=== PATIENT | male | born 1940 | race Caucasian/White ===

== ENCOUNTER 2023-06-05 19:05 | Inpatient (IN) ==
--- NOTE | 2023-06-05 19:13 | Emergency Department Note ---
ED Provider Note History of Present Illness Chief Complaint: Ankle Pain Stated Complaint: L ANKLE FRACTURE Time Seen by Provider: 06/05/23 19:12 This is an 83-year-old gentleman with a history of BPH, back pain, accompanied by his daughter, who was referred to the emergency department by an outside urgent care secondary to a left ankle fracture. Patient states he took a fall 1 to 2 weeks ago while walking on a path and had a little bit of left ankle pain but nothing significant. He also had some back pain for several days after this occurred but this felt similar to prior back pain and his back pain has for the most part improved at this point. 3 days ago he was walking on uneven terrain, stumbled a little bit and caught himself but felt a pop and heard a snap in the left ankle and also rolled his right foot. He had increasing pain in the left ankle and right foot and developed swelling in this area but continued to walk on it. Symptoms persisted so they went to an urgent care today who took x-rays which showed a medial malleolus fracture and a distal fibula fracture. Patient also developed increasing redness around the ankle today. Denies any new numbness or tingling or weakness in his legs or feet. No chest pain or shortness of breath. Does not take blood thinners. Has been on steroids recently for his ongoing back pain and follows with pain management. History of compression fractures at T12, L1, L3, L4 Home Medications Medication Instructions Recorded Confirmed Type tamsulosin 0.4 mg capsule 0.4 mg PO DAILY #30 caps 04/25/23 06/05/23 Rx acetaminophen 650 mg 1,300 mg PO Q12H #120 tabs 05/07/23 06/05/23 Rx tablet,extended release (Tylenol 8 Hour) polyethylene glycol 3350 17 17 g PO BID PRN constipation #238 05/07/23 06/05/23 Rx gram/dose oral powder (Miralax) grams prednisone 20 mg tablet See Rx Instructions .Route 05/25/23 06/05/23 Rx .COMPLEX #20 tabs tramadol 50 mg tablet 100 mg PO Q12H PRN pain #60 tabs 05/25/23 06/05/23 Rx Allergies Allergy/AdvReac Type Severity Reaction Status Date / Time Penicillins Allergy Unknown Verified 05/25/23 15:23 Past Med/Surg History Medical History Compression fracture of lumbar vertebra T12, L1, L3, L4 Lumbar pain Surgical History H/O hernia repair History of appendectomy Total knee replacement status 2004 Family History Father Hypertension Denies family history of Ovarian cancer Prostate cancer Diabetes Myocardial infarction Breast cancer Colorectal cancer Social History Smoking Status: Never smoker Second Hand Exposure: No; Do You Dip or Chew Tobacco: No; Hx Alcohol Use: Yes Alcohol Intake Frequency: Monthly or Less Alcohol Intake Frequency Comment: rarely Hx Substance Use: No Visual Impairment: No Limitations Hearing Ability: Normal File Keeper Required: No Beliefs That Will Affect Care: None marital status: Current Living Situation: Spouse 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 Feels Safe at Home: Yes caffeine: Yes (coffee) Dental Care, Regularly: Yes Physical Activity Frequency: 1-2 Times per Week Physical Activity Frequency Comment: walking helping Seatbelt Use: always Sunscreen Use: Yes Physical Exam Vital Signs Vital Signs - 24 hr 06/05/23 19:07 06/05/23 19:16 06/05/23 22:06 Temperature 96.8 F L Temperature Source Temporal Artery Scan Pulse Rate 66 Pulse Rate [Apical] 70 Pulse Rhythm Regular Pulse Rhythm [Apical] Regular Pulse Strength Normal Respiratory Rate 20 19 19 Respiratory Effort / Characteristics Non-Labored Spontaneous Non-Labored Non-Labored Respiratory Depth Normal Normal Normal Blood Pressure 152/80 H Blood Pressure [Right Arm] 163/78 H Blood Pressure Mean 104 Blood Pressure Mean [Right Arm] 106 Blood Pressure Position Sitting Pulse Oximetry 96 96 97 Oxygen Delivery Method Room Air Room Air Sepsis Recent Fever Within 48 Hours No Sepsis New/Unexplained Change in Mental Status N/A Sepsis Action Taken by Nursing No Action Required CONSTITUTIONAL: Well developed, well nourished, in no acute distress, pleasant. HEAD: Normocephalic, atraumatic. NECK: Full active range of motion. No spinous process tenderness RESPIRATORY: Breathing unlabored and symmetric. Lungs clear to auscultation bilaterally. No wheeze, rales, or rhonchi. CARDIOVASCULAR: Regular rate and rhythm. No murmurs, rubs, or gallops. DP pulses 2+ bilaterally. MUSCULOSKELETAL: Right lower extremity: No edema is noted, no deformities. There is mild tenderness over the lateral malleolus. Tenderness over the fifth metatarsal with associated ecchymosis. Left lower extremity: 3+ pitting edema in lower leg, ankle, foot. No deformities are noted. Skin is erythematous from the mid mae down into the foot. No wounds. Knee full range of motion, no proximal fibular tenderness. Negative squeeze test. There is tenderness in the medial malleolus and distal fibula. Achilles is intact, nontender. Moves all toes. No calf or medial thigh tenderness. Back: No thoracic, lumbar, sacral spinous process tenderness. No step-off deformity. SKIN: [place], warm, dry. NEUROLOGIC: Awake, alert, oriented. Gaze is conjugate. Face symmetric. No sensory deficits in bilateral toes. PSYCHIATRIC: Appropriate. Normal affect. Medical Decision Making Differential Diagnosis Fracture, dislocation, subluxation, contusion, hematoma, sprain, strain, cellulitis, neurovascular injury, DVT, among other pathology Medical Records Attestation: I reviewed the patient's medical records. (Reviewed left ankle x- ray on daughter's cell phone which appears to be a medial malleolus and spiral distal fibula fracture) Laboratory Data 06/05/23 19:41 06/05/23 19:41 Lab Results 06/05/23 06/05/23 Range/Units 19:41 19:41 WBC 7.77 (4.8-10.8) K/ul RBC 5.01 (4.70-6.10) M/uL Hgb 15.9 (14.0-18.0) g/dl Hct 47.8 (42.0-52.0) % MCV 95.4 (80.0-100.0) fL MCH 31.7 (25.0-34.0) pg MCHC 33.3 (32.0-36.0) g/dL RDW Std Deviation 57.6 H (36.4-46.3) fL RDW Coeff of Jose 16.4 H (11.5-14.5) % Plt Count 198 (130-400) K/uL MPV 8.7 L (9.4-12.4) fL Immature Gran % (Auto) 0.4 % Neut % (Auto) 84.1 % Lymph % (Auto) 7.1 % [place] % (Auto) 7.7 % Eos % (Auto) 0.4 % Baso % (Auto) 0.3 % Neut # (Auto) 6.54 H (1.40-6.50) K/uL Lymph # (Auto) 0.55 L (1.2-3.4) K/uL [place] # (Auto) 0.60 H (0.11-0.59) K/uL Eos # (Auto) 0.03 (0-0.50) K/uL Baso # (Auto) 0.02 (0-0.2) K/uL Immature Gran # (Auto) 0.03 (0.01-0.20) K/uL Sodium 139 (136-145) mmol/L Potassium 4.6 (3.5-5.1) mmol/L Chloride 106 (98-107) mmol/L Carbon Dioxide 27 (21-32) mmol/L Anion Gap 6 (3-11) BUN 28 H (6-23) mg/dl Creatinine 0.93 (0.6-1.4) mg/dl Est Cr Clr Drug Dosing 74.4 ml/min Est GFR ( Amer) 87.7 ml/min Est GFR (Non-Af Amer) 75.7 ml/min BUN/Creatinine Ratio 30.1 H (10-20) Glucose 101 H (70-99(Fasting)) mg/dl Calcium 9.5 (8.6-10.3) mg/dl Total Bilirubin 0.9 (0.2-1.0) mg/dl AST 16 (13-39) U/L ALT 13 (7-52) U/L Alkaline Phosphatase 85 (34-104) U/L Total Protein 6.8 (6.0-8.3) gm/dl Albumin 4.1 (3.4-5.0) gm/dl Globulin 2.7 (2.5-4.0) gm/dl Albumin/Globulin Ratio 1.5 (0.9-2) Imaging Data Radiologist's Impression: Venous Doppler Study 06/05/23 19:41 Exam(s): US VENOUS LEFT LOWER EXTREMITY EXAM: US Duplex Left Lower Extremity Veins CLINICAL HISTORY: Reason for exam: ankle injury with leg edema and skin changes. TECHNIQUE: Real-time duplex ultrasound scan of the left lower extremity veins integrating B-mode two-dimensional vascular structure, Doppler spectral analysis, color flow Doppler imaging and compression. COMPARISON: No relevant prior studies available. FINDINGS: Deep veins: Unremarkable. No DVT in the visualized common femoral, femoral, proximal deep femoral or popliteal veins. The veins demonstrate normal color flow, are normally compressible, with normal phasic flow and/or augmentation response. Superficial veins: Unremarkable. No thrombus in the visualized great saphenous vein. Soft tissues: There is a 4.3 x 1.5 x 3.5 cm Clinton's cyst in the left popliteal fossa. IMPRESSION: No evidence of DVT in the left lower extremity. Clinton's cyst in the popliteal fossa measures 4.3 cm. Electronically signed by: Ritesh Zhang MD 06/05/23 21:59 PM MDM Narrative Pleasant 83-year-old gentleman was referred to the emergency department by an outside urgent care related to fracture of the left ankle. See above for further details. Overall patient well-appearing in no acute distress. The left lower leg is quite edematous and there is tenderness in the medial malleolus and distal fibula. Skin is also quite erythematous from the mid mae down into the foot which certainly could be dependency although DVT was considered. Also considered cellulitis though suspect this is less likely (no skin wounds). Patient is also tender over the right fifth metatarsal and lateral ankle with associated ecchymosis though no edema is appreciated. Patient's daughter had taken pictures of the left ankle AP x-ray which shows a medial malleolus and spiral distal fibula fracture. I reviewed this. X-rays of the left tib-fib, ankle, and foot as well as the right ankle and right foot were obtained. Due to the edema and skin color changes in the left leg with a known injury, an ultrasound of the leg was also ordered. IV was inserted and labs were obtained. Labs: No leukocytosis or anemia. Platelets are normal. Creatinine baseline 0.93. No electrolyte disturbances. X-rays initially interpreted by myself demonstrating no additional fractures aside from what appears to be a trimalleolar fracture of the left ankle, pending final radiology reads. Ultrasound is negative for DVT. There is an incidental Clinton's cyst identified Case discussed with Dr. Camacho (orthopedics on-call) and he visualized images of the patient's left ankle, agrees this is a trimalleolar fracture until proven otherwise. He requests a short leg posterior and stirrup splint, elevation with ice for the edema, admission under medicine with orthopedic consult. He will likely be able to operate on this either 06/06/2023 afternoon or the following day (). Case reviewed with ED attending Dr. Disla who is agreeable with this plan. I ordered a chest x-ray for OR planning purposes at time of admission and on my initial evaluation, it does appear that the patient has some blunting of the costophrenic angle with a possible effusion on the left side. No priors available to compare Case discussed with hospitalist Dr. Zhang including the potentially abnormal chest x-ray and she will add a lateral on tomorrow. Patient has no respiratory complaints, this seems to be an incidental finding. She agrees to admit the patient with orthopedic consult. Impression Closed trimalleolar fracture, Abnormal chest x-ray Discharge Plan Visit Data Chief Complaint: Ankle Pain Stated Complaint: L ANKLE FRACTURE ED Provider: Elizabeth Disla ED Midlevel Provider: Deven Minor Discharge Problem: Closed trimalleolar fracture, Abnormal chest x-ray Patient Disposition: Admitted As Inpatient Condition: Good Discharge Instructions Interventions: ED Discharge Assessment Last Done: 06/05/23 23:19 Prescriptions Prescriptions: No Action tamsulosin 0.4 mg capsule 0.4 mg PO DAILY Qty: 30 2RF polyethylene glycol 3350 [Miralax] 17 gram/dose powder 17 g PO BID PRN (Reason: constipation) Qty: 238 2RF acetaminophen [Tylenol 8 Hour] 650 mg tablet extended release 1,300 mg PO Q12H Qty: 120 2RF prednisone 20 mg tablet See Rx Instructions .Route .COMPLEX Qty: 20 0RF Rx Instructions: Three p.o. daily for 3 days then 2 p.o. daily for 3 days then 1 p.o. daily for 3 days then half a tablet p.o. daily for 4 days then DC tramadol 50 mg tablet 100 mg PO Q12H PRN (Reason: pain) Qty: 60 2RF
[2023-06-05 20:08] LABS: Basophils # (auto) 0.02 K/uL (0-0.2); Basophils % (auto) 0.3 %; Eosinophils # (auto) 0.03 K/uL (0-0.50); Eosinophils % (auto) 0.4 %; Hematocrit (blood only) 47.8 % (42.0-52.0); Hemoglobin 15.9 g/dl (14.0-18.0); Immature Granulocytes # (auto) 0.03 K/uL (0.01-0.20); Immature Granulocytes % (auto) 0.4 %; Lymphocytes # (auto) 0.55 K/uL (1.2-3.4); Lymphocytes % (auto) 7.1 %; Mean Corpuscular Hemoglobin 31.7 pg (25.0-34.0); Mean Corpuscular Hgb Conc 33.3 g/dL (32.0-36.0); Mean Corpuscular Volume 95.4 fL (80.0-100.0); Mean Platelet Volume 8.7 fL (9.4-12.4); Monocytes % (auto) 7.7 %; Neutrophils # (auto) 6.54 K/uL (1.40-6.50); Neutrophils % (auto) 84.1 %; Platelet Count 198 K/uL (130-400); RDW Coefficient of Variation 16.4 % (11.5-14.5); RDW Standard Deviation 57.6 fL (36.4-46.3); Red Blood Count 5.01 M/uL (4.70-6.10); White Blood Count 7.77 K/ul (4.8-10.8)
[2023-06-05 20:24] LABS: Albumin Globulin Ratio 1.5 (0.9-2); Albumin Level 4.1 gm/dl (3.4-5.0); BUN Creatinine Ratio 30.1 (10-20); Bilirubin,Total 0.9 mg/dl (0.2-1.0); Calcium 9.5 mg/dl (8.6-10.3); Creatinine Clr Calc Pharmacy 74.4 ml/min; Est GFR (African American) 87.7 ml/min; Est GFR (Non-African American) 75.7 ml/min; Globulin 2.7 gm/dl (2.5-4.0); Potassium 4.6 mmol/L (3.5-5.1); Total Protein 6.8 gm/dl (6.0-8.3)
--- NOTE | 2023-06-05 21:30 | History & Physical Report ---
Date of Service June 05, 2023 Assessment & Plan (1) Closed trimalleolar fracture: Plan: 83yo male presenting with 3 days of progressive pain, swelling and redness of the left ankle after rolling it. Found to have trimalleolar fracture. Patient is NV intact, pain is well controlled. -Admit to medical -Apply ice to LLE -Elevation -Tylenol as needed for pain -Orthopedic consultation - plan for OR in AM tomorrow or possibly next day - will keep patient NPO for now if case OR tomorrow (2) Lumbar pain: Plan: Chronic. Patient is currently on a steroid taper for lumbar pain. He is currently on 20mg daily - he should do 20mg daily x 3 days then 10mg daily x 4 days then DC. -Continue Prednisone 20mg po daily (3) BPH (benign prostatic hyperplasia): Plan: Chronic. Stable -Continue Tamsulosin History of Present Illness Chief Complaint: fracture of the left ankle Primary Care Provider: Marybeth Woods MD Harsha Curry is a pleasant 83yo male with history of BPH, vertebral compression fractures and back pain on chronic steroid therapy presenting with fracture of the left ankle. Approximately 1-2 weeks ago the patient fell. He had some minimal pain in the left ankle. Three days ago he stumbled on some uneven ground and rolled his left ankle. He reports feeling a pop and hearing a snap in the left ankle. He also rolled his right ankle as well. Over the last 3 days, he has been having increasing pain, swelling and redness of the left ankle. He has been having difficulty walking. No additional complaints at this time. In the ER he is afebrile, HD stable Comfortable with no complaint of pain at this time Allergies Allergy/AdvReac Type Severity Reaction Status Date / Time Penicillins Allergy Unknown Verified 05/25/23 15:23 Home Medications Medication Instructions Recorded Confirmed Type tamsulosin 0.4 mg capsule 0.4 mg PO DAILY #30 caps 04/25/23 06/05/23 Rx acetaminophen 650 mg 1,300 mg PO Q12H #120 tabs 05/07/23 06/05/23 Rx tablet,extended release (Tylenol 8 Hour) polyethylene glycol 3350 17 17 g PO BID PRN constipation #238 05/07/23 06/05/23 Rx gram/dose oral powder (Miralax) grams prednisone 20 mg tablet See Rx Instructions .Route 05/25/23 06/05/23 Rx .COMPLEX #20 tabs tramadol 50 mg tablet 100 mg PO Q12H PRN pain #60 tabs 05/25/23 06/05/23 Rx Past Med/Surg History Medical History (Updated 06/05/23 @ 23:52 by Nia Zhang DO) BPH (benign prostatic hyperplasia) Compression fracture of lumbar vertebra T12, L1, L3, L4 Lumbar pain Surgical History H/O hernia repair History of appendectomy Total knee replacement status 2004 Family History Father Hypertension Denies family history of Ovarian cancer Prostate cancer Diabetes Myocardial infarction Breast cancer Colorectal cancer Social History Smoking Status: Never smoker Second Hand Exposure: No; Do You Dip or Chew Tobacco: No; Hx Alcohol Use: Yes Alcohol Intake Frequency: Monthly or Less Alcohol Intake Frequency Comment: rarely Hx Substance Use: No Visual Impairment: No Limitations Hearing Ability: Normal Honey Blender Required: No Beliefs That Will Affect Care: None marital status: Current Living Situation: Spouse 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 Feels Safe at Home: Yes caffeine: Yes (coffee) Dental Care, Regularly: Yes Physical Activity Frequency: 1-2 Times per Week Physical Activity Frequency Comment: walking helping Seatbelt Use: always Sunscreen Use: Yes Review of Systems Review of Systems: All systems reviewed & are unremarkable except as noted in HPI & below Physical Exam Physical Exam: General: patient resting comfortably, NAD, non-toxic in appearance, AA&O x 4 Skin: warm, dry, intact, no rashes or lesions HEENT: NC/AT, PERRL, EOMI, anicteric sclera, conjunctiva without injection, external ear normal to inspection and nontender, nares patent, moist mucus membranes, dentition intact, no oropharyngeal lesions, neck supple, trachea midl ine, no LAD, no thyromegaly, no JVD Heart: +S1/S2, regular, no m/r/g Lungs: equal air entry bilaterally, no rales/rhonchi/wheezes Abd: +BS, soft, NT/ND, no masses/organomegaly/ascites Ext: warm, 2+ pulses in UE/LE bilaterally, no clubbing/cyanosis or edema. LLE with dressing in place - splinting being placed. RLE with some bruising in the lateral foot Neuro: nonfocal, patient AA&O x 4, speech intact, no facial droop, moving all extremities on command with equal strength 5/5 Results & Data Results & Data Vital Signs (Past 12 Hours) Vital Signs Temp Pulse Resp BP Pulse Ox O2 Del Method 06/05/23 19:16 19 96 Room Air 06/05/23 19:07 36 C L 66 20 152/80 H 96 Room Air Laboratory Results Laboratory Results WBC 7.77 K/ul (4.8-10.8) 06/05/23 19:41 RBC 5.01 M/uL (4.70-6.10) 06/05/23 19:41 Hgb 15.9 g/dl (14.0-18.0) 06/05/23 19:41 Hct 47.8 % (42.0-52.0) 06/05/23 19:41 MCV 95.4 fL (80.0-100.0) 06/05/23 19:41 MCH 31.7 pg (25.0-34.0) 06/05/23 19:41 MCHC 33.3 g/dL (32.0-36.0) 06/05/23 19:41 RDW Std Deviation 57.6 fL (36.4-46.3) H 06/05/23 19:41 RDW Coeff of Jose 16.4 % (11.5-14.5) H 06/05/23 19:41 Plt Count 198 K/uL (130-400) 06/05/23 19:41 MPV 8.7 fL (9.4-12.4) L 06/05/23 19:41 Immature Gran % (Auto) 0.4 % 06/05/23 19:41 Neut % (Auto) 84.1 % 06/05/23 19:41 Lymph % (Auto) 7.1 % 06/05/23 19:41 [place] % (Auto) 7.7 % 06/05/23 19:41 Eos % (Auto) 0.4 % 06/05/23 19:41 Baso % (Auto) 0.3 % 06/05/23 19:41 Neut # (Auto) 6.54 K/uL (1.40-6.50) H 06/05/23 19:41 Lymph # (Auto) 0.55 K/uL (1.2-3.4) L 06/05/23 19:41 [place] # (Auto) 0.60 K/uL (0.11-0.59) H 06/05/23 19:41 Eos # (Auto) 0.03 K/uL (0-0.50) 06/05/23 19:41 Baso # (Auto) 0.02 K/uL (0-0.2) 06/05/23 19:41 Immature Gran # (Auto) 0.03 K/uL (0.01-0.20) 06/05/23 19:41 Sodium 139 mmol/L (136-145) 06/05/23 19:41 Potassium 4.6 mmol/L (3.5-5.1) 06/05/23 19:41 Chloride 106 mmol/L (98-107) 06/05/23 19:41 Carbon Dioxide 27 mmol/L (21-32) 06/05/23 19:41 Anion Gap 6 (3-11) 06/05/23 19:41 BUN 28 mg/dl (6-23) H 06/05/23 19:41 Creatinine 0.93 mg/dl (0.6-1.4) 06/05/23 19:41 Est Cr Clr Drug Dosing 74.4 ml/min 06/05/23 19:41 Est GFR ( Amer) 87.7 ml/min 06/05/23 19:41 Est GFR (Non-Af Amer) 75.7 ml/min 06/05/23 19:41 BUN/Creatinine Ratio 30.1 (10-20) H 06/05/23 19:41 Glucose 101 mg/dl (70-99(Fasting)) H 06/05/23 19:41 Calcium 9.5 mg/dl (8.6-10.3) 06/05/23 19:41 Total Bilirubin 0.9 mg/dl (0.2-1.0) 06/05/23 19:41 AST 16 U/L (13-39) 06/05/23 19:41 ALT 13 U/L (7-52) 06/05/23 19:41 Alkaline Phosphatase 85 U/L (34-104) 06/05/23 19:41 Total Protein 6.8 gm/dl (6.0-8.3) 06/05/23 19:41 Albumin 4.1 gm/dl (3.4-5.0) 06/05/23 19:41 Globulin 2.7 gm/dl (2.5-4.0) 06/05/23 19:41 Albumin/Globulin Ratio 1.5 (0.9-2) 06/05/23 19:41 Impressions Venous Doppler Study 06/05/23 19:41 Exam(s): US VENOUS LEFT LOWER EXTREMITY EXAM: US Duplex Left Lower Extremity Veins CLINICAL HISTORY: Reason for exam: ankle injury with leg edema and skin changes. TECHNIQUE: Real-time duplex ultrasound scan of the left lower extremity veins integrating B-mode two-dimensional vascular structure, Doppler spectral analysis, color flow Doppler imaging and compression. COMPARISON: No relevant prior studies available. FINDINGS: Deep veins: Unremarkable. No DVT in the visualized common femoral, femoral, proximal deep femoral or popliteal veins. The veins demonstrate normal color flow, are normally compressible, with normal phasic flow and/or augmentation response. Superficial veins: Unremarkable. No thrombus in the visualized great saphenous vein. Soft tissues: There is a 4.3 x 1.5 x 3.5 cm Clinton's cyst in the left popliteal fossa. IMPRESSION: No evidence of DVT in the left lower extremity. Clinton's cyst in the popliteal fossa measures 4.3 cm. Electronically signed by: Ritesh Zhang MD 06/05/23 21:59 PM PG Care Time/CCT Total # of Minutes Spent Total Time Spent with Patient: Total time spent is greater than 50% in coordination of care (as documented) at patient's floor/unit and/or counseling patient: Coding Level of Care Code 39560 INT INP/OBS CARE 2/55MIN Diagnoses Closed trimalleolar fracture S82.852A Encounter type: initial encounter Laterality: left Lumbar pain M54.50 BPH (benign prostatic hyperplasia) N40.0 (1) Closed trimalleolar fracture Encounter type: initial encounter Laterality: left Qualified Code(s): S82.852A - Displaced trimalleolar fracture of left lower leg, initial encounter for closed fracture
--- NOTE | 2023-06-05 22:00 | Ultrasound Report ---
Exam(s): US VENOUS LEFT LOWER EXTREMITY EXAM: US Duplex Left Lower Extremity Veins CLINICAL HISTORY: Reason for exam: ankle injury with leg edema and skin changes. TECHNIQUE: Real-time duplex ultrasound scan of the left lower extremity veins integrating B-mode two-dimensional vascular structure, Doppler spectral analysis, color flow Doppler imaging and compression. COMPARISON: No relevant prior studies available. FINDINGS: Deep veins: Unremarkable. No DVT in the visualized common femoral, femoral, proximal deep femoral or popliteal veins. The veins demonstrate normal color flow, are normally compressible, with normal phasic flow and/or augmentation response. Superficial veins: Unremarkable. No thrombus in the visualized great saphenous vein. Soft tissues: There is a 4.3 x 1.5 x 3.5 cm Clinton's cyst in the left popliteal fossa. IMPRESSION: No evidence of DVT in the left lower extremity. Clinton's cyst in the popliteal fossa measures 4.3 cm. Electronically signed by: Ritesh Zhang MD 06/05/23 21:59 PM
[2023-06-05] MEDS ORDERED: POLYETHYLENE (MIRALAX) 17 GM PACK PO PRN (23:38)
[2023-06-05] MEDS ORDERED: ONDANSETRON INJ 2 MG/ML 2 ML VIAL IV PRN (23:38)
[2023-06-06] MEDS: ACETAMINOPHEN 325 MG TAB PO PRN ×5 (02:17→23:41)
[2023-06-06] MEDS: predniSONE 20 MG TAB PO SCH (07:32)
[2023-06-06] MEDS: TAMSULOSIN HCL 0.4 MG CAP PO SCH (07:32)
--- NOTE | 2023-06-06 07:35 | Hospitalist Progress Note ---
Date of Service June 06, 2023 Assessment & Plan (1) Closed trimalleolar fracture: Plan: 83yo male presenting with 3 days of progressive pain, swelling and redness of the left ankle after rolling it before [facility] [place] the past [place] with ongoing pain/ambulation difficulty Imaging showed bimalleolar fracture with possible widening of tibiofibular syndesmosis, soft tissue swelling about the ankle noted. Angulation of second MTP may be chronic and degenerative in origin Venous Doppler NEGATIVE for DVT in LLE, noting clinton's cyst in popliteal fossa measuring 4.3cm Splinted in ER Continue ice, elevation Pain control -- only reporting pain w/ ambulation/movement, non at rest Bowel regimen prn Orthopedics consulted for possible surgery today vs tomorrow Continuing NPO for now in case, messaged Dr Camacho this morning to see if possible surgery today vs tomorrow as NPO presently Dry on exam/no IVF, added NSS @ 80cc/hr for now while NPO to prevent dehydration Will need PT/OT consults pending ortho eval/surgery plan No chemical proph in setting of possible surgery today. Will order SCDs for his RLE, LLE in splint presently Monitor labs in AM (2) Lumbar pain: Plan: Chronic. Patient is currently on a steroid taper for lumbar pain. On admission, on 20mg daily -- planning x 3 days, then 10mg daily (starting 8) x 4 days then discontinue (3) BPH (benign prostatic hyperplasia): Plan: Chronic. Stable, no issues reported Continue Tamsulosin Plan continued inpatient stay NPO/IVF while awaiting eval by Dr Camacho. If no planned surgery for today can feed tonight/hold off further IVF and make NPO at midnight. Will keep NPO for now as no response yet by orthopedics. Admission and Anticipated Discharge Date Admission Date: June 05, 2023 Supervising Physician Co-Signing Physician Notes The patient was not seen by me. The chart was reviewed. Case discussed with ERIK Davila. Agree with assessment and plan Subjective eval this morning, doing alright. no pain as long as not walking on it. not seen by orthopedics yet, will message Dr Camacho. NPO at present, mouth dry and asking about swabs, RN to provide. Changed CXR to portable to prevent need to transport down and just needing clearance. No CP/SOB reported. No abdominal pain, nausea. Reported twisting on driveway prior to going to [facility] in [place] and returning Sunday and having issues w/ pain since that time. Bruising noted to his right ankle as well, imaging obtained. Thinks he twisted both ankle w/ initial injury. Questions/concerns addressed at this time. Physical Exam Physical Exam: General: WD/WN male resting in bed, talking with case work aide, NAD at present HEENT: head normocephalic, atraumatic, mm slightly dry, trachea midline Resp: CTA, no w/c/r, on room air CV: RRR, slightly bradycardic at times to the 50s, no significant m/r/g, no pitting edema/calf tenderness GI; +BS, soft/NT : no galvan MSK/Neuro: bruising/ecchymosis to medial/lateral aspect of right foot, slight tenderness to palpation but NVI LEFT LE- dressing/splint in place, cap refull wnl, no clubbing/edema, cap refill wnl Psych: AOx3 , cooperative with examination Results & Data Results & Data Vital Signs (Past 12 Hours) Vital Signs Temp Pulse Pulse Resp BP Pulse Ox O2 Del Method 06/06/23 07:20 36.5 C 64 16 148/75 H 96 Room Air 06/05/23 20:00 36.7 C 69 18 168/85 H 96 Room Air 06/05/23 22:06 70 19 163/78 H 97 Laboratory Results 06/06/23 06/06/23 06/05/23 Range/Units 06:45 06:45 19:41 WBC 6.64 (4.8-10.8) K/ul RBC 4.78 (4.70-6.10) M/uL Hgb 15.2 (14.0-18.0) g/dl Hct 45.0 (42.0-52.0) % MCV 94.1 (80.0-100.0) fL MCH 31.8 (25.0-34.0) pg MCHC 33.8 (32.0-36.0) g/dL RDW Std Deviation 56.6 H (36.4-46.3) fL RDW Coeff of Jose 16.2 H (11.5-14.5) % Plt Count 175 (130-400) K/uL MPV 8.5 L (9.4-12.4) fL Immature Gran % (Auto) % Neut % (Auto) % Lymph % (Auto) % Dale % (Auto) % Eos % (Auto) % Baso % (Auto) % Neut # (Auto) (1.40-6.50) K/uL Lymph # (Auto) (1.2-3.4) K/uL Dale # (Auto) (0.11-0.59) K/uL Eos # (Auto) (0-0.50) K/uL Baso # (Auto) (0-0.2) K/uL Immature Gran # (Auto) (0.01-0.20) K/uL Sodium 141 139 (136-145) mmol/L Potassium 3.6 D 4.6 (3.5-5.1) mmol/L Chloride 105 106 (98-107) mmol/L Carbon Dioxide 30 27 (21-32) mmol/L Anion Gap 6 6 (3-11) BUN 22 28 H (6-23) mg/dl Creatinine 0.77 0.93 (0.6-1.4) mg/dl Est Cr Clr Drug Dosing 89.4 74.4 ml/min Est GFR ( Amer) 97.3 87.7 ml/min Est GFR (Non-Af Amer) 83.9 75.7 ml/min BUN/Creatinine Ratio 28.6 H 30.1 H (10-20) Glucose 97 101 H (70-99(Fasting)) mg/dl Calcium 9.1 9.5 (8.6-10.3) mg/dl Total Bilirubin 0.9 (0.2-1.0) mg/dl AST 16 (13-39) U/L ALT 13 (7-52) U/L Alkaline Phosphatase 85 (34-104) U/L Total Protein 6.8 (6.0-8.3) gm/dl Albumin 4.1 (3.4-5.0) gm/dl Globulin 2.7 (2.5-4.0) gm/dl Albumin/Globulin Ratio 1.5 (0.9-2) /06/20 Range/Units 19:41 WBC 7.77 (4.8-10.8) K/ul RBC 5.01 (4.70-6.10) M/uL Hgb 15.9 (14.0-18.0) g/dl Hct 47.8 (42.0-52.0) % MCV 95.4 (80.0-100.0) fL MCH 31.7 (25.0-34.0) pg MCHC 33.3 (32.0-36.0) g/dL RDW Std Deviation 57.6 H (36.4-46.3) fL RDW Coeff of Jose 16.4 H (11.5-14.5) % Plt Count 198 (130-400) K/uL MPV 8.7 L (9.4-12.4) fL Immature Gran % (Auto) 0.4 % Neut % (Auto) 84.1 % Lymph % (Auto) 7.1 % Dale % (Auto) 7.7 % Eos % (Auto) 0.4 % Baso % (Auto) 0.3 % Neut # (Auto) 6.54 H (1.40-6.50) K/uL Lymph # (Auto) 0.55 L (1.2-3.4) K/uL Dale # (Auto) 0.60 H (0.11-0.59) K/uL Eos # (Auto) 0.03 (0-0.50) K/uL Baso # (Auto) 0.02 (0-0.2) K/uL Immature Gran # (Auto) 0.03 (0.01-0.20) K/uL Sodium (136-145) mmol/L Potassium (3.5-5.1) mmol/L Chloride (98-107) mmol/L Carbon Dioxide (21-32) mmol/L Anion Gap (3-11) BUN (6-23) mg/dl Creatinine (0.6-1.4) mg/dl Est Cr Clr Drug Dosing ml/min Est GFR ( Amer) ml/min Est GFR (Non-Af Amer) ml/min BUN/Creatinine Ratio (10-20) Glucose (70-99(Fasting)) mg/dl Calcium (8.6-10.3) mg/dl Total Bilirubin (0.2-1.0) mg/dl AST (13-39) U/L ALT (7-52) U/L Alkaline Phosphatase (34-104) U/L Total Protein (6.0-8.3) gm/dl Albumin (3.4-5.0) gm/dl Globulin (2.5-4.0) gm/dl Albumin/Globulin Ratio (0.9-2) Diagnostic Findings Ankle X-Ray 06/05/23 19:35 XR tibia fibula LT 2V, XR ankle LT min 3V routine, XR foot LT min 3V routine CLINICAL HISTORY: ankle fracture TECHNIQUE: 2 radiographic views of the left leg, 3 views of the left ankle, and 3 views of the left foot were obtained. Comparison: None available at the time of this dictation. FINDINGS: There is a fracture of the distal fibula above the tibiofibular syndesmosis as well as a fracture of the medial malleolus. There is likely widening of the tibiofibular syndesmosis. Degenerative changes are seen. Soft tissue swelling is seen about the ankle. Angulation of the second MTP joint may be chronic and degenerative in origin. IMPRESSION: Bimalleolar fracture with possible widening of the tibiofibular ACT 112: Negative or not required by law. Electronically signed by: Carter Esteban M.D. 06/06/2023 7:58 AM Ankle X-Ray 06/05/23 19:35 XR ankle RT min 3V routine, XR foot RT min 3V routine CLINICAL HISTORY: injury, lateral malleolus tender TECHNIQUE: 3 views of the right ankle and 3 views of the right foot were obtained. Comparison: None available at the time of this dictation. FINDINGS: No acute fractures are present. Degenerative changes are seen. Subluxation of the second MTP joint is likely degenerative. The ankle mortise is intact. Vascular calcifications are seen. IMPRESSION: Prominent degenerative changes without evidence of acute abnormality. ACT 112: Negative or not required by law. Electronically signed by: Carter Esteban M.D. 06/06/2023 8:02 AM Foot X-Ray 06/05/23 19:35 XR tibia fibula LT 2V, XR ankle LT min 3V routine, XR foot LT min 3V routine CLINICAL HISTORY: ankle fracture TECHNIQUE: 2 radiographic views of the left leg, 3 views of the left ankle, and 3 views of the left foot were obtained. Comparison: None available at the time of this dictation. FINDINGS: There is a fracture of the distal fibula above the tibiofibular syndesmosis as well as a fracture of the medial malleolus. There is likely widening of the tibiofibular syndesmosis. Degenerative changes are seen. Soft tissue swelling is seen about the ankle. Angulation of the second MTP joint may be chronic and degenerative in origin. IMPRESSION: Bimalleolar fracture with possible widening of the tibiofibular ACT 112: Negative or not required by law. Electronically signed by: Carter Esteban M.D. 06/06/2023 7:58 AM Foot X-Ray 06/05/23 19:35 XR ankle RT min 3V routine, XR foot RT min 3V routine CLINICAL HISTORY: injury, lateral malleolus tender TECHNIQUE: 3 views of the right ankle and 3 views of the right foot were obtained. Comparison: None available at the time of this dictation. FINDINGS: No acute fractures are present. Degenerative changes are seen. Subluxation of the second MTP joint is likely degenerative. The ankle mortise is intact. Vascular calcifications are seen. IMPRESSION: Prominent degenerative changes without evidence of acute abnormality. ACT 112: Negative or not required by law. Electronically signed by: Carter Esteban M.D. 06/06/2023 8:02 AM Tibia/Fibula X-Ray 06/05/23 19:35 XR tibia fibula LT 2V, XR ankle LT min 3V routine, XR foot LT min 3V routine CLINICAL HISTORY: ankle fracture TECHNIQUE: 2 radiographic views of the left leg, 3 views of the left ankle, and 3 views of the left foot were obtained. Comparison: None available at the time of this dictation. FINDINGS: There is a fracture of the distal fibula above the tibiofibular syndesmosis as well as a fracture of the medial malleolus. There is likely widening of the tibiofibular syndesmosis. Degenerative changes are seen. Soft tissue swelling is seen about the ankle. Angulation of the second MTP joint may be chronic and degenerative in origin. IMPRESSION: Bimalleolar fracture with possible widening of the tibiofibular ACT 112: Negative or not required by law. Electronically signed by: Carter Esteban M.D. 06/06/2023 7:58 AM Venous Doppler Study 06/05/23 19:41 Exam(s): US VENOUS LEFT LOWER EXTREMITY EXAM: US Duplex Left Lower Extremity Veins CLINICAL HISTORY: Reason for exam: ankle injury with leg edema and skin changes. TECHNIQUE: Real-time duplex ultrasound scan of the left lower extremity veins integrating B-mode two-dimensional vascular structure, Doppler spectral analysis, color flow Doppler imaging and compression. COMPARISON: No relevant prior studies available. FINDINGS: Deep veins: Unremarkable. No DVT in the visualized common femoral, femoral, proximal deep femoral or popliteal veins. The veins demonstrate normal color flow, are normally compressible, with normal phasic flow and/or augmentation response. Superficial veins: Unremarkable. No thrombus in the visualized great saphenous vein. Soft tissues: There is a 4.3 x 1.5 x 3.5 cm Clinton's cyst in the left popliteal fossa. IMPRESSION: No evidence of DVT in the left lower extremity. Clinton's cyst in the popliteal fossa measures 4.3 cm. Electronically signed by: Ritesh Zhang MD 06/05/23 21:59 PM Chest X-Ray 06/05/23 20:55 XR chest 1V portable CLINICAL HISTORY: pre-op admission TECHNIQUE: Single frontal radiograph of the chest was obtained. Comparison: None available at the time of this dictation. FINDINGS: No lines and tubes are seen. Calcified aortic knob is seen. The lungs are clear. No evidence of pleural effusion or pneumothorax. IMPRESSION: No acute chest disease. ACT 112: Negative or not required by law. Electronically signed by: Carter Esteban M.D. 06/06/2023 7:39 AM PG Care Time/CCT Total # of Minutes Spent Total Time Spent with Patient: Total time spent is greater than 50% in coordination of care (as documented) at patient's floor/unit and/or counseling patient: Coding Level of Care Code 45980 SUB INP/OBS CARE 2/35MIN Diagnoses Closed trimalleolar fracture S82.852A Encounter type: initial encounter Laterality: left Lumbar pain M54.50 BPH (benign prostatic hyperplasia) N40.0 (1) Closed trimalleolar fracture Encounter type: initial encounter Laterality: left Qualified Code(s): S82.852A - Displaced trimalleolar fracture of left lower leg, initial encounter for closed fracture
--- NOTE | 2023-06-06 07:41 | XRay Report ---
XR chest 1V portable CLINICAL HISTORY: pre-op admission TECHNIQUE: Single frontal radiograph of the chest was obtained. Comparison: None available at the time of this dictation. FINDINGS: No lines and tubes are seen. Calcified aortic knob is seen. The lungs are clear. No evidence of pleur al effusion or pneumothorax. IMPRESSION: No acute chest disease. ACT 112: Negative or not required by law. Electronically signed by: Carter Esteban M.D. 06/06/2023 7:39 AM
[2023-06-06 07:44] LABS: Hemoglobin 15.2 g/dl (14.0-18.0); Mean Corpuscular Hemoglobin 31.8 pg (25.0-34.0); Mean Corpuscular Hgb Conc 33.8 g/dL (32.0-36.0); Mean Corpuscular Volume 94.1 fL (80.0-100.0); Mean Platelet Volume 8.5 fL (9.4-12.4); Platelet Count 175 K/uL (130-400); RDW Coefficient of Variation 16.2 % (11.5-14.5); RDW Standard Deviation 56.6 fL (36.4-46.3); Red Blood Count 4.78 M/uL (4.70-6.10); White Blood Count 6.64 K/ul (4.8-10.8)
--- NOTE | 2023-06-06 07:59 | XRay Report ---
XR tibia fibula LT 2V, XR ankle LT min 3V routine, XR foot LT min 3V routine CLINICAL HISTORY: ankle fracture TECHNIQUE: 2 radiographic views of the left leg, 3 views of the left ankle, and 3 views of the left f oot were obtained. Comparison: None available at the time of this dictation. FINDINGS: There is a fracture of the distal fibula above the tibiofibular syndesmosis as well as a fracture of the medial malleolus. There is likely widening of the tibiofibular syndesmosis. Degenerative changes are seen. Soft tissue swelling is seen about the ankle. Angulation of the second MTP joint may be chr onic and degenerative in origin. IMPRESSION: Bimalleolar fracture with possible widening of the tibiofibular ACT 112: Negative or not required by law. Electronically signed by: Carter Esteban M.D. 06/06/2023 7:58 AM
[2023-06-06 08:02] LABS: BUN Creatinine Ratio 28.6 (10-20); Calcium 9.1 mg/dl (8.6-10.3); Creatinine Clr Calc Pharmacy 89.4 ml/min; Est GFR (African American) 97.3 ml/min; Est GFR (Non-African American) 83.9 ml/min; Potassium 3.6 mmol/L (3.5-5.1)
--- NOTE | 2023-06-06 08:03 | XRay Report ---
XR ankle RT min 3V routine, XR foot RT min 3V routine CLINICAL HISTORY: injury, lateral malleolus tender TECHNIQUE: 3 views of the right ankle and 3 views of the right foot were obtained. Comparison: None available at the time of this dictation. FINDINGS: No acute fractures are present. Degenerative changes are seen. Subluxation of the second MTP joint is likely degenerative. The ankle mortise is intact. Vascular calcifications are seen. IMPRESSION: Prominent degenerative changes without evidence of acute abnormality. ACT 112: Negative or not required by law. Electronically signed by: Carter Esteban M.D. 06/06/2023 8:02 AM
[2023-06-06] MEDS ORDERED: predniSONE 20 MG TAB PO SCH (09:00)
--- NOTE | 2023-06-06 09:23 | XRay Report ---
XR chest 1V portable CLINICAL HISTORY: pre-op clearance TECHNIQUE: Single frontal radiograph of the chest was obtained. Comparison: Comparison is made to chest radiograph 06/05/2023 FINDINGS: No lines and tubes are seen. Cardiomegaly is noted. The aortic arch is calcified. The lungs are clear . No evidence of pleural effusion or pneumothorax. Degenerative changes are seen in the skeleton. IMPRESSION: No acute chest disease. ACT 112: Negative or not required by law. Electronically signed by: Carter Esteban M.D. 06/06/2023 9:22 AM
[2023-06-06] MEDS: SODIUM CHLORIDE 0.9% 1,000 ML IV SCH ×2 (10:32→23:09)
[2023-06-06] MEDS ORDERED: ASPIRIN 81 MG ECTAB PO ONE (17:55)
--- NOTE | 2023-06-06 17:55 | Communication Note ---
Date of Service: June 06, [address] Camacho, will be in this evening to discuss w/ patient but will attempt to plan for aspirin x 1 dose tonight and plan for surgery in AM. Ordered diet and will make NPO at midnight. Called kitchen to provide tray for this evening as well.
--- NOTE | 2023-06-06 20:06 | Orthopedic Consultation ---
Date of Consultation June 06, 2023 Assessment & Plan (1) Closed trimalleolar fracture: Maintain splint and nonweightbearing left lower extremity. Continue 3 pillow elevation left ankle with 2 bags of ice without fail until time of surgery. Patient will be n.p.o. after midnight for planned surgery ORIF left trimalleolar ankle fracture in the a.m. All potential risks, benefits, alternatives and rehab were discussed the patient and his family. Patient agreed to procedure as indicated. Will initiate ASA 81 mg daily for DVT prophylaxis postop day #1. Conservative management and observation right hindfoot/posterior tibial tendon injury. Thank you for the opportunity to consult in the care of this patient. Peter Camacho [facility] orthopedic [place] [phone] (2) Posterior tibial tendinitis, right leg: (3) Posterior tibial tendon dysfunction, right: History of Present Illness Reason for Consultation: Left ankle trimalleolar displaced fracture with pain and swelling. Inability to ambulate. Attending Physician: Branden Dumont MD History of Present Illness This is a consultation performed at the request of the hospitalist team for this 83-year-old male. He was attending a [facility] service and sustained a twisting injury to his left ankle resulting in pain and swelling and difficulty with ambulation. Patient continued to ambulate on the left ankle with worsening pain and swelling and then presented to [facility] ER. Upon arrival to the patient had x-rays demonstrating a displaced, slightly angulated trimalleolar ankle fracture with subtle widening of the ankle mortise. Patient was then admitted to the hospitalist service due to inability to ambulate, medical comorbidities and other mitigating social circumstances which would not allow him to be safely discharged. Patient has decreased pain to the left ankle after being in the splint with ice and elevation since admission. No other associated symptoms of the left ankle however he does complain of some medial right ankle pain and bruising which is also improved with bed rest. No fevers, chills, chest pain, shortness of breath, nausea, vomiting or diarrhea. Allergies Allergy/AdvReac Type Severity Reaction Status Date / Time Penicillins Allergy Unknown Verified 05/25/23 15:23 Home Medications Medication Instructions Recorded Confirmed Type tamsulosin 0.4 mg capsule 0.4 mg PO DAILY #30 caps 04/25/23 06/05/23 Rx acetaminophen 650 mg 1,300 mg PO Q12H #120 tabs 05/07/23 06/05/23 Rx tablet,extended release (Tylenol 8 Hour) polyethylene glycol 3350 17 17 g PO BID PRN constipation #238 05/07/23 06/05/23 Rx gram/dose oral powder (Miralax) grams prednisone 20 mg tablet See Rx Instructions .Route 05/25/23 06/05/23 Rx .COMPLEX #20 tabs tramadol 50 mg tablet 100 mg PO Q12H PRN pain #60 tabs 05/25/23 06/05/23 Rx Patient History Medical History (Updated 06/06/23 @ 20:02 by Peter Camacho DO) BPH (benign prostatic hyperplasia) Compression fracture of lumbar vertebra T12, L1, L3, L4 Lumbar pain Surgical History H/O hernia repair History of appendectomy Total knee replacement status 2004 Family History Father Hypertension Denies family history of Ovarian cancer Prostate cancer Diabetes Myocardial infarction Breast cancer Colorectal cancer Social History Smoking Status: Never smoker Second Hand Exposure: No; Do You Dip or Chew Tobacco: No; Hx Alcohol Use: No Hx Substance Use: No Preferred Language: Syriac Communication Ability: Effective Visual Impairment: No Limitations Hearing Ability: Normal Expenditure Requisition Clerk Required: No Beliefs That Will Affect Care: None marital status: Current Living Situation: Spouse Current Living Situation Comment: lives in 2 story house with , he is primary caregiver for current occupational status: retired Other Information That Helps Us Care for You: No Feels Safe at Home: Yes Safety Concerns: Feels Safe At This Time caffeine: Yes (coffee) Dental Care, Regularly: Yes Physical Activity Frequency: 1-2 Times per Week Physical Activity Frequency Comment: walking helping Seatbelt Use: always Sunscreen Use: Yes Assistive Devices: Cane and Walker Review of Systems Review of Systems: See above narrative. Physical Exam Physical Exam: Well-nourished, well-hydrated in no acute distress. Family members present at bedside. Constitutional: WD/WN, vitals as above Eyes: PERRL, conjunctivae normal, anicteric sclerae ENMT: external ear and nose normal, oropharynx normal Neck: trachea midline, no thyromegaly Respiratory: normal respiratory effort, lungs clear to auscultation Cardiovascular: RRR, no murmur, no edema Gastrointestinal (Abdomen): normal bowel sounds, soft, nontender, no hepatosplenomegaly Musculoskeletal: Splint is present left lower extremity. Splint in good repair. Toes are visible with brisk capillary refill less than 2 seconds. Dorsalis pedis pulse 2/4. Sensation intact to toes and midfoot with palpation. Positive tenderness to palpation along the lateral malleolus, medial malleolus and posterior malleolus. Limitations in strength and range of motion testing due to splint. Right medial ankle and hindfoot demonstrate mild to moderate ecchymosis with tenderness over the posterior tibial tendon. 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 Skin: no rashes, warm and dry Neurologic: PERRL, EOMI, accommodation nl, no face palsy, no dysarthria Psychiatric: A+Ox3, euthymic affect Lymphatic: no cervical or axillary lymphadenopathy Results & Data Vital Signs (Past 12 Hours) Vital Signs Temp Pulse Resp BP Pulse Ox O2 Del Method 06/06/23 15:20 37.2 C 64 18 157/81 H 94 Room Air Diagnostic Findings Radiographs reviewed left ankle and left tib-fib: I reviewed the images and report and it is my interpretation that the patient has a displaced angulated trimalleolar ankle fracture with subtle widening of the ankle mortise and possible injury of the syndesmosis due to asymmetry at the syndesmosis. There is a subtle blake of bone avulsed from the posterior malleolus. Osteopenia is evident. Left tib-fib radiographs demonstrate trimalleolar ankle fracture as noted above. Moderate osteoarthritis left knee with sclerosis, loss of joint space, marginal osteophytes and varus deformity. No evidence of proximal tib-fib fracture. (1) Closed trimalleolar fracture Encounter type: initial encounter Laterality: left Qualified Code(s): S82.852A - Displaced trimalleolar fracture of left lower leg, initial encounter for closed fracture
[2023-06-07 06:42] LABS: BUN Creatinine Ratio 19.2 (10-20); Calcium 8.9 mg/dl (8.6-10.3); Creatinine Clr Calc Pharmacy 88.2 ml/min; Est GFR (African American) 96.7 ml/min; Est GFR (Non-African American) 83.5 ml/min; Potassium 4.1 mmol/L (3.5-5.1)
[2023-06-07 06:49] LABS: Basophils # (auto) 0.04 K/uL (0-0.2); Basophils % (auto) 0.6 %; Eosinophils # (auto) 0.15 K/uL (0-0.50); Eosinophils % (auto) 2.1 %; Hematocrit (blood only) 46.9 % (42.0-52.0); Hemoglobin 15.7 g/dl (14.0-18.0); Immature Granulocytes # (auto) 0.03 K/uL (0.01-0.20); Immature Granulocytes % (auto) 0.4 %; Lymphocytes # (auto) 0.92 K/uL (1.2-3.4); Mean Corpuscular Hemoglobin 31.5 pg (25.0-34.0); Mean Corpuscular Hgb Conc 33.5 g/dL (32.0-36.0); Mean Corpuscular Volume 94.2 fL (80.0-100.0); Mean Platelet Volume 8.6 fL (9.4-12.4); Monocytes # (auto) 0.45 K/uL (0.11-0.59); Monocytes % (auto) 6.4 %; Neutrophils # (auto) 5.46 K/uL (1.40-6.50); Neutrophils % (auto) 77.5 %; Platelet Count 174 K/uL (130-400); RDW Standard Deviation 55.4 fL (36.4-46.3); Red Blood Count 4.98 M/uL (4.70-6.10); White Blood Count 7.05 K/ul (4.8-10.8)
--- NOTE | 2023-06-07 07:00 | Anesthesiology Consultation ---
Date of Service June 07, 2023 Assessment & Plan (1) Encounter for pre-operative examination: Chart Review Chart Review: Acceptable Risk for Surgery History Surgery Operation Date: 06/07/23 07:00 Proposed Procedures p Open Reduction Internal Fixation Left Ankle Trimalleolar Fracture - Peter Camacho DO Height/Weight Height: 6 ft Weight: 100.868 kg Allergies Allergy/AdvReac Type Severity Reaction Status Date / Time Penicillins Allergy Unknown Verified 05/25/23 15:23 Medications Home Medications Medication Instructions Recorded Confirmed Last Taken tamsulosin 0.4 mg capsule 0.4 mg PO DAILY #30 caps 04/25/23 06/05/23 Unknown acetaminophen 650 mg 1,300 mg PO Q12H #120 tabs 05/07/23 06/05/23 Unknown tablet,extended release (Tylenol 8 Hour) polyethylene glycol 3350 17 17 g PO BID PRN constipation #238 05/07/23 06/05/23 Unknown gram/dose oral powder (Miralax) grams prednisone 20 mg tablet See Rx Instructions .Route 05/25/23 06/05/23 Unknown .COMPLEX #20 tabs tramadol 50 mg tablet 100 mg PO Q12H PRN pain #60 tabs 05/25/23 06/05/23 Unknown Active Medications Generic Name Dose Route Start Last Admin Trade Name Freq PRN Reason Stop Dose Admin Acetaminophen 650 mg 06/05/23 23:38 06/06/23 23:41 Acetaminophen 325 Mg Tab PO 07/05/23 23:37 650 mg Q4H PRN Administration Pain Sodium Chloride 1,000 mls @ 80 mls/hr 06/06/23 09:30 06/06/23 23:09 Nss 1000ml IV 07/06/23 09:29 80 mls/hr .[id number] RUTH Administration Prednisone 20 mg 06/06/23 09:00 06/06/23 07:32 Prednisone 20 Mg Tab PO 06/13/23 08:59 20 mg DAILY RUTH Administration Taper Tamsulosin HCl 0.4 mg 06/06/23 09:00 06/06/23 07:32 Tamsulosin Hcl 0.4 Mg Cap PO 07/06/23 08:59 0.4 mg DAILY RUTH Administration Past Medical History Medical History BPH (benign prostatic hyperplasia) Compression fracture of lumbar vertebra T12, L1, L3, L4 Lumbar pain Past Family History Family History Father Hypertension Denies family history of Ovarian cancer Prostate cancer Diabetes Myocardial infarction Breast cancer Colorectal cancer Past Surgical History Surgical History H/O hernia repair History of appendectomy Total knee replacement status 2005 Social History Smoking Status: Never smoker Do You Dip or Chew Tobacco: No Hx Alcohol Use: No Hx Substance Use: No Physical Exam Vital Signs Last Vital Signs Temp 36.6 C 06/06/23 19:58 Pulse 67 06/06/23 19:58 Resp 18 06/06/23 19:58 BP 148/76 H 06/06/23 19:58 Pulse Ox 96 06/06/23 19:58 O2 Del Method Room Air 06/06/23 19:58 Testing Laboratory Results 06/07/23 05:48 06/07/23 05:48 Electrocardiogram Date: 05/07/23 Findings: + SB @ (58)
[2023-06-07] MEDS ORDERED: PROPOFOL IV EMULSION 10 MG/ML 20 ML VIAL IV ONE ×2 (07:11→10:55)
[2023-06-07] MEDS ORDERED: LIDOCAINE 2% 2 ML VIAL/AMP(20MG/ML) INFIL ONE (07:11)
[2023-06-07] MEDS ORDERED: fentaNYL citrate PF 100 MCG/2 ML VIAL ONE ×2 (07:12→09:53)
[2023-06-07] MEDS ORDERED: MIDAZOLAM HCL 1 MG/ML 2ML VIAL ONE (07:12)
--- NOTE | 2023-06-07 07:42 | Hospitalist Progress Note ---
Date of Service June 07, 2023 Assessment & Plan (1) Closed trimalleolar fracture: Plan: 83yo male presenting with 3 days of progressive pain, swelling and redness of the left ankle after rolling it before going [facility] a [facility] over the past weekend with ongoing pain/ambulation difficulty Imaging showed bimalleolar fracture with possible widening of tibiofibular syndesmosis, soft tissue swelling about the ankle noted. Angulation of second MTP may be chronic and degenerative in origin Venous Doppler NEGATIVE for DVT in LLE, noting castrejon's cyst in popliteal fossa measuring 4.3cm Splinted in ER Orthopedics consulted -- discussed w/ Dr Camacho and given diet last night, NPO this morning. ASA 81mg x 1 s/p Open Reduction Internal Fixation Left Ankle Trimalleolar Fracture 78431 LT, Fluoroscopic Exam Under Anesthesia left ankle 90716 LT, open reduction internal fixation syndesmosis disruption 09770 LT, (Left) - Peter Camacho, . EBL 10cc Pain control -- tylenol ordered, will add oxycodone if needed for more severe pain Bowel regimen-- adding miralax/senna/docusate. +BS on exam, last BM reported sunday DC IVF post-op once taking PO PT/OT consults placed DVT proph: ASA 81mg daily to begin tomorrow per Dr Camacho Monitor labs in AM (2) Lumbar pain: Plan: Chronic. Patient is currently on a steroid taper for lumbar pain. On admission, on 20mg daily -- planning x 3 days, then 10mg daily (starting 06/09) x 4 days then discontinue (3) BPH (benign prostatic hyperplasia): Plan: Chronic. Stable, no issues reported Continue Tamsulosin Plan continued inpatient stay PT/OT consults to be undertaken Admission and Anticipated Discharge Date Admission Date: June 05, 2023 Supervising Physician Co-Signing Physician Notes The patient was not seen by me. The chart was reviewed. Case discussed with ERIK Davila. Agree with assessment and plan Subjective Eval post-op, doing well. No sensation to his foot at present due to nerve block and will monitor. cap refill wnl. Not yet eating, some sore throat from airway w/ surgery. instructed to ask for cough drops if needed. No fever/chills, chest pain, shortness of breath, abdominal pain, nausea or vomiting. Last BM reported on Sunday. Will increase bowel regimen. Will need PT/OT consultations. Questions/concerns addressed at this time. Review of Systems Review of Systems: All systems reviewed & are unremarkable except as noted in HPI & below Physical Exam Physical Exam: General: WD/WN male resting in bed post-op, NAD HEENT: head normocephalic, atraumatic, mmm, trachea midline Resp: CTA, no w/c/r, on 1L post op, no cough or tachypnea CV: RRR, no significant m/r/g, no pitting edema/calf tenderness GI; +BS, soft/NT : no galvan MSK/Neuro: bruising/ecchymosis to medial/lateral aspect of right foot, slight tenderness to palpation but NVI LEFT LE- dressing/splint in place, cap refill wnl, lack of motor function directly post op suspected from nerve block Psych: AOx3 , cooperative with examination Results & Data Results & Data Vital Signs (Past 12 Hours) Vital Signs Temp Pulse Resp BP Pulse Ox O2 Del Method 06/06/23 19:58 36.6 C 67 18 148/76 H 96 Room Air Laboratory Results 06/07/23 06/07/23 Range/Units 05:48 05:48 WBC 7.05 (4.8-10.8) K/ul RBC 4.98 (4.70-6.10) M/uL Hgb 15.7 (14.0-18.0) g/dl Hct 46.9 (42.0-52.0) % MCV 94.2 (80.0-100.0) fL MCH 31.5 (25.0-34.0) pg MCHC 33.5 (32.0-36.0) g/dL RDW Std Deviation 55.4 H (36.4-46.3) fL RDW Coeff of Jose 16.0 H (11.5-14.5) % Plt Count 174 (130-400) K/uL MPV 8.6 L (9.4-12.4) fL Immature Gran % (Auto) 0.4 % Neut % (Auto) 77.5 % Lymph % (Auto) 13.0 % Keith % (Auto) 6.4 % Eos % (Auto) 2.1 % Baso % (Auto) 0.6 % Neut # (Auto) 5.46 (1.40-6.50) K/uL Lymph # (Auto) 0.92 L (1.2-3.4) K/uL Keith # (Auto) 0.45 (0.11-0.59) K/uL Eos # (Auto) 0.15 (0-0.50) K/uL Baso # (Auto) 0.04 (0-0.2) K/uL Immature Gran # (Auto) 0.03 (0.01-0.20) K/uL Sodium 141 (136-145) mmol/L Potassium 4.1 (3.5-5.1) mmol/L Chloride 106 (98-107) mmol/L Carbon Dioxide 30 (21-32) mmol/L Anion Gap 5 (3-11) BUN 15 (6-23) mg/dl Creatinine 0.78 (0.6-1.4) mg/dl Est Cr Clr Drug Dosing 88.2 ml/min Est GFR ( Amer) 96.7 ml/min Est GFR (Non-Af Amer) 83.5 ml/min BUN/Creatinine Ratio 19.2 (10-20) Glucose 93 (70-99(Fasting)) mg/dl Calcium 8.9 (8.6-10.3) mg/dl Magnesium 2.0 (1.7-2.4) mg/dl Diagnostic Findings Ankle X-Ray 06/07/23 07:00 FL ankle LT 2V CLINICAL HISTORY: LT ANKLE ORIF TECHNIQUE: 2 views were obtained with the C-arm in the OR with the above procedure. Total fluoroscopy time was 61 seconds. Radiation dose was 149 mGy. Comparison: Comparison is made to left ankle radiograph 06/05/2023 FINDINGS/IMPRESSION: Intraoperative images were obtained of open reduction internal fixation of trimalleolar fracture. Please correlate with intraoperative fluoroscopy and operative report. ACT 112: Negative or not required by law. Electronically signed by: Carter Esteban M.D. 06/07/2023 11:45 AM PG Care Time/CCT Total # of Minutes Spent Total Time Spent with Patient: Total time spent is greater than 50% in coordination of care (as documented) at patient's floor/unit and/or counseling patient: Coding Level of Care Code 39035 SUB INP/OBS CARE 3/50MIN Diagnoses Closed trimalleolar fracture S82.852A Encounter type: initial encounter Laterality: left Lumbar pain M54.50 BPH (benign prostatic hyperplasia) N40.0 (1) Closed trimalleolar fracture Encounter type: initial encounter Laterality: left Qualified Code(s): S82 .852A - Displaced trimalleolar fracture of left lower leg, initial encounter for closed fracture
--- NOTE | 2023-06-07 07:46 | History & Physical Bridge Note ---
Date of Service June 07, 2023 History & Physical Bridge Note I have examined the patient, reviewed the History & Physical and in the interval since the performance of the History & Physical I have noted the following changes of clinical significance: no changes noted
[2023-06-07] MEDS ORDERED: ATROPINE SULFATE 0.1 MG/ML 10ML SYR IV PRN (08:04)
[2023-06-07] MEDS ORDERED: ONDANSETRON INJ 2 MG/ML 2 ML VIAL IV PRN (08:04)
[2023-06-07] MEDS ORDERED: KETOROLAC 30 MG/ML VIAL IV PRN (08:04)
[2023-06-07] MEDS ORDERED: PROMETHAZINE HCL 6.25 MG in SODIUM CHLORIDE 0.9% 50 ML IV PRN (08:04)
[2023-06-07] MEDS ORDERED: fentaNYL citrate PF 100 MCG/2 ML VIAL IV PRN (08:04)
[2023-06-07] MEDS ORDERED: ceFAZolin 2,000 MG/15 ML IV PUSH IV ONE (08:10)
[2023-06-07] MEDS ORDERED: ceFAZolin 2000MG 2,000 MG/15 ML SYR IV ONE (08:13)
[2023-06-07] MEDS ORDERED: DEXAMETHASONE SOD INJ 4 MG/ML VIAL ONE (09:24)
[2023-06-07] MEDS ORDERED: ePHEDrine sulfate 50 MG/ML AMP ONE (09:24)
[2023-06-07] MEDS ORDERED: ROCURONIUM BROMIDE 10 MG/ML 5 ML VIAL IV ONE (09:24)
[2023-06-07] MEDS ORDERED: ONDANSETRON INJ 2 MG/ML 2 ML VIAL ONE (09:24)
[2023-06-07] MEDS ORDERED: PHENYLEPHRINE HCL 10 MG/ML VIAL ONE (09:24)
[2023-06-07] MEDS ORDERED: GLYCOPYRROLATE 0.2 MG/ML VIAL ONE (10:00)
[2023-06-07] MEDS ORDERED: NEOSTIGMINE METHYLSULFATE 1 MG/ML 10ML VIAL ONE (10:00)
[2023-06-07] MEDS ORDERED: ESMOLOL HCL INJ 10 MG/ML 10ML VIAL IV ONE (10:13)
--- NOTE | 2023-06-07 10:56 | Operative Report ---
Post Operative Report Pre & Post Diagnosis Operation Date: 06/07/23 07:00 Pre-Op Diagnosis: LEFT TRIMALLEOLAR ANKLE FRACTURE 82.852A, SYNDESMOTIC DISRUPTION 93.432A Post-Op Diagnosis: LEFT TRIMALLEOLAR ANKLE FRACTURE, SYNDESMOTIC DISRUPTION I identified the patient and participated in the time-out.: Yes Procedure Operation Date: 06/07/23 07:00 Actual Procedures p Open Reduction Internal Fixation Left Ankle Trimalleolar Fracture 56360 LT, Fluoroscopic Exam Under Anesthesia left ankle 00145 LT, open reduction internal fixation syndesmosis disruption 47685 LT, (Left) - Peter Camacho DO Surgeon Peter Camacho DO [employer] None Estimated Blood Loss 10 Findings Consistent with Post-Op Diagnosis Specimens None Drains None Anesthesia Type General Regional Complications none Disposition Accompanied Patient To Recovery: No Indications This 83-year-old gentleman twisted his left ankle severely when attending a [facility]. He had immediate pain, swelling and difficulty with ambulation. Finally after worsening in limping and increased pain and swelling over 3 days the patient presented to the emergency department where radiographs demonstrated a displaced, angulated trimalleolar ankle fracture with syndesmotic disruption. Patient was admitted to the hospitalist service, optimized for surgery and then scheduled for surgery as indicated. Description of Procedure All potential risks, benefits, complications, alternatives, rehab, need for further surgery, potential for incomplete relief of symptoms, need for further surgery, neurovascular injury, DVT, PE, , stiffness, weakness, loss of function, persistent pain, swelling, numbness, bone fracture, complications from hardware, nonunion, malunion and wound complications were discussed with the patient and family. The patient and family decided to proceed with the procedure as indicated. The patient was given a popliteal block in the preop ho lding area and then taken to the operative suite and placed supine on the operating table. I did review the consent and identification the proper operative site patient was anesthetized and LMA was placed. A tourniquet was applied high on the operative left thigh over cast padding. The operative left lower extremity was then sterilely prepped and draped in usual fashion, elevated and exsanguinated with an Esmarch bandage. The tourniquet was inflated to 350 mmHg. A 15 blade scalpel was used to make an incision over the lateral malleolus. Incision was deepened to subcutaneous tissue. Meticulous hemostasis was achieved left cautery. Sensory cutaneous nerves identified freed retracted and protected. The fracture was then visualized and a 15 blade was used to elevate the periosteum at the fracture site extending proximally and distally for visualization. Next the fracture was then carefully irrigated and debrided. A small dental pick was used to remove clot from the fracture. The fracture was then reduced using bone reducing forceps. After fluoroscopic confirmation of near-anatomic reduction a 3.5 mm lag screw was placed across the fracture for direct fracture fixation in near anatomic alignment. Synthes locking one third tubular plate was then contoured and then firmly affixed to the lateral aspect of the fibula using multiple bone screws. This stabilized and compressed the fracture. Fluoroscopic images used to confirm reduction and fixation. Next attention was directed to the medial malleolus. Next the medial malleolar fracture fragment was then percutaneously reduced under direct visualization held in place using a dental pick. Next two 1.25 mm guide pins were placed into the fracture fragment stabilizing into the rest of the distal tibia. This was performed under live fluoroscopic assistance. Next two 4.0 cannulated screws of appropriate length were applied over the guidepins and used to stabilize the fracture fragment in near-anatomic position. Next stress fluoroscopic views were obtained using live fluoroscopic assistance noting widening of the medial gutter and instability of the syndesmosis indicating syndesmotic disruption. Next a single solid stainless steel 4.5 mm syndesmotic screw was passed through the fibula and into the tibia under live fluoroscopic assistance. This stabilized the ankle joint syndesmosis and closed the medial clear space and the syndesmosis to near-anatomic position with a symmetric ankle mortise. The posterior malleolar fragment was noted to be anatomically reduced. Next final radiographs were obtained using AP and lateral fluoroscopic views. Next all incisions were irrigated with copious amounts sterile normal saline until clear. Lateral soft tissue was then closed over the lateral plate with 2-0 Vicryl. The dermis is closed using buried interrupted 3-0 Vicryl and skin is closed using Dermabond. The small percutaneous medial incisions were closed using interrupted 4-0 nylon suture. A sterile compressive dressing and bulky Branden Andrew plaster splint was applied overwrapped with an All wrap. The tourniquet was released, the patient was awakened and taken to recovery in stable conditio n. I attest to the content of the Intraoperative Record and any orders documented therein. Any exceptions are noted below.
--- NOTE | 2023-06-07 11:47 | Fluoroscopy Report ---
FL ankle LT 2V CLINICAL HISTORY: LT ANKLE ORIF TECHNIQUE: 2 views were obtained with the C-arm in the OR with the above procedure. Total fluoroscopy time was 61 seconds. Radiation dose was 149 mGy. Comparison: Comparison is made to left ankle radiograph 06/05/2023 FINDINGS/IMPRESSION: Intraoperative images were obtained of open reduction internal fixation of trima lleolar fracture. Please correlate with intraoperative fluoroscopy and operative report. ACT 112: Negative or not required by law. Electronically signed by: Carter Esteban M.D. 06/07/2023 11:45 AM
--- NOTE | 2023-06-07 11:49 | Anesthesiology Progress Note ---
Date of Service June 07, 2023 Anesthesia Post Procedure Vital Signs Vital Signs: Temp Pulse Pulse Resp BP Pulse Ox O2 Del Method 06/07/23 11:40 70 13 126/70 95 Nasal Cannula 06/07/23 11:30 36.5 C 71 20 129/62 94 Room Air 06/07/23 11:20 74 17 137/67 96 Oxymask 06/07/23 11:05 70 18 134/68 95 Oxymask 06/07/23 10:58 36.3 C L 76 18 133/70 95 Oxymask 06/07/23 08:00 36.8 C 63 18 191/97 H 95 Room Air 06/06/23 19:58 36.6 C 67 18 148/76 H 96 Room Air 06/06/23 15:20 37.2 C 64 18 157/81 H 94 Room Air O2 Flow Rate 06/07/23 11:40 2 06/07/23 11:30 06/07/23 11:20 4 06/07/23 11:05 6 06/07/23 10:58 8 06/07/23 08:00 06/06/23 19:58 06/06/23 15:20 Pain Intensity Left Ankle: Pain Intensity: 4 Transfer of Care Handoff Completed per policy Notes Mental Status: alert / awake / arousable Patient Amnestic to Procedure: Yes Nausea / Vomiting: adequately controlled Pain: adequately controlled Airway Patency, RR, SpO2: stable & adequate BP & HR: stable & adequate Hydration State: stable & adequate Anesthetic Complications: no major complications apparent
[2023-06-07] MEDS: TAMSULOSIN HCL 0.4 MG CAP PO SCH (12:51)
[2023-06-07] MEDS: predniSONE 20 MG TAB PO SCH (12:51)
[2023-06-07] MEDS: SODIUM CHLORIDE 0.9% 1,000 ML IV SCH (12:52)
[2023-06-07] MEDS: DOCUSATE SODIUM/SENNA 50/8.6MG TAB PO SCH (14:34)
[2023-06-07] MEDS: ceFAZolin 2000MG 2,000 MG/15 ML SYR IV SCH ×2 (15:41→23:52)
[2023-06-07] MEDS ORDERED: COUGH DROP (SUGAR FREE) LOZ 24 LOZ/1 BOX BUCCAL PRN (15:50)
[2023-06-07] MEDS ORDERED: Nursing to Pharmacy Communication SCH (16:00)
[2023-06-07] MEDS: ACETAMINOPHEN 325 MG TAB PO PRN (21:48)
[2023-06-07] MEDS: POLYETHYLENE (MIRALAX) 17 GM PACK PO SCH (21:48)
[2023-06-08] MEDS: oxyCODONE HCL IR 5 MG TAB (IMMEDIATE RELEASE) PO PRN ×4 (03:43→22:08)
[2023-06-08] MEDS: ACETAMINOPHEN 325 MG TAB PO PRN ×2 (05:10→17:01)
--- NOTE | 2023-06-08 07:49 | Hospitalist Progress Note ---
Date of Service June 08, 2023 Assessment & Plan (1) Closed trimalleolar fracture: Plan: 83yo male presenting with 3 days of progressive pain, swelling and redness of the left ankle after rolling it before going to a [facility] over the past weekend with ongoing pain/ambulation difficulty Imaging showed bimalleolar fracture with possible widening of tibiofibular syndesmosis, soft tissue swelling about the ankle noted. Angulation of second MTP may be chronic and degenerative in origin Venous Doppler NEGATIVE for DVT in LLE, noting castrejon's cyst in popliteal fossa measuring 4.3cm Orthopedics consulted -- discussed w/ Dr Camacho and given diet last night, NPO this morning. ASA 81mg x 1 POD# 1 s/p Open Reduction Internal Fixation Left Ankle Trimalleolar Fracture 88614 LT, Fluoroscopic Exam Under Anesthesia left ankle 99168 LT, open reduction internal fixation syndesmosis disruption 36651 LT, (Left) - Peter Camacho, . EBL 10cc Pain control -- Tylenol ordered, added oxycodone if needed for more severe pain Bowel regimen-- adding miralax/senna/docusate. +BS on exam, last BM reported sunday DVT proph: ASA 81mg daily per Dr Camacho, starting today 06/08 WBC wnl, hgb stable on repeat. Electrolytes acceptable PT/OT consults placed and recs for rehab. going to somewhere short term while he is in rehab. Discussed w/ CM and [facility] without bed until Sunday. Therapy to see Sunday and can go to [facility] Sunday if auth obtained (2) Lumbar pain: Plan: Chronic. Patient is currently on a steroid taper for lumbar pain. On admission, on 20mg daily -- planning x 3 days, then 10mg daily (starting 06/09) x 4 days then discontinue (3) BPH (benign prostatic hyperplasia): Plan: Chronic. Stable, no issues reported Continue Tamsulosin Plan continued inpatient stay, needing rehab bowel regimen Admission and Anticipated Discharge Date Admission Date: June 05, 2023 Supervising Physician Co-Signing Physician Notes The patient was not seen by me. The chart was reviewed. Case discussed with ERIK Davila. Agree with assessment and plan Subjective eval this morning, up in chair. doing well. pain controlled, nerve block wore off and he is able to feel toes and wiggle them. eating/drinking, passing gas but no BM. Reports getting bowel regimen and thinking it will happen soon. He is hopeful for rehab at [place], family looking to short term care for his in the meantime while he is in rehab. No fevers, chills, chest pain, shortness of breath, abdominal pain , nausea or other issue at this time. Questions/concerns addressed. Physical Exam Physical Exam: General: WD/WN male sitting up in chair, NAD, appearing improved, leg elevated on stool HEENT: head normocephalic, atraumatic, mmm, trachea midline Resp: CTA, no w/c/r, on room air CV: RRR, no significant m/r/g, no pitting edema/calf tenderness GI; +BS, soft/NT, slight distension : no galvan MSK/Neuro: bruising/ecchymosis to medial/lateral aspect of right foot, slight tenderness to palpation but NVI, improving pain control LEFT ankle/leg with dressing/cast c/d/i, toes mobile, cap refill wnl Psych: AOx3 , cooperative with examination Results & Data Results & Data Vital Signs (Past 12 Hours) Vital Signs Temp Pulse Resp BP Pulse Ox O2 Del Method 06/08/23 06:54 37 C 60 18 159/83 H 94 Room Air 06/08/23 03:40 36.6 C 66 17 162/78 H 94 Room Air 06/07/23 23:53 37.2 C 65 16 136/73 94 Room Air Laboratory Results 06/08/23 06/08/23 Range/Units 07:42 07:42 WBC 10.00 (4.8-10.8) K/ul RBC 4.61 L (4.70-6.10) M/uL Hgb 14.8 (14.0-18.0) g/dl Hct 44.2 (42.0-52.0) % MCV 95.9 (80.0-100.0) fL MCH 32.1 (25.0-34.0) pg MCHC 33.5 (32.0-36.0) g/dL RDW Std Deviation 56.1 H (36.4-46.3) fL RDW Coeff of Jose 15.9 H (11.5-14.5) % Plt Count 176 (130-400) K/uL MPV 8.8 L (9.4-12.4) fL Sodium 137 (136-145) mmol/L Potassium 4.3 (3.5-5.1) mmol/L Chloride 104 (98-107) mmol/L Carbon Dioxide 30 (21-32) mmol/L Anion Gap 3 (3-11) BUN 18 (6-23) mg/dl Creatinine 0.68 (0.6-1.4) mg/dl Est Cr Clr Drug Dosing 101.2 ml/min Est GFR ( Amer) 102.4 ml/min Est GFR (Non-Af Amer) 88.3 ml/min BUN/Creatinine Ratio 26.5 H (10-20) Glucose 110 H (70-99(Fasting)) mg/dl Calcium 8.9 (8.6-10.3) mg/dl Magnesium 2.0 (1.7-2.4) mg/dl PG Care Time/CCT Total # of Minutes Spent Total Time Spent with Patient: Total time spent is greater than 50% in coordination of care (as documented) at patient's floor/unit and/or counseling patient: Coding Level of Care Code 66996 SUB INP/OBS CARE MIN Diagnoses Closed trimalleolar fracture S82.852A Encounter type: initial encounter Laterality: left Lumbar pain M54.50 BPH (benign prostatic hyperplasia) N40.0 (1) Closed trimalleolar fracture Encounter type: initial encounter Laterality: left Qualified Code(s): S82.852A - Displaced trimalleolar fracture of left lower leg, initial encounter for closed fracture
[2023-06-08 08:05] LABS: Hematocrit (blood only) 44.2 % (42.0-52.0); Hemoglobin 14.8 g/dl (14.0-18.0); Mean Corpuscular Hemoglobin 32.1 pg (25.0-34.0); Mean Corpuscular Hgb Conc 33.5 g/dL (32.0-36.0); Mean Corpuscular Volume 95.9 fL (80.0-100.0); Mean Platelet Volume 8.8 fL (9.4-12.4); Platelet Count 176 K/uL (130-400); RDW Coefficient of Variation 15.9 % (11.5-14.5); RDW Standard Deviation 56.1 fL (36.4-46.3); Red Blood Count 4.61 M/uL (4.70-6.10)
[2023-06-08] MEDS: ASPIRIN 81 MG ECTAB PO SCH (08:08)
[2023-06-08] MEDS: TAMSULOSIN HCL 0.4 MG CAP PO SCH (08:08)
[2023-06-08] MEDS: POLYETHYLENE (MIRALAX) 17 GM PACK PO SCH ×2 (08:09→22:08)
[2023-06-08] MEDS: predniSONE 20 MG TAB PO SCH (08:09)
[2023-06-08] MEDS: DOCUSATE SODIUM/SENNA 50/8.6MG TAB PO SCH (08:09)
[2023-06-08 08:28] LABS: BUN Creatinine Ratio 26.5 (10-20); Calcium 8.9 mg/dl (8.6-10.3); Creatinine Clr Calc Pharmacy 101.2 ml/min; Est GFR (African American) 102.4 ml/min; Est GFR (Non-African American) 88.3 ml/min; Potassium 4.3 mmol/L (3.5-5.1)
--- NOTE | 2023-06-08 13:05 | Orthopedic Progress Note ---
Date of Service June 08, 2023 Assessment & Plan (1) Closed trimalleolar fracture: Plan: Postoperative day #1 status post ORIF trimalleolar left ankle fracture, syndesmotic repair and examination under anesthesia with fluoroscopy left ankle. Maintain splint and nonweightbearing left lower extremity. Continue 3 pillow elevation left ankle with 2 bags of ice. Continue ASA 81 mg daily for DVT prophylaxis x 4 weeks unless other preferences from internal medicine service. Continue physical therapy/Occupational Therapy. May discharge from hospital once post discharge care plan is finalized by social service department. Appreciate input. Conservative management and observation right hindfoot/posterior tibial tendon injury. Thank you for the opportunity to consult in the care of this patient. Peter Camacho DO [facility] orthopedic [place] [phone] (2) Posterior tibial tendinitis, right leg: (3) Posterior tibial tendon dysfunction, right: Admission and Anticipated Discharge Date Admission Date: June 05, 2023 Subjective Patient was seen and examined in bedside chair. Awake and alert. He is soon to perform physical therapy nonweightbearing on the left lower extremity. Nerve block wore off last evening and has better pain control now. Physical Exam Musculoskeletal: Patient sitting up at bedside in bedside chair. He is awake and alert. Splint is intact and elevated on a footstool with 2 ice packs wrapped around it. Toes are pink and warm. Capillary refill less than 2 seconds. Sensation intact to the toes. Splint is in good repair. No strikethrough no obvious bleeding. No calf tenderness. Neurologic: PERRL, EOMI, accommodation nl, no face palsy, no dysarthria Psychiatric: A+Ox3, euthymic affect Results & Data Vital Signs (Past 12 Hours) Vital Signs Temp Pulse Resp BP Pulse Ox O2 Del Method 06/08/23 10:55 37 C 61 16 130/80 94 Room Air 06/08/23 06:54 37 C 60 18 159/83 H 94 Room Air 06/08/23 03:40 36.6 C 66 17 162/78 H 94 Room Air Diagnostic Findings Postoperative radiographs reviewed noting near-anatomic alignment with internal fixation. (1) Closed trimalleolar fracture Encounter type: initial encounter Laterality: left Qualified Code(s): S82.852A - Displaced trimalleolar fracture of left lower leg, initial encounter for closed fracture
[2023-06-09] MEDS: ACETAMINOPHEN 325 MG TAB PO PRN ×4 (02:07→21:04)
--- NOTE | 2023-06-09 07:57 | Hospitalist Progress Note ---
Date of Service June 09, 2023 Assessment & Plan (1) Closed trimalleolar fracture: Plan: 83yo male presenting with 3 days of progressive pain, swelling and redness of the left ankle after rolling it before going [place] a [place] over the past weekend with ongoing pain/ambulation difficulty Imaging showed bimalleolar fracture with possible widening of tibiofibular syndesmosis, soft tissue swelling about the ankle noted. Angulation of second MTP may be chronic and degenerative in origin Venous Doppler NEGATIVE for DVT in LLE, noting castrejon's cyst in popliteal fossa measuring 4.3cm Orthopedics consulted -- discussed w/ Dr Camacho and given diet last night, NPO this morning. ASA 81mg x 1 POD# 2 s/p Open Reduction Internal Fixation Left Ankle Trimalleolar Fracture 57609 LT, Fluoroscopic Exam Under Anesthesia left ankle 75209 LT, open reduction internal fixation syndesmosis disruption 40704 LT, (Left) - Peter Camacho, DO. EBL 10cc Continue 3 pillow elevation left ankle with 2 bags of ice. Pain control w/ tylenol, oxycodone. He would like to try tramadol to reduce constipation issues he gets with oxycodone. Order placed and will monitor response Bowel regimen-- adding miralax/senna/docusate. +BS on exam, last BM reported Sunday. Adding dulcolax. Suppository/enema if needed ASA 81mg daily for DVT prophylaxis x [address] Camacho WBC wnl, hgb stable on repeat. Electrolytes acceptable on recent check *Conservative management/observation right hindfoot/posterior tibial tendon injury PT/OT consults placed and recs for rehab. going to somewhere short term while he is in rehab. Discussed w/ CM and [facility] without bed until Sunday. Therapy to see Sunday and can go to [facility] Sunday if auth obtained (2) Lumbar pain: Plan: Chronic. Patient is currently on a steroid taper for lumbar pain. On admission, on 20mg daily -- planning x 3 days, then 10mg daily (starting 06/09) x 4 days then discontinue (3) BPH (benign prostatic hyperplasia): Plan: Chronic. Stable, no issues reported Continue Tamsulosin Plan continued inpatient stay, needing rehab bowel regimen Admission and Anticipated Discharge Date Admission Date: June 05, 2023 Supervising Physician Co-Signing Physician Notes The patient was not seen by me. The chart was reviewed. Case discussed with ERIK Davila. Agree with assessment and plan Subjective Eval this morning, doing well. Was trying to use tylenol for pain to prevent being backed up w/ prior issues w/ oxy but has required. Pain currently controlled. Discussed trying some tramadol, he woulud like this. Getting bowel regimen, passing gas. Added dulcolax today. No abdominal pain but feels like he has to move his bowels. Anticipating hopeful rehab to [place] on Sunday. No fever/chills, chest pain, shortness of breath or other issue reported at this time. Questions/concerns addressed. Physical Exam Physical Exam: General: WD/WN male sitting up in bed, NAD, leg elevated HEENT: head normocephalic, atraumatic, mmm, trachea midline Resp: CTA, no w/c/r, on room air CV: RRR, no significant m/r/g, no pitting edema/calf tenderness GI; +BS, slight distension, nontender : no galvan MSK/Neuro: bruising/ecchymosis to medial/lateral aspect of right foot, slight tenderness to palpation but NVI, improving pain control LEFT ankle/leg with dressing/cast c/d/i, toes mobile, cap refill wnl Psych: AOx3 , cooperative with examination Results & Data Results & Data Vital Signs (Past 12 Hours) Vital Signs Temp Pulse Resp BP Pulse Ox O2 Del Method 06/09/23 07:17 36.9 C 59 L 18 161/83 H 94 Room Air 06/08/23 22:10 Room Air 06/08/23 20:13 36.9 C 60 18 160/78 H 93 Room Air Laboratory Results 06/08/23 06/08/23 Range/Units 07:42 07:42 WBC 10.00 (4.8-10.8) K/ul RBC 4.61 L (4.70-6.10) M/uL Hgb 14.8 (14.0-18.0) g/dl Hct 44.2 (42.0-52.0) % MCV 95.9 (80.0-100.0) fL MCH 32.1 (25.0-34.0) pg MCHC 33.5 (32.0-36.0) g/dL RDW Std Deviation 56.1 H (36.4-46.3) fL RDW Coeff of Jose 15.9 H (11.5-14.5) % Plt Count 176 (130-400) K/uL MPV 8.8 L (9.4-12.4) fL Sodium 137 (136-145) mmol/L Potassium 4.3 (3.5-5.1) mmol/L Chloride 104 (98-107) mmol/L Carbon Dioxide 30 (21-32) mmol/L Anion Gap 3 (3-11) BUN 18 (6-23) mg/dl Creatinine 0.68 (0.6-1.4) mg/dl Est Cr Clr Drug Dosing 101.2 ml/min Est GFR ( Amer) 102.4 ml/min Est GFR (Non-Af Amer) 88.3 ml/min BUN/Creatinine Ratio 26.5 H (10-20) Glucose 110 H (70-99(Fasting)) mg/dl Calcium 8.9 (8.6-10.3) mg/dl Magnesium 2.0 (1.7-2.4) mg/dl PG Care Time/CCT Total # of Minutes Spent Total Time Spent with Patient: Total time spent is greater than 50% in coordination of care (as documented) at patient's floor/unit and/or counseling patient: Coding Level of Care Code 55199 SUB INP/OBS CARE 2/35MIN Diagnoses Closed trimalleolar fracture S82.852A Encounter type: initial encounter Laterality: left Lumbar pain M54.50 BPH (benign prostatic hyperplasia) N40.0 (1) Closed trimalleolar fracture Encounter type: initial encounter Laterality: left Qualified Code(s): S82.852A - Displaced trimalleolar fracture of left lower leg, initial encounter for closed fracture
[2023-06-09] MEDS ORDERED: bisacodyL 5 MG TABEC PO ONE (08:00)
[2023-06-09] MEDS: predniSONE 20 MG TAB PO SCH (08:16)
[2023-06-09] MEDS: DOCUSATE SODIUM/SENNA 50/8.6MG TAB PO SCH (08:16)
[2023-06-09] MEDS: POLYETHYLENE (MIRALAX) 17 GM PACK PO SCH ×2 (08:17→21:03)
[2023-06-09] MEDS: TAMSULOSIN HCL 0.4 MG CAP PO SCH (08:17)
[2023-06-09] MEDS: ASPIRIN 81 MG ECTAB PO SCH (08:17)
[2023-06-09] MEDS ORDERED: traMADol HCL 50 MG TABLET PO PRN (09:30)
[2023-06-09] MEDS ORDERED: bisacodyL 10 MG SUPP PR PRN (17:03)
[2023-06-09] MEDS ORDERED: hydrOXYzine HCl 10 MG TAB PO SCH (21:00)
[2023-06-10] MEDS ORDERED: hydrALAZINE HCL 20 MG/ML VIAL IV PRN (07:51)
--- NOTE | 2023-06-10 07:52 | Hospitalist Progress Note ---
Date of Service June 10, 2023 Assessment & Plan (1) Closed trimalleolar fracture: Plan: 83yo male presenting with 3 days of progressive pain, swelling and redness of the left ankle after rolling it before going to a [place] over the past weekend with ongoing pain/ambulation difficulty Imaging showed bimalleolar fracture with possible widening of tibiofibular syndesmosis, soft tissue swelling about the ankle noted. Angulation of second MTP may be chronic and degenerative in origin Venous Doppler NEGATIVE for DVT in LLE, noting castrejon's cyst in popliteal fossa measuring 4.3cm Orthopedics consulted -- discussed w/ Dr Camacho and given diet last night, NPO this morning. ASA 81mg x 1 POD# 3 s/p Open Reduction Internal Fixation Left Ankle Trimalleolar Fracture 84697 LT, Fluoroscopic Exam Under Anesthesia left ankle 32908 LT, open reduction internal fixation syndesmosis disruption 86730 LT, (Left) - Peter Camacho, DO. EBL 10cc WBC wnl, hgb stable on repeat. Electrolytes acceptable on recent check Continue 3 pillow elevation left ankle with 2 bags of ice. Pain control w/ tylenol, oxycodone. Tramadol added 50mg prn -- some dizziness w/ use but likes more than the oxycodone Will decrease to 25mg q4h prn and monitor response. Pain improving and hope fully will be able to transition to tylenol in near future as well as typically does get constipated with oxycodone Bowel regimen -- +LARGE soft BM 06/10 ASA 81mg daily for DVT prophylaxis x [address] Camacho *Conservative management/observation right hindfoot/posterior tibial tendon injury PT/OT consults placed and recs for rehab --> called for today for eval and alerted CM so that we can send recs/hopefully get auth tomorrow. [facility] able to take Sunday if auth obtained (2) Lumbar pain: Plan: Chronic. Patient is currently on a steroid taper for lumbar pain. Currently down to 10mg daily x 4 days (last day 06/13) (3) BPH (benign prostatic hyperplasia): Plan: Chronic. Stable, no issues reported Continue Tamsulosin Plan continued inpatient stay [facility] tomorrow for rehab if auth received. CM alerted and following Admission and Anticipated Discharge Date Admission Date: June 05, 2023 Supervising Physician Co-Signing Physician Notes The patient was not seen by me. The chart was reviewed. Case discussed with ERIK Davila. Agree with assessment and plan Subjective Eval this morning, doing well. Pain controlled. Little dizzy w/ the tramadol 50mg and will cut in half and monitor. Will have RN call to therapy for evals today so we can get auth hopefully for tomorrow. No chest pain/fever/chills, shortness of breath, abdominal pain, nausea or vomiting. Large BM this morning, feeling much better. Good sleep last night. Questions/concerns addressed at this time. Physical Exam Physical Exam: General: WD/WN male laying up in bed, NAD, leg elevated HEENT: head normocephalic, atraumatic, mmm, trachea midline Resp: CTA, no w/c/r, on room air CV: RRR, no significant m/r/g, no pitting edema/calf tenderness GI; +BS, less distension, nontender : no galvan MSK/Neuro: bruising/ecchymosis to medial/lateral aspect of right foot, slight tenderness to palpation but NVI, improving pain control LEFT ankle/leg with dressing/cast c/d/i, toes mobile, cap refill wnl Psych: AOx3 , cooperative with examination Results & Data Results & Data Vital Signs (Past 12 Hours) Vital Signs Temp Pulse Resp BP Pulse Ox O2 Del Method 06/10/23 07:39 36.6 C 64 18 175/96 H 94 Room Air 06/09/23 21:00 Room Air 06/09/23 21:07 36.7 C 62 18 130/84 95 Room Air PG Care Time/CCT Total # of Minutes Spent Total Time Spent with Patient: Total time spent is greater than 50% in coordination of care (as documented) at patient's floor/unit and/or counseling patient: Coding Level of Care Code 41177 SUB INP/OBS CARE 11/22MIN Diagnoses Closed trimalleolar fracture S82.852A Encounter type: initial encounter Laterality: left Lumbar pain M54.50 BPH (benign prostatic hyperplasia) N40.0 (1) Closed trimalleolar fracture Encounter type: initial encounter Laterality: left Qualified Code(s): S82.852A - Displaced trimalleolar fracture of left lower leg, initial encounter for closed fracture
[2023-06-10] MEDS: DOCUSATE SODIUM/SENNA 50/8.6MG TAB PO SCH (08:55)
[2023-06-10] MEDS: ASPIRIN 81 MG ECTAB PO SCH (08:55)
[2023-06-10] MEDS: POLYETHYLENE (MIRALAX) 17 GM PACK PO SCH ×2 (08:55→21:13)
[2023-06-10] MEDS: predniSONE 20 MG TAB PO SCH (08:55)
[2023-06-10] MEDS: TAMSULOSIN HCL 0.4 MG CAP PO SCH (08:55)
[2023-06-10] MEDS ORDERED: traMADol HCL 50 MG TABLET PO PRN (11:13)
[2023-06-10] MEDS: ACETAMINOPHEN 325 MG TAB PO PRN ×2 (13:29→21:24)
[2023-06-10] MEDS ORDERED: hydrOXYzine HCl 10 MG TAB PO PRN (15:58)
--- NOTE | 2023-06-10 16:55 | Orthopedic Progress Note ---
Date of Service June 10, 2023 Assessment & Plan (1) Closed trimalleolar fracture: Plan: Postoperative day #3 status post ORIF trimalleolar left ankle fracture, syndesmotic repair and examination under anesthesia with fluoroscopy left ankle. Maintain splint and nonweightbearing left lower extremity. Continue 3 pillow elevation left ankle with 2 bags of ice. Continue ASA 81 mg daily for DVT prophylaxis x 4 weeks unless other preferences from internal medicine service. Continue physical therapy/Occupational Therapy. May discharge from hospital once post discharge care plan is finalized by social service department. Appreciate input. Conservative management and observation right hindfoot/posterior tibial tendon injury. Orthopedics to sign off at this time. Patient to follow-up in 14 to [address] Camacho in clinic. Call for appointment in 14 to 17 days. Thank you for the opportunity to consult in the care of this patient. Peter Camacho DO [facility] [place] [phone] (2) Posterior tibial tendinitis, right leg: (3) Posterior tibial tendon dysfunction, right: Admission and Anticipated Discharge Date Admission Date: June 05, 2023 Subjective Patient sitting up in bed, awake and alert. No complaints of pain. Pain well controlled. Patient was up with physical therapy earlier today. Awaiting discharge to rehab/extended care facility with physical therapy capability. Physical Exam Physical Exam: Well-nourished, well-hydrated in no acute distress. Family members present at bedside. Constitutional: WD/WN, vitals as above Eyes: PERRL, conjunctivae normal, anicteric sclerae ENMT: external ear and nose normal, oropharynx normal Neck: trachea midline, no thyromegaly Respiratory: normal respiratory effort, lungs clear to auscultation Gastrointestinal (Abdomen): normal bowel sounds, soft, nontender, no hepatosplenomegaly Musculoskeletal: Ankle in well-padded splint. Toes move without difficulty. Cap refill brisk less than 2 seconds. Splint in good repair without evidence of strikethrough. Homans' sign negative. Compartments soft. Right lower extremity ankle with decreased ecchymosis and decreased tenderness to palpation along the posterior tibial tendon and medial deltoid ligament of the ankle. Stable alignment. Neurosensory status intact. Skin: no rashes, warm and dry Neurologic: PERRL, EOMI, accommodation nl, no face palsy, no dysarthria Psychiatric: A+Ox3, euthymic affect Lymphatic: no cervical or axillary lymphadenopathy Results & Data Vital Signs (Past 12 Hours) Vital Signs Temp Pulse Pulse Resp BP BP Pulse Ox 06/10/23 15:52 37.1 C 75 18 146/78 H 95 06/10/23 14:38 111/77 06/10/23 14:35 119/73 06/10/23 07:39 36.6 C 64 18 175/96 H 94 O2 Del Method 06/10/23 15:52 Room Air 06/10/23 14:38 06/10/23 14:35 06/10/23 07:39 Room Air (1) Closed trimalleolar fracture Encounter type: initial encounter Laterality: left Qualified Code(s): S82.852A - Displaced trimalleolar fracture of left lower leg, initial encounter for closed fracture
[2023-06-11 06:32] LABS: Hematocrit (blood only) 47.9 % (42.0-52.0); Hemoglobin 16.5 g/dl (14.0-18.0); Mean Corpuscular Hemoglobin 32.5 pg (25.0-34.0); Mean Corpuscular Hgb Conc 34.4 g/dL (32.0-36.0); Mean Corpuscular Volume 94.3 fL (80.0-100.0); Mean Platelet Volume 8.8 fL (9.4-12.4); Platelet Count 152 K/uL (130-400); RDW Coefficient of Variation 15.7 % (11.5-14.5); RDW Standard Deviation 55.2 fL (36.4-46.3); Red Blood Count 5.08 M/uL (4.70-6.10); White Blood Count 6.72 K/ul (4.8-10.8)
[2023-06-11 06:48] LABS: BUN Creatinine Ratio 25.7 (10-20); Calcium 9.4 mg/dl (8.6-10.3); Creatinine Clr Calc Pharmacy 98.3 ml/min; Est GFR (African American) 101.2 ml/min; Est GFR (Non-African American) 87.3 ml/min; Magnesium 2.2 mg/dl (1.7-2.4); Potassium 4.4 mmol/L (3.5-5.1)
[2023-06-11] MEDS: POLYETHYLENE (MIRALAX) 17 GM PACK PO SCH ×2 (07:28→19:28)
[2023-06-11] MEDS: DOCUSATE SODIUM/SENNA 50/8.6MG TAB PO SCH (07:28)
[2023-06-11] MEDS: ASPIRIN 81 MG ECTAB PO SCH (07:29)
[2023-06-11] MEDS: FAMOTIDINE 20 MG TAB PO SCH (07:30)
[2023-06-11] MEDS: TAMSULOSIN HCL 0.4 MG CAP PO SCH (07:30)
[2023-06-11] MEDS: predniSONE 20 MG TAB PO SCH (07:30)
--- NOTE | 2023-06-11 08:26 | Hospitalist Progress Note ---
Date of Service June 11, 2023 Assessment & Plan (1) Closed trimalleolar fracture: Plan: 83yo male presenting with 3 days of progressive pain, swelling and redness of the left ankle after rolling it before going to a [place] over the past weekend with ongoing pain/ambulation difficulty Imaging showed bimalleolar fracture with possible widening of tibiofibular syndesmosis, soft tissue swelling about the ankle noted. Angulation of second MTP may be chronic and degenerative in origin Venous Doppler NEGATIVE for DVT in LLE, noting castrejon's cyst in popliteal fossa measuring 4.3cm Orthopedics consulted -- discussed w/ Dr Camacho and given diet last night, NPO this morning. ASA 81mg x 1 POD# 3 s/p Open Reduction Internal Fixation Left Ankle Trimalleolar Fracture 77651 LT, Fluoroscopic Exam Under Anesthesia left ankle 77647 LT, open reduction internal fixation syndesmosis disruption 48385 LT, (Left) - Peter Camacho, DO. EBL 10cc WBC wnl, hgb stable on repeat. Electrolytes acceptable on recent check Continue 3 pillow elevation left ankle with 2 bags of ice. Pain control w/ tylenol, oxycodone. Tramadol added 50mg prn -- some dizziness w/ use but likes more than the oxycodone. ONLY USING TYLENOL AND HE IS WANTING TO STICK TO THIS Bowel regimen -- +LARGE soft BM 06/10 ASA 81mg daily for DVT prophylaxis x 4 weeks *Conservative management/observation right hindfoot/posterior tibial tendon injury PT/OT consults placed and recs for rehab --> called for today for eval and alerted CM so that we can send recs/hopefully get auth tomorrow. [facility] able to take 06/11 if auth obtained, still pending at noon today (2) Lumbar pain: Plan: Chronic. Patient is currently on a steroid taper for lumbar pain. Currently down to 10mg daily x 4 days (last day 06/13) (3) BPH (benign prostatic hyperplasia): Plan: Chronic. Stable, no issues reported Continue Tamsulosin Plan continued inpatient stay [facility] when auth received Admission and Anticipated Discharge Date Admission Date: June 05, 2023 Supervising Physician Co-Signing Physician Notes PA Supervision Note: I did not personally see or examine the patient. I verified all kuhn points and agree with ERIK Gamble with the following exceptions and/or additions: none Subjective eval this morning, doing well. seen by ortho last evening per patient pain controlled with just Tylenol. awaiting insurance Auth inquiring about knee scooter/wheelchair. if goes home , CM to arrange. Otherwise rehab should arrange [place] from there. Physical Exam Physical Exam: General: WD/WN male sitting up in chair, leg elevated HEENT: head normocephalic, atraumatic, mmm, trachea midline Resp: CTA, no w/c/r, on room air CV: RRR, no significant m/r/g, no pitting edema/calf tenderness GI; +BS, soft/NT : no galvan MSK/Neuro: bruising/ecchymosis to medial/lateral aspect of right foot, slight tenderness to palpation but NVI and improving LEFT ankle/leg with dressing/cast c/d/i, toes mobile, cap refill wnl Psych: AOx3 , cooperative with examination Results & Data Results & Data Vital Signs (Past 12 Hours) Vital Signs Temp Pulse Resp BP Pulse Ox O2 Del Method 06/10/23 21:30 Room Air 06/10/23 21:13 36.9 C 70 18 151/88 H 93 Room Air Laboratory Results 06/11/23 06/11/23 Range/Units 06:02 06:02 WBC 6.72 (4.8-10.8) K/ul RBC 5.08 (4.70-6.10) M/uL Hgb 16.5 (14.0-18.0) g/dl Hct 47.9 (42.0-52.0) % MCV 94.3 (80.0-100.0) fL MCH 32.5 (25.0-34.0) pg MCHC 34.4 (32.0-36.0) g/dL RDW Std Deviation 55.2 H (36.4-46.3) fL RDW Coeff of Jose 15.7 H (11.5-14.5) % Plt Count 152 (130-400) K/uL MPV 8.8 L (9.4-12.4) fL Sodium 140 (136-145) mmol/L Potassium 4.4 (3.5-5.1) mmol/L Chloride 102 (98-107) mmol/L Carbon Dioxide 36 H (21-32) mmol/L Anion Gap 2 L (3-11) BUN 18 (6-23) mg/dl Creatinine 0.70 (0.6-1.4) mg/dl Est Cr Clr Drug Dosing 98.3 ml/min Est GFR ( Amer) 101.2 ml/min Est GFR (Non-Af Amer) 87.3 ml/min BUN/Creatinine Ratio 25.7 H (10-20) Glucose 100 H (70-99(Fasting)) mg/dl Calcium 9.4 (8.6-10.3) mg/dl Magnesium 2.2 (1.7-2.4) mg/dl PG Care Time/CCT Total # of Minutes Spent Total Time Spent with Patient: Total time spent is greater than 50% in coordination of care (as documented) at patient's floor/unit and/or counseling patient: Coding Level of Care Code 28884 SUB INP/OBS CARE 11/22MIN Diagnoses Closed trimalleolar fracture S82.852A Encounter type: initial encounter Laterality: left Lumbar pain M54.50 BPH (benign prostatic hyperplasia) N40.0 (1) Closed trimalleolar fracture Encounter type: initial encounter Laterality: left Qualified Code(s): S82.852A - Displaced trimalleolar fracture of left lower leg, initial encounter for closed fracture
[2023-06-11] MEDS: ACETAMINOPHEN 325 MG TAB PO PRN (22:02)
[2023-06-12] MEDS: ACETAMINOPHEN 325 MG TAB PO PRN (06:19)
[2023-06-12] MEDS: ASPIRIN 81 MG ECTAB PO SCH (07:14)
[2023-06-12] MEDS: predniSONE 20 MG TAB PO SCH (07:14)
[2023-06-12] MEDS: TAMSULOSIN HCL 0.4 MG CAP PO SCH (07:15)
[2023-06-12] MEDS: DOCUSATE SODIUM/SENNA 50/8.6MG TAB PO SCH (07:16)
[2023-06-12] MEDS: POLYETHYLENE (MIRALAX) 17 GM PACK PO SCH (07:16)
--- NOTE | 2023-06-12 08:05 | Discharge Summary ---
Date of Service June 12, 2023 Admission HPI Per Admitting Provider Harsha Curry is a pleasant 83yo male with history of BPH, vertebral compression fractures and back pain on chronic steroid therapy presenting with fracture of the left ankle. Approximately 1-2 weeks ago the patient fell. He had some minimal pain in the left ankle. Three days ago he stumbled on some uneven ground and rolled his left ankle. He reports feeling a pop and hearing a snap in the left ankle. He also rolled his right ankle as well. Over the last 3 days, he has been having increasing pain, swelling and redness of the left ankle. He has been having difficulty walking. No additional complaints at this time. In the ER he is afebrile, HD stable Comfortable with no complaint of pain at this time Admission Exam Per Admitting Provider General: patient resting comfortably, NAD, non-toxic in appearance, AA&O x 4 Skin: warm, dry, intact, no rashes or lesions HEENT: NC/AT, PERRL, EOMI, anicteric sclera, conjunctiva without injection, external ear normal to inspection and nontender, nares patent, moist mucus membranes, dentition intact, no oropharyngeal lesions, neck supple, trachea midline, no LAD, no thyromegaly, no JVD Heart: +S1/S2, regular, no m/r/g Lungs: equal air entry bilaterally, no rales/rhonchi/wheezes Abd: +BS, soft, NT/ND, no masses/organomegaly/ascites Ext: warm, 2+ pulses in UE/LE bilaterally, no clubbing/cyanosis or edema. LLE with dressing in place - splinting being placed. RLE with some bruising in the lateral foot Neuro: nonfocal, patient AA&O x 4, speech intact, no facial droop, moving all extremities on command with equal strength 5/5 Principal Diagnosis LEFT ANKLE FRACTURE Discharge Exam General: WD/WN male sitting up in chair, leg elevated HEENT: head normocephalic, atraumatic, mmm, trachea midline Resp: CTA, no w/c/r, on room air CV: RRR, no significant m/r/g, no pitting edema/calf tenderness GI; +BS, soft/NT : no galvan MSK/Neuro: bruising/ecchymosis to medial/lateral aspect of right foot, slight tenderness to palpation but NVI and continued improvement in pain LEFT ankle/leg with dressing/cast c/d/i, toes mobile, cap refill wnl Psych: AOx3 , cooperative with examination Discharge Data Allergies Allergy/AdvReac Type Severity Reaction Status Date / Time Penicillins Allergy Unknown Verified 05/25/23 15:23 Consultations 06/05/23 21:10 ED Decision to Admit Stat 06/05/23 23:38 Consult Orthopedic Surgery Routine Procedures Performed Operation Date: 06/07/23 07:00 Actual Procedures p Open Reduction Internal Fixation Left Ankle Trimalleolar Fracture, Flourescopic Exam Under Anesthesia(Left) - Peter Camacho, Ordered Studies Ankle X-Ray 06/05/23 19:35 XR tibia fibula LT 2V, XR ankle LT min 3V routine, XR foot LT min 3V routine CLINICAL HISTORY: ankle fracture TECHNIQUE: 2 radiographic views of the left leg, 3 views of the left ankle, and 3 views of the left foot were obtained. Comparison: None available at the time of this dictation. FINDINGS: There is a fracture of the distal fibula above the tibiofibular syndesmosis as well as a fracture of the medial malleolus. There is likely widening of the tibiofibular syndesmosis. Degenerative changes are seen. Soft tissue swelling is seen about the ankle. Angulation of the second MTP joint may be chronic and degenerative in origin. IMPRESSION: Bimalleolar fracture with possible widening of the tibiofibular ACT 112: Negative or not required by law. Electronically signed by: Carter Esteban M.D. 06/06/2023 7:58 AM Ankle X-Ray 06/05/23 19:35 XR ankle RT min 3V routine, XR foot RT min 3V routine CLINICAL HISTORY: injury, lateral malleolus tender TECHNIQUE: 3 views of the right ankle and 3 views of the right foot were obtained. Comparison: None available at the time of this dictation. FINDINGS: No acute fractures are present. Degenerative changes are seen. Subluxation of the second MTP joint is likely degenerative. The ankle mortise is intact. Vascular calcifications are seen. IMPRESSION: Prominent degenerative changes without evidence of acute abnormality. ACT 112: Negative or not required by law. Electronically signed by: Carter Esteban M.D. 06/06/2023 8:02 AM Foot X-Ray 06/05/23 19:35 XR tibia fibula LT 2V, XR ankle LT min 3V routine, XR foot LT min 3V routine CLINICAL HISTORY: ankle fracture TECHNIQUE: 2 radiographic views of the left leg, 3 views of the left ankle, and 3 views of the left foot were obtained. Comparison: None available at the time of this dictation. FINDINGS: There is a fracture of the distal fibula above the tibiofibular syndesmosis as well as a fracture of the medial malleolus. There is likely widening of the tibiofibular syndesmosis. Degenerative changes are seen. Soft tissue swelling is seen about the ankle. Angulation of the second MTP joint may be chronic and degenerative in origin. IMPRESSION: Bimalleolar fracture with possible widening of the tibiofibular ACT 112: Negative or not required by law. Electronically signed by: Carter Esteban M.D. 06/06/2023 7:58 AM Foot X-Ray 06/05/23 19:35 XR ankle RT min 3V routine, XR foot RT min 3V routine CLINICAL HISTORY: injury, lateral malleolus tender TECHNIQUE: 3 views of the right ankle and 3 views of the right foot were obtained. Comparison: None available at the time of this dictation. FINDINGS: No acute fractures are present. Degenerative changes are seen. Subluxation of the second MTP joint is likely degenerative. The ankle mortise is intact. Vascular calcifications are seen. IMPRESSION: Prominent degenerative changes without evidence of acute abnormality. ACT 112: Negative or not required by law. Electronically signed by: Carter Esteban M.D. 06/06/2023 8:02 AM Tibia/Fibula X-Ray 06/05/23 19:35 XR tibia fibula LT 2V, XR ankle LT min 3V routine, XR foot LT min 3V routine CLINICAL HISTORY: ankle fracture TECHNIQUE: 2 radiographic views of the left leg, 3 views of the left ankle, and 3 views of the left foot were obtained. Comparison: None available at the time of this dictation. FINDINGS: There is a fracture of the distal fibula above the tibiofibular syndesmosis as well as a fracture of the medial malleolus. There is likely widening of the tibiofibular syndesmosis. Degenerative changes are seen. Soft tissue swelling is seen about the ankle. Angulation of the second MTP joint may be chronic and degenerative in origin. IMPRESSION: Bimalleolar fracture with possible widening of the tibiofibular ACT 112: Negative or not required by law. Electronically signed by: Carter Esteban M.D. 06/06/2023 7:58 AM Venous Doppler Study 06/05/23 19:41 Exam(s): US VENOUS LEFT LOWER EXTREMITY EXAM: US Duplex Left Lower Extremity Veins CLINICAL HISTORY: Reason for exam: ankle injury with leg edema and skin changes. TECHNIQUE: Real-time duplex ultrasound scan of the left lower extremity veins integrating B-mode two-dimensional vascular structure, Doppler spectral analysis, color flow Doppler imaging and compression. COMPARISON: No relevant prior studies available. FINDINGS: Deep veins: Unremarkable. No DVT in the visualized common femoral, femoral, proximal deep femoral or popliteal veins. The veins demonstrate normal color flow, are normally compressible, with normal phasic flow and/or augmentation response. Superficial veins: Unremarkable. No thrombus in the visualized great saphenous vein. Soft tissues: There is a 4.3 x 1.5 x 3.5 cm Clinton's cyst in the left popliteal fossa. IMPRESSION: No evidence of DVT in the left lower extremity. Clinton's cyst in the popliteal fossa measures 4.3 cm. Electronically signed by: Ritesh Zhang MD 06/05/23 21:59 PM Chest X-Ray 06/05/23 20:55 XR chest 1V portable CLINICAL HISTORY: pre-op admission TECHNIQUE: Single frontal radiograph of the chest was obtained. Comparison: None available at the time of this dictation. FINDINGS: No lines and tubes are seen. Calcified aortic knob is seen. The lungs are clear. No evidence of pleural effusion or pneumothorax. IMPRESSION: No acute chest disease. ACT 112: Negative or not required by law. Electronically signed by: Carter Esteban M.D. 06/06/2023 7:39 AM Chest X-Ray 06/06/23 08:58 XR chest 1V portable CLINICAL HISTORY: pre-op clearance TECHNIQUE: Single frontal radiograph of the chest was obtained. Comparison: Comparison is made to chest radiograph 06/05/2023 FINDINGS: No lines and tubes are seen. Cardiomegaly is noted. The aortic arch is calcified. The lungs are clear. No evidence of pleural effusion or pneumothorax. Degenerative changes are seen in the skeleton. IMPRESSION: No acute chest disease. ACT 112: Negative or not required by law. Electronically signed by: Carter Esteban M.D. 06/06/2023 9:22 AM Ankle X-Ray 06/07/23 07:00 FL ankle LT 2V CLINICAL HISTORY: LT ANKLE ORIF TECHNIQUE: 2 views were obtained with the C-arm in the OR with the above procedure. Total fluoroscopy time was 61 seconds. Radiation dose was 149 mGy. Comparison: Comparison is made to left ankle radiograph 06/05/2023 FINDINGS/IMPRESSION: Intraoperative images were obtained of open reduction internal fixation of trimalleolar fracture. Please correlate with intraoperative fluoroscopy and operative report. ACT 112: Negative or not required by law. Electronically signed by: Carter Esteban M.D. 06/07/2023 11:45 AM Hospital Course (1) Closed trimalleolar fracture: 83yo male presenting with 3 days of progressive pain, swelling and redness of the left ankle after rolling it on driveway before going [place] a [place] over the past weekend with ongoing pain/ambulation difficulty Imaging showed bimalleolar fracture with possible widening of tibiofibular syndesmosis, soft tissue swelling about the ankle noted. Angulation of second MTP may be chronic and degenerative in origin Venous Doppler NEGATIVE for DVT in LLE, noting clinton's cyst in popliteal fossa measuring 4.3cm Orthopedics consulted s/p Open Reduction Internal Fixation Left Ankle Trimalleolar Fracture 37544 LT, Fluoroscopic Exam Under Anesthesia left ankle 41575 LT, open reduction internal fixation syndesmosis disruption 30179 LT, (Left) - Peter Camacho, WBC wnl on repeat, hgb stable Continue elevation w/ pillows/ice Pain control -- initially using tramadol/oxycodone but constipation and tylenol acceptable alone prior to discharge and DID NOT want anything stronger. +BMs prior to discharge DVT proph w/ 81mg daily per discussion w/ Dr Camacho. x4 weeks PT/OT consulted --> juniper Given covid-19 booster prior to discharge as agreed by to by patient. Had received Pfizer x 3 in the past. Chanel requesting booster to avoid need for isolation at [facility] (2) Lumbar pain: Chronic, stable, seen by pain management On steroid taper -- down to 10mg daily at discharge, last day 06/13 (3) BPH (benign prostatic hyperplasia): Chronic. Stable, no issues reported Continue Tamsulosin Plan discharged to [facility] Outpatient follow up with PCP as well as Dr Camacho in 2-3 weeks, also to monitor f/u for his RIGHT hindfoot/posterior tibial tendon injury but has been ambulating To continue NWB to his LLE, wheelchair vs wheeled scooter at dc from rehab pending progress Total Time Total Time Spent Total Time Spent (In Minutes): 40 Discharge Plan Discharge Items Patient Disposition: Transfer Inpatient Rehab Fac Reason For Visit: LEFT ANKLE FRACTURE Discharge Diagnosis: Left Ankle Fracture Condition on Discharge: Good Goals: You have been hospitalized for an urgent problem which required surgery. During your stay at [facility], we have made an effort to correct the problem that brought you to the hospital while keeping you as comfortable as possible. Surgery and medications were used to bring your condition under control and your discharge instructions will include directions for any medications you should take after leaving the hospital. Please make sure to follow the advice of your surgeon regarding follow up with the surgeon and with your primary care provider. Activity: As commented below Activity Comment: non weight bearing LEFT LOWER EXTREMITY Non-emergency contact: Primary Care Provider and Surgeon Call non-emergency contact if: you have any medication questions Follow-up/Referrals: Marybeth Woods MD [Primary Care Provider] - Peter Camacho DO [Surgeon] - (2 weeks) Diet: Heart Healthy Addtl Attending Provider Instructions: You have been hospitalized and found to have left ankle fracture. Orthopedics, Dr Camacho, was consulted and you underwent surgical repair of this fracture and are being set up for rehab at discharge. You should be NON WEIGHT BEARING to the left lower extremity and maintain split and keep elevated and use ice. You have been using tylenol for pain with good results and can continue this at discharge. Continue a bowel regimen to prevent constipation if this occurs but hopefully without opiates you shouldn't have as much issue. You are being sent on a baby aspirin 81mg by mouth once daily to prevent blood clots. This should be continued for four weeks. You also have been on a prednisone taper for your back pain and are currently on 10mg. This taper will be complete on 06/13/2023. You should have follow up with primary care in the next 7-10 days to monitor your progress after discharge from the hospital. You should follow up with Dr Camacho in TWO weeks to monitor your progress and follow up on your right hindfoot/tendon injury. Please return to the emergency department with any fevers/chills, chest pain, shortness of breath, uncontrolled pain, or for any other symptoms concerning for you . You will be set up with assistive devices at discharge from rehab - ie, scooter vs wheelchair or both as needed/indicated with repeat therapy evaluations moving forward. It has been a pleasure being a part of the medical team providing for you while you have been in the hospital. Take care! Pending Studies at Discharge: No Stand-Alone Forms: My [facility] Skilled Items Patient informed of condition?: Yes DNR: No Discharge Level of Care: Acute rehab Communicable Disease: No Discharge Prognosis: Stable Lines: None Urinary Catheter: Yes Medications and DC Order Prescriptions: New aspirin 81 mg Tablet,Delayed Release (Dr/Ec) 81 mg PO QAM 28 Days Qty: 28 0RF prednisone 20 mg Tablet 10 mg PO DAILY Qty: 2 0RF Continued tamsulosin 0.4 mg capsule 0.4 mg PO DAILY Qty: 30 2RF polyethylene glycol 3350 [Miralax] 17 gram/dose powder 17 g PO BID PRN (Reason: constipation) Qty: 238 2RF acetaminophen [Tylenol 8 Hour] 650 mg tablet extended release 1,300 mg PO Q12H Qty: 120 2RF Discontinued prednisone 20 mg tablet See Rx Instructions .Route .COMPLEX Qty: 20 0RF Rx Instructions: Three p.o. daily for 3 days then 2 p.o. daily for 3 days then 1 p.o. daily for 3 days then half a tablet p.o. daily for 4 days then DC tramadol 50 mg tablet 100 mg PO Q12H PRN (Reason: pain) Qty: 60 2RF Discharge Orders: Discharge Order (Routine); Ordered 06/12/23 Ordered By: Erna Gamble Admission Data Admit Date/Time: 06/05/23 21:30 Attending Provider: Radha Berger. Admit Provider: Nia Zhang Primary Care Provider: Marybeth Woods Other Providers: Nia Zhang ; Peter Camacho ; [facility] ; [place] [facility] ; Branden Dumont Other Interventions: Discharge Summary Assessment (RN) Last Done: 06/12/23 09:55 Supervising Physician Co-Signing Physician Notes PA Supervision Note: I personally saw and examined the patient. I verified all kuhn points and agree with ERIK Gamble with the following exceptions and/or additions: Subjective: 83-year-old male past medical history significant for lumbar spinal stenosis who presents following a fall with a closed trimalleolar fracture, with improvement in his pain, has a cast on his left foot, no real complaints today looking forward to discharge from the hospital. Physical exam: Vitals reviewed Gen: Alert and oriented, NAD CV: RRR no mgr nl S1S2 Pulm: CTAB no wcr Ext: no edema, 2+ DP pulses Skin: no rashes, warm/dry Neuro: No focal neurologic deficits Labs, Rads, and ECG reviewed Assessment and Plan: Trimalleolar fracture: He is status post ORIF to his left ankle by Dr. Camacho, follow-up and DVT prophylaxis per orthopedics to be 81 mg aspirin daily. Ultimately will be discharged to [facility] today. plan otherwise as stated above Coding Level of Care Code 70001 INP/OBS DISCH >30 MIN Diagnoses Closed trimalleolar fracture S82.852A Encounter type: initial encounter Laterality: left Lumbar pain M54.50 BPH (benign prostatic hyperplasia) N40.0
[2023-06-12] MEDS: FAMOTIDINE 20 MG TAB PO SCH (08:36)
[2023-06-12] MEDS ORDERED: COVID19 BIVALENT Vaccine (Pfizer) 30mcg/0.3mL SDV IM ONE (08:47)
== END 2023-06-12 10:15 | DRG 494 ==
LOC: ED 19:05 → 3E 21:30 → SUATTDRO 21:30 → 3E 23:19

== ENCOUNTER 2023-06-23 21:43 | Inpatient (IN) ==
[2023-06-23 22:45] LABS: Base Excess VBG 6.4 mEq/L; HCO3 VBG 31 mmol/L; Oxygen Saturation VBG 87.6 %; PCO2 VBG 45 mmHg (38-50); PO2 VBG 47 mmHg; pH VBG 7.45 (7.36-7.41)
[2023-06-23 22:50] LABS: Basophils # (auto) 0.04 K/uL (0.00-0.20); Basophils % (auto) 0.5 %; Eosinophils % (auto) 1.4 %; Hematocrit (blood only) 42.3 % (42.0-52.0); Hemoglobin 14.4 g/dl (14.0-18.0); Immature Granulocytes # (auto) 0.02 K/uL (0.01-0.20); Immature Granulocytes % (auto) 0.3 %; Lymphocytes # (auto) 0.79 K/uL (1.20-3.40); Lymphocytes % (auto) 10.8 %; Mean Corpuscular Hemoglobin 31.9 pg (25.0-34.0); Mean Corpuscular Volume 93.6 fL (80.0-100.0); Mean Platelet Volume 8.8 fL (9.4-12.4); Monocytes # (auto) 0.45 K/uL (0.11-0.59); Monocytes % (auto) 6.2 %; Neutrophils % (auto) 80.8 %; Platelet Count 194 K/uL (130-400); RDW Coefficient of Variation 14.4 % (11.5-14.5); RDW Standard Deviation 49.7 fL (36.4-46.3); Red Blood Count 4.52 M/uL (4.70-6.10)
[2023-06-23 23:10] LABS: Potassium 4.3 mmol/L (3.5-5.1)
[2023-06-23 23:11] LABS: Albumin Level 3.3 gm/dl (3.4-5.0); BUN Creatinine Ratio 35.9 (10-20); Bilirubin Direct 0.1 mg/dl (0-0.2); Bilirubin,Total 0.8 mg/dl (0.2-1.0); Calcium 9.6 mg/dl (8.6-10.3); Est GFR (African American) 104.9 ml/min; Est GFR (Non-African American) 90.5 ml/min; Total Protein 6.6 gm/dl (6.0-8.3)
[2023-06-23 23:17] LABS: Troponin I High Sensitivity 10.4 pg/ml (0-20)
[2023-06-23 23:29] LABS: Appearance Urine Clear (Clear); Bilirubin Urine Negative (Negative); Blood Urine Negative (Negative); Color Urine Dark Yellow; Glucose Urine UA Negative (Negative); Ketones Urine Trace (Negative); Leukocyte Esterase Urine Negative (Negative); Nitrite Urine Negative (Negative); Protein Urine Negative (Negative); Urobilinogen Urine Negative (Negative); pH Urine 5.5 (4.5-7.5)
[2023-06-23 23:30] LABS: Partial Thromboplastin Ratio 1.1; Partial Thromboplastin Time 30.3 Seconds (21.0-31.0)
[2023-06-24] MEDS ORDERED: DAPTOmycin 500 MG in SYRINGE 0 ML IV SCH (00:15)
[2023-06-24] MEDS ORDERED: ONDANSETRON INJ 2 MG/ML 2 ML VIAL IV PRN (03:25)
[2023-06-24 03:46] LABS: C Reactive Protein 10.45 mg/dl (0-0.5)
--- NOTE | 2023-06-24 04:13 | History & Physical Report ---
Date of Service June 24, 2023 Assessment & Plan (1) Closed trimalleolar fracture: Plan: s/p surgical repair on 06/07/23 with ongoing low grade fever, poor wound healing. Positive blood culture x 1 in outpatient setting on 06/21/23. Uncertain if contaminant vs true bacteremia. Concern for post-operative wound infection -Admit to medical -Check X-ray left ankle -Check CRP, ESR -Follow cultures - repeat blood cultures sent from ER -Continue Daptomycin for now -Orthopedic surgery consultation appreciated (2) BPH (benign prostatic hyperplasia): Plan: Chronic -Continue Flomax Admission and Anticipated Discharge Date Admission Date: June 24, 2023 History of Present Illness Chief Complaint: possible infection Primary Care Provider: Marybeth Woods MD Harsha Curry is an 83yo male, recently admitted to [facility] from 06/05/23 - 06/12/23 with a left ankle fracture after a fall. He had an ORIF performed by Dr. Camacho on 06/07/23 which was uncomplicated. He was discharged home in stable condition to [facility]. Patient reports that since returning home to [facility] he has had fairly constant low-grade fevers - mostly noted in the evenings. Temperatures have been 100- 100.9. He has been given Tylenol on most nights. Staff originally thought that his fevers were secondary to the Covid-19 booster that he received on the day of discharge. However, fevers have persisted for the last 10+ days. Patient has maintained a non-weightbearing status and his ankle has been in a splint. He reports minimal pain in the ankle. He was seen by Dr. Camacho for followup on 06/21/23 and the splint was removed. There was some concern regarding some incomplete healing of the distal portion of the surgical wound. Patient was prescribed Keflex which he began 06/21/23 PM. He has continue on the Keflex as prescribed but has had no improvement in the fevers. He was instructed to see Dr. Camacho again in 4 weeks. Additionally, patient had one blood culture performed at [facility] on 06/21/23 which was resulted on 06/23/23 - POSITIVE for staph. epidermidis, methicillin resistant In the ER patient is afebrile, HD stable, non-toxic in appearance Splint has been removed ER Course: Daptomycin Allergies Allergy/AdvReac Type Severity Reaction Status Date / Time Penicillins Allergy Unknown Verified 05/25/23 15:23 Home Medications Medication Instructions Recorded Confirmed Type tamsulosin 0.4 mg capsule 0.4 mg PO DAILY #30 caps 04/25/23 06/23/23 Rx aspirin 81 mg tablet,delayed 81 mg PO QAM 4 weeks #28 tabs 06/09/23 06/23/23 Rx release acetaminophen 325 mg tablet 650 mg PO Q4 PRN Mild Pain (Scale 06/23/23 06/23/23 History Score 1-4) acetaminophen 325 mg tablet 650 mg PO Q4 PRN temp>100 06/23/23 06/23/23 History acetaminophen 650 mg 1,300 mg PO BID 06/23/23 06/23/23 History tablet,extended release (Tylenol 8 Hour) ascorbic acid (vitamin C) 500 mg 500 mg PO QAM 06/23/23 06/23/23 History tablet (Vitamin C) calcium carbonate 600 mg calcium 600 mg PO BID 06/23/23 06/23/23 History (1,500 mg) tablet (Calcium) cholecalciferol (vitamin D3) 50 50 mcg PO DAILY 06/23/23 06/23/23 History mcg (2,000 unit) tablet (Vitamin D3) sennosides 8.6 mg tablet 8.6 mg PO DAILY PRN Constipation 06/23/23 06/23/23 History sennosides 8.6 mg tablet 17.2 mg PO BID 06/23/23 06/23/23 History Past Med/Surg History Medical History (Updated 06/24/23 @ 04:10 by Nia Zhang DO) BPH (benign prostatic hyperplasia) Closed trimalleolar fracture Compression fracture of lumbar vertebra T12, L1, L3, L4 Lumbar pain Surgical History H/O hernia repair History of appendectomy Total knee replacement status 2004 Family History Father Hypertension Denies family history of Ovarian cancer Prostate cancer Diabetes Myocardial infarction Breast cancer Colorectal cancer Social History Smoking Status: Never smoker Second Hand Exposure: No; Do You Dip or Chew Tobacco: No; Hx Alcohol Use: No Hx Substance Use: No Preferred Language: Mosotho Communication Ability: Effective Visual Impairment: No Limitations Hearing Ability: Normal Collar Starcher Required: No Beliefs That Will Affect Care: None marital status: Current Living Situation: Spouse Current Living Situation Comment: lives in 2 story house with , he is primary caregiver for current occupational status: retired Feels Safe at Home: Yes caffeine: Yes (coffee) Dental Care, Regularly: Yes Physical Activity Frequency: 1-2 Times per Week Physical Activity Frequency Comment: walking helping Seatbelt Use: always Sunscreen Use: Yes Assistive Devices: Cane and Walker Review of Systems Review of Systems: All systems reviewed & are unremarkable except as noted in HPI & below Physical Exam Physical Exam: General: patient resting comfortably, NAD, non-toxic in appearance, AA&O x 4 Skin: warm, dry, intact, no rashes or lesions HEENT: NC/AT, PERRL, EOMI, anicteric sclera, conjunctiva without injection, external ear normal to inspection and nontender, nares patent, moist mucus membranes, dentition intact, no oropharyngeal lesions, neck supple, trachea midline, no LAD, no thyromegaly, no JVD Heart: +S1/S2, regular, no m/r/g Lungs: equal air entry bilaterally, no rales/rhonchi/wheezes Abd: +BS, soft, NT/ND, no masses/organomegaly/ascites Ext: warm, 2+ pulses in UE/LE bilaterally, no clubbing/cyanosis or edema Left ankle surgical wound with steri strips in place. Small area of bleeding at the cranial side of the wound, some warmth and redness of surrounding tissues, area of mild dehiscence/poor healing Neuro: nonfocal, patient AA&O x 4, speech intact, no facial droop, moving all extremities on command with equal strength 5/5 Results & Data Results & Data Vital Signs (Past 12 Hours) Vital Signs Temp Pulse Pulse Resp BP BP Pulse Ox 06/24/23 03:30 36.8 C 85 18 147/76 H 95 06/24/23 03:00 141/76 H 06/24/23 02:30 81 18 145/80 H 94 06/24/23 01:49 82 06/24/23 02:00 81 23 139/83 96 06/24/23 01:30 82 22 124/81 98 06/24/23 01:00 79 19 06/24/23 01:00 145/77 H 06/24/23 00:30 81 23 150/81 H 96 06/24/23 00:00 79 22 152/80 H 95 06/23/23 23:30 79 21 133/70 96 06/23/23 23:00 76 24 135/73 96 06/23/23 22:30 77 23 96 06/23/23 22:30 134/76 06/23/23 22:28 74 96 06/23/23 21:49 78 06/23/23 22:00 78 20 92 06/23/23 22:00 130/76 06/23/23 21:52 77 22 91 06/23/23 21:52 127/72 06/23/23 21:49 80 19 06/23/23 21:54 37.1 C 78 22 130/76 91 O2 Del Method 06/24/23 03:30 Room Air 06/24/23 03:00 06/24/23 02:30 Room Air 06/24/23 01:49 06/24/23 02:00 Room Air 06/24/23 01:30 Room Air 06/24/23 01:00 06/24/23 01:00 06/24/23 00:30 Room Air 06/24/23 00:00 Room Air 06/23/23 23:30 Room Air 06/23/23 23:00 Room Air 06/23/23 22:30 Room Air 06/23/23 22:30 06/23/23 22:28 Room Air 06/23/23 21:49 06/23/23 22:00 Room Air 06/23/23 22:00 06/23/23 21:52 Room Air 06/23/23 21:52 06/23/23 21:49 06/23/23 21:54 Room Air Laboratory Results Laboratory Results WBC 7.30 K/ul (4.8-10.8) 06/23/23 22:20 RBC 4.52 M/uL (4.70-6.10) L 06/23/23 22:20 Hgb 14.4 g/dl (14.0-18.0) 06/23/23 22:20 Hct 42.3 % (42.0-52.0) 06/23/23 22:20 MCV 93.6 fL (80.0-100.0) 06/23/23 22:20 MCH 31.9 pg (25.0-34.0) 06/23/23 22:20 MCHC 34.0 g/dL (32.0-36.0) 06/23/23 22:20 RDW Std Deviation 49.7 fL (36.4-46.3) H 06/23/23 22:20 RDW Coeff of Jose 14.4 % (11.5-14.5) 06/23/23 22: Plt Count 194 K/uL (130-400) 06/23/23 22:20 MPV 8.8 fL (9.4-12.4) L 06/23/23 22:20 Immature Gran % (Auto) 0.3 % 06/23/23 22:20 Neut % (Auto) 80.8 % 06/23/23 22:20 Lymph % (Auto) 10.8 % 06/23/23 22:20 [place] % (Auto) 6.2 % 06/23/23 22:20 Eos % (Auto) 1.4 % 06/23/23 22:20 Baso % (Auto) 0.5 % 06/23/23 22:20 Neut # (Auto) 5.90 K/uL (1.40-6.50) 06/23/23 22:20 Lymph # (Auto) 0.79 K/uL (1.20-3.40) L 06/23/23 22:20 [place] # (Auto) 0.45 K/uL (0.11-0.59) 06/23/23 22:20 Eos # (Auto) 0.10 K/uL (0.00-0.50) 06/23/23 22:20 Baso # (Auto) 0.04 K/uL (0.00-0.20) 06/23/23 22:20 Immature Gran # (Auto) 0.02 K/uL (0.01-0.20) 06/23/23 22:20 ESR 86 mm/hr (0-20) H 06/23/23 22:20 PT 11.0 Seconds (9.0-12.0) 06/23/23 22:20 INR 1.0 (0.9-1.1) 06/23/23 22:20 APTT 30.3 Seconds (21.0-31.0) 06/23/23 22:20 PTT Ratio 1.1 06/23/23 22:20 VBG pH 7.45 (7.36-7.41) H 06/23/23 22:23 VBG pCO2 45 mmHg (38-50) 06/23/23 22:23 VBG pO2 47 mmHg 06/23/23 22:23 VBG HCO3 31 mmol/L 06/23/23 22:23 VBG O2 Saturation 87.6 % 06/23/23 22:23 VBG Base Excess 6.4 mEq/L 06/23/23 22:23 Sodium 135 mmol/L (136-145) L 06/23/23 22:20 Potassium 4.3 mmol/L (3.5-5.1) 06/23/23 22:20 Chloride 99 mmol/L (98-107) 06/23/23 22:20 Carbon Dioxide 29 mmol/L (21-32) 06/23/23 22:20 Anion Gap 7 (3-11) 06/23/23 22:20 BUN 23 mg/dl (6-23) 06/23/23 22:20 Creatinine 0.64 mg/dl (0.6-1.4) 06/23/23 22:20 Est Cr Clr Drug Dosing 104.0 ml/min 06/23/23 22:20 Est GFR ( Amer) 104.9 ml/min 06/23/23 22:20 Est GFR (Non-Af Amer) 90.5 ml/min 06/23/23 22:20 BUN/Creatinine Ratio 35.9 (10-20) H 06/23/23 22:20 Glucose 127 mg/dl (70-99(Fasting)) H 06/23/23 22:20 Lactate 0.9 mmol/L (0.4-2.0) 06/23/23 22:20 Calcium 9.6 mg/dl (8.6-10.3) 06/23/23 22:20 Magnesium 2.0 mg/dl (1.7-2.4) 06/23/23 22:20 Total Bilirubin 0.8 mg/dl (0.2-1.0) 06/23/23 22:20 Direct Bilirubin 0.1 mg/dl (0-0.2) 06/23/23 22:20 AST 16 U/L (13-39) 06/23/23 22:20 ALT 21 U/L (7-52) 06/23/23 22:20 Alkaline Phosphatase 78 U/L (34-104) 06/23/23 22:20 Troponin I High Sens 10.4 pg/ml (0-20) 06/23/23 22:20 C-Reactive Protein 10.45 mg/dl (0-0.5) H 06/23/23 22:20 Total Protein 6.6 gm/dl (6.0-8.3) 06/23/23 22:20 Albumin 3.3 gm/dl (3.4-5.0) L 06/23/23 22:20 Procalcitonin < 0.05 ng/ml (0-0.5) 06/23/23 22:20 Urine Color Dark Yellow 06/23/23 23:16 Urine Appearance Clear (Clear) 06/23/23 23:16 Urine pH 5.5 (4.5-7.5) 06/23/23 23:16 Ur Specific [place] 1.030 (1.000-1.030) 06/23/23 23:16 Urine Protein Negative (Negative) 06/23/23 23:16 Urine Glucose (UA) Negative (Negative) 06/23/23 23:16 Urine Ketones Trace (Negative) H 06/23/23 23:16 Urine Blood Negative (Negative) 06/23/23 23:16 Urine Nitrite Negative (Negative) 06/23/23 23:16 Urine Bilirubin Negative (Negative) 06/23/23 23:16 Urine Urobilinogen Negative (Negative) 06/23/23 23:16 Ur Leukocyte Esterase Negative (Negative) 06/23/23 23:16 PG Care Time/CCT Total # of Minutes Spent Total Time Spent with Patient: Total time spent is greater than 50% in coordination of care (as documented) at patient's floor/unit and/or counseling patient: Coding Level of Care Code 02501 INT INP/OBS CARE 2/55MIN Diagnoses Closed trimalleolar fracture S82.852A Encounter type: initial encounter Laterality: left BPH (benign prostatic hyperplasia) N40.0 (1) Closed trimalleolar fracture Encounter type: initial encounter Laterality: left Qualified Code(s): S82.852A - Displaced trimalleolar fracture of left lower leg, initial encounter for closed fracture
--- NOTE | 2023-06-24 05:24 | Emergency Department Note ---
Impression & Plan Blood bacterial culture positive, Fever, low grade, Status post open reduction with internal fixation (ORIF) of fracture of ankle ED Provider Note CHIEF COMPLAINT: Positive blood culture HISTORY OF PRESENT ILLNESS: This 83-year-old male patient with past medical history of a trimalleolar fracture presents to the emergency department with complaints of a positive blood culture. The patient is at [facility] for rehabilitation after his surgery. He has been having low-grade fevers each night and thus blood cultures were ordered. Patient was sent in to the emergency department for a PICC line by report. He is followed by Dr. Camacho orthopedic surgery who evaluated the patient several days ago. He did place the patient on Keflex. Blood cultures are positive for Staph epidermi dis/methicillin-resistant. According to a chart review, 1 set of blood cultures was ordered. REVIEW OF SYSTEMS: A review of systems was performed with positives and pertinent negatives listed in the history of present illness. 10 systems were reviewed and are otherwise negative. ALLERGIES: see below MEDICATIONS: see below PMH: see below SOCIAL HISTORY: see below DDx: Cellulitis, joint infection, viral illness, UTI, pneumonia among others. PHYSICAL EXAM: Vital signs reviewed. General: Well-appearing 83-year-old male, in no significant distress. HEENT: No scleral icterus, PERRLA, neck supple. Atraumatic. Cardiovascular: Regular rate and rhythm, no extra sounds. Pulmonary: Clear to auscultation bilaterally, normal work of breathing. Abdomen: Soft, nontender, nondistended, positive bowel sounds. Musculoskeletal: Atraumatic, minimal peripheral edema. Postsurgical changes noted to the lateral left ankle along the malleolus with Steri-Strips intact. There is erythema along the most distal aspect of the wound. Small amount of dried drainage on the gauze pad. There is some warmth down along the foot on the lateral aspect. There is no active drainage or fluctuance along the incision. Neurologic: Patient awake alert and oriented x 3, speech is clear Skin: Warm, dry, erythema and warmth along the distal left foot/ankle as above EMERGENCY DEPARTMENT COURSE/MDM: This patient was evaluated and appeared to be in no significant distress. IV access was obtained and laboratory work was drawn. Blood cultures were obtained x2. Patient's WBC is within normal limits. His surgical site on the left ankle appeared to be mildly erythematous but Steri-Strips are intact as is the wound. I suspect the positive blood cultures from the outside facility are contaminated. The patient is currently on Keflex and daptomycin was added for MRSA coverage. I did discuss the case with the hospitalist, Dr. Zhang who will evaluate the patient for further management. Repeat blood cultures will determine if the patient is bacteremic. Patient and family were made aware of the plan and agreed. MONITORING: An order for cardiac monitoring was placed and the patient is noted to be in a normal sinus rhythm at 77 beats per minute. RADIOLOGY: Chest x-ray to my interpretation reveals bibasilar consolidations, likely atelectasis EKG: To my interpretation reveals a sinus rhythm with premature supraventricular complexes 77 bpm. QTc is 430. Normal ST segments. When compared to previous dated June 27, 2005, premature supraventricular complexes are new DISPOSITION: Admission Past Med/Surg History Medical History (Updated 06/25/23 @ 18:08 by Raquel Burr MD) BPH (benign prostatic hyperplasia) Closed trimalleolar fracture Compression fracture of lumbar vertebra T12, L1, L3, L4 Lumbar pain Surgical History (Updated 06/25/23 @ 18:08 by Raquel Burr MD) H/O hernia repair History of appendectomy Total knee replacement status 2004 Family History Father Hypertension Denies family history of Ovarian cancer Prostate cancer Diabetes Myocardial infarction Breast cancer Colorectal cancer Social History Smoking Status: Never smoker Second Hand Exposure: No; Do You Dip or Chew Tobacco: No; Hx Alcohol Use: No Hx Substance Use: No Preferred Language: Maori Communication Ability: Effective Visual Impairment: No Limitations Hearing Ability: Normal Solution Make Up Operator Required: No Beliefs That Will Affect Care: None marital status: Current Living Situation: Spouse Current Living Situation Comment: lives in 2 story house with , he is primary caregiver for current occupational status: retired Other Information That Helps Us Care for You: No Feels Safe at Home: Yes Safety Concerns: Feels Safe At This Time caffeine: Yes (coffee) Dental Care, Regularly: Yes Physical Activity Frequency: 1-2 Times per Week Physical Activity Frequency Comment: walking helping Seatbelt Use: always Sunscreen Use: Yes Assistive Devices: Glasses and Walker Assistive Devices Comment: non weightbearing LLE at this time Allergies Allergies Allergy/AdvReac Type Severity Reaction Status Date / Time Penicillins Allergy Unknown Verified 05/25/23 15:23 Home Meds Home Medications Medication Instructions Recorded Confirmed acetaminophen 325 mg tablet 650 mg PO Q4 PRN Mild Pain (Scale 06/23/23 06/23/23 Score 1-4) acetaminophen 325 mg tablet 650 mg PO Q4 PRN temp>100 06/23/23 06/23/23 acetaminophen 650 mg 1,300 mg PO BID 06/23/23 06/23/23 tablet,extended release (Tylenol 8 Hour) ascorbic acid (vitamin C) 500 mg 500 mg PO QAM 06/23/23 06/23/23 tablet (Vitamin C) calcium carbonate 600 mg calcium 600 mg PO BID 06/23/23 06/23/23 (1,500 mg) tablet (Calcium) cholecalciferol (vitamin D3) 50 50 mcg PO DAILY 06/23/23 06/23/23 mcg (2,000 unit) tablet (Vitamin D3) sennosides 8.6 mg tablet 8.6 mg PO DAILY PRN Constipation 06/23/23 06/23/23 sennosides 8.6 mg tablet 17.2 mg PO BID 06/23/23 06/23/23 Previous Rx's Medication Instructions Recorded tamsulosin 0.4 mg capsule 0.4 mg PO DAILY #30 caps 04/25/23 aspirin 81 mg tablet,delayed 81 mg PO QAM 4 weeks #28 tabs 06/09/23 release Results & Data (ED) Vital Signs Vital Signs - 24 hr 06/23/23 21:54 06/23/23 21:49 06/23/23 21:52 Temperature 37.1 C Temperature Source Oral Pulse Rate 78 80 Pulse Rate from SpO2 Sensor Pulse Rhythm Regular Pulse Strength Normal Respiratory Rate 22 19 Respiratory Effort / Characteristics Non-Labored Spontaneous Respiratory Depth Normal Respiratory Pattern Regular Blood Pressure 130/76 127/72 Blood Pressure Mean 94 81 Blood Pressure Position Lying Pulse Oximetry 91 Oxygen Delivery Method Room Air Sepsis Recent Fever Within 48 Hours Yes Sepsis New/Unexplained Change in Mental Status No Sepsis Action Taken by Nursing No Action Required 06/23/23 21:52 06/23/23 22:00 06/23/23 22:00 Temperature Temperature Source Pulse Rate 77 78 Pulse Rate from SpO2 Sensor 78 Pulse Rhythm Pulse Strength Respiratory Rate 22 20 Respiratory Effort / Characteristics Respiratory Depth Respiratory Pattern Blood Pressure 130/76 Blood Pressure Mean 105 Blood Pressure Position Pulse Oximetry 91 92 Oxygen Delivery Method Room Air Room Air Sepsis Recent Fever Within 48 Hours Sepsis New/Unexplained Change in Mental Status Sepsis Action Taken by Nursing 06/23/23 21:49 06/23/23 22:28 06/23/23 22:30 Temperature Temperature Source Pulse Rate 78 74 Pulse Rate from SpO2 Sensor Pulse Rhythm Pulse Strength Respiratory Rate Respiratory Effort / Characteristics Respiratory Depth Respiratory Pattern Blood Pressure 134/76 Blood Pressure Mean 97 Blood Pressure Position Pulse Oximetry 96 Oxygen Delivery Method Room Air Sepsis Recent Fever Within 48 Hours Sepsis New/Unexplained Change in Mental Status Sepsis Action Taken by Nursing 06/23/23 22:30 06/23/23 23:00 06/23/23 23:30 Temperature Temperature Source Pulse Rate 77 76 79 Pulse Rate from SpO2 Sensor Pulse Rhythm Pulse Strength Respiratory Rate 23 24 21 Respiratory Effort / Characteristics Respiratory Depth Respiratory Pattern Blood Pressure 135/73 133/70 Blood Pressure Mean 93 91 Blood Pressure Position Pulse Oximetry 96 96 96 Oxygen Delivery Method Room Air Room Air Room Air Sepsis Recent Fever Within 48 Hours Sepsis New/Unexplained Change in Mental Status Sepsis Action Taken by Nursing 06/24/23 00:00 06/24/23 00:30 06/24/23 01:00 Temperature Temperature Source Pulse Rate 79 81 Pulse Rate from SpO2 Sensor Pulse Rhythm Pulse Strength Respiratory Rate 22 23 Respiratory Effort / Characteristics Respiratory Depth Respiratory Pattern Blood Pressure 152/80 H 150/81 H 145/77 H Blood Pressure Mean 104 104 92 Blood Pressure Position Pulse Oximetry 95 96 Oxygen Delivery Method Room Air Room Air Sepsis Recent Fever Within 48 Hours Sepsis New/Unexplained Change in Mental Status Sepsis Action Taken by Nursing 06/24/23 01:00 06/24/23 01:30 Temperature Temperature Source Pulse Rate 79 82 Pulse Rate from SpO2 Sensor Pulse Rhythm Pulse Strength Respiratory Rate 19 22 Respiratory Effort / Characteristics Respiratory Depth Respiratory Pattern Blood Pressure 124/81 Blood Pressure Mean 95 Blood Pressure Position Pulse Oximetry 98 Oxygen Delivery Method Room Air Sepsis Recent Fever Within 48 Hours Sepsis New/Unexplained Change in Mental Status Sepsis Action Taken by Snf Medications Current Medication List: was personally reviewed by me Laboratory Data Attestation: I reviewed the patient's lab results. 06/23/23 22:20 06/23/23 22:20 Lab Results 08/26/23 08/26/23 08/26/23 Range/Units 22:20 22:20 22:20 WBC 7.30 (4.8-10.8) K/ul RBC 4.52 L (4.70-6.10) M/uL Hgb 14.4 (14.0-18.0) g/dl Hct 42.3 (42.0-52.0) % MCV 93.6 (80.0-100.0) fL MCH 31.9 (25.0-34.0) pg MCHC 34.0 (32.0-36.0) g/dL RDW Std Deviation 49.7 H (36.4-46.3) fL RDW Coeff of Jose 14.4 (11.5-14.5) % Plt Count 194 (130-400) K/uL MPV 8.8 L (9.4-12.4) fL Immature Gran % (Auto) 0.3 % Neut % (Auto) 80.8 % Lymph % (Auto) 10.8 % Kleberg % (Auto) 6.2 % Eos % (Auto) 1.4 % Baso % (Auto) 0.5 % Neut # (Auto) 5.90 (1.40-6.50) K/uL Lymph # (Auto) 0.79 L (1.20-3.40) K/uL Kleberg # (Auto) 0.45 (0.11-0.59) K/uL Eos # (Auto) 0.10 (0.00-0.50) K/uL Baso # (Auto) 0.04 (0.00-0.20) K/uL Immature Gran # (Auto) 0.02 (0.01-0.20) K/uL ESR (0-20) mm/hr PT (9.0-12.0) Seconds INR (0.9-1.1) APTT (21.0-31.0) Seconds PTT Ratio VBG pH (7.36-7.41) VBG pCO2 (38-50) mmHg VBG pO2 mmHg VBG HCO3 mmol/L VBG O2 Saturation % VBG Base Excess mEq/L Sodium 135 L (136-145) mmol/L Potassium 4.3 (3.5-5.1) mmol/L Chloride 99 (98-107) mmol/L Carbon Dioxide 29 (21-32) mmol/L Anion Gap 7 (3-11) BUN 23 (6-23) mg/dl Creatinine 0.64 (0.6-1.4) mg/dl Est Cr Clr Drug Dosing 104.0 ml/min Est GFR ( Amer) 104.9 ml/min Est GFR (Non-Af Amer) 90.5 ml/min BUN/Creatinine Ratio 35.9 H (10-20) Glucose 127 H (70-99(Fasting)) mg/dl Lactate 0.9 (0.4-2.0) mmol/L Calcium 9.6 (8.6-10.3) mg/dl Magnesium 2.0 (1.7-2.4) mg/dl Total Bilirubin 0.8 (0.2-1.0) mg/dl Direct Bilirubin 0.1 (0-0.2) mg/dl AST 16 (13-39) U/L ALT 21 (7-52) U/L Alkaline Phosphatase 78 (34-104) U/L Troponin I High Sens 10.4 (0-20) pg/ml C-Reactive Protein 10.45 H (0-0.5) mg/dl Total Protein 6.6 (6.0-8.3) gm/dl Albumin 3.3 L (3.4-5.0) gm/dl Procalcitonin (0-0.5) ng/ml Urine Color Urine Appearance (Clear) Urine pH (4.5-7.5) Ur Specific [place] (1.000-1.030) Urine Protein (Negative) Urine Glucose (UA) (Negative) Urine Ketones (Negative) Urine Blood (Negative) Urine Nitrite (Negative) Urine Bilirubin (Negative) Urine Urobilinogen (Negative) Ur Leukocyte Esterase (Negative) 06/23/23 06/23/23 06/23/23 Range/Units 22:20 22:20 22:20 WBC (4.8-10.8) K/ul RBC (4.70-6.10) M/uL Hgb (14.0-18.0) g/dl Hct (42.0-52.0) % MCV (80.0-100.0) fL MCH (25.0-34.0) pg MCHC (32.0-36.0) g/dL RDW Std Deviation (36.4-46.3) fL RDW Coeff of Jose (11.5-14.5) % Plt Count (130-400) K/uL MPV (9.4-12.4) fL Immature Gran % (Auto) % Neut % (Auto) % Lymph % (Auto) % Kleberg % (Auto) % Eos % (Auto) % Baso % (Auto) % Neut # (Auto) (1.40-6.50) K/uL Lymph # (Auto) (1.20-3.40) K/uL Kleberg # (Auto) (0.11-0.59) K/uL Eos # (Auto) (0.00-0.50) K/uL Baso # (Auto) (0.00-0.20) K/uL Immature Gran # (Auto) (0.01-0.20) K/uL ESR 86 H (0-20) mm/hr PT 11.0 (9.0-12.0) Seconds INR 1.0 (0.9-1.1) APTT 30.3 (21.0-31.0) Seconds PTT Ratio 1.1 VBG pH (7.36-7.41) VBG pCO2 (38-50) mmHg VBG pO2 mmHg VBG HCO3 mmol/L VBG O2 Saturation % VBG Base Excess mEq/L Sodium (136-145) mmol/L Potassium (3.5-5.1) mmol/L Chloride (98-107) mmol/L Carbon Dioxide (21-32) mmol/L Anion Gap (3-11) BUN (6-23) mg/dl Creatinine (0.6-1.4) mg/dl Est Cr Clr Drug Dosing ml/min Est GFR ( Amer) ml/min Est GFR (Non-Af Amer) ml/min BUN/Creatinine Ratio (10-20) Glucose (70-99(Fasting)) mg/dl Lactate (0.4-2.0) mmol/L Calcium (8.6-10.3) mg/dl Magnesium (1.7-2.4) mg/dl Total Bilirubin (0.2-1.0) mg/dl Direct Bilirubin (0-0.2) mg/dl AST (13-39) U/L ALT (7-52) U/L Alkaline Phosphatase (34-104) U/L Troponin I High Sens (0-20) pg/ml C-Reactive Protein (0-0.5) mg/dl Total Protein (6.0-8.3) gm/dl Albumin (3.4-5.0) gm/dl Procalcitonin < 0.05 (0-0.5) ng/ml Urine Color Urine Appearance (Clear) Urine pH (4.5-7.5) Ur Specific [place] (1.000-1.030) Urine Protein (Negative) Urine Glucose (UA) (Negative) Urine Ketones (Negative) Urine Blood (Negative) Urine Nitrite (Negative) Urine Bilirubin (Negative) Urine Urobilinogen (Negative) Ur Leukocyte Esterase (Negative) 06/23/23 06/23/23 Range/Units 22:23 23:16 WBC (4.8-10.8) K/ul RBC (4.70-6.10) M/uL Hgb (14.0-18.0) g/dl Hct (42.0-52.0) % MCV (80.0-100.0) fL MCH (25.0-34.0) pg MCHC (32.0-36.0) g/dL RDW Std Deviation (36.4-46.3) fL RDW Coeff of Jose (11.5-14.5) % Plt Count (130-400) K/uL MPV (9.4-12.4) fL Immature Gran % (Auto) % Neut % (Auto) % Lymph % (Auto) % Kleberg % (Auto) % Eos % (Auto) % Baso % (Auto) % Neut # (Auto) (1.40-6.50) K/uL Lymph # (Auto) (1.20-3.40) K/uL Kleberg # (Auto) (0.11-0.59) K/uL Eos # (Auto) (0.00-0.50) K/uL Baso # (Auto) (0.00-0.20) K/uL Immature Gran # (Auto) (0.01-0.20) K/uL ESR (0-20) mm/hr PT (9.0-12.0) Seconds INR (0.9-1.1) APTT (21.0-31.0) Seconds PTT Ratio VBG pH 7.45 H (7.36-7.41) VBG pCO2 45 (38-50) mmHg VBG pO2 47 mmHg VBG HCO3 31 mmol/L VBG O2 Saturation 87.6 % VBG Base Excess 6.4 mEq/L Sodium (136-145) mmol/L Potassium (3.5-5.1) mmol/L Chloride (98-107) mmol/L Carbon Dioxide (21-32) mmol/L Anion Gap (3-11) BUN (6-23) mg/dl Creatinine (0.6-1.4) mg/dl Est Cr Clr Drug Dosing ml/min Est GFR ( Amer) ml/min Est GFR (Non-Af Amer) ml/min BUN/Creatinine Ratio (10-20) Glucose (70-99(Fasting)) mg/dl Lactate (0.4-2.0) mmol/L Calcium (8.6-10.3) mg/dl Magnesium (1.7-2.4) mg/dl Total Bilirubin (0.2-1.0) mg/dl Direct Bilirubin (0-0.2) mg/dl AST (13-39) U/L ALT (7-52) U/L Alkaline Phosphatase (34-104) U/L Troponin I High Sens (0-20) pg/ml C-Reactive Protein (0-0.5) mg/dl Total Protein (6.0-8.3) gm/dl Albumin (3.4-5.0) gm/dl Procalcitonin (0-0.5) ng/ml Urine Color Dark Yellow Urine Appearance Clear (Clear) Urine pH 5.5 (4.5-7.5) Ur Specific [place] 1.030 (1.000-1.030) Urine Protein Negative (Negative) Urine Glucose (UA) Negative (Negative) Urine Ketones Trace H (Negative) Urine Blood Negative (Negative) Urine Nitrite Negative (Negative) Urine Bilirubin Negative (Negative) Urine Urobilinogen Negative (Negative) Ur Leukocyte Esterase Negative (Negative) Administered Medications Acetaminophen (Acetaminophen 325 Mg Tab) 650 mg PO Q4H PRN PRN Reason: pain/fever Stop: 07/24/23 03:24 Last Admin: 06/24/23 21:55 Dose: 650 mg Documented By: Admin: 06/24/23 15:53 Dose: 650 mg Documented By: Admin: 06/24/23 10:59 Dose: 650 mg Documented By: PRADEEP Aspirin (Aspirin 81 Mg Ectab) 81 mg PO QAM [facility] Stop: 07/24/23 08:59 Last Admin: 06/25/23 07:30 Dose: 81 mg Documented By: Admin: 06/24/23 07:42 Dose: 81 mg Documented By: PRADEEP Enoxaparin Sodium (Enoxaparin Inj 40 Mg/0.4 Ml Syr) 40 mg SQ QAM [facility] Stop: 07/25/23 08:59 Last Admin: 06/25/23 07:30 Dose: 40 mg Documented By: PRADEEP Daptomycin 500 mg/ Syringe 10 mls @ 5 mls/min IV Q24H [facility]; Protocol Stop: 07/01/23 21:59 Last Admin: 06/24/23 21:56 Dose: 5 mls/min Documented By: WENDY Tamsulosin HCl (Tamsulosin Hcl 0.4 Mg Cap) 0.4 mg PO DAILY [facility] Stop: 07/24/23 08:59 Last Admin: 06/25/23 07:30 Dose: 0.4 mg Documented By: Admin: 06/24/23 07:42 Dose: 0.4 mg Documented By: PRADEEP Discontinued Medications Daptomycin 500 mg/ Syringe 10 mls @ 5 mls/min IV Q24H [facility]; Protocol Stop: 06/26/23 00:14 Last Admin: 06/24/23 00:16 Dose: 5 mls/min Documented By: JACKIE Imaging Data Radiologist's Impression: Chest X-Ray 06/23/23 22:08 XR chest 1V portable HISTORY: Sepsis COMPARISON: Chest 06/06/2023. FINDINGS: No pneumothorax. There are old, healed bilateral rib fractures. Degenerative changes again noted within the left shoulder. Calcified granuloma within the left midlung zone. Mild interstitial thickening persists. Bibasilar linear densities are also unchanged. The heart is borderline enlarged. No evidence for pulmonary edema. There are calcifications within the aortic knob. IMPRESSION: No significant change compared to the prior study. No acute process. Bibasilar linear densities persist and favor subsegmental atelectasis. ACT 112: Negative or not required by law. Electronically signed by: Ronny Crowley M.D. 06/24/2023 7:57 AM Discharge Plan Visit Data Chief Complaint: Infection, Wound Stated Complaint: Rt Ankle post op infection ED Provider: Raquel Burr Discharge Problem: Blood bacterial culture positive, Fever, low grade, Status post open reduction with internal fixation (ORIF) of fracture of ankle Patient Disposition: Admitted As Inpatient Discharge Instructions Interventions: ED Discharge Assessment Last Done: 06/24/23 03:01
--- NOTE | 2023-06-24 06:46 | Hospitalist Progress Note ---
Date of Service June 24, 2023 Assessment & Plan (1) Closed trimalleolar fracture: (2) BPH (benign prostatic hyperplasia): Plan Harsha Curry is an 83yo male, recently admitted to [facility] from 06/05/23 - 06/12/23 with a left ankle fracture after a fall. He had an ORIF performed by Dr. Camacho on 06/07/23 which was uncomplicated. Here due to fever, wound dehiscence, and positive blood culture. Wound dehiscence Closed trimalleolar fracture s/p surgical repair on 06/07/23 - ongoing low grade fever, poor wound healing. - Positive blood culture (06/21) in outpatient setting: staph epidermidis, methicillin resistant -Check X-ray left ankle: no osteomyelitis, diffuse soft tissue swelling -CRP: 10.45, no leukocytosis - Pending blood culture - IV Daptomycin 500 mg - Orthopedic consulted BPH -Chronic -Continue Flomax Code: Full code Dispo: Med surge DVT prophylaxis: Lovenox 40 mg SC daily NOV/GI: Regular PT/OT: no Case management: no Admission and Anticipated Discharge Date Admission Date: June 24, 2023 Supervising Physician Co-Signing Physician Notes Resident Physician Supervision Note: I independently interviewed and examined the patient and verified the kuhn history and physical, reviewed labs and image studies and agree with resident findings and care plan. Subjective Harsha Curry is an 83yo male, recently admitted to [facility] from 06/05/23 - 06/12/23 with a left ankle fracture after a fall. He had an ORIF performed by Dr. Camacho on 06/07/23 which was uncomplicated. He was discharged home in stable condition to [facility]. Patient reports that since returning home to [facility] he has had fairly constant low-grade fevers - mostly noted in the evenings. Temperatures have been 100-100.9. He has been given Tylenol on most nights. Staff originally thought that his fevers were secondary to the Covid-19 booster that he received on the day of discharge. However, fevers have persisted for the last 10+ days. Patient has maintained a non-weightbearing status and his ankle has been in a splint. He reports minimal pain in the ankle. He was seen by Dr. Camacho for followup on 06/21/23 and the splint was removed. There was some concern regarding some incomplete healing of the distal portion of the surgical wound. Patient was prescribed Keflex which he began 06/21/23 PM. He has continue on the Keflex as prescribed but has had no improvement in the fevers. He was instructed to see Dr. Camacho again in 4 weeks. Additionally, patient had one blood culture performed at [facility] on 06/21/23 which was resulted on 06/23/23 - POSITIVE for staph. epidermidis, methicillin resistant Today evaluated found in no acute distress. Denied any SOB, chills, nausea, diarrhea, vomiting, abdominal pain or any other complains Review of Systems Review of Systems: All systems reviewed & are unremarkable except as noted in HPI & below Physical Exam Constitutional: WD/WN, vitals as above ENMT: external ear and nose normal, oropharynx normal Respiratory: normal respiratory effort, lungs clear to auscultation Cardiovascular: RRR, no murmur, no edema Gastrointestinal (Abdomen): normal bowel sounds, soft, nontender, no hepatosplenomegaly Musculoskeletal: Left ankle surgical wound with steri strips in place.Clean bandages. some warmth and redness of surrounding tissues, area of mild dehiscence/poor healing Skin: no rashes, warm and dry Results & Data Results & Data Vital Signs (Past 12 Hours) Vital Signs Temp Pulse Pulse Resp BP BP Pulse Ox 06/24/23 03:30 36.8 C 85 18 147/76 H 95 06/24/23 03:00 141/76 H 06/24/23 02:30 81 18 145/80 H 94 06/24/23 01:49 82 06/24/23 02:00 81 23 139/83 96 06/24/23 01:30 82 22 124/81 98 06/24/23 01:00 79 19 06/24/23 01:00 145/77 H 06/24/23 00:30 81 23 150/81 H 96 06/24/23 00:00 79 22 152/80 H 95 06/23/23 23:30 79 21 133/70 96 06/23/23 23:00 76 24 135/73 96 06/23/23 22:30 77 23 96 06/23/23 22:30 134/76 06/23/23 22:28 74 96 06/23/23 21:49 78 06/23/23 22:00 78 20 92 06/23/23 22:00 130/76 06/23/23 21:52 77 22 91 06/23/23 21:52 127/72 06/23/23 21:49 80 19 06/23/23 21:54 37.1 C 78 22 130/76 91 O2 Del Method 06/24/23 03:30 Room Air 06/24/23 03:00 06/24/23 02:30 Room Air 06/24/23 01:49 06/24/23 02:00 Room Air 06/24/23 01:30 Room Air 06/24/23 01:00 06/24/23 01:00 06/24/23 00:30 Room Air 06/24/23 00:00 Room Air 06/23/23 23:30 Room Air 06/23/23 23:00 Room Air 06/23/23 22:30 Room Air 06/23/23 22:30 06/23/23 22:28 Room Air 06/23/23 21:49 06/23/23 22:00 Room Air 06/23/23 22:00 06/23/23 21:52 Room Air 06/23/23 21:52 06/23/23 21:49 06/23/23 21:54 Room Air Resident Activity Tracking Resident Involvement: Resident Care Provided Care Provided: Adult Hospital Medicine (1) Closed trimalleolar fracture Encounter type: initial encounter Laterality: left Qualified Code(s): S82.852A - Displaced trimalleolar fracture of left lower leg, initial encounter for closed fracture
--- NOTE | 2023-06-24 07:37 | XRay Report ---
XR ankle LT min 3V routine CLINICAL HISTORY: recent surgery ?infection COMPARISON STUDY: Left ankle 06/05/2023. FINDINGS: Overlying cast material obscures fine bony detail. Status post internal fixation of a antoni leolar fracture with cortical plates and screws. The hardware appears intact. No abnormal periprosthe tic lucency. No bony destructive changes to suggest an osteomyelitis. There is diffuse soft tissue sw elling. The alignment appears near-anatomic. IMPRESSION: 1. Status post internal fixation of a bimalleolar left ankle fracture. No evidence for hardware compl ication. 2. Diffuse soft tissue swelling. 3. No bony destructive changes to suggest an osteomyelitis. ACT 112: Negative or not required by law. Electronically signed by: Ronny Crowley M.D. 06/24/2023 7:36 AM
[2023-06-24] MEDS: TAMSULOSIN HCL 0.4 MG CAP PO SCH (07:42)
[2023-06-24] MEDS: ASPIRIN 81 MG ECTAB PO SCH (07:42)
--- NOTE | 2023-06-24 07:58 | XRay Report ---
XR chest 1V portable HISTORY: Sepsis COMPARISON: Chest 06/06/2023. FINDINGS: No pneumothorax. There are old, healed bilateral rib fractures. Degenerative changes again noted within the left shoulder. Calcified granuloma within the left midlung zone. Mild interstitial t hickening persists. Bibasilar linear densities are also unchanged. The heart is borderline enlarged. No evidence for pulmonary edema. There are calcifications within the aortic knob. IMPRESSION: No significant change compared to the prior study. No acute process. Bibasilar linear densities persi st and favor subsegmental atelectasis. ACT 112: Negative or not required by law. Electronically signed by: Ronny Crowley M.D. 06/24/2023 7:57 AM
[2023-06-24] MEDS: ACETAMINOPHEN 325 MG TAB PO PRN ×3 (10:59→21:55)
--- NOTE | 2023-06-24 16:45 | Orthopedic Progress Note ---
Date of Service June 24, 2023 Assessment & Plan Admission and Anticipated Discharge Date Admission Date: June 24, 2023 Miladis Curry is an 83yo male, recently admitted to [facility] from 06/05/23 - 06/12/23 with a left ankle fracture after a fall. I performed an ORIF performed by Dr. Camacho on 06/07/23 which was uncomplicated. He was discharged home in stable condition to [facility]. Patient reports that since returning home to [facility] he has had fairly constant low-grade fevers - mostly noted in the evenings. Temperatures have been 100-100.9. He has been given Tylenol on most nights. Staff originally thought that his fevers were secondary to the Covid-19 booster that he received on the day of discharge. However, fevers have persisted for the last 10+ days. Patient has maintained a non-weightbearing status and his ankle has been in a splint. He reports minimal pain in the ankle. He was seen by Dr. Camacho for followup on 06/21/23 and the splint was removed. There was some concern regarding some incomplete healing of the distal portion of the surgical wound. Patient was prescribed Keflex which he began 06/21/23 PM. He has continue on the Keflex as prescribed but has had no improvement in the fevers. He was instructed to see Dr. Camacho again in 4 weeks. Additionally, patient had one blood culture performed at [facility] on 06/21/23 which was resulted on 06/23/23 - POSITIVE for staph. epidermidis, methicillin resistant Today evaluated found in no acute distress. Denied any SOB, chills, nausea, diarrhea, vomiting, abdominal pain or any other complains Results & Data Vital Signs (Past 12 Hours) Vital Signs Temp Pulse Resp BP Pulse Ox O2 Del Method 06/24/23 14:18 36.9 C 78 16 116/70 93 Room Air 06/24/23 08:44 Room Air 06/24/23 07:09 36.8 C 79 16 137/77 95 Room Air
--- NOTE | 2023-06-24 16:54 | Orthopedic Consultation ---
Date of Consultation June 24, 2023 Assessment & Plan (1) Bacteremia: Recommendation: Continue IV antibiotics and manage conservatively. No indication for surgical intervention at this time. Incision is intact and wound appears benign with minimal erythema. Dressing change performed bedside with nurse assist. Continuation with IV antibiotics with likely eventual transition to oral antibiotics based upon clinical and lab findings. VTE prophylaxis per medical service. Continue daily sterile/dry dressing changes. Reapply splint. KAMARI Pandey LE. F/U [address] Camacho @ [facility]. Call for appt. Thank you for the opportunity to participate in the care of this patient. Peter Camacho DO [facility] (2) Fever of unknown origin: (3) Closed trimalleolar fracture: History of Present Illness Reason for Consultation: This is an 83-year-old gentleman seen at the request of the hospitalist service and Dr. Gisel Lee after admission to [facility] for ave nued recurrent fevers with recent history of ORIF left trimalleolar ankle fracture that I had performed during his last admission. The patient had uneventful healing of the ankle with the exception of some redness and mild drainage which was addressed in his last office visit. Patient was placed on Keflex as a prophylactic antibiotic and patient continued to have night fevers. He had blood cultures demonstrated Staph epidermidis then admitted to [facility] for further care and management. Orthopedics was consulted. He has no fevers or chills currently. No shortness of breath and no chest pain. He has no pain in the left ankle and is resting comfortably in his bed with the splint intact and family members at bedside Attending Physician: Gisel Lee MD History of Present Illness Please see above. Allergies Allergy/AdvReac Type Severity Reaction Status Date / Time Penicillins Allergy Unknown Verified 05/25/23 15:23 Home Medications Medication Instructions Recorded Confirmed Type tamsulosin 0.4 mg capsule 0.4 mg PO DAILY #30 caps 04/25/23 06/23/23 Rx aspirin 81 mg tablet,delayed 81 mg PO QAM 4 weeks #28 tabs 06/09/23 06/23/23 Rx release acetaminophen 325 mg tablet 650 mg PO Q4 PRN Mild Pain (Scale 06/23/23 06/23/23 History Score 1-4) acetaminophen 325 mg tablet 650 mg PO Q4 PRN temp>100 06/23/23 06/23/23 History acetaminophen 650 mg 1,300 mg PO BID 06/23/23 06/23/23 History tablet,extended release (Tylenol 8 Hour) ascorbic acid (vitamin C) 500 mg 500 mg PO QAM 06/23/23 06/23/23 History tablet (Vitamin C) calcium carbonate 600 mg calcium 600 mg PO BID 06/23/23 06/23/23 History (1,500 mg) tablet (Calcium) cholecalciferol (vitamin D3) 50 50 mcg PO DAILY 06/23/23 06/23/23 History mcg (2,000 unit) tablet (Vitamin D3) sennosides 8.6 mg tablet 8.6 mg PO DAILY PRN Constipation 06/23/23 06/23/23 History sennosides 8.6 mg tablet 17.2 mg PO BID 06/23/23 06/23/23 History Patient History Medical History (Updated 06/24/23 @ 16:53 by Peter Camacho DO) BPH (benign prostatic hyperplasia) Closed trimalleolar fracture Compression fracture of lumbar vertebra T12, L1, L3, L4 Lumbar pain Surgical History H/O hernia repair History of appendectomy Total knee replacement status 2004 Family History Father Hypertension Denies family history of Ovarian cancer Prostate cancer Diabetes Myocardial infarction Breast cancer Colorectal cancer Social History Smoking Status: Never smoker Second Hand Exposure: No; Do You Dip or Chew Tobacco: No; Hx Alcohol Use: No Hx Substance Use: No Preferred Language: Upper Sorbian Communication Ability: Effective Visual Impairment: No Limitations Hearing Ability: Normal 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: No Beliefs That Will Affect Care: None marital status: Current Living Situation: Spouse Current Living Situation Comment: lives in 2 story house with , he is primary caregiver for current occupational status: retired Other Information That Helps Us Care for You: No Feels Safe at Home: Yes Safety Concerns: Feels Safe At This Time caffeine: Yes (coffee) Dental Care, Regularly: Yes Physical Activity Frequency: 1-2 Times per Week Physical Activity Frequency Comment: walking helping Seatbelt Use: always Sunscreen Use: Yes Assistive Devices: Glasses and Walker Assistive Devices Comment: non weightbearing LLE at this time Physical Exam Constitutional: WD/WN, vitals as above Eyes: PERRL, conjunctivae normal, anicteric sclerae ENMT: external ear and nose normal, oropharynx normal Neck: trachea midline, no thyromegaly Respiratory: normal respiratory effort, lungs clear to auscultation Cardiovascular: RRR, no murmur, no edema Gastrointestinal (Abdomen): normal bowel sounds, soft, nontender, no hepatosplenomegaly Musculoskeletal: Left ankle splint removed. The left ankle incision was well approximated and Steri-Strips were intact. No discharge proximally, scant serous discharge at the distal pole of the incision. No foul odor normal erythema with no evidence of streaking or fluctuance. Compartments are soft. Homans negative. Cap refill brisk less than 2 seconds. Dorsalis pedis and posterior tibial pulses 2/4 bilateral. Skin: no rashes, warm and dry Neurologic: PERRL, EOMI, accommodation nl, no face palsy, no dysarthria Psychiatric: A+Ox3, euthymic affect Lymphatic: no cervical or axillary lymphadenopathy Results & Data Vital Signs (Past 12 Hours) Vital Signs Temp Pulse Resp BP Pulse Ox O2 Del Method 06/24/23 14:18 36.9 C 78 16 116/70 93 Room Air 06/24/23 08:44 Room Air 06/24/23 07:09 36.8 C 79 16 137/77 95 Room Air Laboratory Results Reviewed. ESR and CRP elevated. Albumin low. Diagnostic Findings Reviewed. (3) Closed trimalleolar fracture Encounter type: initial encounter Laterality: left Qualified Code(s): S82.852A - Displaced trimalleolar fracture of left lower leg, initial encounter for closed fracture
--- NOTE | 2023-06-24 21:01 | Electrocardiogram Report ---
Test Reason : Blood Pressure : / mmHG Vent. Rate : 077 BPM Atrial Rate : 077 BPM P-R Int : 180 ms QRS Dur : 108 ms QT Int : 380 ms P-R-T Axes : 066 046 021 degrees QTc Int : 430 ms Sinus rhythm with Premature ventricular complexes Otherwise normal ECG When compared with ECG of 27-JUN-2005 10:29, Premature ventricular complexes are now Present Confirmed by Kavon Fry ([id number]) on 06/24/2023 9:01:24 PM Referred By: Los mcclellan [facility] Confirmed By:Kavon rFy
[2023-06-24] MEDS: DAPTOmycin 500 MG in SYRINGE 0 ML IV SCH (21:56)
[2023-06-25 06:33] LABS: Basophils # (auto) 0.04 K/uL (0.00-0.20); Basophils % (auto) 0.6 %; Eosinophils # (auto) 0.11 K/uL (0.00-0.50); Eosinophils % (auto) 1.8 %; Hematocrit (blood only) 41.1 % (42.0-52.0); Hemoglobin 13.8 g/dl (14.0-18.0); Immature Granulocytes # (auto) 0.02 K/uL (0.01-0.20); Immature Granulocytes % (auto) 0.3 %; Lymphocytes # (auto) 0.72 K/uL (1.20-3.40); Lymphocytes % (auto) 11.6 %; Mean Corpuscular Hemoglobin 31.7 pg (25.0-34.0); Mean Corpuscular Hgb Conc 33.6 g/dL (32.0-36.0); Mean Corpuscular Volume 94.5 fL (80.0-100.0); Mean Platelet Volume 8.3 fL (9.4-12.4); Monocytes # (auto) 0.48 K/uL (0.11-0.59); Monocytes % (auto) 7.7 %; Neutrophils # (auto) 4.84 K/uL (1.40-6.50); Platelet Count 193 K/uL (130-400); RDW Coefficient of Variation 14.3 % (11.5-14.5); RDW Standard Deviation 49.4 fL (36.4-46.3); Red Blood Count 4.35 M/uL (4.70-6.10); White Blood Count 6.21 K/ul (4.8-10.8)
[2023-06-25 07:06] LABS: Albumin Globulin Ratio 1.1 (0.9-2); Albumin Level 3.2 gm/dl (3.4-5.0); BUN Creatinine Ratio 23.2 (10-20); Bilirubin,Total 0.8 mg/dl (0.2-1.0); Calcium 9.1 mg/dl (8.6-10.3); Creatinine Clr Calc Pharmacy 96.3 ml/min; Est GFR (African American) 101.8 ml/min; Est GFR (Non-African American) 87.8 ml/min; Magnesium 1.9 mg/dl (1.7-2.4); Total Protein 6.2 gm/dl (6.0-8.3)
--- NOTE | 2023-06-25 07:08 | Hospitalist Progress Note ---
Date of Service June 25, 2023 Assessment & Plan (1) Closed trimalleolar fracture: (2) BPH (benign prostatic hyperplasia): Plan Harsha Curry is an 83yo male, recently admitted to [facility] from 06/05/23 - 06/12/23 with a left ankle fracture after a fall. He had an ORIF performed by Dr. Camacho on 06/07/23 which was uncomplicated. Here due to fever, wound dehiscence, and positive blood culture. Wound dehiscence/ Cellulitis Closed trimalleolar fracture s/p surgical repair on 06/07/23 - ongoing low grade fever, poor wound healing. - Positive blood culture (06/21) in outpatient setting /2: staph epidermidis, methicillin resistant. -Probably contaminated, will not need further staph bacteremia work up. -Check X-ray left ankle: no osteomyelitis, diffuse soft tissue swelling -CRP: 10.45, no leukocytosis - Blood cultures: negative for 24 hrs - IV Daptomycin 500 mg -Orthopedic consult: no surgical management at the moement. Will follow patient out patient. -Discharge planning. Po antibiotics upon discharge. CM on case, patient will need new insurance authorization prior D/C BPH -Chronic -Continue Flomax Code: Full code Dispo: Med surge DVT prophylaxis: Lovenox 40 mg SC daily NOV/GI: Regular PT/OT: yes Case management: yes Admission and Anticipated Discharge Date Admission Date: June 24, 2023 Supervising Physician Co-Signing Physician Notes I personally examined the patient and verified all kuhn points of history and exam, discussed case, and agree with decision making with Dr Bartolo Castillo feeling ok discussed blood cultures while still trying to obtain actual results later was able to review: only 1 bottle positive vitals noted nad heent nc at mmm breathing unlabored no accessory muscles foot dressed and wrapped, no erythema extending beyond dressing nontender cellulitis/wound infection - no surgery needed. abx, wound care, time. fortunately appears that blood cultures were only 1/2 positive, making findings c/w contaminant (further corroborated by him having been on keflex wiht a culture showing methcillin resistant staph but follow up cultures showed no growth) -abx, wound care, return to SNF/rehab emphasis Subjective Harsha Curry is an 83yo male, recently admitted to [facility] from 06/05/23 - 06/12/23 with a left ankle fracture after a fall. He had an ORIF performed by Dr. Camacho on 06/07/23 which was uncomplicated. He was discharged home in stable condition to [facility]. Patient reports that since returning home to [facility] he has had fairly constant low-grade fevers - mostly noted in the evenings. Temperatures have been 100-100.9. He has been given Tylenol on most nights. Ho wever, fevers have persisted for the last 10+ days. Patient has maintained a non-weightbearing status and his ankle has been in a splint. He reports minimal pain in the ankle. He was seen by Dr. Camacho for followup on 06/21/23 and the splint was removed. There was some concern regarding some incomplete healing of the distal portion of the surgical wound. Patient was prescribed Keflex which he began 06/21/23 PM. He has continue on the Keflex as prescribed but has had no improvement in the fevers. He was instructed to see Dr. Camacho again in 4 weeks. Additionally, patient had one blood culture performed at [facility] on 06/21/23 which was resulted on 06/23/23 - POSITIVE for staph. epidermidis, methicillin resistant Today evaluated found in no acute distress. Denied any SOB, chills, nausea, diarrhea, vomiting, abdominal pain or any other complains. Patient has been afebrile since arrival Review of Systems Review of Systems: as per hpi Physical Exam Constitutional: WD/WN, vitals as above ENMT: external ear and nose normal, oropharynx normal Respiratory: normal respiratory effort, lungs clear to auscultation Cardiovascular: RRR, no murmur, no edema Gastrointestinal (Abdomen): normal bowel sounds, soft, nontender, no hepatosplenomegaly The left ankle incision was well approximated and Steri-Strips were intact. No discharge proximally, scant serous discharge at the distal pole of the incision. No foul odor normal erythema with no evidence of streaking or f luctuance. Skin: no rashes, warm and dry Results & Data Results & Data Vital Signs (Past 12 Hours) Vital Signs Temp Pulse Resp BP Pulse Ox O2 Del Method 06/24/23 19:52 36.9 C 77 18 159/81 H 95 Room Air Resident Activity Tracking Resident Involvement: Resident Care Provided Care Provided: Adult Hospital Medicine (1) Closed trimalleolar fracture Encounter type: initial encounter Laterality: left Qualified Code(s): S82.852A - Displaced trimalleolar fracture of left lower leg, initial encounter for closed fracture
[2023-06-25] MEDS: TAMSULOSIN HCL 0.4 MG CAP PO SCH (07:30)
[2023-06-25] MEDS: ASPIRIN 81 MG ECTAB PO SCH (07:30)
[2023-06-25] MEDS: ENOXAPARIN INJ 40 MG/0.4 ML SYR SQ SCH (07:30)
--- NOTE | 2023-06-25 17:53 | Billing Data ---
Date of Service June 25, 2023 Coding Level of Care Code 04462 SUB INP/OBS CARE MIN
[2023-06-25] MEDS: DAPTOmycin 500 MG in SYRINGE 0 ML IV SCH (20:57)
[2023-06-25] MEDS: ACETAMINOPHEN 325 MG TAB PO PRN (21:03)
[2023-06-26] MEDS: ACETAMINOPHEN 325 MG TAB PO PRN (00:08)
[2023-06-26 06:20] LABS: Basophils # (auto) 0.05 K/uL (0.00-0.20); Basophils % (auto) 0.9 %; Eosinophils # (auto) 0.13 K/uL (0.00-0.50); Eosinophils % (auto) 2.2 %; Hematocrit (blood only) 42.6 % (42.0-52.0); Immature Granulocytes # (auto) 0.03 K/uL (0.01-0.20); Immature Granulocytes % (auto) 0.5 %; Lymphocytes # (auto) 0.73 K/uL (1.20-3.40); Lymphocytes % (auto) 12.5 %; Mean Corpuscular Hemoglobin 31.4 pg (25.0-34.0); Mean Corpuscular Hgb Conc 32.9 g/dL (32.0-36.0); Mean Corpuscular Volume 95.5 fL (80.0-100.0); Mean Platelet Volume 8.8 fL (9.4-12.4); Monocytes # (auto) 0.48 K/uL (0.11-0.59); Monocytes % (auto) 8.2 %; Neutrophils % (auto) 75.7 %; Platelet Count 218 K/uL (130-400); RDW Coefficient of Variation 14.3 % (11.5-14.5); RDW Standard Deviation 49.8 fL (36.4-46.3); Red Blood Count 4.46 M/uL (4.70-6.10); White Blood Count 5.82 K/ul (4.8-10.8)
[2023-06-26 06:31] LABS: Albumin Level 3.2 gm/dl (3.4-5.0); BUN Creatinine Ratio 25.4 (10-20); Bilirubin,Total 0.8 mg/dl (0.2-1.0); Calcium 9.4 mg/dl (8.6-10.3); Creatinine Clr Calc Pharmacy 93.6 ml/min; Est GFR (African American) 100.6 ml/min; Est GFR (Non-African American) 86.8 ml/min; Globulin 3.3 gm/dl (2.5-4.0); Magnesium 2.2 mg/dl (1.7-2.4); Potassium 4.1 mmol/L (3.5-5.1); Total Protein 6.5 gm/dl (6.0-8.3)
--- NOTE | 2023-06-26 07:00 | Hospitalist Progress Note ---
Date of Service June 26, 2023 Assessment & Plan (1) Closed trimalleolar fracture: (2) BPH (benign prostatic hyperplasia): Plan Harsha Curry is an 83yo male, recently admitted to [facility] from 06/05/23 - 06/12/23 with a left ankle fracture after a fall. He had an ORIF performed by Dr. Camacho on 06/07/23 which was uncomplicated. Here due to fever, wound dehiscence, and positive blood culture. Wound dehiscence/ Cellulitis Closed trimalleolar fracture s/p surgical repair on 06/07/23 - ongoing low grade fever, poor wound healing. - Positive blood culture (06/21) in outpatient setting /: staph epidermidis, methicillin resistant. -Probably contaminated, will not need further staph bacteremia work up. -Check X-ray left ankle: no osteomyelitis, diffuse soft tissue swelling -CRP: 10.45, no leukocytosis - Blood cultures: negative for 24 hrs - IV Daptomycin 500 mg -Orthopedic consult: no surgical management at the moement. Will follow patient out patient. -Discharge planning. Po antibiotics upon discharge. CM on case, patient will need new insurance authorization prior D/C BPH -Chronic -Continue Flomax Code: Full code Dispo: Med surge DVT prophylaxis: Lovenox 40 mg SC daily NOV/GI: Regular PT/OT: yes Case management: yes Admission and Anticipated Discharge Date Admission Date: June 24, 2023 Miladis Curry is an 83yo male, recently admitted to [facility] from 06/05/23 - 06/12/23 with a left ankle fracture after a fall. He had an ORIF performed by Dr. Camacho on 06/07/23 which was uncomplicated. He was discharged home in stable condition to [facility]. Patient reports that since returning home to [facility] he has had fairly constant low-grade fevers - mostly noted in the evenings. Temperatures have been 100-100.9. He has been given Tylenol on most nights. However, fevers have persisted for the last 10+ days. Patient has maintained a non-weightbearing status and his ankle has been in a splint. He reports minimal pain in the ankle. He was seen by Dr. Camacho for followup on 06/21/23 and the splint was removed. There was some concern regarding some incomplete healing of the distal portion of the surgical wound. Patient was prescribed Keflex which he began 06/21/23 PM. He has continue on the Keflex as prescribed but has had no improvement in the fevers. He was instructed to see Dr. Camacho again in 4 weeks. Additionally, patient had one blood culture performed at [facility] on 06/21/23 which was resulted on 06/23/23 - POSITIVE for staph. epidermidis, methicillin resistant Today evaluated found in no acute distress. Denied any SOB, chills, nausea, diarrhea, vomiting, abdominal pain or any other complains. Patient has been afebrile since arrival Results & Data Results & Data Vital Signs (Past 12 Hours) Vital Signs Temp Pulse Resp BP Pulse Ox O2 Del Method 06/25/23 19:42 36.8 C 79 18 136/70 94 Room Air (1) Closed trimalleolar fracture Encounter type: initial encounter Laterality: left Qualified Code(s): S82.852A - Displaced trimalleolar fracture of left lower leg, initial encounter for closed fracture
[2023-06-26] MEDS: ENOXAPARIN INJ 40 MG/0.4 ML SYR SQ SCH (08:42)
[2023-06-26] MEDS: ASPIRIN 81 MG ECTAB PO SCH (08:42)
[2023-06-26] MEDS: TAMSULOSIN HCL 0.4 MG CAP PO SCH (08:42)
--- NOTE | 2023-06-26 10:31 | Discharge Summary ---
Date of Service June 26, 2023 Admission HPI Per Admitting Provider Harsha Curry is an 83yo male, recently admitted to [facility] from 06/05/23 - 06/12/23 with a left ankle fracture after a fall. He had an ORIF performed by Dr. Camacho on 06/07/23 which was uncomplicated. He was discharged home in stable condition to [facility]. Patient reports that since returning home to [facility] he has had fairly constant low-grade fevers - mostly noted in the evenings. Temperatures have been 100-100 .9. He has been given Tylenol on most nights. Staff originally thought that his fevers were secondary to the Covid-19 booster that he received on the day of discharge. However, fevers have persisted for the last 10+ days. Patient has maintained a non-weightbearing status and his ankle has been in a splint. He reports minimal pain in the ankle. He was seen by Dr. Camacho for followup on 06/21/23 and the splint was removed. There was some concern regarding some incomplete healing of the distal portion of the surgical wound. Patient was prescribed Keflex which he began 06/21/23 PM. He has continue on the Keflex as prescribed but has had no improvement in the fevers. He was instructed to see Dr. Camacho again in 4 weeks. Additionally, patient had one blood culture performed at [facility] on 06/21/23 which was resulted on 06/23/23 - POSITIVE for staph. epidermidis, methicillin resistant In the ER patient is afebrile, HD stable, non-toxic in appearance Splint has been removed ER Course: Daptomycin Admission Exam Per Admitting Provider General: patient resting comfortably, NAD, non-toxic in appearance, AA&O x 4 Skin: warm, dry, intact, no rashes or lesions HEENT: NC/AT, PERRL, EOMI, anicteric sclera, conjunctiva without injection, external ear normal to inspection and nontender, nares patent, moist mucus membranes, dentition intact, no oropharyngeal lesions, neck supple, trachea midline, no LAD, no thyromegaly, no JVD Heart: +S1/S2, regular, no m/r/g Lungs: equal air entry bilaterally, no rales/rhonchi/wheezes Abd: +BS, soft, NT/ND, no masses/organomegaly/ascites Ext: warm, 2+ pulses in UE/LE bilaterally, no clubbing/cyanosis or edema Left ankle surgical wound with steri strips in place. Small area of bleeding at the cranial side of the wound, some warmth and redness of surrounding tissues, area of mild dehiscence/poor healing Neuro: nonfocal, patient AA&O x 4, speech intact, no facial droop, moving all extremities on command with equal strength 5/5 Principal Diagnosis Cellulitis Discharge Exam Constitutional WD/WN, vitals as above ENMT external ear and nose normal, oropharynx normal Respiratory normal respiratory effort, lungs clear to auscultation Cardiovascular RRR, no murmur, no edema Gastrointestinal (Abdomen) normal bowel sounds, soft, nontender, no hepatosplenomegaly Musculoskeletal The left ankle incision was well approximated and Steri-Strips were intact. No discharge proximally, scant serous discharge at the distal pole of the incision. No foul odor normal erythema with no evidence of streaking or fluctuance. Skin no rashes, warm and dry Discharge Data Allergies Allergy/AdvReac Type Severity Reaction Status Date / Time Penicillins Allergy Unknown Verified 05/25/23 15:23 Consultations 06/24/23 01:38 ED Decision to Admit Stat 06/24/23 03:25 Consult Orthopedic Surgery Routine Ordered Studies Microbiology 06/23/23 22:52 Blood Aerobic Blood Culture - Preliminary No growth in Aerobic bottle after 48 hours. 06/23/23 22:52 Blood Anaerobic Blood Culture - Preliminary No growth in Anaerobic bottle after 48 hours. 06/23/23 22:20 Blood Aerobic Blood Culture - Preliminary No growth in Aerobic bottle after 48 hours. 06/23/23 22:20 Blood Anaerobic Blood Culture - Preliminary No growth in Anaerobic bottle after 48 hours. Labs 06/23/23 06/23/23 06/23/23 22:20 22:20 22:20 WBC 7.30 RBC 4.52 L Hgb 14.4 Hct 42.3 MCV 93.6 MCH 31.9 MCHC 34.0 RDW Std Deviation 49.7 H RDW Coeff of Jose 14.4 Plt Count 194 MPV 8.8 L Immature Gran % (Auto) 0.3 Neut % (Auto) 80.8 Lymph % (Auto) 10.8 [place] % (Auto) 6.2 Eos % (Auto) 1.4 Baso % (Auto) 0.5 Neut # (Auto) 5.90 Lymph # (Auto) 0.79 L [place] # (Auto) 0.45 Eos # (Auto) 0.10 Baso # (Auto) 0.04 Immature Gran # (Auto) 0.02 ESR PT INR APTT PTT Ratio VBG pH VBG pCO2 VBG pO2 VBG HCO3 VBG O2 Saturation VBG Base Excess Sodium 135 L Potassium 4.3 Chloride 99 Carbon Dioxide 29 Anion Gap 7 BUN 23 Creatinine 0.64 Est Cr Clr Drug Dosing 104.0 Est GFR ( Amer) 104.9 Est GFR (Non-Af Amer) 90.5 BUN/Creatinine Ratio 35.9 H Glucose 127 H POC Glucose Lactate 0.9 Calcium 9.6 Magnesium 2.0 Total Bilirubin 0.8 Direct Bilirubin 0.1 AST 16 ALT 21 Alkaline Phosphatase 78 Troponin I High Sens 10.4 C-Reactive Protein 10.45 H Total Protein 6.6 Albumin 3.3 L Globulin Albumin/Globulin Ratio Procalcitonin Urine Color Urine Appearance Urine pH Ur Specific [place] Urine Protein Urine Glucose (UA) Urine Ketones Urine Blood Urine Nitrite Urine Bilirubin Urine Urobilinogen Ur Leukocyte Esterase Nasal Screen MRSA (PCR) 06/23/23 06/23/23 06/23/23 22:20 22:20 22:20 WBC RBC Hgb Hct MCV MCH MCHC RDW Std Deviation RDW Coeff of Jose Plt Count MPV Immature Gran % (Auto) Neut % (Auto) Lymph % (Auto) [place] % (Auto) Eos % (Auto) Baso % (Auto) Neut # (Auto) Lymph # (Auto) [place] # (Auto) Eos # (Auto) Baso # (Auto) Immature Gran # (Auto) ESR 86 H PT 11.0 INR 1.0 APTT 30.3 PTT Ratio 1.1 VBG pH VBG pCO2 VBG pO2 VBG HCO3 VBG O2 Saturation VBG Base Excess Sodium Potassium Chloride Carbon Dioxide Anion Gap BUN Creatinine Est Cr Clr Drug Dosing Est GFR ( Amer) Est GFR (Non-Af Amer) BUN/Creatinine Ratio Glucose POC Glucose Lactate Calcium Magnesium Total Bilirubin Direct Bilirubin AST ALT Alkaline Phosphatase Troponin I High Sens C-Reactive Protein Total Protein Albumin Globulin Albumin/Globulin Ratio Procalcitonin < 0.05 Urine Color Urine Appearance Urine pH Ur Specific [place] Urine Protein Urine Glucose (UA) Urine Ketones Urine Blood Urine Nitrite Urine Bilirubin Urine Urobilinogen Ur Leukocyte Esterase Nasal Screen MRSA (PCR) 06/23/23 06/23/23 06/24/23 22:23 23:16 06:40 WBC RBC Hgb Hct MCV MCH MCHC RDW Std Deviation RDW Coeff of Jose Plt Count MPV Immature Gran % (Auto) Neut % (Auto) Lymph % (Auto) [place] % (Auto) Eos % (Auto) Baso % (Auto) Neut # (Auto) Lymph # (Auto) [place] # (Auto) Eos # (Auto) Baso # (Auto) Immature Gran # (Auto) ESR PT INR APTT PTT Ratio VBG pH 7.45 H VBG pCO2 45 VBG pO2 47 VBG HCO3 31 VBG O2 Saturation 87.6 VBG Base Excess 6.4 Sodium Potassium Chloride Carbon Dioxide Anion Gap BUN Creatinine Est Cr Clr Drug Dosing Est GFR ( Amer) Est GFR (Non-Af Amer) BUN/Creatinine Ratio Glucose POC Glucose Lactate Calcium Magnesium Total Bilirubin Direct Bilirubin AST ALT Alkaline Phosphatase Troponin I High Sens C-Reactive Protein Total Protein Albumin Globulin Albumin/Globulin Ratio Procalcitonin Urine Color Dark Yellow Urine Appearance Clear Urine pH 5.5 Ur Specific [place] 1.030 Urine Protein Negative Urine Glucose (UA) Negative Urine Ketones Trace H Urine Blood Negative Urine Nitrite Negative Urine Bilirubin Negative Urine Urobilinogen Negative Ur Leukocyte Esterase Negative Nasal Screen MRSA (PCR) Negative 06/24/23 06/25/23 06/25/23 07:20 06:17 06:17 WBC 6.21 RBC 4.35 L Hgb 13.8 L Hct 41.1 L MCV 94.5 MCH 31.7 MCHC 33.6 RDW Std Deviation 49.4 H RDW Coeff of Jose 14.3 Plt Count 193 MPV 8.3 L Immature Gran % (Auto) 0.3 Neut % (Auto) 78.0 Lymph % (Auto) 11.6 [place] % (Auto) 7.7 Eos % (Auto) 1.8 Baso % (Auto) 0.6 Neut # (Auto) 4.84 Lymph # (Auto) 0.72 L [place] # (Auto) 0.48 Eos # (Auto) 0.11 Baso # (Auto) 0.04 Immature Gran # (Auto) 0.02 ESR PT INR APTT PTT Ratio VBG pH VBG pCO2 VBG pO2 VBG HCO3 VBG O2 Saturation VBG Base Excess Sodium 137 Potassium 4.0 Chloride 101 Carbon Dioxide 31 Anion Gap 5 BUN 16 Creatinine 0.69 Est Cr Clr Drug Dosing 96.3 Est GFR ( Amer) 101.8 Est GFR (Non-Af Amer) 87.8 BUN/Creatinine Ratio 23.2 H Glucose 123 H POC Glucose 111 H Lactate Calcium 9.1 Magnesium 1.9 Total Bilirubin 0.8 Direct Bilirubin AST 13 ALT 17 Alkaline Phosphatase 67 Troponin I High Sens C-Reactive Protein Total Protein 6.2 Albumin 3.2 L Globulin 3.0 Albumin/Globulin Ratio 1.1 Procalcitonin Urine Color Urine Appearance Urine pH Ur Specific [place] Urine Protein Urine Glucose (UA) Urine Ketones Urine Blood Urine Nitrite Urine Bilirubin Urine Urobilinogen Ur Leukocyte Esterase Nasal Screen MRSA (PCR) 06/26/23 06/26/23 05:22 05:22 WBC 5.82 RBC 4.46 L Hgb 14.0 Hct 42.6 MCV 95.5 MCH 31.4 MCHC 32.9 RDW Std Deviation 49.8 H RDW Coeff of Jose 14.3 Plt Count 218 MPV 8.8 L Immature Gran % (Auto) 0.5 Neut % (Auto) 75.7 Lymph % (Auto) 12.5 [place] % (Auto) 8.2 Eos % (Auto) 2.2 Baso % (Auto) 0.9 Neut # (Auto) 4.40 Lymph # (Auto) 0.73 L [place] # (Auto) 0.48 Eos # (Auto) 0.13 Baso # (Auto) 0.05 Immature Gran # (Auto) 0.03 ESR PT INR APTT PTT Ratio VBG pH VBG pCO2 VBG pO2 VBG HCO3 VBG O2 Saturation VBG Base Excess Sodium 138 Potassium 4.1 Chloride 101 Carbon Dioxide 32 Anion Gap 5 BUN 18 Creatinine 0.71 Est Cr Clr Drug Dosing 93.6 Est GFR ( Amer) 100.6 Est GFR (Non-Af Amer) 86.8 BUN/Creatinine Ratio 25.4 H Glucose 125 H POC Glucose Lactate Calcium 9.4 Magnesium 2.2 Total Bilirubin 0.8 Direct Bilirubin AST 18 ALT 24 Alkaline Phosphatase 72 Troponin I High Sens C-Reactive Protein Total Protein 6.5 Albumin 3.2 L Globulin 3.3 Albumin/Globulin Ratio 1.0 Procalcitonin Urine Color Urine Appearance Urine pH Ur Specific [place] Urine Protein Urine Glucose (UA) Urine Ketones Urine Blood Urine Nitrite Urine Bilirubin Urine Urobilinogen Ur Leukocyte Esterase Nasal Screen MRSA (PCR) Chest X-Ray 06/23/23 22:08 XR chest 1V portable HISTORY: Sepsis COMPARISON: Chest 06/06/2023. FINDINGS: No pneumothorax. There are old, healed bilateral rib fractures. Degenerative changes again noted within the left shoulder. Calcified granuloma within the left midlung zone. Mild interstitial thickening persists. Bibasilar linear densities are also unchanged. The heart is borderline enlarged. No evidence for pulmonary edema. There are calcifications within the aortic knob. IMPRESSION: No significant change compared to the prior study. No acute process. Bibasilar linear densities persist and favor subsegmental atelectasis. ACT 112: Negative or not required by law. Electronically signed by: Ronny Crowley M.D. 06/24/2023 7:57 AM Ankle X-Ray 06/24/23 01:36 XR ankle LT min 3V routine CLINICAL HISTORY: recent surgery ?infection COMPARISON STUDY: Left ankle 06/05/2023. FINDINGS: Overlying cast material obscures fine bony detail. Status post internal fixation of a bimalleolar fracture with cortical plates and screws. The hardware appears intact. No abnormal periprosthetic lucency. No bony destructive changes to suggest an osteomyelitis. There is diffuse soft tissue swelling. The alignment appears near-anatomic. IMPRESSION: 1. Status post internal fixation of a bimalleolar left ankle fracture. No evidence for hardware complication. 2. Diffuse soft tissue swelling. 3. No bony destructive changes to suggest an osteomyelitis. ACT 112: Negative or not required by law. Electronically signed by: Ronny Crowley M.D. 06/24/2023 7:36 AM Hospital Course (1) Cellulitis: (2) Status post open reduction with internal fixation (ORIF) of fracture of ankle: Becky Curry is an 83yo male, recently admitted to [facility] from 06/05/23 - 06/12/23 with a left ankle fracture after a fall. He had an ORIF performed by Dr. Camacho on 06/07/23 which was uncomplicated. Here due to fever, wound dehiscence, and positive outpatient blood culture. Wound dehiscence/ Cellulitis Closed trimalleolar fracture s/p surgical repair on 06/07/23 - ongoing low grade fever, poor wound healing after discharge on 06/12 - Positive blood culture (06/21) in outpatient setting (only one bottle) staph epidermidis, methicillin resistant. -Probably contaminated, will not need further staph bacteremia work up. -Check X-ray left ankle: no osteomyelitis, diffuse soft tissue swelling - Inpatient Blood cultures: negative for 48 hrs - Patient was treated with IV Daptomycin 500 mg during hospitalization -Orthopedic consult: no surgical management at the moment. Will follow patient out patient. 2 weeks follow up -Continue daily sterile/dry dressing changes. Reapply splint. - NWB L LE. _ Patient discharge with Bactrim PO BID BPH -Chronic -Continue Flomax Total Time Total Time Spent Total Time Spent (In Minutes): <30 Discharge Plan Discharge Items Patient Disposition: Transfer Long Term Fac Reason For Visit: ?POST-OP INFECTION Discharge Diagnosis: Cellulitis Activity: Per Instructions section Non-emergency contact: Primary Care Provider Call non-emergency contact if: you have any medication questions Follow-up/Referrals: Marybeth Woods MD [Primary Care Provider] - Diet: Regular Addtl Attending Provider Instructions: Harsha Curry is an 83yo male, recently admitted to [facility] from 06/05/23 - 06/12/23 with a left ankle fracture after a fall. He had an ORIF performed by Dr. Camacho on 06/07/23 which was uncomplicated. Here due to fever, wound dehiscence, and positive blood culture. Wound dehiscence/ Cellulitis Closed trimalleolar fracture s/p surgical repair on 06/07/23 - ongoing low grade fever, poor wound healing. - Positive blood culture (06/21) in outpatient setting (only one bottle) staph epidermidis, methicillin resistant. -Probably contaminated, will not need further staph bacteremia work up. -Check X-ray left ankle: no osteomyelitis, diffuse soft tissue swelling - no leukocytosis or fever during the admission - Blood cultures: negative for 48 hrs - Patient was treated with IV Daptomycin 500 mg -Orthopedic consult: no surgical management at the moment. Will follow patient out patient. 2 weeks follow up. -Continue daily sterile/dry dressing changes. Reapply splint. - NWB L LE. _ Patient discharge with Bactrim PO BID for 1 week. Cellulitis should be re- evaluated and decided if course need to be extended BPH -Chronic -Continue Flomax Pending Studies at Discharge: No Stand-Alone Forms: [facility] Skilled Items Patient informed of condition?: Yes DNR: No Discharge Level of Care: Skilled Communicable Disease: No Discharge Prognosis: Stable Lines: None Urinary Catheter: No Medications and DC Order Prescriptions: New sulfamethoxazole-trimethoprim [Bactrim DS] 800-160 mg tablet 1 tab PO BID 7 Days Qty: 14 0RF Continued tamsulosin 0.4 mg capsule 0.4 mg PO DAILY Qty: 30 2RF acetaminophen 325 mg Tablet 650 mg PO Q4 PRN (Reason: temp>100) acetaminophen 325 mg Tablet 650 mg PO Q4 MDD 4g PRN (Reason: Mild Pain (Scale Score 1-4)) calcium carbonate [Calcium 600] 600 mg calcium (1,500 mg) Tablet 600 mg PO BID sennosides 8.6 mg Tablet 8.6 mg PO DAILY PRN (Reason: Constipation) sennosides 8.6 mg Tablet 17.2 mg PO BID acetaminophen [Tylenol 8 Hour] 650 mg Tablet Extended Release 1,300 mg PO BID MDD 4g ascorbic acid (vitamin C) [Vitamin C] 500 mg Tablet 500 mg PO QAM cholecalciferol (vitamin D3) [Vitamin D3] 50 mcg (2,000 unit) Tablet 50 mcg PO DAILY aspirin 81 mg Tablet,Delayed Release (Dr/Ec) 81 mg PO QAM 28 Days Qty: 28 0RF Discharge Orders: Discharge Order (Routine); Ordered 06/26/23 Ordered By: Pacheco Castillo Admission Data Admit Date/Time: 06/24/23 01:36 Attending Provider: Boni Liu Admit Provider: Nia Zhang Primary Care Provider: Marybeth Woods Other Providers: Nia Zhang ; Peter Camacho Other Interventions: Discharge Summary Assessment (RN) Last Done: 06/26/23 11:16 Supervising Physician Co-Signing Physician Notes I personally examined the patient and verified all kuhn points of history and exam, discussed case, and agree with decision making with Dr Bartolo Castillo feeling Ok, family present, updated to the best of my ability and answered all questions to their satisfaction. d/w PA-C at facility. vitals noted nad heent nc at mmm L leg dressed in bulky ortho dressing no erythema extending beyond areas dressed wound infection - after clarification no bacteremia. hasn't had fever since admission. wound/ortho --> no current surgical intervention needed. SNF/bactrim/ongoing wound care and ortho follow up. PT/OT at SNF otherwise as above Resident Activity Tracking Resident Involvement: Resident Care Provided Care Provided: Adult [facility] Medicine
--- NOTE | 2023-06-26 13:21 | Billing Data ---
Date of Service June 26, 2023 Coding Level of Care Code 62275 IN/OBS DISCH 30 MIN/LESS
== END 2023-06-26 14:02 | DRG 863 ==
LOC: ED 21:43 → 3E 06-24 01:36 → SUATTDRO 06-24 01:36 → 3E 06-24 03:01

== ENCOUNTER 2024-11-04 17:00 | Inpatient (IN) ==
--- NOTE | 2024-11-04 17:12 | Emergency Department Note ---
Impression & Plan Atrial fibrillation with RVR, New onset atrial fibrillation, Hypervolemia ED Provider Note NAME: TONG COELLO AGE: 84 SEX: M : 1940 ARRIVES VIA: Walk-In INFORMANT: Patient ED PROVIDER(S): Jaden Becerril MD CHIEF COMPLAINT: New onset atrial fibrillation, referred. PLAN: Disposition: Admit MEDICAL DECISION MAKING: The patient is a pleasant 84-year-old gentleman with a past medical history of BPH who presents to the emergency department via walk-in accompanied by his daughter for evaluation of new onset atrial fibrillation which was identified today following his outpatient orthopedic surgery with UOC where pins were removed from his left foot which had previously been treated with ORIF in May of this year. Per the patient and his daughter they understand that the patient was not in atrial fibrillation before his procedure but either in the procedure or in recovery it was noted by anesthesia that the patient was in new onset atrial fibrillation and thus he was referred to the emergency department. The patient denies chest pain, palpitations, racing heart, acute shortness of breath, dizziness. His daughter and the patient do describe that he has had worsening edema in his lower extremities and shortness of breath with exertion over the past 8 months. Patient denies any cough, congestion, fevers, chills, GI or symptoms. On evaluation patient no acute distress, afebrile with heart rate in the 90s-low 100s in atrial fibrillation and vital signs otherwise stable. He appears hypervolemic with 2+ bilateral lower extremity pitting edema. His left lower leg has postoperative dressing in place and boot applied. EKG demonstrates atrial fibrillation without overt acute ischemia. Chest x-ray demonstrates increased interstitial lung markings which are consistent with patient's of volume overload on exam in the setting of new onset atrial fibrillation. WBC, hemoglobin and platelets within normal limits. Chemistry without metabolic acidosis. Electrolytes without significant abnormality. Total bili 1.1, nonspecific with LFTs otherwise normal. High-sensitivity troponin 11.3, within normal limits. Procalcitonin is not elevated. TSH within normal limits. UA without evidence of infection. Given the patient lives in atrial fibrillation with progressive worsening lower extremity edema/hypervolemia patient and daughter agree with admission for further management. Treatment was initiated with 5 mg of IV Lopressor and 20 mg of IV Lasix as well as initiation of heparin drip given [id number] of >2. Case was discussed [place]. [place] [facility], who will evaluate the patient for admission. Further management per admitting team. Triage Nursing notes reviewed and agree them. Prior/external medical records reviewed Vital Signs: reviewed Differential diagnosis: Premature contractions, electrolyte abnormality, cardiac dysrhythmia, thyroid dysfunction, pulmonary embolism, infection, gastrointestinal, as well as other pathologies. ER treatment provided: See below. Diagnostics interpreted by me: Cardiac Monitoring: An order for continuous cardiac monitoring was placed and demonstrated atrial fibrillation, 97 bpm, no ectopy. Laboratory studies: See below Imaging studies: See below Consultation(s): Case was discussed with Dr. Zhang [facility], who will evaluate the patient for admission. HPI: The patient is a pleasant 84-year-old gentleman with a past medical history of BPH who presents to the emergency department via walk-in accompanied by his daughter for evaluation of new onset atrial fibrillation which was identified today following his outpatient orthopedic surgery with UOC where pins were removed from his left foot which had previously been treated with ORIF in May of this year. Per the patient and his daughter they understand that the patient was not in atrial fibrillation before his procedure but either in the procedure or in recovery it was noted by anesthesia that the patient was in new onset atrial fibrillation and thus he was referred to the emergency department. The patient denies chest pain, palpitations, racing heart, acute shortness of breath, dizziness. His daughter and the patient do describe that he has had worsening edema in his lower extremities and shortness of breath with exertion over the past 8 months. Patient denies any cough, congestion, fevers, chills, GI or symptoms. ROS: See above HPI for pertinent positives & negatives. A total of 10 systems reviewed and were otherwise negative. VITALS:See Below PHYSICAL EXAMINATION: GENERAL: Awake, alert, in no distress HENT: Normocephalic, atraumatic. Oropharynx unremarkable. EYES: Normal conjunctiva. Sclera non-icteric. NECK: Supple. No nuchal rigidity. FROM. No JVD. RESPIRATORY: Clear to auscultation. CARDIAC: Tachycardic rate, irregular rhythm. Extremities warm and well perfused. Pulses equal. ABDOMEN: Soft, non-distended. No tenderness to palpation. No rebound or guarding. No masses. MUSCULOSKELETAL: Chest examination reveals no tenderness. The back is symmetrical on inspection without obvious abnormality. There is no CVA tenderness to palpation. Left lower leg with postoperative dressing in place in boot. LOWER EXTREMITIES: Calves are equal size bilaterally and non-tender. 2+ BLE pitting edema. NEURO: Normal sensorium. No sensory or motor deficits noted. SKIN: No rash or jaundice noted. Jaden Becerril MD Past Med/Surg History Problem List Hypervolemia (Acute) New onset atrial fibrillation (Acute) Atrial fibrillation with RVR (Acute) Closed trimalleolar fracture Posterior tibial tendon dysfunction, right Neuroforaminal stenosis of lumbar spine Medical History Compression fracture of lumbar vertebra T12, L1, L3, L4 BPH (benign prostatic hyperplasia) Surgical History Status post open reduction with internal fixation (ORIF) of fracture of ankle Total knee replacement status 2004 H/O hernia repair History of appendectomy Family History Father Hypertension Denies family history of Ovarian cancer Prostate cancer Diabetes Myocardial infarction Breast cancer Colorectal cancer Social History Smoking Status: Never smoker Second Hand Exposure: No; Do You Dip or Chew Tobacco: No; Tobacco Cessation Education Requested by Patient: No Hx Alcohol Use: No Hx Substance Use: No Preferred Language: Brazilian Communication Ability: Effective Visual Impairment: No Limitations Hearing Ability: Normal Trimming Operator Required: No Beliefs That Will Affect Care: None marital status: Current Living Situation: Spouse Current Living Situation Comment: 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 Other Information That Helps Us Care for You: No Feels Safe at Home: Yes Safety Concerns: Feels Safe At This Time caffeine: Yes (coffee) Dental Care, Regularly: Yes Physical Activity Frequency: 1-2 Times per Week Physical Activity Frequency Comment: walking helping Seatbelt Use: always Sunscreen Use: Yes Assistive Devices: Cane, Glasses and Walker Allergies Allergies Allergy/AdvReac Type Severity Reaction Status Date / Time Penicillins Allergy Unknown Verified 11/04/24 15:42 Home Meds Home Medications Medication Instructions Recorded Confirmed acetaminophen 325 mg tablet 650 mg PO Q4 PRN temp>100 06/23/23 11/04/24 ascorbic acid (vitamin C) 500 mg 500 mg PO QAM 06/23/23 11/04/24 tablet (Vitamin C) calcium carbonate (Calcium 600) 600 mg PO BID 06/23/23 11/04/24 cholecalciferol (vitamin D3) 50 50 mcg PO DAILY 06/23/23 11/04/24 mcg (2,000 unit) tablet (Vitamin D3) sennosides 8.6 mg tablet 8.6 mg PO DAILY PRN Constipation 06/23/23 11/04/24 Previous Rx's Medication Instructions Recorded tamsulosin 0.4 mg capsule 0.4 mg PO DAILY #90 caps 02/15/24 Results & Data (ED) Vital Signs Vital Signs - 24 hr 11/04/24 17:03 11/04/24 17:10 11/04/24 17:10 Temperature 36.7 C Temperature Source Skin Pulse Rate 97 H Pulse Rate from SpO2 Sensor Respiratory Rate 18 Blood Pressure 138/93 Blood Pressure Mean 108 Pulse Oximetry 94 97 Oxygen Delivery Method Room Air Room Air Room Air Sepsis Recent Fever Within 48 Hours No Sepsis New/Unexplained Change in Mental Status No Sepsis Action Taken by Nursing No Action Required 11/04/24 17:33 11/04/24 18:03 11/04/24 18:12 Temperature Temperature Source Pulse Rate 106 H 111 H 104 H Pulse Rate from SpO2 Sensor 110 H 111 H Respiratory Rate 12 16 Blood Pressure 131/108 H 136/112 H Blood Pressure Mean 115 120 Pulse Oximetry 94 90 Oxygen Delivery Method Sepsis Recent Fever Within 48 Hours Sepsis New/Unexplained Change in Mental Status Sepsis Action Taken by Nursing 11/04/24 18:30 11/04/24 19:06 11/04/24 19:27 Temperature Temperature Source Pulse Rate 102 H 112 H Pulse Rate from SpO2 Sensor 110 H 106 H Respiratory Rate 17 21 Blood Pressure 127/102 H 147/103 H 150/97 H Blood Pressure Mean 115 117 114 Pulse Oximetry 95 95 Oxygen Delivery Method Sepsis Recent Fever Within 48 Hours Sepsis New/Unexplained Change in Mental Status Sepsis Action Taken by Nursing 11/04/24 20:00 11/04/24 20:09 Temperature Temperature Source Pulse Rate 107 H 120 H Pulse Rate from SpO2 Sensor 115 H Respiratory Rate 24 Blood Pressure 156/114 H 156/114 H Blood Pressure Mean 128 Pulse Oximetry 96 Oxygen Delivery Method Sepsis Recent Fever Within 48 Hours Sepsis New/Unexplained Change in Mental Status Sepsis Action Taken by Nursing Laboratory Data Attestation: I reviewed the patient's lab results. 11/04/24 21:28 11/04/24 17:19 Lab Results 11/04/24 Range/Units 17:19 WBC 5.15 (4.8-10.8) K/ul RBC 5.38 (4.70-6.10) M/uL Hgb 16.9 (14.0-18.0) g/dl Hct 52.4 H (42.0-52.0) % MCV 97.4 (80.0-100.0) fL MCH 31.4 (25.0-34.0) pg MCHC 32.3 (32.0-36.0) g/dL RDW Std Deviation 57.1 H (36.4-46.3) fL RDW Coeff of Jose 16.0 H (11.5-14.5) % Plt Count 137 (130-400) K/uL MPV 9.2 L (9.4-12.4) fL Immature Gran % (Auto) 0.4 % Neut % (Auto) 75.5 % Lymph % (Auto) 13.6 % [place] % (Auto) 8.7 % Eos % (Auto) 1.0 % Baso % (Auto) 0.8 % Neut # (Auto) 3.89 (1.40-6.50) K/uL Lymph # (Auto) 0.70 L (1.20-3.40) K/uL [place] # (Auto) 0.45 (0.11-0.59) K/uL Eos # (Auto) 0.05 (0.00-0.50) K/uL Baso # (Auto) 0.04 (0.00-0.20) K/uL Immature Gran # (Auto) 0.02 (0.01-0.20) K/uL PT 11.1 (9.0-12.0) Seconds INR 1.0 (0.9-1.1) Sodium 142 (136-145) mmol/L Potassium 4.2 (3.5-5.1) mmol/L Chloride 107 (98-107) mmol/L Carbon Dioxide 31 (21-32) mmol/L Anion Gap 4 (3-11) BUN 15 (6-23) mg/dl Creatinine 0.86 (0.6-1.4) mg/dl Est Cr Clr Drug Dosing 82.3 ml/min eGFR 85.38 BUN/Creatinine Ratio 17.4 (10-20) Glucose 128 H (70-99(Fasting)) mg/dl Calcium 9.0 (8.6-10.3) mg/dl Phosphorus 3.5 (2.5-4.9) mg/dl Magnesium 2.1 (1.7-2.4) mg/dl Total Bilirubin 1.1 H (0.2-1.0) mg/dl AST 17 (13-39) U/L ALT 13 (7-52) U/L Alkaline Phosphatase 72 (34-104) U/L Troponin I High Sens 11.3 (0-20) pg/ml Total Protein 7.4 (6.0-8.3) gm/dl Albumin 4.5 (3.4-5.0) gm/dl Globulin 2.9 (2.5-4.0) gm/dl Albumin/Globulin Ratio 1.6 (0.9-2) Procalcitonin 0.03 (0-0.5) ng/ml TSH 2.192 (0.300-4.500) uIu/ml Administered Medications Heparin Sodium/Dextrose (Heparin Sodium/Dextrose) 25,000 units in 500 mls @ 0.02 mls/hr IV .Q24H [facility]; Protocol Stop: 12/04/24 20:14 Last Admin: 11/04/24 21:23 Dose: 1,650 units/hr, 33 mls/hr Documented By: EAMON Co-signed By: Discontinued Medications Furosemide (Furosemide Inj 20 Mg/2 Ml Vial) 20 mg IV ONE ONE Stop: 11/04/24 19:13 Last Admin: 11/04/24 20:10 Dose: 20 mg Documented By: TRUDY Heparin Sodium/Dextrose (Heparin Iv Adult Wt-Based Standard *No* Initial Bolus Protocol) 1 each IV ONE STA; Protocol Stop: 11/04/24 19:48 Last Admin: 11/04/24 21:07 Dose: 1 each Documented By: EAMON Metoprolol Tartrate (Metoprolol Tartrate 1 Mg/Ml Vial) 5 mg IV NOW STA Stop: 11/04/24 19:02 Last Admin: 11/04/24 20:09 Dose: 5 mg Documented By: TRUDY Tamsulosin HCl (Tamsulosin Hcl 0.4 Mg Cap) 0.4 mg PO NOW ONE Stop: 11/04/24 20:15 Last Admin: 11/04/24 20:45 Dose: 0.4 mg Documented By: TRUDY Imaging Data Radiologist's Impression: Chest X-Ray 11/04/24 17:10 INDICATION: Chest pain. TECHNIQUE: Frontal radiograph of the chest. COMPARISON: Radiograph from 06/23/2023. FINDINGS: Cardiomegaly. Diffuse increased interstitial lung markings could relate to fluid overload or pneumonia in the appropriate clinical setting. No pleural effusion or pneumothorax. No acute fracture. IMPRESSION: Diffuse increased interstitial lung markings could relate to fluid overload or pneumonia in the appropriate clinical setting. Electronically signed by Jam Ortiz 11-04-2024 5:39 PM Discharge Plan Visit Data Chief Complaint: Cardiac Assessment Stated Complaint: A FIB ED Provider: Jaden Becerril Discharge Problem: Atrial fibrillation with RVR, New onset atrial fibrillation, Hypervolemia Patient Disposition: Admitted As Inpatient Discharge Instructions Interventions: ED Discharge Assessment Last Done: 11/04/24 20:40 Discharge Problem: Hypervolemia Qualifiers: Hypervolemia type: unspecified Qualified Code(s): E87.70 - Fluid overload, unspecified
--- NOTE | 2024-11-04 17:40 | XRay Report ---
INDICATION: Chest pain. TECHNIQUE: Frontal radiograph of the chest. COMPARISON: Radiograph from 06/23/2023. FINDINGS: Cardiomegaly. Diffuse increased interstitial lung markings could relate to fluid overload or pneumonia in the appropriate clinical setting. No pleural effusion or pneumothorax. No acute fracture. IMPRESSION: Diffuse increased interstitial lung markings could relate to fluid overload or pneumonia in the appropriate clinical setting. Electronically signed by Jam Ortiz 11-04-2024 5:39 PM
[2024-11-04 17:58] LABS: Albumin Globulin Ratio 1.6 (0.9-2); Albumin Level 4.5 gm/dl (3.4-5.0); BUN Creatinine Ratio 17.4 (10-20); Bilirubin,Total 1.1 mg/dl (0.2-1.0); Creatinine Clr Calc Pharmacy 82.3 ml/min; Globulin 2.9 gm/dl (2.5-4.0); Magnesium 2.1 mg/dl (1.7-2.4); Phosphorus 3.5 mg/dl (2.5-4.9); Potassium 4.2 mmol/L (3.5-5.1); Total Protein 7.4 gm/dl (6.0-8.3)
[2024-11-04 18:03] LABS: Troponin I High Sensitivity 11.3 pg/ml (0-20)
[2024-11-04 18:05] LABS: Basophils # (auto) 0.04 K/uL (0.00-0.20); Basophils % (auto) 0.8 %; Eosinophils # (auto) 0.05 K/uL (0.00-0.50); Hematocrit (blood only) 52.4 % (42.0-52.0); Hemoglobin 16.9 g/dl (14.0-18.0); Immature Granulocytes # (auto) 0.02 K/uL (0.01-0.20); Immature Granulocytes % (auto) 0.4 %; Lymphocytes % (auto) 13.6 %; Mean Corpuscular Hemoglobin 31.4 pg (25.0-34.0); Mean Corpuscular Hgb Conc 32.3 g/dL (32.0-36.0); Mean Corpuscular Volume 97.4 fL (80.0-100.0); Mean Platelet Volume 9.2 fL (9.4-12.4); Monocytes # (auto) 0.45 K/uL (0.11-0.59); Monocytes % (auto) 8.7 %; Neutrophils # (auto) 3.89 K/uL (1.40-6.50); Neutrophils % (auto) 75.5 %; Platelet Count 137 K/uL (130-400); RDW Standard Deviation 57.1 fL (36.4-46.3); Red Blood Count 5.38 M/uL (4.70-6.10); White Blood Count 5.15 K/ul (4.8-10.8)
[2024-11-04 18:06] LABS: Prothrombin Time 11.1 Seconds (9.0-12.0)
[2024-11-04 18:12] LABS: Thyroid Stimulating Hormone 2.192 uIu/ml (0.300-4.500)
[2024-11-04] MEDS: METOPROLOL TARTRATE 1 MG/ML VIAL IV STA (20:09)
[2024-11-04] MEDS: FUROSEMIDE INJ 20 MG/2 ML VIAL IV ONE (20:10)
--- NOTE | 2024-11-04 20:14 | History & Physical Report ---
Date of Service November 04, 2024 Assessment & Plan (1) Atrial fibrillation with RVR: Plan: 84-year-old male presenting with newly discovered atrial fibrillation. Patient does endorse intermittent palpitations over the last several weeks as well as worsening edema, orthopnea and dyspnea on exertion. Uncertain of the duration of patient's atrial fibrillation. No prior history of cardiac disease, arrhythmia or heart failure. Rate is mildly elevated ranging 95 to 120 bpm. Presently 95 bpm. Electrolytes and TSH are within normal limits. Admit to medical with telemetry Check 2D echo [id number] score equals 2 (age greater than 75 = 2 points).Will administer anticoagulation with heparin drip. No bolus. Patient did just have surgery on his left ankle performed today. Will monitor closely for evidence of bleeding. Plan to transition to NOAC in the morning for ongoing stroke prevention - patient would benefit from outpatient cardiology assessment for possible cardioversion given fairly new onset of atrial fibrillation - Will hold off on additional Lasix for now -Will hold off on rate controlling agent for now (2) Closed trimalleolar fracture: Plan: He had a screw removed from his left ankle today. Surgery well-tolerated. Pain well-controlled Maintain walking boot when patient is ambulatory Tylenol as needed for pain Ice to left lower extremity Elevate left lower extremity Monitor closely for evidence of bleed while patient is on heparin drip/anticoagulation (3) BPH (benign prostatic hyperplasia): Plan: chronic. Stable. Flomax 0.4 mg p.o. daily History of Present Illness Chief Complaint: newly discovered atrial fibrillation Primary Care Provider: Marybeth Woods MD Harsha Curry is a pleasant 84yo male with history BPH, and Valium for status postsurgical repair on 06/07/2023. Patient was treated with antibiotics after surgery for concern for possible infection, wound dehiscence. Patient had some migration of a screw from surgery that caused a small wound on the lateral side of his ankle. He was taken to the OR today for removal of the screw. Surgery was well-tolerated. patient was noted to have some EKG changes postoperatively which were concerning for atrial fibrillation/flutter therefore he was sent to the ER for further diagnostic workup. Patient does endorse intermittent palpitations as well as progressive bilateral lower extremity edema, orthopnea and dyspnea on exertion. He denies chest pain, confusion, dizziness or syncope. Denies abdominal pain, nausea, vomiting, fevers, chills. No additional complaints at this time. In the ER patient found to be in atrial fibrillation with heart rate ranging 95-120 bpm ER course: Metoprolol 5 mg IV Lasix 20 mg IV Flomax 0.4 mg p.o. Heparin drip without bolus Allergies Allergy/AdvReac Type Severity Reaction Status Date / Time Penicillins Allergy Unknown Verified 11/04/24 15:42 Home Medications Medication Instructions Recorded Confirmed Type acetaminophen 325 mg tablet 650 mg PO Q4 PRN temp>100 06/23/23 11/04/24 History ascorbic acid (vitamin C) 500 mg 500 mg PO QAM 06/23/23 11/04/24 History tablet (Vitamin C) calcium carbonate (Calcium 600) 600 mg PO BID 06/23/23 11/04/24 History cholecalciferol (vitamin D3) 50 50 mcg PO DAILY 06/23/23 11/04/24 History mcg (2,000 unit) tablet (Vitamin D3) sennosides 8.6 mg tablet 8.6 mg PO DAILY PRN Constipation 06/23/23 11/04/24 History tamsulosin 0.4 mg capsule 0.4 mg PO DAILY #90 caps 02/15/24 11/04/24 Rx Past Med/Surg History Problem List (Updated 11/04/24 @ 22:44 by Nia Zhang DO) Atrial fibrillation with RVR Closed trimalleolar fracture Posterior tibial tendon dysfunction, right Neuroforaminal stenosis of lumbar spine Medical History (Updated 11/04/24 @ 22:44 by Nia Zhang DO) Compression fracture of lumbar vertebra T12, L1, L3, L4 BPH (benign prostatic hyperplasia) Surgical History Status post open reduction with internal fixation (ORIF) of fracture of ankle Total knee replacement status 2004 H/O hernia repair History of appendectomy Family History Father Hypertension Denies family history of Ovarian cancer Prostate cancer Diabetes Myocardial infarction Breast cancer Colorectal cancer Social History Smoking Status: Never smoker Second Hand Exposure: No; Do You Dip or Chew Tobacco: No; Tobacco Cessation Education Requested by Patient: No Hx Alcohol Use: No Hx Substance Use: No Preferred Language: Greenlandic Communication Ability: Effective Visual Impairment: No Limitations Hearing Ability: Normal Manager Mac Required: No Beliefs That Will Affect Care: None marital status: Current Living Situation: Spouse Current Living Situation Comment: 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 Other Information That Helps Us Care for You: No Feels Safe at Home: Yes Safety Concerns: Feels Safe At This Time caffeine: Yes (coffee) Dental Care, Regularly: Yes Physical Activity Frequency: 1-2 Times per Week Physical Activity Frequency Comment: walking helping Seatbelt Use: always Sunscreen Use: Yes Assistive Devices: Cane, Glasses and Walker Review of Systems Review of Systems: All systems reviewed & are unremarkable except as noted in HPI & below Physical Exam Physical Exam: General: patient resting comfortably, NAD, non-toxic in appearance, AA&O x 4 Skin: warm, dry, intact, no rashes or lesions HEENT: NC/AT, PERRL, EOMI, anicteric sclera, conjunctiva without injection, external ear normal to inspection and nontender, nares patent, moist mucus membranes, dentition intact, no oropharyngeal lesions, neck supple, trachea midline, no LAD, no thyromegaly, no JVD Heart: +S1/S2, irregularly irregular, no m/r/g Lungs: equal air entry bilaterally, bibasilar crackles, no rhonchi/wheezes Abd: +BS, soft, NT/ND, no masses/organomegaly/ascites Ext: LLE in walking cast, 2+ pitting edema of bilateral LE Neuro: nonfocal, patient AA&O x 4, speech intact, no facial droop, moving all extremities on command with equal strength 5/5 Results & Data Results & Data Vital Signs (Past 12 Hours) Vital Signs Temp Pulse Resp BP Pulse Ox O2 Del Method 11/04/24 20:09 120 H 156/114 H 11/04/24 18:12 104 H 11/04/24 17:33 106 H 12 131/108 H 94 11/04/24 17:10 97 Room Air 11/04/24 17:10 Room Air 11/04/24 17:03 36.7 C 97 H 18 138/93 94 Room Air Laboratory Results Laboratory Results WBC 5.88 K/ul (4.8-10.8) 11/04/24 21:28 RBC 5.29 M/uL (4.70-6.10) 11/04/24 21: Hgb 16.6 g/dl (14.0-18.0) 11/04/24: Hct 51.8 % (42.0-52.0) 11/04/24: MCV 97.9 fL (80.0-100.0) 11/04/24: MCH 31.4 pg (25.0-34.0) 11/04/24: MCHC 32.0 g/dL (32.0-36.0) 11/04/24: RDW Std Deviation 57.6 fL (36.4-46.3) H 11/04/24: RDW Coeff of Jose 16.1 % (11.5-14.5) H 11/04/24: Plt Count 144 K/uL (130-400) 11/04/24: MPV 9.2 fL (9.4-12.4) L 11/04/24: Immature Gran % (Auto) 0.3 % 11/04/24: Neut % (Auto) 76.2 % 11/04/24: Lymph % (Auto) 14.8 % 11/04/24: [place] % (Auto) 6.0 % 11/04/24: Eos % (Auto) 1.7 % 11/04/24: Baso % (Auto) 1.0 % 11/04/24: Neut # (Auto) 4.48 K/uL (1.40-6.50) 11/04/24: Lymph # (Auto) 0.87 K/uL (1.20-3.40) L 11/04/24: [place] # (Auto) 0.35 K/uL (0.11-0.59) 11/04/24: Eos # (Auto) 0.10 K/uL (0.00-0.50) 11/04/24: Baso # (Auto) 0.06 K/uL (0.00-0.20) 11/04/24: Immature Gran # (Auto) 0.02 K/uL (0.01-0.20) 11/04/24 21:28 PT 12.4 Seconds (9.0-12.0) H 11/04/24 21:28 INR 1.2 (0.9-1.1) H 11/04/24 21:28 APTT 31 Seconds (21-31) 11/04/24 21:28 PTT Ratio 1.2 11/04/24 21:28 Sodium 142 mmol/L (136-145) 11/04/24 17:19 Potassium 4.2 mmol/L (3.5-5.1) 11/04/24 17:19 Chloride 107 mmol/L (98-107) 11/04/24 17:19 Carbon Dioxide 31 mmol/L (21-32) 11/04/24 17:19 Anion Gap 4 (3-11) 11/04/24 17:19 BUN 15 mg/dl (6-23) 11/04/24 17:19 Creatinine 0.86 mg/dl (0.6-1.4) 11/04/24 17:19 Est Cr Clr Drug Dosing 82.3 ml/min 11/04/24 17:19 eGFR 85.38 11/04/24 17:19 BUN/Creatinine Ratio 17.4 (10-20) 11/04/24 17:19 Glucose 128 mg/dl (70-99(Fasting)) H 11/04/24 17:19 Calcium 9.0 mg/dl (8.6-10.3) 11/04/24 17:19 Phosphorus 3.5 mg/dl (2.5-4.9) 11/04/24 17:19 Magnesium 2.1 mg/dl (1.7-2.4) 11/04/24 17:19 Total Bilirubin 1.1 mg/dl (0.2-1.0) H 11/04/24 17:19 AST 17 U/L (13-39) 11/04/24 17:19 ALT 13 U/L (7-52) 11/04/24 17:19 Alkaline Phosphatase 72 U/L (34-104) 11/04/24 17:19 Troponin I High Sens 11.3 pg/ml (0-20) 11/04/24 17:19 Total Protein 7.4 gm/dl (6.0-8.3) 11/04/24 17:19 Albumin 4.5 gm/dl (3.4-5.0) 11/04/24 17:19 Globulin 2.9 gm/dl (2.5-4.0) 11/04/24 17:19 Albumin/Globulin Ratio 1.6 (0.9-2) 11/04/24 17:19 Procalcitonin 0.03 ng/ml (0-0.5) 11/04/24 17:19 TSH 2.192 uIu/ml (0.300-4.500) 11/04/24 17:19 Impressions Chest X-Ray 11/04/24 17:10 INDICATION: Chest pain. TECHNIQUE: Frontal radiograph of the chest. COMPARISON: Radiograph from 06/23/2023. FINDINGS: Cardiomegaly. Diffuse increased interstitial lung markings could relate to fluid overload or pneumonia in the appropriate clinical setting. No pleural effusion or pneumothorax. No acute fracture. IMPRESSION: Diffuse increased interstitial lung markings could relate to fluid overload or pneumonia in the appropriate clinical setting. Electronically signed by Jam Ortiz 11-04-2024 5:39 PM PG Care Time/CCT Total # of Minutes Spent Total Time Spent with Patient: Total time spent is greater than 50% in coordination of care (as documented) at patient's floor/unit and/or counseling patient: Coding Level of Care Code 71236 INT INP/OBS CARE 2/55MIN Diagnoses Atrial fibrillation with RVR I48.91 Closed trimalleolar fracture S82.852A Encounter type: initial encounter Laterality: left BPH (benign prostatic hyperplasia) N40.0 (2) Closed trimalleolar fracture Encounter type: initial encounter Laterality: left Qualified Code(s): S82.852A - Displaced trimalleolar fracture of left lower leg, initial encounter for closed fracture
[2024-11-04] MEDS: TAMSULOSIN HCL 0.4 MG CAP PO ONE (20:45)
[2024-11-04] MEDS ORDERED: ONDANSETRON INJ 2 MG/ML 2 ML VIAL IV PRN (21:06)
[2024-11-04] MEDS ORDERED: SENNA 8.6 MG TAB PO PRN (21:06)
[2024-11-04] MEDS: Heparin IV Adult Wt-Based Standard *NO* INITIAL Bolus Protocol IV STA (21:07)
[2024-11-04] MEDS: HEPARIN SODIUM/DEXTROSE 25,000 UNITS/500 ML BAG IV SCH (21:23)
[2024-11-04 21:57] LABS: Hematocrit (blood only) 51.8 % (42.0-52.0); Hemoglobin 16.6 g/dl (14.0-18.0); Mean Corpuscular Hemoglobin 31.4 pg (25.0-34.0); Mean Corpuscular Volume 97.9 fL (80.0-100.0); Mean Platelet Volume 9.2 fL (9.4-12.4); Platelet Count 144 K/uL (130-400); RDW Coefficient of Variation 16.1 % (11.5-14.5); RDW Standard Deviation 57.6 fL (36.4-46.3); Red Blood Count 5.29 M/uL (4.70-6.10); White Blood Count 5.88 K/ul (4.8-10.8)
[2024-11-04 22:25] LABS: Basophils # (auto) 0.06 K/uL (0.00-0.20); Eosinophils % (auto) 1.7 %; Immature Granulocytes # (auto) 0.02 K/uL (0.01-0.20); Immature Granulocytes % (auto) 0.3 %; Lymphocytes # (auto) 0.87 K/uL (1.20-3.40); Lymphocytes % (auto) 14.8 %; Monocytes # (auto) 0.35 K/uL (0.11-0.59); Neutrophils # (auto) 4.48 K/uL (1.40-6.50); Neutrophils % (auto) 76.2 %
[2024-11-04 22:36] LABS: INR 1.2 (0.9-1.1); Partial Thromboplastin Ratio 1.2; Partial Thromboplastin Time 31 Seconds (21-31); Prothrombin Time 12.4 Seconds (9.0-12.0)
[2024-11-04 22:54] LABS: Appearance Urine Clear (Clear); Bilirubin Urine Negative (Negative); Blood Urine Negative (Negative); Color Urine Yellow; Glucose Urine UA Negative (Negative); Ketones Urine Negative (Negative); Leukocyte Esterase Urine Negative (Negative); Nitrite Urine Negative (Negative); Protein Urine Negative (Negative); Specific Gravity Urine 1.008 (1.000-1.030); Urobilinogen Urine Negative (Negative)
[2024-11-05 04:38] LABS: ANTI-Xa, UFH(UnfractionatedHep 0.47 IU/ml (0.3-0.7)
[2024-11-05 08:32] LABS: Hematocrit (blood only) 47.1 % (42.0-52.0); Hemoglobin 15.3 g/dl (14.0-18.0); Mean Corpuscular Hemoglobin 31.7 pg (25.0-34.0); Mean Corpuscular Hgb Conc 32.5 g/dL (32.0-36.0); Mean Corpuscular Volume 97.5 fL (80.0-100.0); Mean Platelet Volume 9.6 fL (9.4-12.4); Platelet Count 108 K/uL (130-400); RDW Coefficient of Variation 15.7 % (11.5-14.5); RDW Standard Deviation 56.5 fL (36.4-46.3); Red Blood Count 4.83 M/uL (4.70-6.10); White Blood Count 4.47 K/ul (4.8-10.8)
[2024-11-05] MEDS: APIXABAN 5 MG TABLET PO SCH (09:47)
[2024-11-05] MEDS: METOPROLOL TARTRATE 25 MG TAB PO SCH (09:47)
[2024-11-05] MEDS: TAMSULOSIN HCL 0.4 MG CAP PO SCH (09:48)
--- NOTE | 2024-11-05 11:52 | Hospitalist Progress Note ---
Date of Service November 05, 2024 Assessment & Plan (1) Atrial fibrillation with RVR: Plan: 84-year-old male presenting with newly discovered atrial fibrillation. Patient does endorse intermittent palpitations over the last several weeks as well as worsening edema, orthopnea and dyspnea on exertion. Uncertain of the duration of patient's atrial fibrillation. No prior history of cardiac disease, arrhythmia or heart failure. Rate was mildly elevated ranging 95 to 120 bpm. Electrolytes and TSH are within normal limits. # new diagnosis afib with RVR - suspect some chronicity based on symptoms. A- flutter on initial EKG # acute heart failure, mild exacerbation - also suspect some chronicity # mild aortic stenosis seen on echo -CHADS-2Vasc = 2, I examined ankle this AM no evidence of hematoma/hemorrhage, stopped heparin drip and started apixaban 5 mg bid -I counseled on risks and benefits of anticoagulation including risk of stroke vs risk of GI hemorrhage, risk of ICH which is rare but can be disabling or fatal -started metoprolol tartrate 25 mg bid -TTE reviewed, EF 55 to 60%, no regional wall motion abnormalities, mild aortic stenosis, mild pulmonary hypertension, dilated atria, atrial fibrillation, dilated IVC -remains volume overloaded continue diuresis with furosemide 40 mg IV twice daily and oral potassium replacement, monitor weights and I's/O's, a.m. BMP -consulted cardiology, reviewed recommendations by Dr. Clark. as above and metoprolol increased starting tomorrow morning: Metoprolol succinate 75 mg daily, follow-up with cardiology within a month consider cardioversion if remaining in A-fib/flutter. may need stress test in the future (2) Closed trimalleolar fracture: Plan: sustained ankle fracture which was repaired over the summer He had a screw removed from his left ankle 11/[address] August. Surgery well- tolerated. Pain well-controlled Maintain walking boot when patient is ambulatory Tylenol as needed for pain Ice to left lower extremity Elevate left lower extremity Monitor closely for evidence of bleed while patient is on heparin drip/anticoagulation - examined 11/05 no issues, wound looks good (3) BPH (benign prostatic hyperplasia): Plan: chronic. Stable. Flomax 0.4 mg p.o. daily Plan Thrombocytopenia - new today, moderate, probably direct effect of heparin which has been stopped. No evidence of thrombosis. follow up CBC in a.m. DVT ppx - apixaban Anticipate discharge within 1-2 days when euvolemic Admission and Anticipated Discharge Date Admission Date: November 04, 2024 Subjective Dyspnea on exertion walking up hill / his driveway weeks to months Chronic LE edema, never has been on diuretic Has had intermittent palpitations No chest pain, dyspnea improved today Physical Exam 2 Physical Exam: PHYSICAL EXAMINATION Last 24h vital signs reviewed, see documentation in flowsheet General: comfortable appearing, no distress, sitting up in bed HEENT: Normocephalic, atraumatic, pupils round and equal, sclerae anicteric, no conjunctival injection, moist mucus membranes Lungs: Normal respiratory effort. crackles in both bases about a third of the way up and diminished in bases no wheezing. Heart: tachycardic and irregularly irregular, systolic murmur, JVP appears elevated Abdomen: Soft, nontender, nondistended. Bowel sounds present. Extremities: Warm, dry, well-perfused. 3+ lower extremity edema. Neuro: Alert and oriented x 4, face symmetric, moves 4 extremities well Psych: Normal affect and behavior Results & Data Results & Data Vital Signs (Past 12 Hours) Vital Signs Temp Pulse Pulse Pulse Resp BP Pulse Ox 11/05/24 11:24 97.9 F 92 H 18 112/69 93 11/05/24 07:39 97.9 F 105 H 18 135/98 91 11/05/24 07:24 113 H 11/05/24 04:08 98.2 F 99 H 20 143/90 H 92 11/05/24 00:31 97.7 F 91 H 20 114/78 92 O2 Del Method 11/05/24 11:24 Room Air 11/05/24 07:39 Room Air 11/05/24 07:24 11/05/24 04:08 Room Air 11/05/24 00:31 Room Air Laboratory Results 11/05/24 08:01 11/04/24 17:19 PG Care Time/CCT Total # of Minutes Spent Total Time Spent with Patient: Total time spent is greater than 50% in coordination of care (as documented) at patient's floor/unit and/or counseling patient: Coding Level of Care Code 62160 SUB INP/OBS CARE 3/50MIN Diagnoses Atrial fibrillation with RVR I48.91 Closed trimalleolar fracture S82.852A Encounter type: initial encounter Laterality: left BPH (benign prostatic hyperplasia) N40.0 (2) Closed trimalleolar fracture Encounter type: initial encounter Laterality: left Qualified Code(s): S 82.852A - Displaced trimalleolar fracture of left lower leg, initial encounter for closed fracture
[2024-11-05] MEDS: FUROSEMIDE INJ 20 MG/2 ML VIAL IV ONE (13:13)
[2024-11-05] MEDS: POTASSIUM CHLORIDE CRTAB 20 MEQ TABCR PO STA (13:25)
[2024-11-05] MEDS: FUROSEMIDE 40 MG/4 ML VIAL IV ONE (13:25)
--- NOTE | 2024-11-05 14:32 | Cardiology Consultation ---
Date of Consultation November 05, 2024 Assessment & Plan (1) Atrial fibrillation with RVR: (2) Anticoagulant long-term use: (3) Aortic stenosis: Plan 1. Atrial fibrillation: It appears that he went into atrial fibrillation recently although I cannot speak to confident as to exactly when, although it may have been around the time of his surgery today but I suspect may be earlier. In any case I would plan rate control, anticoagulation, and then a follow-up in less than a month to see whether he remains in atrial fibrillation. If so we can cardiovert. I do want to get better rate control and I will adjust his beta-blockade starting tomorrow. 2. Anticoagulation: He does need long-term anticoagulation, I agree with Michela. 3. Aortic stenosis: He has mild aortic stenosis, that probably is not related to his atrial fibrillation and will need to be watched over the long run but will probably not an issue for some years. 4. Dyspnea on exertion: I suspect he has fluid overload, he does not have left ventricular dysfunction. If this continues and does not appear to be a pulmonary origin we may want to do stress testing. He could certainly have coronary artery disease although we do not have any indication at as yet. For now I would continue diuresis until he has no significant edema. History of Present Illness Reason for Consultation: Atrial fibrillation Attending Physician: Katie Spaulding MD History of Present Illness This is an 84-year-old male who had an orthopedic procedure performed November 04, 2024 November 04, 2024 and was noted to have new onset of atrial fibrillation either during or after the surgical procedure. He does not have a prior cardiac history, either of atrial fibrillation or other diagnoses. The last electrocardiogram that I know of before today was June 23, 2023 where he had sinus rhythm. He also had electrocardiogram November 04, 2024 at 2:30 PM where he is reported to be in sinus tachycardia with premature atrial beats, I have not seen that electrocardiogram. I do have an electrocardiogram from November 04, 2024 at 1711 which shows atrial flutter with variable AV conduction and a heart rate of 110 bpm. Of note his pulse has been 100 or higher since November 04, 2024, prior to that (the last reading October 20, 2024) his heart rate was arou nd 90 or less. This suggests a relatively recent onset of the arrhythmia. His chest x-ray is noted to show increased interstitial markings and mild interstitial thickening was noted suggests fluid overload or pneumonia. In May 2023 his chest x-ray also suggested mild interstitial findings. High- sensitivity troponin was negative. An echocardiogram done May 05, 2025 shows normal left ventricular size and function with an ejection fraction of 55 to 60%, mild aortic stenosis and mild pulmonary hypertension. He was sent to the hospital and admitted, he was started on heparin which has been transitioned to Eliquis and he was given intravenous metoprolol and is now on metoprolol tartrate 25 mg twice a day. At the time of my evaluation his family was present in the room, he admits to some difficulty walking up his driveway for some time (perhaps since fall) but worse recently and having significantly worse leg swelling recently. Evidently that leg swelling has improved substantially since his hospitalization. He is currently asymptomatic and has had no palpitations before or after admission. Allergies Allergy/AdvReac Type Severity Reaction Status Date / Time Penicillins Allergy Unknown Verified 11/04/24 15:42 Home Medications Medication Instructions Recorded Confirmed Type acetaminophen 325 mg tablet 650 mg PO Q4 PRN temp>100 06/23/23 11/04/24 History ascorbic acid (vitamin C) 500 mg 500 mg PO QAM 06/23/23 11/04/24 History tablet (Vitamin C) calcium carbonate (Calcium 600) 600 mg PO BID 06/23/23 11/04/24 History cholecalciferol (vitamin D3) 50 50 mcg PO DAILY 06/23/23 11/04/24 History mcg (2,000 unit) tablet (Vitamin D3) sennosides 8.6 mg tablet 8.6 mg PO DAILY PRN Constipation 06/23/23 11/04/24 History tamsulosin 0.4 mg capsule 0.4 mg PO DAILY #90 caps 02/15/24 11/04/24 Rx Patient History Medical History Compression fracture of lumbar vertebra T12, L1, L3, L4 BPH (benign prostatic hyperplasia) Surgical History Status post open reduction with internal fixation (ORIF) of fracture of ankle Total knee replacement status 2004 H/O hernia repair History of appendectomy Family History Father Hypertension Denies family history of Ovarian cancer Prostate cancer Diabetes Myocardial infarction Breast cancer Colorectal cancer Social History Smoking Status: Never smoker Second Hand Exposure: No; Do You Dip or Chew Tobacco: No; Tobacco Cessation Education Requested by Patient: No Hx Alcohol Use: No Hx Substance Use: No Preferred Language: Bulgarian Communication Ability: Effective Visual Impairment: No Limitations Hearing Ability: Normal 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 Beliefs That Will Affect Care: None marital status: Current Living Situation: Spouse Current Living Situation Comment: 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 He is laying in bed. HEENT: Unremarkable Neck: No jugular venous distention, carotid pulses are irregular but otherwise normal and equal bilaterally without bruits. Pulmonary: Crackles at the bases auscultation bilaterally. Cardiac: Irregular rhythm with a soft outflow tract murmur, no gallop or rub. Abdomen: Soft, nontender with normal bowel sounds. Extremities: +2-3 bilateral pretibial edema. Neurologic: No focal findings. Skin: No rash, ecchymoses or petechiae. Results & Data Vital Signs (Past 12 Hours) Vital Signs Temp Pulse Pulse Pulse Resp BP Pulse Ox 11/05/24 11:24 36.6 C 92 H 18 112/69 93 11/05/24 07:39 36.6 C 105 H 18 135/98 91 11/05/24 07:24 113 H 11/05/24 04:08 36.8 C 99 H 20 143/90 H 92 O2 Del Method 11/05/24 11:24 Room Air 11/05/24 07:39 Room Air 11/05/24 07:24 11/05/24 04:08 Room Air Laboratory Results Cardiac Enzymes 11/04/24 Range/Units 17:19 AST 17 (13-39) U/L Troponin I High Sens 11.3 (0-20) pg/ml Coagulation 11/04/24 11/04/24 Range/Units 17:19 21:28 PT 11.1 12.4 H (9.0-12.0) Seconds APTT 31 (21-31) Seconds CBC 11/04/24 11/04/24 11/05/24 Range/Units 17:19 21:28 08:01 WBC 5.15 5.88 4.47 L (4.8-10.8) K/ul RBC 5.38 5.29 4.83 (4.70-6.10) M/uL Hgb 16.9 16.6 15.3 (14.0-18.0) g/dl Hct 52.4 H 51.8 47.1 (42.0-52.0) % Plt Count 137 144 108 L (130-400) K/uL Neut # (Auto) 3.89 4.48 (1.40-6.50) K/uL Lymph # (Auto) 0.70 L 0.87 L (1.20-3.40) K/uL [place] # (Auto) 0.45 0.35 (0.11-0.59) K/uL Eos # (Auto) 0.05 0.10 (0.00-0.50) K/uL Baso # (Auto) 0.04 0.06 (0.00-0.20) K/uL Comprehensive Metabolic Panel 11/04/24 Range/Units 17:19 Sodium 142 (136-145) mmol/L Potassium 4.2 (3.5-5.1) mmol/L Chloride 107 (98-107) mmol/L Carbon Dioxide 31 (21-32) mmol/L BUN 15 (6-23) mg/dl Creatinine 0.86 (0.6-1.4) mg/dl Glucose 128 H (70-99(Fasting)) mg/dl Calcium 9.0 (8.6-10.3) mg/dl AST 17 (13-39) U/L ALT 13 (7-52) U/L Alkaline Phosphatase 72 (34-104) U/L Total Protein 7.4 (6.0-8.3) gm/dl Albumin 4.5 (3.4-5.0) gm/dl Intake and Output 11/04/24 11/05/24 11/05/24 22:59 06:59 14:59 Intake Total 100 / 417.35 1128.10 / 1128.10 Output Total 450 / 450 725 / 725 Balance -350 / -32.65 403.10 / 403.10 Intake: IV 408.10 / 408.10 Heparin Sodium/Dextrose 25,000 408.10 / 408.10 units In 500 ml @ 1 UNITS/HR 0. 02 mls/hr IV .Q24H RUTH Rx#: [id number] Oral 100 / 100 720 / 720 Output: Urine 450 / 450 725 / 725 Other: Other Intake Source sips Weight 111 kg 112.8 kg Weight Measurement Method [facility] Findings Telemetry: Atrial fibrillation with a heart rate from 100 to 120 bpm PG Care Time/CCT Total # of Minutes Spent Total Time Spent with Patient: Total time spent is greater than 50% in coordination of care (as documented) at patient's floor/unit and/or counseling patient: Coding Level of Care Code 59506 INT INP/OBS CARE 3/75MIN Diagnoses Atrial fibrillation with RVR I48.91 Anticoagulant long-term use Z79.01 Aortic stenosis I35.0
--- NOTE | 2024-11-05 14:38 | XCELERA ---
[id number]
[2024-11-05] MEDS: POTASSIUM CHLORIDE CRTAB 20 MEQ TABCR PO SCH (18:17)
[2024-11-05] MEDS: FUROSEMIDE 40 MG/4 ML VIAL IV SCH (18:17)
--- NOTE | 2024-11-06 06:36 | Electrocardiogram Report ---
Test Reason : Blood Pressure : */* mmHG Vent. Rate : 110 BPM Atrial Rate : * BPM P-R Int : * ms QRS Dur : 110 ms QT Int : 302 ms P-R-T Axes : * 36 18 degrees QTcB Int : 408 ms Atrial fibrillation with rapid ventricular response with premature ventricular or aberrantly conducte d complexes Abnormal ECG When compared with ECG of 23-Jun-2023 21:50, Atrial fibrillation has replaced Sinus rhythm Confirmed by Khanh Clark ([id number]) on 11/06/2024 6:36:00 AM Referred By: Marybeth Woods Confirmed By: Khanh Clark
[2024-11-06 06:49] LABS: Hemoglobin 15.5 g/dl (14.0-18.0); Mean Corpuscular Hemoglobin 31.5 pg (25.0-34.0); Mean Corpuscular Volume 95.5 fL (80.0-100.0); Mean Platelet Volume 9.3 fL (9.4-12.4); Platelet Count 127 K/uL (130-400); RDW Coefficient of Variation 15.3 % (11.5-14.5); RDW Standard Deviation 54.1 fL (36.4-46.3); Red Blood Count 4.92 M/uL (4.70-6.10); White Blood Count 4.94 K/ul (4.8-10.8)
[2024-11-06 07:12] LABS: BUN Creatinine Ratio 19.8 (10-20); Calcium 8.9 mg/dl (8.6-10.3); Creatinine Clr Calc Pharmacy 70.1 ml/min; Potassium 3.9 mmol/L (3.5-5.1)
[2024-11-06] MEDS: ACETAMINOPHEN 325 MG TAB PO PRN (08:09)
[2024-11-06] MEDS: METOPROLOL SUCC 25MG EXT REL TAB PO SCH (08:34)
[2024-11-06] MEDS ORDERED: POTASSIUM CHLORIDE CRTAB 20 MEQ TABCR PO SCH (09:00)
--- NOTE | 2024-11-06 11:56 | Cardiology Progress Note ---
Date of Service November 06, 2024 Assessment & Plan (1) Atrial fibrillation with RVR: (2) Leg edema: (3) Mild aortic stenosis: Plan New onset atrial fibrillation occurring perioperatively at the time of an orthopedic procedure. Doing well clinically but with persistent tachycardia, recommend titrating metoprolol upward to achieve ventricular rate in the 80 bpm range. He was increased to 75 mg metoprolol this morning, could give additional dose of 25 to 50 mg later today if his ventricular rate remains greater than 100 bpm. Anticoagulated with apixaban, this should be continued as an outpatient long- term. He could potentially be discharged tomorrow if his rate is reasonably controlled (less than 100 bpm at rest, less than 120 bpm with mild activity) with plans for elective cardioversion in 3 to 4 weeks if atrial fibrillation persists. Although he may have been volume overloaded on admission, he now appears only mildly hypervolemic. Given chronic stasis changes suspect his leg edema is in large part venous insufficiency. Reasonable to give additional diuretic today, but would reevaluate volume status tomorrow before diuresing and consider weight-based regimen of diuretic upon discharge. Case discussed with Dr. Spaulding. Dr. Velasquez will be rounding tomorrow and may offer further recommendations. Admission and Anticipated Discharge Date Admission Date: November 04, 2024 Subjective Doing well overall, uneventful night. Denies dyspnea, able to lie flat. No subjective palpitations. No chest pain, lightheadedness, presyncope, or syncope. Telemetry showed persistent atrial fibrillation with ventricular rate 100-110 bpm. Physical Exam Physical Exam: No distress. BP normotensive. Pulse 110 bpm and irregular. Respirations 16 and unlabored. Skin: no ecchymoses or generalized lesions. HEENT: unremarkable. Neck: JVP just above the clavicle at 90 degrees. Lungs: clear. Cardiac: Irregular/tachycardic rhythm, audible aortic closure sound, 2/6 systolic ejection murmur right upper sternal border, no diastolic murmur. Abdomen: benign. Extremities: Stasis changes lower extremities with 2+ left and 1+ right pretibial edema, pulses intact, good capillary refill. Neurologic: normal affect and conversation, nonfocal. Results & Data Vital Signs (Past 12 Hours) Vital Signs Temp Pulse Pulse Resp BP Pulse Ox O2 Del Method 11/06/24 11:25 97.5 F L 113 H 16 119/57 L 93 Room Air 11/06/24 08:21 97.9 F 111 H 16 158/99 H 94 Room Air 11/06/24 08:00 102 H 11/06/24 03:49 97.5 F L 96 H 20 113/72 92 Room Air 11/06/24 01:12 Room Air 11/06/24 00:05 98.4 F 99 H 20 121/77 92 Room Air Laboratory Results Normal electrolytes, BUN 20, creatinine 1.01. PG Care Time/CCT Total # of Minutes Spent Total Time Spent with Patient: Total time spent is greater than 50% in coordination of care (as documented) at patient's floor/unit and/or counseling patient: Coding Level of Care Code 42988 SUB INP/OBS CARE 3/50MIN Diagnoses Atrial fibrillation with RVR I48.91 Leg edema R60.0 Mild aortic stenosis I35.0
--- NOTE | 2024-11-06 14:55 | Hospitalist Progress Note ---
Date of Service November 06, 2024 Assessment & Plan (1) Atrial fibrillation with RVR: Plan: 84-year-old male presenting with newly discovered atrial fibrillation. Patient does endorse intermittent palpitations over the last several weeks as well as worsening edema, orthopnea and dyspnea on exertion. Uncertain of the duration of patient's atrial fibrillation. No prior history of cardiac disease, arrhythmia or heart failure. Rate was mildly elevated ranging 95 to 120 bpm. Electrolytes and TSH were within normal limits. # new diagnosis afib with RVR - suspect some chronicity based on symptoms. A- flutter on initial EKG # acute heart failure, mild exacerbation - also suspect some chronicity # mild aortic stenosis seen on echo EF 55 to 60%, no regional wall motion abnormalities, mild aortic stenosis, mild pulmonary hypertension, dilated atria, atrial fibrillation, dilated IVC -CHADS-2Vasc = 2, continue apixaban -11/05 - I counseled on risks and benefits of anticoagulation including risk of stroke vs risk of GI hemorrhage, risk of ICH which is rare but can be disabling or fatal -discussed with Dr. Street - getting close to euvolemic, stop IV lasix after this afternoon, AM BMP, increase metoprolol - added 50 mg XL this afternoon since rates still high, increase to 100 mg XL in am follow-up with cardiology within a month consider cardioversion if remaining in A-fib/flutter. may need stress test in the future may be able to discharge tomorrow (2) Closed trimalleolar fracture: Plan: sustained ankle fracture which was repaired over the summer He had a screw removed from his left ankle 11/[address] August. Surgery well- tolerated. Pain well-controlled Maintain walking boot when patient is ambulatory Tylenol as needed for pain Ice to left lower extremity Elevate left lower extremity Monitor closely for evidence of bleed while patient is on heparin drip/anticoagulation - examined 11/05 no issues, wound looks good (3) BPH (benign prostatic hyperplasia): Plan: chronic. Stable. Flomax 0.4 mg p.o. daily Plan Thrombocytopenia - resolving, probably direct effect of heparin which has been stopped. No evidence of thrombosis. DVT ppx - apixaban Admission and Anticipated Discharge Date Admission Date: November 04, 2024 Subjective dyspnea improved, urinating a lot, leg edema relatively unchanged but very chronic remains in afib/flutter on tele overnight Physical Exam 2 Physical Exam: PHYSICAL EXAMINATION Last 24h vital signs reviewed, see documentation in flowsheet General: sitting in bed does look younger than his age HEENT: Normocephalic, atraumatic, pupils round and equal, sclerae anicteric, no conjunctival injection, moist mucus membranes Lungs: Normal respiratory effort. lungs pretty clear and no wheezing Heart: tachycardic and irregularly irregular, systolic murmur, JVP slightly elevated Abdomen: Soft, nontender, nondistended. Bowel sounds present. Extremities: Warm, dry, well-perfused. 3+ lower extremity edema now L>R. surgical dressing LLE Neuro: Alert and oriented x 4, face symmetric, moves 4 extremities well Psych: Normal affect and behavior Results & Data Results & Data Vital Signs (Past 12 Hours) Vital Signs Temp Pulse Pulse Resp BP Pulse Ox O2 Del Method 11/06/24 12:05 Room Air 11/06/24 11:25 97.5 F L 113 H 16 119/57 L 93 Room Air 11/06/24 08:21 97.9 F 111 H 16 158/99 H 94 Room Air 11/06/24 08:00 102 H 11/06/24 03:49 97.5 F L 96 H 20 113/72 92 Room Air Laboratory Results 11/06/24 05:50 11/06/24 05:50 PG Care Time/CCT Total # of Minutes Spent Total Time Spent with Patient: Total time spent is greater than 50% in coordination of care (as documented) at patient's floor/unit and/or counseling patient: Coding Level of Care Code 79732 SUB INP/OBS CARE 3/50MIN Diagnoses Atrial fibrillation with RVR I48.91 Closed trimalleolar fracture S82.852A Encounter type: initial encounter Laterality: left BPH (benign prostatic hyperplasia) N40.0 (2) Closed trimalleolar fracture Encounter type: initial encounter Laterality: left Qualified Code(s): S 82.852A - Displaced trimalleolar fracture of left lower leg, initial encounter for closed fracture
[2024-11-06] MEDS: METOPROLOL SUCC 50MG EXT REL TAB PO ONE (15:58)
[2024-11-06 20:01] VITALS: O2SAT 93
[2024-11-07 04:32] VITALS: TEMP 97.3
[2024-11-07 06:13] LABS: Hematocrit (blood only) 47.9 % (42.0-52.0); Mean Corpuscular Hemoglobin 31.4 pg (25.0-34.0); Mean Corpuscular Hgb Conc 33.4 g/dL (32.0-36.0); Mean Corpuscular Volume 94.1 fL (80.0-100.0); Mean Platelet Volume 9.8 fL (9.4-12.4); Platelet Count 135 K/uL (130-400); RDW Standard Deviation 52.5 fL (36.4-46.3); Red Blood Count 5.09 M/uL (4.70-6.10); White Blood Count 5.32 K/ul (4.8-10.8)
[2024-11-07 06:33] LABS: BUN Creatinine Ratio 26.7 (10-20); Blood Urea Nitrogen 24 mg/dl (6-23); Calcium 9.1 mg/dl (8.6-10.3); Carbon Dioxide 32 mmol/L (21-32); Chloride 102 mmol/L (98-107); Glucose 108 mg/dl (70-99(Fasting))
[2024-11-07 07:17] LABS: Potassium 4.1 mmol/L (3.5-5.1)
[2024-11-07 07:22] VITALS: RESP 18
[2024-11-07] MEDS: METOPROLOL SUCC 50MG EXT REL TAB PO SCH (09:38)
--- NOTE | 2024-11-07 10:35 | Cardiology Progress Note ---
Date of Service November 07, 2024 Assessment & Plan (1) New onset atrial fibrillation: (2) Leg edema: Plan 1. Atrial fibrillation: He remains in atrial fibrillation. We do not know the duration but I suspect recent onset. I would recommend discharge on his current rate control strategy and anticoagulation, we will see him in the office in 2 to 3 weeks and probably arrange cardioversion if he remains in atrial fibrillation. 2. Leg edema: This has improved, I discussed with him conservative strategies including wearing support stockings (especially on the left which has been swelling since his foot surgery urinalysis ago). He will likely need Lasix, perhaps making it prn would be sufficient as his requirements may change, especially if we convert his rhythm. From my standpoint he can go home. Admission and Anticipated Discharge Date Admission Date: November 04, 2024 Subjective He is feeling much better today today, he is not having much difficulty with leg swelling and does not have a sensation of palpitations. Physical Exam Physical Exam: Constitutional: Alert, cooperative and in no distress. He is laying in bed. HEENT: Unremarkable Neck: No jugular venous distention, carotid pulses are irregular but otherwise normal and equal bilaterally without bruits. Pulmonary: Clear to auscultation bilaterally. Cardiac: Irregular rhythm with a soft outflow tract murmur, no gallop or rub. Abdomen: Soft, nontender with normal bowel sounds. Extremities: +1 bilateral pretibial edema. Neurologic: No focal findings. Skin: No rash, ecchymoses or petechiae. Results & Data Vital Signs (Past 12 Hours) Vital Signs Temp Pulse Pulse Resp BP Pulse Ox O2 Del Method 11/07/24 07:37 112 H 11/07/24 07:21 36.3 C L 98 H 18 130/87 93 Room Air 11/07/24 04:31 36.3 C L 95 H 20 99/67 L 93 Room Air 11/07/24 00:20 36.4 C L 94 H 20 143/78 H 93 Room Air Laboratory Results CBC 11/07/24 Range/Units 05:27 WBC 5.32 (4.8-10.8) K/ul RBC 5.09 (4.70-6.10) M/uL Hgb 16.0 (14.0-18.0) g/dl Hct 47.9 (42.0-52.0) % Plt Count 135 (130-400) K/uL Comprehensive Metabolic Panel 11/07/24 11/07/24 Range/Units 05:27 06:40 Sodium TNP 140 Potassium TNP 4.1 Chloride 102 (98-107) mmol/L Carbon Dioxide 32 (21-32) mmol/L BUN 24 H (6-23) mg/dl Creatinine 0.90 (0.6-1.4) mg/dl Glucose 108 H (70-99(Fasting)) mg/dl Calcium 9.1 (8.6-10.3) mg/dl Intake and Output 11/06/24 11/07/24 11/07/24 22:59 06:59 14:59 Intake Total 1100 / 1820 Output Total 1500 / 3300 Balance -400 / -1480 Intake: Oral 1100 / 1820 Output: Urine 1500 / 3300 Other: Weight 112.1 kg Weight Measurement Method Built in [facility] Diagnostic Findings Telemetry: Atrial fibrillation, rate typically 80-110 PG Care Time/CCT Total # of Minutes Spent Total Time Spent with Patient: Total time spent is greater than 50% in coordination of care (as documented) at patient's floor/unit and/or counseling patient: Coding Level of Care Code 80188 SUB INP/OBS CARE 2/35MIN Diagnoses New onset atrial fibrillation I48.91 Leg edema R60.0
[2024-11-07] MEDS: FUROSEMIDE 40 MG TAB PO SCH (11:26)
[2024-11-07 11:28] VITALS: BP 106/70; PULSE 93
--- NOTE | 2024-11-07 18:49 | Discharge Summary ---
Discharge Summary Date of Service November 07, 2024 Principal Dx & Hospital Course #1 = Principal Diagnosis (1) Atrial fibrillation with RVR: 84-year-old male presenting with newly discovered atrial fibrillation. Patient does endorse intermittent palpitations over the last several weeks as well as worsening edema, orthopnea and dyspnea on exertion. Uncertain of the duration of patient's atrial fibrillation. No prior history of cardiac disease, arrhyt hmia or heart failure. Rate was mildly elevated ranging 95 to 120 bpm. Electrolytes and TSH were within normal limits. # new diagnosis afib with RVR - suspect some chronicity based on symptoms. A-f lutter on initial EKG # acute diastolic heart failure, mild exacerbation - also suspect some chronicity but unclear at this time Whether he has chronic heart failure or if this was just precipitated by rapid atrial fibrillation # mild aortic stenosis seen on echo EF 55 to 60%, no regional wall motion abnormalities, mild aortic stenosis, mild pulmonary hypertension, dilated atria, atrial fibrillation, dilated IVC -CHADS-2Vasc = 2, started apixaban - he was started on metoprolol succinate 100 mg daily with adequate rate control prior to discharge - he was diuresed initially with intravenous Lasix and quickly was able to be transition to oral, he may be a candidate for as needed Lasix but I discharged him on 20 mg daily with;'s of potassium we are arranging short-term follow-up in the heart failure clinic - he will follow-up with criminalist technician within a month and if he remains in A- fib/flutter cardioversion can be considered at that time (2) Closed trimalleolar fracture: sustained ankle fracture which was repaired over the summer He had a screw removed from his left ankle 11/[address] August. Surgery well- tolerated. Pain well-controlled Maintain walking boot when patient is ambulatory examined 11/07 and wound is healing well, no evidence of bleeding hematoma or infection - follow-up with Dr. Griffin as scheduled (3) BPH (benign prostatic hyperplasia): chronic. Stable. Flomax 0.4 mg p.o. daily Plan Thrombocytopenia - resolving, probably direct effect of heparin which has been stopped. No evidence of thrombosis. Admission HPI Per Admitting Provider Harsha Curry is a pleasant 84yo male with history BPH, and Valium for status postsurgical repair on 06/07/2023. Patient was treated with antibiotics after surgery for concern for possible infection, wound dehiscence. Patient had some migration of a screw from surgery that caused a small wound on the lateral side of his ankle. He was taken to the OR today for removal of the screw. Surgery was well-tolerated. patient was noted to have some EKG changes postoperatively which were concerning for atrial fibrillation/flutter therefore he was sent to the ER for further diagnostic workup. Patient does endorse intermittent palpitations as well as progressive bilateral lower extremity edema, orthopnea and dyspnea on exertion. He denies chest pain, confusion, dizziness or syncope. Denies abdominal pain, nausea, vomiting, f sally, chills. No additional complaints at this time. In the ER patient found to be in atrial fibrillation with heart rate ranging 95-120 bpm ER course: Metoprolol 5 mg IV Lasix 20 mg IV Flomax 0.4 mg p.o. Heparin drip without bolus Discharge Exam PHYSICAL EXAMINATION Last 24h vital signs reviewed, see documentation in flowsheet General: sitting in bed does look younger than his age HEENT: Normocephalic, atraumatic, pupils round and equal, sclerae anicteric, no conjunctival injection, moist mucus membranes Lungs: Normal respiratory effort. lungs pretty clear and no wheezing Heart: tachycardic and irregularly irregular, systolic murmur, JVP slightly elevated Abdomen: Soft, nontender, nondistended. Bowel sounds present. Extremities: Warm, dry, well-perfused. 3+ lower extremity edema now L>R. surgical dressing LLE Neuro: Alert and oriented x 4, face symmetric, moves 4 extremities well Psych: Normal affect and behavior Discharge Plan Discharge Items Patient Disposition: Home - Self-Care Reason For Visit: NEW ONSET ATRIAL FIBRILLATION Discharge Diagnosis: atrial fibrillation/flutter with rapid ventricular rate, acute diastolic heart failure Activity: Resume your previous activity Weightbearing Comment: left weightbearing while wearing walking boot Non-emergency contact: Primary Care Provider and Shrimp Peeling Machine Operator Call non-emergency contact if: you have any medication questions and your symptoms worsen Follow-up/Referrals: Khanh Clark MD [Physician] - (THE OFFICE WILL REACH OUT TO YOU WITHIN A FEW DAYS) Marybeth Woods MD [Primary Care Provider] - 11/14/24 11:30 am Tona Morris PA-C [Physician Government Relations Analyst] - 11/13/24 9:00 am Diet: Low Sodium (2gm) Davidtl Attending Provider Instructions: You were diagnosed with atrial fibrillation / flutter - a rapid irregular heart beat, and heart failure (fluid buildup in lungs that causes shortness of breath) Its possible that the heart failure symptoms will resolve with treatment of the afib/flutter New medications: Eliquis (apixaban) - blood thinner to reduce your stroke risk from afib/flutter Metoprolol - helps slow down your heart beat Furosemide (AKA lasix) - a diuretic or "water pill" We discussed the risks and benefits of anticoagulation (blood thinner), including the risks of gastrointestinal bleeding - seek medical attention if you have black/tarry or bloody stool There is also a very small but real risk of intracranial hemorrhage - related to head trauma or bleeding-type stroke, that can be life threatening. Call 911 if you have altered mental status or symptoms of stroke (weakness or numbness of face/arm/leg, trouble speaking or understanding, trouble with walking/balance Keep track of your weight every day and keep a log Follow a low-salt diet - too much salt will cause fluid buildup Follow up in CHF clinic and with the criminalist technician Follow up with your outreach associate as scheduled It was a pleasure taking care of you in the hospital, Katie Spaulding MD Add Sifting Operator Provider Instructions: Call your Primary Care doctor if any of the following symptoms or problems start or get worse: * Shortness of breath or difficulty breathing * Wake up at night short of breath * Chest pain * Cough * Swelling of your hands, feet, or legs * More fatigued or tired with your normal activity * Palpitations - sudden fast heart beats WEIGHT * Weigh yourself every morning after using the bathroom. * Use the same scale. * Wear the same amount of clothing. * Write your weight down on a chart. * Call your Primary Care doctor if you gain more than 2-3 pounds in 1-2 days. MEDICATIONS * Use this discharge instruction sheet for medication instructions. * Take your medications at the time your doctor ordered. * Do not skip a dose of your medicines. * If you miss a dose of medicine, take it as soon as possible, but DO NOT DOUBLE A DOSE. * Read your medicine information when you get home. * Know all of the side effects of your medicine. If in doubt, ask your pharmacist * Call your Primary Care doctor's office if you have any side effects. * Be sure all of your doctors know what medicine and herbs you take (including cold, flu, and herbal medicine). Take the following with you to your follow-up doctor appointments: * Weight Chart * Medication List * List of questions Do not drink excessive alcohol, beer or wine. Stand-Alone Forms: [employer], Smoking Cessation Medications and DC Order Prescriptions: New Eliquis 5 mg Tablet 5 mg PO BID Qty: 60 0RF metoprolol succinate 50 mg Tablet Extended Release 24 Hr 100 mg PO QAM Qty: 30 0RF furosemide 20 mg tablet 20 mg PO DAILY Qty: 30 0RF potassium chloride 10 mEq tablet,ER particles/crystals 10 meq PO DAILY Qty: 30 0RF Continued tamsulosin 0.4 mg capsule 0.4 mg PO DAILY Qty: 90 3RF acetaminophen 325 mg Tablet 650 mg PO Q4 PRN (Reason: temp>100) calcium carbonate [Calcium 600] 600 mg calcium (1,500 mg) Tablet 600 mg PO BID sennosides 8.6 mg Tablet 8.6 mg PO DAILY PRN (Reason: Constipation) ascorbic acid (vitamin C) [Vitamin C] 500 mg Tablet 500 mg PO QAM cholecalciferol (vitamin D3) [Vitamin D3] 50 mcg (2,000 unit) Tablet 50 mcg PO DAILY Discharge Orders: Discharge Order- CHF (Routine); Ordered 11/07/24 Ordered By: Katie Garcia/Other Patient Handouts: AFib Admission Data Admit Date/Time: 11/04/24 20:13 Attending Provider: Katie Spaulding Admit Provider: Nia Zhang Primary Care Provider: Marybeth Woods Other Providers: iNa Zhang; Khanh Clark; Tona Morris; [facility] Other Interventions: Discharge Summary Assessment (RN) Last Done: 11/07/24 13:49 Hospital Stay Data Consultations 11/04/24 19:47 ED Decision to Admit Stat 11/05/24 11:47 Consult Cardiology Routine 11/06/24 14:55 [facility]erral Routine Discharge Instructions Given to Patient (Per Discharging Provider) You were diagnosed with atrial fibrillation / flutter - a rapid irregular heart beat, and heart failure (fluid buildup in lungs that causes shortness of breath) Its possible that the heart failure symptoms will resolve with treatment of the afib/flutter New medications: Eliquis (apixaban) - blood thinner to reduce your stroke risk from afib/flutter Metoprolol - helps slow down your heart beat Furosemide (AKA lasix) - a diuretic or "water pill" We discussed the risks and benefits of anticoagulation (blood thinner), including the risks of gastrointestinal bleeding - seek medical attention if you have black/tarry or bloody stool There is also a very small but real risk of intracranial hemorrhage - related to head trauma or bleeding-type stroke, that can be life threatening. Call 911 if you have altered mental status or symptoms of stroke (weakness or numbness of face/arm/leg, trouble speaking or understanding, trouble with walking/balance Keep track of your weight every day and keep a log Follow a low-salt diet - too much salt will cause fluid buildup Follow up in CHF clinic and with the criminalist technician Follow up with your outreach associate as scheduled It was a pleasure taking care of you in the hospital, Katie Spaulding MD Total Time Total Time Spent Total Time Spent (In Minutes): less than 30 minutes Coding Level of Care Code 20297 IN/OBS DISCH 30 MIN/LESS Diagnoses Atrial fibrillation with RVR I48.91 Closed trimalleolar fracture S82.852A Encounter type: initial encounter Laterality: left BPH (benign prostatic hyperplasia) N40.0
== END 2024-11-07 14:38 | disposition home health service (06) | DRG 308 ==
LOC: ED 17:00 → 2N 20:13 → SUATTDRO 20:13 → 2N 20:40

== ENCOUNTER 2024-12-29 02:48 | Inpatient (IN) ==
[2024-12-29 03:19] LABS: Basophils # (auto) 0.03 K/uL (0.00-0.20); Basophils % (auto) 0.5 %; Eosinophils # (auto) 0.06 K/uL (0.00-0.50); Eosinophils % (auto) 0.9 %; Hematocrit (blood only) 48.1 % (42.0-52.0); Hemoglobin 15.8 g/dl (14.0-18.0); Immature Granulocytes # (auto) 0.02 K/uL (0.01-0.20); Immature Granulocytes % (auto) 0.3 %; Lymphocytes # (auto) 0.83 K/uL (1.20-3.40); Mean Corpuscular Hemoglobin 30.4 pg (25.0-34.0); Mean Corpuscular Hgb Conc 32.8 g/dL (32.0-36.0); Mean Corpuscular Volume 92.7 fL (80.0-100.0); Mean Platelet Volume 8.6 fL (9.4-12.4); Monocytes # (auto) 0.51 K/uL (0.11-0.59); Neutrophils # (auto) 4.94 K/uL (1.40-6.50); Neutrophils % (auto) 77.3 %; Platelet Count 165 K/uL (130-400); RDW Coefficient of Variation 14.9 % (11.5-14.5); RDW Standard Deviation 50.1 fL (36.4-46.3); Red Blood Count 5.19 M/uL (4.70-6.10); White Blood Count 6.39 K/ul (4.8-10.8)
[2024-12-29 03:35] LABS: BUN Creatinine Ratio 21.5 (10-20); Calcium 9.4 mg/dl (8.6-10.3); Creatinine Clr Calc Pharmacy 86.3 ml/min; Potassium 4.1 mmol/L (3.5-5.1)
[2024-12-29 03:42] LABS: Troponin I High Sensitivity 4.7 pg/ml (0-20)
[2024-12-29 03:47] LABS: INR 1.1 (0.9-1.1); Partial Thromboplastin Ratio 1.2; Partial Thromboplastin Time 32 Seconds (21-31); Prothrombin Time 11.9 Seconds (9.0-12.0)
--- NOTE | 2024-12-29 03:54 | Emergency Department Note ---
History of Present Illness General Chief Complaint: Chest Pain Stated Complaint: CP/SOB Time Seen by Provider: 12/29/24 02:50 Source: patient and EMS History of Present Illness Provider Complaint: chest pain Time: 21:00 Duration: improved Onset: during rest Pain Location: left chest Pain Radiation: none Severity: moderate Maximum Pain Intensity: 8 Current Pain Intensity: 3 Quality: + aching and + dull Relieved By: + nitroglycerin Exacerbated By: + nothing Context: no recent illness, no recent surgery, no recent travel, no trauma/injury or no new medications Associated symptoms: + dyspnea; no nausea, no vomiting, no syncope, no palpitations, no fever, no cough or no leg swelling Treatments prior to arrival: aspirin and nitroglycerin Home Medications Medication Instructions Recorded Confirmed Type acetaminophen 325 mg tablet 650 mg PO Q4 PRN temp>100 06/23/23 12/22/24 History ascorbic acid (vitamin C) 500 mg 500 mg PO QAM 06/23/23 12/22/24 History tablet (Vitamin C) calcium carbonate (Calcium 600) 600 mg PO QAM 06/23/23 12/22/24 History cholecalciferol (vitamin D3) 50 50 mcg PO QAM 06/23/23 12/22/24 History mcg (2,000 unit) tablet (Vitamin D3) sennosides 8.6 mg tablet 8.6 mg PO DAILY PRN Constipation 06/23/23 12/22/24 History apixaban 5 mg tablet (Eliquis) 5 mg PO BID #180 tabs 11/13/24 12/22/24 Rx ginkgo biloba 40 mg tablet 40 mg PO QAM 11/13/24 12/22/24 History metoprolol succinate 100 mg 100 mg PO QAM #90 tabs 11/13/24 12/22/24 Rx tablet,extended release 24 hr furosemide 20 mg tablet 20 mg PO QAM 12/16/24 12/22/24 History potassium chloride 10 mEq 10 meq PO QAM take with furosemide 12/16/24 12/22/24 History tablet,extended release(part/cryst) (lasix) tamsulosin 0.4 mg capsule 0.4 mg PO QAM 12/16/24 12/22/24 History vitamin A-vitamin C-vit E-min 2 tab PO QAM 12/16/24 12/22/24 History tablet doxycycline hyclate 100 mg tablet 100 mg PO BID 10 days #20 tabs 12/22/24 12/22/24 Rx Allergies Allergy/AdvReac Type Severity Reaction Status Date / Time Penicillins Allergy Intermediate facial Verified 12/22/24 11:21 swelling Past Med/Surg History Problem List (Updated 12/29/24 @ 04:27 by John Barrientos MD) Pneumonia (Acute) Chest pain (Acute) Multiple open wounds of lower leg Encounter for pre-operative examination Leg edema Mild aortic stenosis Posterior tibial tendon dysfunction, right Neuroforaminal stenosis of lumbar spine Medical History Diastolic heart failure Per records Osteoarthritis Mild aortic stenosis Echo 10/2024: Mild aortic stenosis (CAITIE 1.3cm2, MG 10.3 mmhg) Tinnitus of both ears History of TIA (transient ischemic attack) ~2011 Atrial fibrillation Compression fracture of lumbar vertebra T12, L1, L3, L4 (noted on lumbar spine CT 03/2023) BPH (benign prostatic hyperplasia) Surgical History Status post hardware removal (10/2024) Screw removal from ankle (UOC) History of dental surgery dental implant History of wisdom tooth extraction History of tonsillectomy and adenoidectomy Status post open reduction with internal fixation (ORIF) of fracture of ankle left ankle 05/2023 Total knee replacement status Right (2004) H/O hernia repair History of appendectomy Family History Father Hypertension Other No family history of adverse response to anesthesia Denies family history of Ovarian cancer Prostate cancer Diabetes Myocardial infarction Breast cancer Colorectal cancer Social History Smoking Status: Never smoker Second Hand Exposure: No; Do You Dip or Chew Tobacco: No; Hx Alcohol Use: No Hx Substance Use: No Preferred Language: Scottish Communication Ability: Effective Visual Impairment: No Limitations Hearing Ability: Normal Process Control Manager Required: No Beliefs That Will Affect Care: None marital status: Current Living Situation: Family Current Living Situation Comment: 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 How many Children do You have: 2 Feels Safe at Home: Yes Childhood Exposure to Second-Hand Smoke: No Diet: regular caffeine: Yes (coffee) during the past year weight has: remained stable Dental Care, Regularly: Yes Physical Activity Frequency: 1-2 Times per Week Physical Activity Frequency Comment: walking helping Seatbelt Use: always Sunscreen Use: Yes Do you think of yourself as: straight/heterosexual Sexual Activity: has been sexually active, but not for at least 12 months Gender Identity: Male Assistive Devices: Cane and Wheelchair Physical Exam Vital Signs Vital Signs - 24 hr 12/29/24 02:52 12/29/24 02:55 12/29/24 02:57 Temperature 36.3 C L Temperature Source Oral Pulse Rate 59 L 60 71 Pulse Rate [Right Finger] Pulse Rhythm Irregular Pulse Rhythm [Right Finger] Pulse Strength [Right Finger] Respiratory Rate 18 20 Respiratory Effort / Characteristics Respiratory Depth Normal Respiratory Pattern Blood Pressure 121/82 Blood Pressure [Right Arm] Blood Pressure Mean 95 Blood Pressure Mean [Right Arm] Blood Pressure Position [Right Arm] Pulse Oximetry 94 95 Oxygen Delivery Method Room Air Room Air Sepsis Recent Fever Within 48 Hours No Sepsis New/Unexplained Change in Mental Status No Sepsis Action Taken by Nursing No Action Required 12/29/24 02:57 12/29/24 03:02 Temperature Temperature Source Pulse Rate Pulse Rate [Right Finger] 59 L Pulse Rhythm Pulse Rhythm [Right Finger] Irregular Pulse Strength [Right Finger] Normal Respiratory Rate 18 Respiratory Effort / Characteristics Non-Labored Spontaneous Respiratory Depth Normal Respiratory Pattern Regular Blood Pressure Blood Pressure [Right Arm] 113/75 Blood Pressure Mean Blood Pressure Mean [Right Arm] 87 Blood Pressure Position [Right Arm] Lying Pulse Oximetry 94 Oxygen Delivery Method Room Air Room Air Sepsis Recent Fever Within 48 Hours Sepsis New/Unexplained Change in Mental Status Sepsis Action Taken by Nursing Physical Exam GENERAL: oriented to person, place, and time. appears well-developed and well- nourished. HENT: Exam performed. - Head: Normocephalic and atraumatic. EYES: Conjunctivae and EOM are normal. Right eye exhibits no discharge. Left eye exhibits no discharge. No scleral icterus. NECK: Normal range of motion. Neck supple. No JVD present. CV: Normal rate, regular rhythm, normal heart sounds and intact distal pulses. There is no peripheral edema. Palpable radial pulses bue. PULM/CHEST: Effort normal and breath sounds normal. No respiratory distress. No stridor. no wheezes. no rales. ABD: The abdomen is soft. There is no tenderness. NEURO: Motor and sensation grossly intact. SKIN: Skin is warm and dry. He is not diaphoretic. PSYCH: normal mood and affect. Behavior is normal. Judgment and thought content normal. Course Course 0250: The patient was evaluated in room B10. A complete history and physical exam was performed Cardiac monitoring: An order was placed for continuous cardiac monitoring. The monitor shows a rate of 60 with sinus rhythm interpreted by me 0418: Vital signs stable. Labs are unremarkable. Patient's chest x-ray shows possible pneumonia, however he is white blood cell count is normal he is not reporting cough and having no fever. Patient's symptoms or more consistent with chest pain from a cardiac nature as his chest pain got better with nitroglycerin he was having left-sided chest pain and heaviness. Patient will be admitted to the hospitalist team. Will discuss with hospitalist prior to administering any antibiotics. 0426: Discussed case with admitting team Dr. Moreno. He recommends starting Vanco and Levaquin on the patient. Medical Decision Making Laboratory Data Attestation: I reviewed the patient's lab results. 12/29/24 03:01 12/29/24 03:01 Labs: Lab Results 12/29/24 Range/Units 03:01 WBC 6.39 (4.8-10.8) K/ul RBC 5.19 (4.70-6.10) M/uL Hgb 15.8 (14.0-18.0) g/dl Hct 48.1 (42.0-52.0) % MCV 92.7 (80.0-100.0) fL MCH 30.4 (25.0-34.0) pg MCHC 32.8 (32.0-36.0) g/dL RDW Std Deviation 50.1 H (36.4-46.3) fL RDW Coeff of Jose 14.9 H (11.5-14.5) % Plt Count 165 (130-400) K/uL MPV 8.6 L (9.4-12.4) fL Immature Gran % (Auto) 0.3 % Neut % (Auto) 77.3 % Lymph % (Auto) 13.0 % [place] % (Auto) 8.0 % Eos % (Auto) 0.9 % Baso % (Auto) 0.5 % Neut # (Auto) 4.94 (1.40-6.50) K/uL Lymph # (Auto) 0.83 L (1.20-3.40) K/uL [place] # (Auto) 0.51 (0.11-0.59) K/uL Eos # (Auto) 0.06 (0.00-0.50) K/uL Baso # (Auto) 0.03 (0.00-0.20) K/uL Immature Gran # (Auto) 0.02 (0.01-0.20) K/uL PT 11.9 (9.0-12.0) Seconds INR 1.1 (0.9-1.1) APTT 32 H (21-31) Seconds PTT Ratio 1.2 Sodium 137 (136-145) mmol/L Potassium 4.1 (3.5-5.1) mmol/L Chloride 101 (98-107) mmol/L Carbon Dioxide 34 H (21-32) mmol/L Anion Gap 2 L (3-11) BUN 17 (6-23) mg/dl Creatinine 0.79 (0.6-1.4) mg/dl Est Cr Clr Drug Dosing 86.3 ml/min eGFR 87.60 BUN/Creatinine Ratio 21.5 H (10-20) Glucose 117 H (70-99(Fasting)) mg/dl Calcium 9.4 (8.6-10.3) mg/dl Troponin I High Sens 4.7 (0-20) pg/ml Lipase 11 (11-82) U/L Imaging Data Chest x-ray: Attestation: I personally reviewed and interpreted this imaging study as follows: My impression: Chest x-ray: Possible bilateral lower infiltrates Radiologist's impression: Chest X-Ray 12/29/24 02:52 EXAM: XR chest 1V portable CLINICAL HISTORY: Chest pain, nonspecific TECHNIQUE: An X-ray image of the chest is obtained in AP projection. COMPARISON: 11/04/2024 FINDINGS: Pulmonary Parenchyma: Coarsened interstitial lung markings. Bilateral lower zone consolidative opacities, more on the right. Blunting of the left costophrenic angle. The right costophrenic angle cannot be assessed properly due to overlying opacity. Prominent central bronchovascular markings. Heart and Mediastinum: Apparent cardiomegaly. Prominent hilar shadows. No mediastinal masses. Bony Thorax: Degenerative changes of the visualized skeleton. Right posterior fifth rib likely old fracture. Left posterior third, fifth, sixth and seventh rib fractures. Possible left fourth posterior rib fracture. Soft Tissues: Soft tissues overlying the chest wall are unremarkable. IMPRESSION: 1. Bilateral lower zone consolidative opacities. Clinical correlation is advised to assess for pneumonic infiltrations. (Progressive) 2. Blunting of the left costophrenic angle, indicating mild left-sided pleural effusion/thickening. (More conspicuous in the present study) 3. Indeterminate age, likely old, bilateral rib fractures. Clinical correlation is advised. Electronically signed by Rene Shepherd 12-29-2024 03:56 AM ECG Data Attestation: I personally reviewed and interpreted this ECG as follows: Rate (beats per minute): 60 Rhythm: normal sinus Findings: no ST depression, no ST elevation or no prolonged QT MDM Narrative 0250: The patient was evaluated in room B10. A complete history and physical exam was performed Cardiac monitoring: An order was placed for continuous cardiac monitoring. The monitor shows a rate of 60 with sinus rhythm interpreted by me 0418: Vital signs stable. Labs are unremarkable. Patient's chest x-ray shows possible pneumonia, however he is white blood cell count is normal he is not reporting cough and having no fever. Patient's symptoms or more consistent with chest pain from a cardiac nature as his chest pain got better with nitroglycerin he was having left-sided chest pain and heaviness. Patient will be admitted to the hospitalist team. Will discuss with hospitalist prior to administering any antibiotics. 0426: Discussed case with admitting team Dr. Moreno. He recommends starting Vanco and Levaquin on the patient. Impression & Plan Chest pain, Pneumonia Discharge Plan Visit Data Chief Complaint: Chest Pain Stated Complaint: CP/SOB ED Provider: John Barrientos Discharge Problem: Chest pain, Pneumonia Patient Disposition: Being Evaluated by Hospitalist Forms Stand Alone Forms: My [facility] Prescriptions Prescriptions: No Action ginkgo biloba 40 mg tablet 40 mg PO QAM Rx Instructions: give with meal/snack Eliquis 5 mg tablet 5 mg PO BID Qty: 180 3RF metoprolol succinate 100 mg tablet extended release 24 hr 100 mg PO QAM Qty: 90 3RF doxycycline hyclate 100 mg tablet 100 mg PO BID 10 Days Qty: 20 0RF acetaminophen 325 mg Tablet 650 mg PO Q4 PRN (Reason: temp>100) calcium carbonate [Calcium 600] 600 mg calcium (1,500 mg) Tablet 600 mg PO QAM sennosides 8.6 mg Tablet 8.6 mg PO DAILY PRN (Reason: Constipation) ascorbic acid (vitamin C) [Vitamin C] 500 mg Tablet 500 mg PO QAM cholecalciferol (vitamin D3) [Vitamin D3] 50 mcg (2,000 unit) Tablet 50 mcg PO QAM vitamin A-vitamin C-vit E-min Tablet 2 tab PO QAM tamsulosin 0.4 mg capsule 0.4 mg PO QAM furosemide 20 mg tablet 20 mg PO QAM potassium chloride 10 mEq tablet,ER particles/crystals 10 meq PO QAM Referrals Referrals: Marybeth Woods MD [Primary Care Provider] -
--- NOTE | 2024-12-29 03:57 | XRay Report ---
EXAM: XR chest 1V portable CLINICAL HISTORY: Chest pain, nonspecific TECHNIQUE: An X-ray image of the chest is obtained in AP projection. COMPARISON: 11/04/2024 FINDINGS: Pulmonary Parenchyma: Coarsened interstitial lung markings. Bilateral lower zone consolidative opacities, more on the right. Blunting of the left costophrenic angle. The right costophrenic angle cannot be assessed properly due to overlying opacity. Prominent central bronchovascular markings. Heart and Mediastinum: Apparent cardiomegaly. Prominent hilar shadows. No mediastinal masses. Bony Thorax: Degenerative changes of the visualized skeleton. Right posterior fifth rib likely old fracture. Left posterior third, fifth, sixth and seventh rib fractures. Possible left fourth posterior rib fracture. Soft Tissues: Soft tissues overlying the chest wall are unremarkable. IMPRESSION: 1. Bilateral lower zone consolidative opacities. Clinical correlation is advised to assess for pneumonic infiltrations. (Progressive) 2. Blunting of the left costophrenic angle, indicating mild left-sided pleural effusion/thickening. (More conspicuous in the present study) 3. Indeterminate age, likely old, bilateral rib fractures. Clinical correlation is advised. Electronically signed by Rene Shepherd 12-29-2024 03:56 AM
[2024-12-29] MEDS ORDERED: VANCOMYCIN CONSULT ACTIVE PRN ×2 (04:26→11:53)
[2024-12-29] MEDS ORDERED: VANCOMYCIN HCL 2,000 MG in SODIUM CHLORIDE 0.9% 500 ML IV ONE (04:26)
--- NOTE | 2024-12-29 04:35 | History & Physical Report ---
Date of Service December 29, 2024 Assessment & Plan (1) Aspiration pneumonia: (2) Chest pain: (3) Multiple open wounds of lower leg: Plan Patient is an 84-year-old male with a past medical history of newly diagnosed A- fib with RVR in October 2024 s/p cardioversion , diastolic heart failure, aortic stenosis, BPH, and hypertension. He presented to the ED via EMS due to left-sided chest pain that he developed in bed this evening. Chest pain was improved with aspirin and nitro en route. In the ED he was found to have bilateral lower lobe consolidation concerning for aspiration pneumonia with recent cardioversion. Patient is being admitted for IV antibiotics. Patient also has left lower extremity wounds that have been on going with poor wound healing for 2 months, wound care consulted. #aspiration pneumonia S/p cardioversion 11/30/2312/22/2024, dyspnea has been present since CXR showed bilateral consolidation, mild left pleural effusion, old rib fractures COVID/flu flu/RSV swab ordered no leukocytosis, VSS, non-hypoxic Pro-Ramon negative, BNP 201 antibiotic coverage with vancomycin 2G IV q12h and levofloxacin 750 Mg IV daily - MRSA swab ordered, However if negative recommend continuing vancomycin for wounds below incentive spirometry supportive care with Tylenol as needed, Tessalon Perles as needed Aspiration precautions oxygen as needed for O2 <94% #chest pain Suspect secondary to pneumonia above Low concern for ACS on admission Troponin 4.7 K+ 4.1 mag 1.8, 1G IV mag ordered on admission EKG showed sinus rhythm with occasional PAC, questionable T wave inversion in inferior leads Recent echo 11/05/2024 showed EF 55 to 60%, mild LVH, mildly dilated RV, moderate left and mild right atrial dilation, mild AAS, mild pulmonary HTN monitor on telemetry EKG as needed with chest pain Defer repeat echo/stress test #left lower extremity wounds Recently saw PCP 12/22/2024 for lower extremity wounds and was started on doxycycline 100 Mg twice daily x 10 days and placed referral to wound care 4 wounds to left ankle and foot Discontinue doxycycline with vancomycin and levofloxacin above Wound cultures ordered Wound care consulted Daily dressing changes concern for PAD with poor wound healing, lipid panel with a.m. labs arterial Doppler ordered Chronic stable diagnoses: diastolic heart failurehold Lasix with acute infection above, not fluid overloaded on admission, mild left pleural effusion on CXR A-fib - s/p recent cardioversion 12/22/2024, continue Eliquis and metoprolol BPHcontinue tamsulosin VTE ppx: SCDs and Eliquis Diet: Heart healthy Dispo: Med/tele Admission and Anticipated Discharge Date Admission Date: 12/29/24 History of Present Illness Chief Complaint: Chest pain Primary Care Provider: Marybeth Woods MD Patient is an 84-year-old male with a past medical history of newly diagnosed A- fib with RVR in October 2024 s/p cardioversion , diastolic heart failure, aortic stenosis, BPH, and hypertension. He presented to the ED via EMS due to left-sided chest pain that he developed in bed this evening. Chest pain was improved with aspirin and nitro en route. In the ED he was found to have bilateral lower lobe consolidation concerning for aspiration pneumonia with recent cardioversion. Patient is being admitted for IV antibiotics. Patient seen at bedside with his 2 daughters present who are both RNs. He stated that since his cardioversion 12/22/2024 he has had dyspnea that has been unchanged. He also endorses choking on his pills yesterday 12/28. When in bed this evening he developed left-sided chest pain and called EMS. His left-sided chest pain improved with aspirin and nitroglycerin and is now under his bilateral shoulder blades. His daughter stated he has been complaining of back and shoulder pain since Sunday/. He denies any dizziness, lightheadedness, rhinorrhea, sore throat, congestion, cough, abdominal pain, nausea, vomiting, diarrhea. He has a good cardiac history however did have a TIA approximately 30 years ago. His father had an AL when he was about the patient's age. Patient stated he typically exercises without chest pain however has chronic dyspnea on exertion. He does not use nicotine products or drink frequent alcohol. he denies past history of diabetes. Patient had a screw removed November 04 of his left ankle and has had an open wound since that has been undergoing frequent wound care. He also fell in November and developed a hematoma of his anterior left mae which has now converted into 4 open wounds. Patient's daughter stated that wound care nurses come to the house 2 times a week to change his dressings with aqua gel patch. patient's daughter stated that the wounds have had clear and bloody drainage but the drainage is very foul-smelling. He saw his PCP 12/22 and was prescribed doxycycline and placed over referral to wound care however wound care would not see the patient as referral was only placed for top 3 wounds and not the bottom wound from the screw removal. Patient and family requesting wound care eval in hospital, extremely reasonable given poor wound healing. Wound consult placed. Patient lives at home with his . He denies any past history of COPD or asthma. He took his home medications yesterday. He has a POLST form at bedside that states DNR/DNI status. Allergies Allergy/AdvReac Type Severity Reaction Status Date / Time Penicillins Allergy Intermediate facial Verified 12/22/24 11:21 swelling Home Medications Medication Instructions Recorded Confirmed Type acetaminophen 325 mg tablet 650 mg PO Q4 PRN temp>100 06/23/23 12/29/24 History ascorbic acid (vitamin C) 500 mg 500 mg PO QAM 06/23/23 12/29/24 History tablet (Vitamin C) calcium carbonate (Calcium 600) 600 mg PO QAM 06/23/23 12/29/24 History cholecalciferol (vitamin D3) 50 50 mcg PO QAM 06/23/23 12/29/24 History mcg (2,000 unit) tablet (Vitamin D3) sennosides 8.6 mg tablet 8.6 mg PO DAILY PRN Constipation 06/23/23 12/29/24 History apixaban 5 mg tablet (Eliquis) 5 mg PO BID #180 tabs 11/13/24 12/29/24 Rx ginkgo biloba 40 mg tablet 40 mg PO QAM 11/13/24 12/29/24 History metoprolol succinate 100 mg 100 mg PO QAM #90 tabs 11/13/24 12/29/24 Rx tablet,extended release 24 hr furosemide 20 mg tablet 20 mg PO QAM 12/16/24 12/29/24 History potassium chloride 10 mEq 10 meq PO QAM take with furosemide 12/16/24 12/29/24 History tablet,extended release(part/cryst) (lasix) tamsulosin 0.4 mg capsule 0.4 mg PO QAM 12/16/24 12/29/24 History vitamin A-vitamin C-vit E-min 2 tab PO QAM 12/16/24 12/29/24 History tablet doxycycline hyclate 100 mg tablet 100 mg PO BID 10 days #20 tabs 12/22/24 12/29/24 Rx Past Med/Surg History Problem List (Updated 12/29/24 @ 05:35 by Patricia Vega PA-C) Aspiration pneumonia Pneumonia (Acute) Chest pain (Acute) Multiple open wounds of lower leg Encounter for pre-operative examination Leg edema Mild aortic stenosis Posterior tibial tendon dysfunction, right Neuroforaminal stenosis of lumbar spine Medical History Diastolic heart failure Per records Osteoarthritis Mild aortic stenosis Echo 10/2024: Mild aortic stenosis (CAITIE 1.3cm2, MG 10.3 mmhg) Tinnitus of both ears History of TIA (transient ischemic attack) ~2011 Atrial fibrillation Compression fracture of lumbar vertebra T12, L1, L3, L4 (noted on lumbar spine CT 03/2023) BPH (benign prostatic hyperplasia) Surgical History Status post hardware removal (10/2024) Screw removal from ankle ([facility]) History of dental surgery dental implant History of wisdom tooth extraction History of tonsillectomy and adenoidectomy Status post open reduction with internal fixation (ORIF) of fracture of ankle left ankle 05/2023 Total knee replacement status Right (2004) H/O hernia repair History of appendectomy Family History Father Hypertension Other No family history of adverse response to anesthesia Denies family history of Ovarian cancer Prostate cancer Diabetes Myocardial infarction Breast cancer Colorectal cancer Social History Smoking Status: Never smoker Second Hand Exposure: No; Do You Dip or Chew Tobacco: No; Hx Alcohol Use: No Hx Substance Use: No Preferred Language: Divehi Communication Ability: Effective Visual Impairment: No Limitations Hearing Ability: Normal Par[employer] Delivery Required: No Beliefs That Will Affect Care: None marital status: Current Living Situation: Family Current Living Situation Comment: 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 How many Children do You have: 2 Feels Safe at Home: Yes Childhood Exposure to Second-Hand Smoke: No Diet: regular caffeine: Yes (coffee) during the past year weight has: remained stable Dental Care, Regularly: Yes Physical Activity Frequency: 1-2 Times per Week Physical Activity Frequency Comment: walking helping Seatbelt Use: always Sunscreen Use: Yes Do you think of yourself as: straight/heterosexual Sexual Activity: has been sexually active, but not for at least 12 months Gender Identity: Male Assistive Devices: Cane and Wheelchair Review of Systems Review of Systems: see HPI Physical Exam Physical Exam: The patient is awake, alert and oriented 3, well developed and well nourished, normocephalic and atraumatic, in no acute distress. Non-toxic appearing. HEENT- EOMI, mucous membranes moist. Hearing grossly intact. Heart-normal S1 and S2. No murmurs, rubs or gallops. Lungs- Decreased bilaterally, no respiratory distress, no accessory muscle use. Abdomen-normal bowel sounds and soft. No ascites noted. Non-tender. Extremities- no clubbing, cyanosis. Left lower extremity with dressings placed 3/2. Rheumatologic-normal range of motion. Psychiatric-normal affect. Results & Data Results & Data Vital Signs (Past 12 Hours) Vital Signs Temp Pulse Pulse Resp BP BP Pulse Ox 12/29/24 03:02 12/29/24 02:57 59 L 18 113/75 94 12/29/24 02:57 36.3 C L 71 20 121/82 95 12/29/24 02:55 60 12/29/24 02:52 59 L 18 94 O2 Del Method 12/29/24 03:02 Room Air 12/29/24 02:57 Room Air 12/29/24 02:57 Room Air 12/29/24 02:55 12/29/24 02:52 Room Air Laboratory Results Reviewed CBC and CMP Ordered COVID/flu/RSV swab, MRSA swab, BNP, Pro-Ramon, magnesium level Diagnostic Findings Reviewed CXR Medications Administered ordered vancomycin and Levaquin IV ECG Additional Comments: Sinus rhythm with occasional PAC, questionable T wave inversions in inferior leads, much artifact noted Code Status & VTE Plan Code Status dnr/dni VTE Prophylaxis Plan VTE Prophylaxis will be ordered: Yes Supervising Physician Co-Signing Physician Notes Attending addendum: I have physically seen this patient, have supervised the YEFRI's activities, and agree with the H&P unless as otherwise noted. Assessment and Plan: The patient is an 84-year-old male with a past medical history including atrial fibrillation with RVR discovered in October 2024, status post cardioversion 12/18/2024, diastolic heart failure, aortic stenosis, BPH, and hypertension. He notes that he did have some difficulty with breathing and shortness of breath shortly after the procedure. Since that time, his breathing has gradually worsened. And this evening developed left-sided chest pain as he was going to bed. Chest pain improved with aspirin and nitroglycerin en route. Workup in the emergency department included a chest x-ray, which showed bibasilar pneumonia, for which he is referred for evaluation and treatment to the [facility]. Patient and 2 daughters, who are with him in the ED, noted that he has had difficulty with healing from a closed trimalleolar fracture, from which he had a screw removed from his left ankle on 11/04/2024. He has been on doxycycline twice daily for a few weeks, and family is concerned regarding patient having 2 different physicians addressing his left lower extremity wounds, 1 addressing the bones and another dressing the skin. The left lower extremity is presently wrapped, and was not unwrapped during the ED at this time. #Bibasilar multifocal aspiration pneumonia- MRSA swab Place on vancomycin IV, levofloxacin IV, and Flagyl IV. Patient reportedly has had significant facial swelling to penicillins #Left lower extremity nonhealing wound- family reports patient has not yet had cultures performed, and will follow wound culture sensitivity and blood culture sensitivities Antibiotics as above Consulting wound care Start with ordering x-ray of LLE, will likely need MRI for further assessment if concerns regarding possible osteomyelitis Will need to consult Dr. August or covering doctor. If osteomyelitis present, patient would likely need PICC line placed on long- term IV antibiotics, and ID consult at that time #Atrial fibrillation with RVR/hypertension- Status post cardioversion as noted during admission 12/22/24 Continue metoprolol succinate, potassium chloride Hold AM Apixaban until determined if procedure needed Chronic medical condition: BPH with LUTS-continue tamsulosin PG Care Time/CCT Total # of Minutes Spent Total Time Spent with Patient: Total time spent is greater than 50% in coordination of care (as documented) at patient's floor/unit and/or counseling patient: Coding Level of Care Code 25972 INT INP/OBS CARE 3/75MIN Diagnoses Aspiration pneumonia J69.0 Chest pain R07.9 Multiple open wounds of lower leg, left, initial encounter S81.802A Encounter type: initial encounter Laterality: left (3) Multiple open wounds of lower leg Encounter type: initial encounter Laterality: left Qualified Code(s): S81.802A - Unspecified open wound, left lower leg, initial encounter
[2024-12-29] MEDS: levoFLOXacin/D5W 750 MG/150 ML BAG IV STA (04:40)
[2024-12-29 04:55] LABS: Magnesium 1.8 mg/dl (1.7-2.4)
[2024-12-29] MEDS: VANCOMYCIN HCL 2,000 MG in SODIUM CHLORIDE 0.9% 500 ML IV ONE (06:12)
[2024-12-29] MEDS: MAGNESIUM SULFATE / D5W 1 GM/100 ML BAG IV ONE (06:21)
[2024-12-29 06:59] LABS: Influenza A virus by PCR Negative (Neg); Influenza B virus by PCR Negative (Neg); RSV by PCR Negative (Neg); SARS CoV2 RNA(COVID-19) Ceph NEGATIVE (Negative)
--- NOTE | 2024-12-29 07:40 | XRay Report ---
EXAM: XR foot LT 2V CLINICAL HISTORY: Concern for osteomyelitis TECHNIQUE: X-ray images of the left foot were obtained in anteroposterior (AP) and lateral projections. COMPARISON: No prior studies available for comparison. FINDINGS: Bone Structure: Fixation screws and plate seen at the left ankle joint which appears in situ. No loosening seen. No evidence of periosteal reaction/osteomyelitis seen. No acute fracture/dislocation seen. Joint Spaces: Reduced tibiotalar joint space. No evidence of joint effusion or subluxation seen. Soft Tissues: Soft tissues appear normal and unremarkable. No soft tissue swelling, calcifications, or foreign bodies noted. Additional Findings: No signs of osteoarthritis, bone spurs, lytic or sclerotic lesions. IMPRESSION: 1. No evidence of acute fracture/dislocation seen. 2. No evidence of acute osteomyelitis seen. 3. Fixation screws and plate seen at the left ankle joint /Tibiotalar joint which appears in situ. No evidence of loosening seen. Disclaimer: A subtle bone abnormality or fracture may not be readily apparent on X-rays, thus clinical correlation and further imaging including follow-up CT, MRI, or follow-up X-rays are advised as needed. Electronically signed by Rene Shepherd 12-29-2024 07:40 AM
[2024-12-29] MEDS: metroNIDAZOLE 500 MG/100 ML BAG IV STA (07:47)
[2024-12-29] MEDS ORDERED: ONDANSETRON INJ 2 MG/ML 2 ML VIAL IV PRN (11:53)
[2024-12-29] MEDS ORDERED: MELATONIN 3 MG TAB PO PRN (11:53)
[2024-12-29] MEDS ORDERED: BENZONATATE 100 MG CAPSULE PO PRN (11:53)
--- NOTE | 2024-12-29 12:41 | Pharmacy Report ---
Pharmacy PK ABX Note - Date of Service December 29, 2024 - Assessment and Plan Assessment 84 year old M receiving vancomycin, levofloxacin and metronidazole for pulmonary and wound coverage. No culture data. MRSA nasal (-). Renal function stable. Day # 1 of antimicrobial therapy. Plan Vancomycin * Loading dose: 2000 mg IV x 1 * Maintenance dose: 1000 mg IV every 12 hours * Regimen is predicted to achieve target AUC/DELIA of 400-600 mg/L.hr * Will obtain a level after ~ 48h of therapy, or sooner if clinically indicated. Pharmacy will continue to follow and will adjust dose/frequency as necessary. Thank you. Pharmacy has transitioned to AUC monitoring for vancomycin. AUC/DELIA is the preferred PK/PD target and is associated with decreased risk of nephrotoxicity compared to traditional trough targets.
[2024-12-29] MEDS: METOPROLOL SUCC 50MG EXT REL TAB PO SCH (13:07)
[2024-12-29] MEDS: metroNIDAZOLE 500 MG/100 ML BAG IV SCH (13:07)
[2024-12-29] MEDS: TAMSULOSIN HCL 0.4 MG CAP PO SCH (13:08)
--- NOTE | 2024-12-29 15:58 | Ultrasound Report ---
US arterial duplex LE LT CLINICAL HISTORY: concern for PAD with poor healing wounds COMPARISON STUDY: None FINDINGS: The distal most aspect of the [id number] arteries are not visualized due to bandaging. There is mildly increased velocity at the left posterior tibial artery consistent with mild narrowing . Otherwise no significant increased velocity seen at the left lower extremity arteries. IMPRESSION: Mild narrowing at the left posterior tibial artery. Otherwise no significant arterial na rrowing or occlusion seen at the left lower extremity. ACT 112: Negative or not required by law. Electronically signed by: Hayden Sinclair M.D. 12/29/2024 3:57 PM
--- NOTE | 2024-12-29 17:52 | CT Scan Report ---
Clinical history: Bilateral pneumonia Technique: Axial computed tomography images were obtained of the chest without intravenous contrast Findings: There is bilateral lower lobe atelectasis. Concurrent pneumonia cannot be excluded. There is a calcified granuloma in the left upper lobe. There is a 3 mm right middle lobe nodule as well as a 3-4 mm nodule. There is no pleural effusion or pneumothorax. There is no sign of pulmonary fibrosis or other diffuse interstitial process. No endobronchial lesion is seen There is no mediastinal, hilar, or axillary adenopathy. There are small calcified mediastinal and bilateral hilar lymph nodes, likely due to old granulomatous disease. The thoracic aorta is of normal caliber. There is no pericardial effusion. There is coronary atherosclerosis There are several hepatic cysts, measuring up to 1.9 cm. There is a 3.1 cm mildly heterogeneous hyperdense left renal lesion. There is an apparent left glenohumeral joint body. There is bilateral glenohumeral osteoarthritis. There are compression fractures of the T11 and L1 vertebral bodies and to a lesser extent the T3, T6, T9 and T12 vertebral bodies. These are of indeterminate age. No focal osseous lesion is evident Impression: 1. Bilateral lower lobe opacities. These are likely due to atelectasis, though a combination of atelectasis and pneumonia is also possible 2. Small right middle lobe nodules, likely benign. A follow-up chest CT could be obtained in 6 months to ensure stability 3. Old granulomatous disease 4. Small hepatic cysts 5. Complex left renal lesion that could represent a benign proteinaceous or hemorrhagic cyst but is indeterminate in nature. Renal protocol abdominal CT with and without intravenous contrast could be considered for further evaluation 6. Multiple vertebral compression fractures of indeterminate age Electronically signed by Ector Dong 12-29-2024 5:52 PM
[2024-12-29] MEDS ORDERED: VANCOMYCIN HCL 1,500 MG in SODIUM CHLORIDE 0.9% 500 ML IV SCH (18:00)
[2024-12-29] MEDS: VANCOMYCIN HCL 1,000 MG/270 ML BAG IV SCH (18:04)
--- NOTE | 2024-12-29 19:41 | Communication Note ---
Date of Service: December 29, 2024 Saw patient in the ER. Patient's daughter & son-in-law were present at bedside. He was resting comfortably in bed. He reported poor appetite for several days, weakness, dyspnea on exertion. No cough. No fevers or chills. Some pleuritic chest pain over left chest. Has had multiple wounds on LLE for several weeks. Largest wound is over the lateral malleolus. Wound occurred after a screw was removed in October by [facility] (hardware present since ORIF of ankle fracture several years ago). 3 small wounds mid-mae - 1 medially, 2 laterally. Has visiting nurses performing dressing changes, and daughters (who are nurses) have been helping as well. During my visit he had a brief run of NSVT. NO SYMPTOMS from this run. Lastly, apparently had a fall w/o injury (slipped on ice) mid-November; no falls since. vitals - BPs elevated, no fever gen - looks weak, tired - but no distress neck - no JVD mouth - MM dry heart - irregular (extra beats), regular rate, s1 s2, 2/6 systolic murmur RUSB lungs - decreased BS bases, dullness to percussion bases, clear apices b/l; no rales or wheezes abd - soft NT ND BS+ ext - trace edema b/l feet, pulses b/l feet 2+ skin - venous stasis changes/hyperpigmentation b/l shins; ulceration present over lateral malleolus, foul odor present, mild purulent drainage; mid-mae, LLE - 3 wounds - medial wound about 1/2 dollar size; lateral wounds x 2 - one is nearly scabbed over, 2nd is about 2mm in depth; no cellulitis of any location labs reviewed imaging reviewed A/P: 1. b/l pneumonia - continue IV levaquin. Had speech eval - aspiration not suspected; swallowing largely normal. Obtain chest CT - r/o complicating effusions, rib fractures, other pathology. 2. h/o a.fib s/p cardioversion 11/2024 - in NSR today. Cont meto succ; cont Eliquis BID. 3. LLE wounds - 4 wounds in total, with largest over the lateral malleolus - wound culture taken from the latter wound. x-rays without any signs osteomyelitis or fracture. Arterial Doppler of LLE w/o PAD. Likely has some low-grade infection of lateral malleolus wound - levaquin will cover gram negatives; vanco for MRSA, etc. Daughter states wounds look much better. In the ER I placed optifoams on all wounds after cleansing them with sterile saline. Wound nurse consult placed. 4. brief run of NSVT - will be monitored on telemetry. No symptoms from this. Recent echo 10/2024 with EF 55-60%. 5. uncontrolled HTN - cont meto succ, flomax; add losartan 25mg daily. PT, OT evals requested Labs am Julio Cesar Calabrese MD
[2024-12-29] MEDS: LOSARTAN POTASSIUM 25 MG TAB PO SCH (19:47)
[2024-12-29] MEDS: APIXABAN 5 MG TABLET PO SCH (19:47)
[2024-12-29] MEDS: ACETAMINOPHEN 325 MG TAB PO PRN (23:46)
[2024-12-30] MEDS: levoFLOXacin/D5W 750 MG/150 ML BAG IV SCH (04:15)
[2024-12-30 07:15] LABS: BUN Creatinine Ratio 19.7 (10-20); Calcium 9.1 mg/dl (8.6-10.3); Creatinine Clr Calc Pharmacy 111.4 ml/min; Potassium 3.7 mmol/L (3.5-5.1)
[2024-12-30] MEDS: SENNA 8.6 MG TAB PO PRN (08:01)
[2024-12-30 08:14] LABS: Magnesium 1.9 mg/dl (1.7-2.4)
--- NOTE | 2024-12-30 10:34 | Hospitalist Progress Note ---
Date of Service December 30, 2024 Assessment & Plan (1) Aspiration pneumonia: (2) Chest pain: (3) Multiple open wounds of lower leg: Plan Patient is an 84-year-old male with a past medical history of newly diagnosed A- fib with RVR in October 2024 s/p cardioversion , diastolic heart failure, aortic stenosis, BPH, and hypertension. He presented to the ED via EMS due to left-sided chest pain that he developed in bed this evening. Chest pain was improved with aspirin and nitro en route. In the ED he was found to have bilateral lower lobe consolidation concerning for aspiration pneumonia with recent cardioversion. Patient is being admitted for IV antibiotics. Patient also has left lower extremity wounds that have been on going with poor wound healing for 2 months, wound care consulted. Bilateral pneumonia CTchest reviewed. Bilateral lower lobe opacities, atelectasis versus pneumonia within differential. Right middle lobe nodule likely benign. Follow- up with 6-month CT for stability. Complex left renal lesion? Benign proteinaceous versus hemorrhagic cyst but indeterminate. Nonemergent renal protocol CT with and without contrast for follow-up. Breathing comfortably at bedside Continue Levaquin Goal SpO2 greater than 90% Left lower extremity wounds For wounds, freshly dressed 3/4 Arterial Doppler without evidence of PAD Levaquin/vancomycin continued Continue wound care Final surface cultures pending A-fib s/p cardioversion, NSVT Continue Eliquis Continue metoprolol Regular rate and rhythm at bedside assessment 3/4 NSVT run while inpatient. Recent echo EF 55-60%. Magnesium 1.9, will optimize to goal 2.0. Continue beta-ismael. DVT prophylaxis: Anticoagulated CODE STATUS: DNR/DNI Diet: Heart healthy Admission and Anticipated Discharge Date Admission Date: December 29, 2024 Subjective Seen at the bedside. He reports he feels about 50% better, certainly better than when he came in but not back to normal. Does not normally use oxygen at home. Does have some cough. Left lower extremity wound is nontender, is with a fresh dressing. Denies fever chills or sweats. No questions at bedside Physical Exam Physical Exam: General: A&Ox3. NAD. Cooperative. HEENT: Atraumatic, normocephalic. Vision and hearing grossly intact Pulm: CTAB A&P. -wheezes, -rales, -rhonchi. Symmetrical chest rise. No increase in work of breathing. No respiratory distress. Cardiac:rrr,+sm. Radial pulses intact and symmetrical. Abdominal: Nontender, nondistended, soft. BS present. Extremities: Mild left lower extremity swelling. Fresh dressing is intact. Wound change deferred at time of admission. Surrounding the dressing there is no saturation, erythema/warmth. Results & Data Results & Data Vital Signs (Past 12 Hours) Vital Signs Temp Pulse Pulse Resp BP Pulse Ox O2 Del Method 12/30/24 10:15 Room Air 12/30/24 08:00 36.3 C L 60 19 178/97 H 97 Room Air 12/30/24 07:23 54 L 12/30/24 03:43 36.5 C 54 L 18 165/79 H 94 Room Air 12/30/24 00:00 36.5 C 63 18 182/94 H 93 Room Air PG Care Time/CCT Total # of Minutes Spent Total Time Spent with Patient: Total time spent is greater than 50% in coordination of care (as documented) at patient's floor/unit and/or counseling patient: Coding Level of Care Code 87042 SUB INP/OBS CARE 3/50MIN Diagnoses Aspiration pneumonia J69.0 Chest pain R07.9 Multiple open wounds of lower leg, left, initial encounter S81.802A Encounter type: initial encounter Laterality: left (3) Multiple open wounds of lower leg Encounter type: initial encounter Laterality: left Qualified Code(s): S81.802A - Unspecified open wound, left lower leg, initial encounter
[2024-12-30] MEDS: MAGNESIUM OXIDE 400 MG TAB PO SCH (12:08)
[2024-12-30] MEDS: amLODIPine BESYLATE 5 MG TAB PO ONE ×2 (18:34→23:34)
[2024-12-30] MEDS ORDERED: diphenhydrAMINE 50 MG/ML VIAL IV PRN (18:38)
[2024-12-30] MEDS ORDERED: EPINEPHrine INJ 1 MG/ML AMP IM PRN (18:38)
--- NOTE | 2024-12-30 18:46 | Communication Note ---
Date of Service: December 30, 2024 Lip swelling/tongue numbness/tingling around 0269-5912 hours. no wheezing/hypoxia/dyspnea. No airway involvement. No meds in the last 2 hours. Does have a facial swelling allergy to penicillins. Has not received any penicillin-based medications, has been on Levaquin/vancomycin. Flagyl has already been discontinued. No arrhythmias tolerated Levaquin well initially last dose was over 12 hours ago. Did receive vancomycin dose at 615, most recent med so allergy to this is within differential. Discontinued Solu-Medrol x 1, Benadryl x 1 stat ordered Benadryl as needed every 6 hours available on-call Losartan held although low suspicion for RICK/ARB related angioedema Epinephrine added for on-call. Will be put on continuous pulse ox and monitored for any signs of hypoxia or airway involvement.
[2024-12-30] MEDS: diphenhydrAMINE 50 MG/ML VIAL IV STA (18:53)
[2024-12-30] MEDS: methylPREDNISolone 125 MG/2 ML VIAL IV STA (20:18)
[2024-12-31] MEDS ORDERED: VANCOMYCIN LEVEL ONE (05:30)
[2024-12-31 09:07] LABS: Creatinine Clr Calc Pharmacy 97.6 ml/min
[2024-12-31 11:33] VITALS: O2SAT 93
[2024-12-31 16:08] VITALS: BP 109/69; RESP 24; TEMP 97.2
--- NOTE | 2024-12-31 16:25 | Hospitalist Progress Note ---
Date of Service December 31, 2024 Assessment & Plan (1) Aspiration pneumonia: (2) Chest pain: (3) Multiple open wounds of lower leg: Plan Patient is an 84-year-old male with recently diagnosed A-fib with RVR in October 2024 s/p cardioversion , diastolic heart failure, aortic stenosis, BPH, and hypertension. He presented to the ED via EMS due to left- sided chest pain. Chest pain was improved with aspirin and nitro en route. In the ED he was found to have bilateral lower lobe consolidation concerning for aspiration pneumonia with recent cardioversion. he has left lower extremity wounds that have been on going with poor wound healing for 3 weeks. this has been followed by home health nursing, he is been unable to get an appointment at wound clinic although his primary care doctor has been trying to arrange that Bilateral aspiration pneumonia CTchest reviewed. Bilateral lower lobe opacities, atelectasis versus pneumonia within differential. Right middle lobe nodule likely benign. Follow- up with 6-month CT for stability. Complex left renal lesion? Benign proteinaceous versus hemorrhagic cyst but indeterminate. Nonemergent renal protocol CT with and without contrast for follow-up. resolving, mild symptoms currently and on room air Continue Levaquin he had reaction to vancomycin IV 3/4 pm with facial erythema and swelling and some upper lip swelling. This was treated with Solu-Medrol and Benadryl vancomycin was stopped. This morning he has some mild upper lip thickening slightly worse on the right than the left it is not apparent to me but it is to him and his daughters and his speech has been somewhat affected by the lip thickening. The rest of his mouth is wide open airway is widely patent no tongue swelling. Symptoms are improving - Added vancomycin to allergies list, does not sound red man sounds more like angioedema - prednisone 20 mg for 3 days Left lower extremity wounds examined 12/31 - ath this point some mild amount of yellowish drainage could be mild superinfection. Continue levaquin. Wound swab of distal only grew corynebacterium. Hold off on MRSA coverage, vancomycin stopped Arterial Doppler without evidence of PAD - I discussed with Harsha and his daughters that its critical to keep the leg edema down in order to heal the wounds and he must keep it elevated whenever he's sitting. I asked them to attach the L foot rest for his wc. - compression wrap would be helpful once drainage/poss infection clears up consulted wound nurse A-fib s/p cardioversion, NSVT Continue Eliquis Continue metoprolol NSVT run while inpatient. Recent echo EF 55-60%. Continue beta-ismael. Keep mag/K at goal reviewed tele - sinus silvestre with pac's no further significant arrhythmia DVT prophylaxis: Anticoagulated Planning home tonight vs tomorrow. From pneumonia standpoint ready for discharge. Home with home health Admission and Anticipated Discharge Date Admission Date: December 29, 2024 Subjective Mr Patricio is feeling well. Mild cough, not short of breath, no further chest pain, not on oxygen LLE most distal wound is a surgical site. The other two were from some mild trauma apx 3 weeks ago He has significant chronic LLE edema from old injury. He doesn't keep his leg elevated often at home. Physical Exam 2 Physical Exam: PHYSICAL EXAMINATION Last 24h vital signs reviewed, see documentation in flowsheet General: comfortable appearing, no distress, sitting in the chair by the window HEENT: Normocephalic, atraumatic, pupils round and equal, sclerae anicteric, no conjunctival injection, moist mucus membranes Lungs: Normal respiratory effort. Clear to auscultation bilaterally however diminished in the right greater than left base. No RRW Heart: Regular rate and rhythm, no murmurs. No JVD Abdomen: Soft, nontender, nondistended. Bowel sounds present. Extremities: Warm, dry, well-perfused. mild left lower extremity edema with woody wrinkling. he says this is much better than when he first came to the hospital. He has 3 wounds which are a little hard to stage because of exudate better probably partial-thickness, they are all small less than 3 cm 1 is on his left ankle and the other 2 are on lateral mae above that. There is no surrounding cellulitis although there is some mild amount of yellowish discharge Neuro: Alert and oriented x 4, face symmetric, moves 4 extremities well Psych: Normal affect and behavior Results & Data Results & Data Vital Signs (Past 12 Hours) Vital Signs Temp Pulse Pulse Resp BP Pulse Ox O2 Del Method 12/31/24 16:03 36.2 C L 60 24 109/69 93 Room Air 12/31/24 15:21 64 12/31/24 11:30 36.5 C 61 18 120/62 93 Room Air 12/31/24 08:01 62 12/31/24 07:45 36.6 C 69 18 130/76 94 Room Air Laboratory Results 12/29/24 03:01 12/31/24 08:17 PG Care Time/CCT Total # of Minutes Spent Total Time Spent with Patient: I personally spent: 65 minutes today on clinical care activities including: reviewing chart notes and vital signs reviewing labs, microbiology, CT reports discussion with bedside nurse, wound nurse discussion with insurance healthcare consultant examining and counseling the patient counseling the patient's family extensively - 1 daughter is in person the other on speaker phone writing orders documentation Coding Level of Care Code 36396 SUB INP/OBS CARE 3/50MIN Diagnoses Aspiration pneumonia J69.0 Chest pain R07.9 Multiple open wounds of lower leg, left, initial encounter S81.802A Encounter type: initial encounter Laterality: left (3) Multiple open wounds of lower leg Encounter type: initial encounter Laterality: left Qualified Code(s): S 81.802A - Unspecified open wound, left lower leg, initial encounter
--- NOTE | 2024-12-31 16:58 | Discharge Summary ---
Discharge Summary Date of Service December 31, 2024 Principal Dx & Hospital Course #1 = Principal Diagnosis (1) Aspiration pneumonia: (2) Chest pain: (3) Multiple open wounds of lower leg: Plan 84-year-old male with recently diagnosed A-fib with RVR in October 2024 s/p cardioversion , diastolic heart failure, aortic stenosis, BPH, and hypertension. He presented to the ED via EMS due to left-sided chest pain. Chest pain was improved with aspirin and nitro en route. In the ED he was found to have bilateral lower lobe consolidation concerning for aspiration pneumonia with recent cardioversion. he has left lower extremity wounds that have been on going with poor wound healing for 3 weeks. this has been followed by home health nursing, he is been unable to get an appointment at wound clinic although his primary care doctor has been trying to arrange that Bilateral aspiration pneumonia CTchest reviewed. Bilateral lower lobe opacities, atelectasis versus pneumonia within differential. Right middle lobe nodule likely benign. Follow- up with 6-month CT for stability. Complex left renal lesion? Benign proteinaceous versus hemorrhagic cyst but indeterminate. Nonemergent renal protocol CT with and without contrast for follow-up. resolving, mild symptoms currently and on room air Continue Levaquin 750 mg 5-day course he had reaction to vancomycin IV 3/4 pm with facial erythema and swelling and some upper lip swelling. This was treated with Solu-Medrol and Benadryl vancomycin was stopped. This morning he has some mild upper lip thickening slightly worse on the right than the left it is not apparent to me but it is to him and his daughters and his speech has been somewhat affected by the lip thickening. The rest of his mouth is wide open airway is widely patent no tongue swelling. Symptoms are improving - Added vancomycin to allergies list, does not sound red man sounds more like angioedema - prednisone 20 mg for 3 days, PRN benadryl - there is a slight chance this could have been angioedema related to losartan, which was started this admission. I did not order losartan on discharge. Would be reasonable to try it again with precautions once current reaction completely resolved - defer to outpatient Left lower extremity wounds examined 3/5 - ath this point some mild amount of yellowish drainage could be mild superinfection. Continue levaquin. finish out the oral doxy he was on prior to admission (was a 10-d course). Wound swab of distal only grew corynebacterium. Hold off on MRSA coverage, vancomycin stopped Arterial Doppler without evidence of PAD - I discussed with Harsha and his daughters that its critical to keep the leg edema down in order to heal the wounds and he must keep it elevated whenever he's sitting. I asked them to attach the L foot rest for his wc. - compression wrap would be helpful once drainage/poss infection clears up consulted wound nurse - she was graciously able to see him today prior to DC. We are working on getting appt with wound clinic. Contninue wound care with HH RN A-fib s/p cardioversion, NSVT Continue Eliquis Continue metoprolol NSVT run while inpatient. Recent echo EF 55-60%. Continue beta-ismael. Keep mag/K at goal reviewed tele - sinus silvestre with pac's no further significant arrhythmia DVT prophylaxis: Anticoagulated Planning home tonight vs tomorrow. From pneumonia standpoint ready for discharge. Home with home health Notes For Next Care Provider angioedema reaction to vancomycin IV (or possibly losartan - see above) consider chest CT in 6 months for pulmonary nodules recommend renal protocol CT w/wo contrast as outpatient to evaluate renal cyst Medication Changes From Visit levaquin 750 x 3 more days continue doxy - has apx 3 days left prednisone 20 mg two more days Admission HPI Per Admitting Provider Patient is an 84-year-old male with a past medical history of newly diagnosed A- fib with RVR in October 2024 s/p cardioversion , diastolic heart failure, aortic stenosis, BPH, and hypertension. He presented to the ED via EMS due to left-sided chest pain that he developed in bed this evening. Chest pain was improved with aspirin and nitro en route. In the ED he was found to have bilateral lower lobe consolidation concerning for aspiration pneumonia with recent cardioversion. Patient is being admitted for IV antibiotics. Patient seen at bedside with his 2 daughters present who are both RNs. He stated that since his cardioversion 12/22/2024 he has had dyspnea that has been unchanged. He also endorses choking on his pills yesterday 12/28. When in bed this evening he developed left-sided chest pain and called EMS. His left-sided chest pain improved with aspirin and nitroglycerin and is now under his bilateral shoulder blades. His daughter stated he has been complaining of back and shoulder pain since Sunday/. He denies any dizziness, lightheadedness, rhinorrhea, sore throat, congestion, cough, abdominal pain, nausea, vomiting, diarrhea. He has a good cardiac history however did have a TIA approximately 30 years ago. His father had an MT when he was about the patient's age. Patient stated he typically exercises without chest pain however has chronic dyspnea on exertion. He does not use nicotine products or drink frequent alcohol. he denies past history of diabetes. Patient had a screw removed November 04 of his left ankle and has had an open wound since that has been undergoing frequent wound care. He also fell in November and developed a hematoma of his anterior left mae which has now converted into 4 open wounds. Patient's daughter stated that wound care nurses come to the house 2 times a week to change his dressings with aqua gel patch. patient's daughter stated that the wounds have had clear and bloody drainage but the drainage is very foul-smelling. He saw his PCP 12/22 and was prescribed doxycycline and placed over referral to wound care however wound care would not see the patient as referral was only placed for top 3 wounds and not the bottom wound from the screw removal. Patient and family requesting wound care eval in hospital, extremely reasonable given poor wound healing. Wound consult placed. Patient lives at home with his . He denies any past history of COPD or asthma. He took his home medications yesterday. He has a POLST form at bedside that states DNR/DNI status. Discharge Exam PHYSICAL EXAMINATION Last 24h vital signs reviewed, see documentation in flowsheet General: comfortable appearing, no distress, sitting in the chair by the window HEENT: Normocephalic, atraumatic, pupils round and equal, sclerae anicteric, no conjunctival injection, moist mucus membranes Lungs: Normal respiratory effort. Clear to auscultation bilaterally however diminished in the right greater than left base. No RRW Heart: Regular rate and rhythm, no murmurs. No JVD Abdomen: Soft, nontender, nondistended. Bowel sounds present. Extremities: Warm, dry, well-perfused. mild left lower extremity edema with woody wrinkling. he says this is much better than when he first came to the hospital. He has 3 wounds which are a little hard to stage because of exudate better probably partial-thickness, they are all small less than 3 cm 1 is on his left ankle and the other 2 are on lateral mae above that. There is no surrounding cellulitis although there is some mild amount of yellowish discharge Neuro: Alert and oriented x 4, face symmetric, moves 4 extremities well Psych: Normal affect and behavior Discharge Plan Discharge Items Patient Disposition: Home - Home Health Services Reason For Visit: ASPIRATION PNEUMONIA, LOWER EXTREMITY WOUNDS Discharge Diagnosis: bilateral aspiration pneumonia, left lower extremity wounds Activity: Resume your previous activity Non-emergency contact: Primary Care Provider and Plastics Nurse Call non-emergency contact if: you have any medication questions, your symptoms worsen and you have a fever Follow-up/Referrals: Marybeth Woods MD [Primary Care Provider] - 01/06/25 9:30 am Diet: Heart Healthy Addtl Attending Provider Instructions: you were treated for bilateral aspiration pneumonia. Continue the course of antibiotic which is called levofloxacin, we are using a high dose regimen that only requires 5 days of total treatment. you got the first 2 doses in the hospital therefore he will only need 3 more doses/ days for your left leg room wounds it is critical to keep your left leg elevated as much as possible when you are at rest. if there is a lot of swelling it will be very difficult to heal them have your family find the left sided foot rest for your wheelchair and extended straight out, padded and rest your foot on that if you are sitting in a chair use another chair or footstool to elevate your leg in case there is some mild bacterial superinfection the current antibiotic is very broad and will help with this. Wound culture swab only grew some nonpathogenic skin bacteria. complete the last few days of the other antibiotic that Dr. Woods gave you (doxycycline) because this covers slightly different types of bacteria Home health PT, OT, and RN for wound care We are trying to expedite follow up in wound clinic, but its taking minimum 2 weeks to schedule appointments You had facial redness and lip swelling that seemed to be related to antibiotic called vancomycin. I added to your allergy list. -take 25 mg benadryl up to q8h as needed -take prednisone for 2 more days There is a slight chance the reaction could have been angioedema caused by losartan, a newly added medicine that's good for your heart, kidneys, and BP. Your cardilogist will want you on this ocean transportation intermediary and its reasonable to try again in the future, but we should hold off for now until lip swelling totally resolves Consider a repeat chest CT in 6 months to follow up some very small pulmonary nodules You need a renal protocol CT as an outpatient to further evaluate a kidney cyst -these can be arranged by primary care It was a pleasure taking care of you in the hospital, Katie Spaulding MD Pending Studies at Discharge: No Stand-Alone Forms: My [facility], Smoking Cessation Medications and DC Order Prescriptions: New prednisone 20 mg Tablet 20 mg PO DAILY Qty: 2 0RF levofloxacin 750 mg tablet 750 mg PO DAILY Qty: 3 0RF Continued ginkgo biloba 40 mg tablet 40 mg PO QAM Rx Instructions: give with meal/snack Eliquis 5 mg tablet 5 mg PO BID Qty: 180 3RF metoprolol succinate 100 mg tablet extended release 24 hr 100 mg PO QAM Qty: 90 3RF doxycycline hyclate 100 mg tablet 100 mg PO BID 10 Days Qty: 20 0RF acetaminophen 325 mg Tablet 650 mg PO Q4 PRN (Reason: temp>100) calcium carbonate [Calcium 600] 600 mg calcium (1,500 mg) Tablet 600 mg PO QAM sennosides 8.6 mg Tablet 8.6 mg PO DAILY PRN (Reason: Constipation) ascorbic acid (vitamin C) [Vitamin C] 500 mg Tablet 500 mg PO QAM cholecalciferol (vitamin D3) [Vitamin D3] 50 mcg (2,000 unit) Tablet 50 mcg PO QAM vitamin A-vitamin C-vit E-min Tablet 2 tab PO QAM tamsulosin 0.4 mg capsule 0.4 mg PO QAM furosemide 20 mg tablet 20 mg PO QAM potassium chloride 10 mEq tablet,ER particles/crystals 10 meq PO QAM Discharge Orders: Discharge Order (Routine); Ordered 12/31/24 Ordered By: Katie Spaulding Admission Data Admit Date/Time: 12/29/24 05:31 Attending Provider: Katie Spaulding Admit Provider: Bakari Nava Primary Care Provider: Marybeth Woods Other Providers: Bakari Nava; [place] Hospital Stay Data Consultations 12/29/24 03:56 ED Decision to Admit Stat Diagnostic Imagining Performed 12/29/24 11:53 US doppler leg [US arterial duplex LE LT] Routine 12/29/24 16:43 CT chest diagnostic wo con Urgent Pending Results Patient Have Any Pending Studies at Discharge: No Discharge Instructions Given to Patient (Per Discharging Provider) you were treated for bilateral aspiration pneumonia. Continue the course of antibiotic which is called levofloxacin, we are using a high dose regimen that only requires 5 days of total treatment. you got the first 2 doses in the hospital therefore he will only need 3 more doses/ days for your left leg room wounds it is critical to keep your left leg elevated as much as possible when you are at rest. if there is a lot of swelling it will be very difficult to heal them have your family find the left sided foot rest for your wheelchair and extended straight out, padded and rest your foot on that if you are sitting in a chair use another chair or footstool to elevate your leg in case there is some mild bacterial superinfection the current antibiotic is very broad and will help with this. Wound culture swab only grew some nonpathogenic skin bacteria. complete the last few days of the other antibiotic that Dr. Woods gave you (doxycycline) because this covers slightly different types of bacteria Home health PT, OT, and RN for wound care We are trying to expedite follow up in wound clinic, but its taking minimum 2 weeks to schedule appointments You had facial redness and lip swelling that seemed to be related to antibiotic called vancomycin. I added to your allergy list. -take 25 mg benadryl up to q8h as needed -take prednisone for 2 more days There is a slight chance the reaction could have been angioedema caused by losartan, a newly added medicine that's good for your heart, kidneys, and BP. Your cardilogist will want you on this snf and its reasonable to try again in the future, but we should hold off for now until lip swelling totally resolves Consider a repeat chest CT in 6 months to follow up some very small pulmonary nodules You need a renal protocol CT as an outpatient to further evaluate a kidney cyst -these can be arranged by primary care It was a pleasure taking care of you in the hospital, Katie Spaulding MD Total Time Total Time Spent Total Time Spent (In Minutes): Total Time Spent with Patient: I personally spent: 65 minutes today on clinical care activities including: reviewing chart notes and vital signs reviewing labs, microbiology, CT reports discussion with bedside nurse, wound nurse discussion with pet caregiver examining and counseling the patient counseling the patient's family extensively - 1 daughter is in person the other on speaker phone writing orders documentation discharge instructions and prescriptions Coding Level of Care Code 97701 INP/OBS DISCH >30 MIN Diagnoses Aspiration pneumonia J69.0 Chest pain R07.9 Multiple open wounds of lower leg, left, initial encounter S81.802A Encounter type: initial encounter Laterality: left
[2024-12-31] MEDS: predniSONE 20 MG TAB PO SCH (16:59)
[2024-12-31 17:16] VITALS: PULSE 66
--- NOTE | 2024-12-31 18:34 | Electrocardiogram Report ---
Test Reason : Blood Pressure : */* mmHG Vent. Rate : 60 BPM Atrial Rate : 60 BPM P-R Int : 184 ms QRS Dur : 98 ms QT Int : 448 ms P-R-T Axes : 48 18 -12 degrees QTcB Int : 448 ms Sinus rhythm with Premature atrial complexes Nonspecific T wave abnormality Abnormal ECG When compared with ECG of 22-Dec-2024 07:48, Premature atrial complexes are now Present T wave inversion now evident in Inferior leads Nonspecific T wave abnormality, worse in Anterolateral leads Confirmed by Khanh Clark ([id number]) on 12/31/2024 6:34:32 PM Referred By: REFERRED SELF Confirmed By: Khanh Clark
== END 2024-12-31 18:01 | disposition home health service (06) | DRG 178 ==
LOC: SUATTDRO → ED 02:48 → SUATTDRO 05:31 → EDINP 05:31 → 2N 11:51

== ENCOUNTER 2025-09-30 09:34 | Observation (INO) ==
[2025-09-30] MEDS: METOPROLOL TARTRATE 1 MG/ML VIAL IV STA (10:07)
[2025-09-30] MEDS: ASPIRIN CHEW 324 MG PO STA (10:07)
[2025-09-30] MEDS: SODIUM CHLORIDE 0.9% 500 ML IV ONE (10:08)
--- NOTE | 2025-09-30 10:18 | XRay Report ---
XR chest 1V portable CLINICAL HISTORY: Chest pain, nonspecific COMPARISON STUDY: Chest radiograph and chest CT December 29, 2024. FINDINGS: There is no pneumothorax. There are possible small bilateral pleural effusions. Bibasilar o pacities are again noted. Cardiomegaly is again noted. Interstitial thickening is present. Multiple o ld bilateral rib fractures are incidentally noted. 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 IMPRESSION: 1. Cardiomegaly with interstitial thickening. This favors mild pulmonary edema although an infectious process could appear similar. Radiographic follow-up is recommended. 2. Bibasilar opacities, greater on the left. Atelectasis is favored although pneumonia would be diffi cult to exclude. 3. Possible small bilateral pleural effusions. ACT 112: Negative or not required by law. Electronically signed by: Giuseppe Jacobson M.D. 09/30/2025 10:17 AM
[2025-09-30 10:31] LABS: Alanine Aminotransferase 18 U/L (7-52); Albumin Globulin Ratio 1.4 (0.9-2); Albumin Level 4.2 gm/dl (3.4-5.0); Alkaline Phosphatase 63 U/L (34-104); Anion Gap 6 (3-11); Bilirubin,Total 1.4 mg/dl (0.2-1.0); Blood Urea Nitrogen 25 mg/dl (6-23); Calcium 9.5 mg/dl (8.6-10.3); Carbon Dioxide 32 mmol/L (21-32); Chloride 104 mmol/L (98-107); Globulin 3.0 gm/dl (2.5-4.0); Glucose 150 mg/dl (70-99(Fasting)); Lipase 11 U/L (11-82); Potassium 4.3 mmol/L (3.5-5.1); Sodium 142 mmol/L (136-145); Total Protein 7.2 gm/dl (6.0-8.3)
[2025-09-30 10:33] LABS: Hematocrit (blood only) 54.8 % (42.0-52.0); Hemoglobin 18.0 g/dL (14.0-18.0); Immature Granulocytes # (auto) 0.02 K/uL (0.01-0.20); Immature Granulocytes % (auto) 0.3 %; Mean Corpuscular Hemoglobin 32.3 pg (25.0-34.0); Mean Corpuscular Volume 98.4 fL (80.0-100.0); Ovalocytes 1+; Platelet Count 154 K/uL (130-400); Polychromasia 1+; RDW Standard Deviation 58.4 fL (36.4-46.3); Red Blood Count 5.57 M/uL (4.70-6.10); Tear Drop Cells 1+; White Blood Count 7.15 K/ul (4.8-10.8)
--- NOTE | 2025-09-30 10:39 | Emergency Department Note ---
Impression & Plan Acute non-ST elevation myocardial infarction (NSTEMI) ED Provider Note NAME: TONG COELLO AGE: 85 SEX: M ARRIVES VIA: Walk-In INFORMANT: [Patient][, ] ED PROVIDER(S): Ilia Orantes MD CHIEF COMPLAINT: Chest pain PLAN: Disposition: Hospitalization, cardiac [facility] Condition: Serious MEDICAL DECISION MAKING: Patient with a stuttering type chest pain, acutely worse this morning, had another episode this morningThere was much more severe and lasting longer, resolved prior to arrival. Patient with some subtle EKG changes, fairly elevated troponin and a recurrent episode while here in the emergency department. No previous cardiac catheterizations. Case discussed with Dr. Andrew of interventional cardiology who will evaluate the patient and give recommendations. Patient will require hospitalization, possibly urgent versus emergent cardiac catheterization. Will defer to cardiology judgment. Patient seen by cardiology who will plan to do a cardiac catheterization to evaluate coronary arteries. To be admitted to the hospitalist. Declining heparinization at this point. Triage Nursing notes reviewed and agree them. [Additional history obtained from] [] [Prior medical records reviewed] [] Vital Signs: reviewed and remarkable for [no significant abnormalities] Differential diagnosis: Acute coronary syndrome, PE, aortic dissection, pneumothorax, NSTEMI, STEMI. ER treatment provided: Patient given aspirin, 1 dose of IV metoprolol for rapid atrial fibrillation Diagnostics interpreted by me: ECG: Rapid atrial fibrillation, some minimal ST segment changes in V3 and V4, otherwise near baseline. Repeat EKGs showed some mild upsloping of the same segments and eventually biphasic T waves in those segments. Concern for ongoing ischemia Cardiac Monitoring: [none] Laboratory studies: [See below] Significantly elevated troponin to 1667 Imaging studies: [See below] [] Consultation(s): Case discussed with Dr. Andrew of interventional cardiology, he will come evaluate the patient and the EKGs and make determination for urgency of cardiac catheterization versus hospitalization. Patient remains chest pain-free at this point. HPI: 85/M arrives for evaluation ofChest pain. Patient has a known history of atrial fibrillation and takes Eliquis. He states that over the last several days to weeks he has had occasional twinges of chest pain but typically resolves spontaneously. Today he ate breakfast and was feeling okay and shortly after that developed some significant left-sided chest pain. Pain did not radiate or migrate, was associated with some "sweats" and some nausea. He states it was much more severe than previous episodes. It also seemed to resolve on its own after approximately 30 minutes. Since that time he still has some slight soreness to the left side of the chest but no severe pain. Denies any exertional component to it, he was sitting and watching TV. Did have some mild palpitations earlier as well.Does note that he has had some mild increased shortness of breath when outside of the cold or when walking but does not limit his ADLs. ROS: See above HPI for pertinent positives & negatives. A total of [10] systems reviewed and were otherwise negative. PAST MEDICAL HISTORY:[See Below] PAST SURGICAL HISTORY:[See Below] FAMILY HISTORY:[See Below] SOCIAL HISTORY:[See Below] HOME MEDICATIONS:[See Below] ALLERGIES:[See Below] VITALS:[See Below] PHYSICAL EXAMINATION: Gen: No acute distress, generally well appearing Eyes: PERRL, no redness or injection, EOMI Neck: Supple, normal ROM CV: S1, S2, No murmurs, no lower extremity edema, Heart rate irregular and mildly tachycardic Pulm: CTA bilaterally, no increased work of breathing, no wheezing GI: Abd soft, nontender, normal bowel sounds, no distension : No CVA tenderness, no suprapubic abdominal tenderness or distension Neuro: No acute focal neuro deficits, normal strength and sensation Skin: No rashes, wounds, or erythema. ED COURSE: Times/Reassessments: Patient initially seen at approximately 10:00 AM: At that time was relatively chest pain free, feeling essentially at baseline. 10:20 AM, informed by nursing staff that patient had a recurrence of his chest pain, repeat EKG performed without any obvious STEMI criteria, there is some nonspecific type ST upsloping concerning for possible ischemia 11:15 AM:After troponin evaluation, case discussed with Dr. Andrew of interventional cardiology who evaluated the patient and is recommending cardiac [facility], they will perform this procedure this morning or afternoon. Plan admit to the hospitalist. Recommended against heparinizing the patient given he took his Eliquis this morning. Procedures: [none] PDMP:[reviewed and no issues] [Critical Care:] [None] Ilia Orantes MD Past Med/Surg History Problem List (Updated 09/30/25 @ 17:05 by Ilia Orantes MD) Acute non-ST elevation myocardial infarction (NSTEMI) (Acute) Elevated troponin Routine health maintenance Venous ulcer of left leg (Acute) Surgical wound, non healing (Acute) Allergic reaction caused by a drug Abnormal CT scan Focal neurological deficit Aspiration pneumonia Multiple open wounds of lower leg Leg edema (Chronic) Mild aortic stenosis Posterior tibial tendon dysfunction, right Neuroforaminal stenosis of lumbar spine Medical History Diastolic heart failure Osteoarthritis Mild aortic stenosis Tinnitus of both ears History of TIA (transient ischemic attack) Atrial fibrillation Compression fracture of lumbar vertebra BPH (benign prostatic hyperplasia) Surgical History Status post hardware removal (10/2024) History of dental surgery History of wisdom tooth extraction History of tonsillectomy and adenoidectomy Status post open reduction with internal fixation (ORIF) of fracture of ankle Total knee replacement status H/O hernia repair History of appendectomy Family History Father Hypertension Other No family history of adverse response to anesthesia Denies family history of Ovarian cancer Prostate cancer Diabetes Myocardial infarction Breast cancer Colorectal cancer Social History Smoking Status: Never smoker Second Hand Exposure: No; Do You Dip or Chew Tobacco: No; Hx Alcohol Use: No Hx Substance Use: No Preferred Language: Japanese Communication Ability: Effective Visual Impairment: No Limitations Hearing Ability: Normal Divemaster Required: No Beliefs That Will Affect Care: None marital status: Current Living Situation: Alone Current Living Situation Comment: 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 How many Children do You have: 4 Other Information That Helps Us Care for You: No Feels Safe at Home: Yes Safety Concerns: Feels Safe At This Time Childhood Exposure to Second-Hand Smoke: No Diet: regular caffeine: Yes (coffee) during the past year weight has: remained stable Dental Care, Regularly: Yes Physical Activity Frequency: 1-2 Times per Week Physical Activity Frequency Comment: walking helping Seatbelt Use: always Sunscreen Use: Yes Do you think of yourself as: straight/heterosexual Sexual Activity: has been sexually active, but not for at least 12 months Gender Identity: Male Assistive Devices: Cane Allergies Allergies Allergy/AdvReac Type Severity Reaction Status Date / Time Penicillins Allergy Intermediate facial Verified 09/30/25 12:55 swelling vancomycin Allergy Severe facial and Uncoded 08/13/25 14:13 lip redness and swelling - poss angioedema Home Meds Home Medications Medication Instructions Recorded Confirmed acetaminophen 325 mg tablet 650 mg PO Q4 PRN temp>100 06/23/23 09/30/25 ascorbic acid (vitamin C) 500 mg 500 mg PO QAM 06/23/23 09/30/25 tablet (Vitamin C) calcium carbonate (Calcium 600) 600 mg PO QAM 06/23/23 09/30/25 cholecalciferol (vitamin D3) 50 50 mcg PO QAM 06/23/23 09/30/25 mcg (2,000 unit) tablet (Vitamin D3) sennosides 8.6 mg tablet 8.6 mg PO DAILY PRN Constipation 06/23/23 09/30/25 ginkgo biloba 40 mg tablet 40 mg PO QAM 11/13/24 09/30/25 potassium chloride 10 mEq 10 meq PO QAM take with furosemide 12/16/24 09/30/25 tablet,extended release(part/cryst) (lasix) vitamin A-vitamin C-vit E-min 2 tab PO QAM 12/16/24 09/30/25 tablet Previous Rx's Medication Instructions Recorded apixaban 5 mg tablet (Eliquis) 5 mg PO BID #180 tabs 11/13/24 metoprolol succinate 100 mg 100 mg PO QAM #90 tabs 11/13/24 tablet,extended release 24 hr tamsulosin 0.4 mg capsule 0.4 mg PO QAM #90 caps 01/06/25 furosemide 20 mg tablet 20 mg PO DAILY #180 tabs 09/07/25 Results & Data (ED) Vital Signs Vital Signs - 24 hr 09/30/25 09:38 09/30/25 09:54 09/30/25 09:57 Temperature 36.2 C L Temperature Source Temporal Artery Scan Pulse Rate 88 112 H Respiratory Rate 18 21 Blood Pressure 122/58 L 155/132 H Blood Pressure Mean 79 139 Pulse Oximetry 95 96 95 Oxygen Delivery Method Room Air Room Air Room Air Sepsis New/Unexplained Change in Mental Status No Sepsis Action Taken by Nursing No Action Required 09/30/25 10:00 09/30/25 10:07 09/30/25 10:12 Temperature Temperature Source Pulse Rate 130 H 101 H Respiratory Rate 19 Blood Pressure 153/114 H 153/114 H Blood Pressure Mean 127 Pulse Oximetry 95 95 Oxygen Delivery Method Room Air Room Air Sepsis New/Unexplained Change in Mental Status Sepsis Action Taken by Nursing 09/30/25 10:17 09/30/25 10:50 09/30/25 11:00 Temperature Temperature Source Pulse Rate 100 H 93 H 93 H Respiratory Rate 18 Blood Pressure 148/112 H 147/115 H Blood Pressure Mean 125 Pulse Oximetry 95 Oxygen Delivery Method Room Air Sepsis New/Unexplained Change in Mental Status Sepsis Action Taken by Nursing 09/30/25 11:48 09/30/25 12:00 Temperature Temperature Source Pulse Rate 96 H 87 Respiratory Rate 15 19 Blood Pressure 136/114 H 132/106 H Blood Pressure Mean 121 114 Pulse Oximetry 96 Oxygen Delivery Method Room Air Sepsis New/Unexplained Change in Mental Status Sepsis Action Taken by Half-Way Medications Current Medication List: was personally reviewed by me Additional Comments: On Eliquis, last taken this morning Laboratory Data Attestation: I reviewed the patient's lab results. Significantly elevated troponin, otherwise reassuring lab work 09/30/25 09:55 09/30/25 09:55 Lab Results 09/30/25 09/30/25 Range/Units 09:55 11:08 WBC 7.15 (4.8-10.8) K/ul RBC 5.57 (4.70-6.10) M/uL Hgb 18.0 (14.0-18.0) g/dL Hct 54.8 H (42.0-52.0) % MCV 98.4 (80.0-100.0) fL MCH 32.3 (25.0-34.0) pg MCHC 32.8 (32.0-36.0) g/dL RDW Std Deviation 58.4 H (36.4-46.3) fL RDW Coeff of Jose 16.6 H (11.5-14.5) % Plt Count 154 (130-400) K/uL MPV 9.6 (9.4-12.4) fL Immature Gran % (Auto) 0.3 % Neut % (Auto) 84.5 % Lymph % (Auto) 7.4 % Jennings % (Auto) 6.6 % Eos % (Auto) 0.6 % Baso % (Auto) 0.6 % Neut # (Auto) 6.05 (1.40-6.50) K/uL Lymph # (Auto) 0.53 L (1.20-3.40) K/uL Jennings # (Auto) 0.47 (0.11-0.59) K/uL Eos # (Auto) 0.04 (0.00-0.50) K/uL Baso # (Auto) 0.04 (0.00-0.20) K/uL Immature Gran # (Auto) 0.02 (0.01-0.20) K/uL Polychromasia 1+ Tear Drop Cells 1+ Ovalocytes 1+ Sodium 142 (136-145) mmol/L Potassium 4.3 (3.5-5.1) mmol/L Chloride 104 (98-107) mmol/L Carbon Dioxide 32 (21-32) mmol/L Anion Gap 6 (3-11) BUN 25 H (6-23) mg/dl Creatinine 0.94 (0.6-1.4) mg/dl Est Cr Clr Drug Dosing Not Reportable eGFR 79.44 BUN/Creatinine Ratio 26.6 H (10-20) Glucose 150 H (70-99(Fasting)) mg/dl Calcium 9.5 (8.6-10.3) mg/dl Total Bilirubin 1.4 H (0.2-1.0) mg/dl AST 29 (13-39) U/L ALT 18 (7-52) U/L Alkaline Phosphatase 63 (34-104) U/L Troponin I High Sens 1667.2 H* 1889.8 H* (0-20) pg/ml B-Natriuretic Peptide 617 H (0-100) pg/ml Total Protein 7.2 (6.0-8.3) gm/dl Albumin 4.2 (3.4-5.0) gm/dl Globulin 3.0 (2.5-4.0) gm/dl Albumin/Globulin Ratio 1.4 (0.9-2) Lipase 11 (11-82) U/L Administered Medications Discontinued Medications Aspirin (Aspirin Chew 324 Mg) 324 mg PO NOW STA Stop: 09/30/25 10:00 Last Admin: 09/30/25 10:07 Dose: 324 mg Documented By: Clopidogrel Bisulfate (Clopidogrel Bisulfate 300 Mg Tab) Confirm Administered Dose 600 mg .ROUTE .STK-MED ONE Stop: 09/30/25 14:18 Last Admin: 09/30/25 14:23 Dose: 600 mg Documented By: [id number] Fentanyl Citrate (Fentanyl Citrate Pf 100 Mcg/2 Ml Vial) Confirm Administered Dose 100 mcg .ROUTE .STK-MED ONE Stop: 09/30/25 12:55 Last Increment: 09/30/25 14:21 Dose: 50 mcg Documented By: [id number] Heparin Sodium (Porcine) (Heparin (Porcine) 1000 Unit/Ml 10 Ml ([facility] Use Only)) Confirm Administered Dose 10,000 units .ROUTE .STK-MED ONE Stop: 09/30/25 12:55 Last Admin: 09/30/25 14:22 Dose: 9,000 units Documented By: [id number] Heparin Sodium/Sodium Chloride (Heparin In Nss Infusion 1000 Unit/500 Ml (2 U/Ml) Bag) Confirm Administered Dose 3,000 units IV .STK-MED ONE Stop: 09/30/25 12:56 Last Admin: 09/30/25 13:19 Dose: 3,000 units Documented By: TRANG Sodium Chloride (Nss) 500 mls @ 999 mls/hr IV .Q31M ONE Stop: 09/30/25 10:29 Last Infusion: 09/30/25 11:59 Dose: Infused Documented By: Admin: 09/30/25 10:08 Dose: 999 mls/hr Documented By: Iodixanol (Iodixanol (Visipaque) 320 Mg/Ml 100ml) Confirm Administered Dose 1 ml IV .STK-MED ONE Stop: 09/30/25 12:57 Last Admin: 09/30/25 13:21 Dose: Not Given Documented By: [id number] Ioversol (Optiray 350) Confirm Administered Dose 1 ml .ROUTE .STK-MED ONE Stop: 09/30/25 12:57 Last Admin: 09/30/25 14:22 Dose: 110 ml Documented By: TRANG Metoprolol Tartrate (Metoprolol Tartrate 1 Mg/Ml Vial) 5 mg IV NOW STA Stop: 09/30/25 10:00 Last Admin: 09/30/25 10:07 Dose: 5 mg Documented By: Midazolam HCl (Midazolam Hcl 1 Mg/Ml 2ml Vial) Confirm Administered Dose 2 mg .ROUTE .STK-MED ONE Stop: 09/30/25 12:55 Last Admin: 09/30/25 14:22 Dose: 2 mg Documented By: [id number] Nicardipine HCl (Nicardipine 2,000 Mcg/20 Ml Syr) Confirm Administered Dose 2,000 mcg .ROUTE .STK-MED ONE Stop: 09/30/25 12:57 Last Admin: 09/30/25 13:20 Dose: 2,000 mcg Documented By: TRANG Nitroglycerin/Dextrose (Nitroglycerin/D5w 100mcg/Ml 20ml Syr) Confirm Administered Dose 2,000 mcg .ROUTE .STK-MED ONE Stop: 09/30/25 12:56 Last Admin: 09/30/25 13:20 Dose: 2,000 mcg Documented By: TRANG Imaging Data Attestation: I personally reviewed and interpreted this imaging study as follows: My Impression: Possible mild pulmonary edema Radiologist's Impression: Chest X-Ray 09/30/25 09:59 XR chest 1V portable CLINICAL HISTORY: Chest pain, nonspecific COMPARISON STUDY: Chest radiograph and chest CT December 29, 2024. FINDINGS: There is no pneumothorax. There are possible small bilateral pleural effusions. Bibasilar opacities are again noted. Cardiomegaly is again noted. Interstitial thickening is present. Multiple old bilateral rib fractures are incidentally noted. 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 IMPRESSION: 1. Cardiomegaly with interstitial thickening. This favors mild pulmonary edema although an infectious process could appear similar. Radiographic follow-up is recommended. 2. Bibasilar opacities, greater on the left. Atelectasis is favored although pneumonia would be difficult to exclude. 3. Possible small bilateral pleural effusions. ACT 112: Negative or not required by law. Electronically signed by: Giuseppe Jacobson M.D. 09/30/2025 10:17 AM Discharge Plan Visit Data Chief Complaint: Cardiac Assessment Stated Complaint: CHEST PAIN, SOB ED Provider: Ilia Orantes Discharge Problem: Acute non-ST elevation myocardial infarction (NSTEMI) Patient Disposition: Admitted As Inpatient Condition: Serious Discharge Instructions Interventions: ED Discharge Assessment Last Done: 09/30/25 12:38
--- NOTE | 2025-09-30 10:40 | Electrocardiogram Report ---
Test Reason : Blood Pressure : */* mmHG Vent. Rate : 118 BPM Atrial Rate : * BPM P-R Int : * ms QRS Dur : 104 ms QT Int : 322 ms P-R-T Axes : * -33 -5 degrees QTcB Int : 451 ms Atrial fibrillation with rapid ventricular response Left axis deviation Inferior infarct , age undetermined Anterior infarct , age undetermined Abnormal ECG When compared with ECG of 06-Aug-2025 15:24, Significant changes have occurred Confirmed by Mack Blanca ([id number]) on 09/30/2025 10:40:08 AM Referred By: Marybeth Woods Confirmed By: Mack Blanca
--- NOTE | 2025-09-30 12:21 | History & Physical Report ---
Date of Service September 30, 2025 Assessment & Plan (1) Chest pain: (2) Elevated troponin: (3) History of TIA (transient ischemic attack): (4) Atrial fibrillation: (5) BPH (benign prostatic hyperplasia): (6) Anticoagulant long-term use: (7) Mild aortic stenosis: Plan 85 year old male with PMHx Afib on Eliquis, TIA, and BPH presents with chest pain: #NSTEMI: Initial troponin 1670, repeat 1890 EKG with subtle nonspecific changes Cardiology consulted, s/p cardiac cath and PCI with placement of LELA - notable for: 95% acute mid-LAD stenosis Start dual antithrombotic therapy with Eliquis and Plavix for at least 1 year Start atorvastatin 40mg daily Start valsartan 20mg BID Continue metoprolol #AFib: Continue metoprolol and Eliquis #BPH: Continue tamsulosin Dispo: Admit PCU VTE ppx: Eliquis Diet: HH Conditional code History of Present Illness Primary Care Provider: Marybeth Woods MD 85 year old male with PMHx Afib on Eliquis, TIA, and BPH presents with chest pain. Intermittent left sided chest pain started about 2 weeks ago following acute URI. Pain has been episodic, no consistent triggering factor. Pain significantly worse this AM. Reports associated diaphoresis and shortness of breath during episodes of chest pain. Also reports dyspnea on exertion but no chest pain with exertion. Patient on Eliquis for Afib - took his Eliquis this AM. Pain partially reproducible with palpation of left anterior chest wall. Chest pain not positionally dependent. Denies current chest pain, shortness of breath, palpitations. Allergies Allergy/AdvReac Type Severity Reaction Status Date / Time Penicillins Allergy Intermediate facial Verified 09/30/25 12:55 swelling vancomycin Allergy Severe facial and Uncoded 08/13/25 14:13 lip redness and swelling - poss angioedema Home Medications Medication Instructions Recorded Confirmed Type acetaminophen 325 mg tablet 650 mg PO Q4 PRN temp>100 06/23/23 09/30/25 History ascorbic acid (vitamin C) 500 mg 500 mg PO QAM 06/23/23 09/30/25 History tablet (Vitamin C) calcium carbonate (Calcium 600) 600 mg PO QAM 06/23/23 09/30/25 History cholecalciferol (vitamin D3) 50 50 mcg PO QAM 06/23/23 09/30/25 History mcg (2,000 unit) tablet (Vitamin D3) sennosides 8.6 mg tablet 8.6 mg PO DAILY PRN Constipation 06/23/23 09/30/25 History apixaban 5 mg tablet (Eliquis) 5 mg PO BID #180 tabs 11/13/24 09/30/25 Rx ginkgo biloba 40 mg tablet 40 mg PO QAM 11/13/24 09/30/25 History metoprolol succinate 100 mg 100 mg PO QAM #90 tabs 11/13/24 09/30/25 Rx tablet,extended release 24 hr potassium chloride 10 mEq 10 meq PO QAM take with furosemide 12/16/24 09/30/25 History tablet,extended release(part/cryst) (lasix) vitamin A-vitamin C-vit E-min 2 tab PO QAM 12/16/24 09/30/25 History tablet tamsulosin 0.4 mg capsule 0.4 mg PO QAM #90 caps 01/06/25 09/30/25 Rx furosemide 20 mg tablet 20 mg PO DAILY #180 tabs 09/07/25 09/30/25 Rx Past Med/Surg History Problem List (Updated 09/30/25 @ 17:05 by Ilia Orantes MD) Acute non-ST elevation myocardial infarction (NSTEMI) (Acute) Elevated troponin Routine health maintenance Venous ulcer of left leg (Acute) Surgical wound, non healing (Acute) Allergic reaction caused by a drug Abnormal CT scan Focal neurological deficit Aspiration pneumonia Multiple open wounds of lower leg Leg edema (Chronic) Mild aortic stenosis Posterior tibial tendon dysfunction, right Neuroforaminal stenosis of lumbar spine Medical History Diastolic heart failure Osteoarthritis Mild aortic stenosis Tinnitus of both ears History of TIA (transient ischemic attack) Atrial fibrillation Compression fracture of lumbar vertebra BPH (benign prostatic hyperplasia) Surgical History Status post hardware removal (10/2024) History of dental surgery History of wisdom tooth extraction History of tonsillectomy and adenoidectomy Status post open reduction with internal fixation (ORIF) of fracture of ankle Total knee replacement status H/O hernia repair History of appendectomy Family History Father Hypertension Other No family history of adverse response to anesthesia Denies family history of Ovarian cancer Prostate cancer Diabetes Myocardial infarction Breast cancer Colorectal cancer Social History Smoking Status: Never smoker Second Hand Exposure: No; Do You Dip or Chew Tobacco: No; Hx Alcohol Use: No Hx Substance Use: No Preferred Language: Kazakh Communication Ability: Effective Visual Impairment: No Limitations Hearing Ability: Normal Student Life Coordinator Required: No Beliefs That Will Affect Care: None marital status: Current Living Situation: Alone Current Living Situation Comment: 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 How many Children do You have: 4 Other Information That Helps Us Care for You: No Feels Safe at Home: Yes Safety Concerns: Feels Safe At This Time Childhood Exposure to Second-Hand Smoke: No Diet: regular caffeine: Yes (coffee) during the past year weight has: remained stable Dental Care, Regularly: Yes Physical Activity Frequency: 1-2 Times per Week Physical Activity Frequency Comment: walking helping Seatbelt Use: always Sunscreen Use: Yes Do you think of yourself as: straight/heterosexual Sexual Activity: has been sexually active, but not for at least 12 months Gender Identity: Male Assistive Devices: Cane Review of Systems Review of Systems: as per HPI Physical Exam Physical Exam: Constitutional: no acute distress HEENT: NCAT, no conjunctival injection CV: +irregularly irregular rhythm. extremities well-perfused Resp: no increased work of breathing GI: nondistended MSK: no gross deformities Skin: warm, dry, no rash appreciated Neuro: alert, oriented, no focal neurologic deficit appreciated Results & Data Results & Data Vital Signs (Past 12 Hours) Vital Signs Temp Pulse Resp BP Pulse Ox O2 Del Method 09/30/25 12:00 87 19 132/106 H 96 Room Air 09/30/25 11:48 96 H 15 136/114 H 09/30/25 11:00 93 H 18 147/115 H 95 Room Air 09/30/25 10:50 93 H 148/112 H 09/30/25 10:17 100 H 09/30/25 10:12 101 H 19 153/114 H 95 Room Air 09/30/25 10:07 130 H 153/114 H 09/30/25 10:00 95 Room Air 09/30/25 09:57 95 Room Air 09/30/25 09:54 112 H 21 155/132 H 96 Room Air 09/30/25 09:38 36.2 C L 88 18 122/58 L 95 Room Air Supervising Physician Co-Signing Physician Notes I personally examined the patient and verified all kuhn points of history and exam, discussed case, and agree with decision making with Dr Dodd Feeling good post cath and stenting. No needs. Vitals noted, in general he is awake and alert pleasant no distress. HEENT normocephalic atraumatic mucous membranes moist. Breathing unlabored no accessory muscle use good effort. Skin without rashes pallor or icterus. Neuro without focal deficits. Coronary artery disease with NSTEMIstatus post cath and stenting. Symptoms resolved. Med management, secondary risk reduction. Otherwise as above. anticoagulated Resident Activity Tracking Resident Involvement: Resident Care Provided Care Provided: Adult [facility] Medicine (4) Atrial fibrillation Atrial fibrillation type: unspecified chronic Qualified Code(s): I48.20 - Chronic atrial fibrillation, unspecified (5) BPH (benign prostatic hyperplasia) Lower urinary tract symptom detail: urinary frequency Lower urinary tract symptom presence: symptoms present Qualified Code(s): N40.1 - Benign prostatic hyperplasia with lower urinary tract symptoms; R35.0 - Frequency of micturition
--- NOTE | 2025-09-30 13:05 | Pre Anesthesia Assessment ---
Date of Service September 30, 2025 Pre Sedation Assessment Vital Signs Temp Pulse Pulse Resp BP BP Pulse Ox 09/30/25 12:42 100 H 18 140/98 92 09/30/25 12:38 09/30/25 12:30 89 21 139/98 93 09/30/25 12:00 87 19 132/106 H 96 09/30/25 11:48 96 H 15 136/114 H 09/30/25 11:00 93 H 18 147/115 H 95 09/30/25 10:50 93 H 148/112 H 09/30/25 10:17 100 H 09/30/25 10:12 101 H 19 153/114 H 95 09/30/25 10:07 130 H 153/114 H 09/30/25 10:00 95 09/30/25 09:57 95 09/30/25 09:54 112 H 21 155/132 H 96 09/30/25 09:38 97.2 F L 88 18 122/58 L 95 O2 Del Method 09/30/25 12:42 Room Air 09/30/25 12:38 Room Air 09/30/25 12:30 Room Air 09/30/25 12:00 Room Air 09/30/25 11:48 09/30/25 11:00 Room Air 09/30/25 10:50 09/30/25 10:17 09/30/25 10:12 Room Air 09/30/25 10:07 09/30/25 10:00 Room Air 09/30/25 09:57 Room Air 09/30/25 09:54 Room Air 09/30/25 09:38 Room Air Cardiovascular + regular rate Respiratory + respiratory effort normal Pre-Sedation Airway Assessment Smoking Status: Never smoker Hx Sleep Apnea: No Hx Difficult Intubation: No Short, Thick Neck: No Thyromental Distance: > or= 3.5 Finger Breadths Oral Cavity: + WNL Mallampati Class: III ASA: ASA3 NPO Status Date of Last Intake of Fluids: 09/30/25 Last Oral Intake of Fluids Comment: sip with meds Date of Last Intake of Solid Food: 09/30/25 Time of Last Intake of Solid Foods: 07:30 Procedure Planning Contraindications for Sedation: none Current Medications Reviewed: Yes Notes The planned sedation has been discussed with the patient. Informed Consent was obtained. I have identified the patient, determined the appropriateness of sedation and have assessed the patient immediately prior to the procedure. All medicine(s) and interventions are by my order.
[2025-09-30] MEDS: NITROGLYCERIN/D5W 100MCG/ML 20ML SYR ONE (13:20)
[2025-09-30] MEDS: niCARdipine 2,000 MCG/20 ML SYR ONE (13:20)
[2025-09-30] MEDS: IODIXANOL (VISIPAQUE) 320 MG/ML 100ML IV ONE (13:21)
[2025-09-30] MEDS: OPTIRAY 350 ONE (14:22)
[2025-09-30] MEDS: MIDAZOLAM HCL 1 MG/ML 2ML VIAL ONE (14:22)
[2025-09-30] MEDS: HEPARIN (PORCINE) 1000 UNIT/ML 10 ML (CATH LAB USE ONLY) ONE (14:22)
[2025-09-30] MEDS: CLOPIDOGREL BISULFATE 300 MG TAB ONE (14:23)
--- NOTE | 2025-09-30 14:27 | Post Anesthesia Assessment ---
Date of Service September 30, 2025 Post Sedation Assessment Vital Signs Temp Pulse Pulse Resp BP BP Pulse Ox 09/30/25 12:42 100 H 18 140/98 92 09/30/25 12:38 09/30/25 12:30 89 21 139/98 93 09/30/25 12:00 87 19 132/106 H 96 09/30/25 11:48 96 H 15 136/114 H 09/30/25 11:00 93 H 18 147/115 H 95 09/30/25 10:50 93 H 148/112 H 09/30/25 10:17 100 H 09/30/25 10:12 101 H 19 153/114 H 95 09/30/25 10:07 130 H 153/114 H 09/30/25 10:00 95 09/30/25 09:57 95 09/30/25 09:54 112 H 21 155/132 H 96 09/30/25 09:38 97.2 F L 88 18 122/58 L 95 O2 Del Method 09/30/25 12:42 Room Air 09/30/25 12:38 Room Air 09/30/25 12:30 Room Air 09/30/25 12:00 Room Air 09/30/25 11:48 09/30/25 11:00 Room Air 09/30/25 10:50 09/30/25 10:17 09/30/25 10:12 Room Air 09/30/25 10:07 09/30/25 10:00 Room Air 09/30/25 09:57 Room Air 09/30/25 09:54 Room Air 09/30/25 09:38 Room Air Recovery Score Activity: Moves 4 extremities Respiration: Deep Breath/Cough Circulation: +/-20% PreAnes Value Consciousness: Fully Awake Oxygen Saturation: O2 needed for >90% Discharge Sedation Level of Care: Fast Track Phase II
[2025-09-30] MEDS ORDERED: NITROGLYCERIN SL 0.4 MG/TAB TAB SL PRN (14:46)
[2025-09-30] MEDS ORDERED: ONDANSETRON INJ 2 MG/ML 2 ML VIAL IV PRN ×2 (14:46→15:46)
[2025-09-30] MEDS ORDERED: ACETAMINOPHEN 325 MG TAB PO PRN ×2 (14:46→15:46)
--- NOTE | 2025-09-30 14:46 | Cardiac Catheterization ---
[facility] Data: Transmission System Operator Cardiac Status Clinical evaluation leading to the procedure CAD Presenation: Non STEMI Anginal Classification: CCS IV Diagnostic Physicians Name: Carlos A Andrew MD Closure Device Recommendations: PCI without planned CABG Cardiac Cath Procedure Full Procedure Date September 30, 2025 Pre-Procedure Diagnosis Pre-Procedure Diagnosis: Non STEMI AUC Score AUC Score: 8 Post-Procedure Diagnosis Post-Procedure Diagnosis: Severe CAD, Successful PCI and Elevated Intracardiac Pressures Procedure(s) Performed Procedure(s) Performed: Coronary Angiography, Left Heart Cath and Drug Eluting Stent Senior Corporate Recruiter Carlos A Andrew MD Cutter Grinder Operator(s) Cad Drafter Estimated Blood Loss Estimated Blood Loss: 30 Medication(s) Medication(s): Clopidogrel, Fentanyl, Heparin, Lidocaine 1%, Nicardipine, Nitroglycerin and Versed Summary of Findings Indication: NSTEMI Access: 6 Fr slender right radial artery Catheters: [place], diagnostic JR4. EBU 3.0 Findings: LM -normal caliber, no significant disease LAD -medium caliber, proximal luminal irregularities, 95% acute mid stenosis just after takeoff of D1 distal vessel without significant disease and wraps around apex. KEYLA II distal flow. Bifurcating D1 without significant disease. Circumflex -medium caliber, no significant disease. Bifurcating left PLB without disease. RCA -dominant, medium caliber, 2030% diffuse mid segment disease distal vessel without significant disease. RPDA without disease. LVEDP -23 -- PCI -- Antithrombotic therapy: Heparin, clopidogrel Procedure: Left main cannulated with EBU 3.0 Pre-procedure flow KEYLA 2 [place] blue wire passed across lesion into distal LAD Whisper wire placed into D1 Mid LAD lesion predilated with 2.5 compliant balloon Dilated lesion stented with 3.5 x 22 mm [place] drug-eluting stent Stent post-dilated with 3.75 noncompliant balloon IC vasodilators administered for spasm Post procedure KEYLA 3 flow, stent well expanded with minimal residual stenosis and no apparent cardiac complications. Arterial Closure: TR band Summary: 1. Severe single vessel coronary artery disease - 95% acute mid LAD stenosis 2. Normal intracardiac filling pressure 3. Successful PCI of proximal to mid LAD with single drug-eluting stent (3.5 x 22 mm [place] WI: Postdilated with 3.75 NC). Recommendations: To PCU for continued monitoring Loaded with clopidogrel 600 mg in Transmission System Operator Continue dual therapy with clopidogrel, DOAC for at least 1 year Continue statin, and ASCVD risk factor modification GDMT for cardiomyopathy. Diuresis as needed for dyspnea Hemodynamics Rest Ao:: 133/93/127 Final Ao: 128/90/107 LV: 127/23 Recommendations Recommendations: PCI without planned CABG Radiation Exposure (mGy) 2395 Contrast (mls) 110 Anesthesia Moderate 1931-2531 Procedural Complication(s) None Disposition PCU I attest to the content of the Intraoperative Record and any orders documented therein. Any exceptions are noted below. [facility] Card Cath Procedure Codes Cardiac Catheterization Procedure 1: Cardiovascular Cath Procedures: 01454 Coronaries and LHC (+/-LV) Moderate Sedation Procedure 1: Sedation/Anesthesia: 26511 Mod Sedation by the same physician;Init15 Min Child Age 5 & Up Procedure 2: Sedation/Anesthesia: 70713 Mod Sedation by the same physician; Ea [id number] Minutes Stenting Procedure 1: Cardiovascular Stent Procedures: 31394 Perc transcatheter placement of intracoronary stent(s), with ang PG Care Time/CCT Total # of Minutes Spent Total Time Spent with Patient: Total time spent is greater than 50% in coordination of care (as documented) at patient's floor/unit and/or counseling patient:
[2025-09-30] MEDS ORDERED: MELATONIN 3 MG TAB PO PRN (15:46)
[2025-09-30] MEDS ORDERED: POLYETHYLENE (MIRALAX) 17 GM PACK PO PRN (15:46)
--- NOTE | 2025-09-30 17:25 | Billing Data ---
Date of Service September 30, 2025 Coding Level of Care Code 91646 INT INP/OBS CARE
[2025-09-30] MEDS: METOPROLOL TARTRATE 50 MG TAB PO SCH (20:07)
[2025-09-30] MEDS: APIXABAN 5 MG TABLET PO SCH (20:07)
[2025-09-30] MEDS: VALSARTAN 80 MG TAB PO SCH (20:48)
--- NOTE | 2025-09-30 22:35 | XCELERA ---
[id number] \\[id number]
--- NOTE | 2025-09-30 22:57 | Cardiology Consultation ---
Date of Consultation September 30, 2025 Assessment & Plan (1) Acute non-ST elevation myocardial infarction (NSTEMI): 95% mid LAD post LELA. No significant non-culprit disease 2. Ischemic cardiomyopathyEF 35% with LAD wall motion abnormality 3. Persistent [id number] 6, on home Eliquis 4. Mild aortic stenosis, mild MR 5. Moderate pulm hypertension 6. CVI/lymphedema/chronic lower extremity edema Patient doing well following PCI earlier today. No residual chest pain. No signs of heart failure on exam. No signs of access site complications. Going forward plan on ASCVD secondary prevention and initiation of GDMT Continue dual therapy with clopidogrel, Eliquis Started on metoprolol 50 mg twice dailytransition back to Toprol-XL on discharge Agree with starting valsartan Start spironolactone 12.5 mg in a.m. Stop additional potassium Continue home Lasix 20 mg daily Continue high intensity statin Plan to monitor on telemetry overnight. No need for LifeVest. Likely discharge to home tomorrow. Appreciate hospital medicine care History of Present Illness Attending Physician: Boni Liu, DO History of Present Illness Mr. Curry is a very pleasant 85 year-old man with a history of persistent AF, mild who presented with NSTEMI now post PCI. Previously followed by Dr. Clark for his cardiac care. Other medical issues include history of remote TIA, CVI/lymphedema with chronic lower extremity edema and prior venous ulcers, osteoarthritis, prior lumbar compression fractures, BPH. Presented with 1 week of stuttering substernal chest pain. Pain associated with exertional dyspnea. Today developed more severe pain while walking around his home with associated diaphoresis and maybe some dizziness. Initial ECG showed A-fib with RVR, ventricular rate 118 with left axis deviation, with new inferior Q waves and nonspecific ST abnormality in V2/V3. Initial HS TropI 1600, BNP 617. Minimal residual pain worsened while in the ED and interventional cardiology contacted. Echo showed new LV dysfunction, EF 35% with LAD distribution wall motion abnormality. Again noted to have mild , mild MR. Pulmonary hypertension now moderate. Underwent cardiac catheterization which revealed 95% mid LAD stenosis which was treated with a single LELA. Minimal nonculprit disease. 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 Lifelong non-smoker. Here today with his daughter Jenifer, son Faizan. Allergies Allergy/AdvReac Type Severity Reaction Status Date / Time Penicillins Allergy Intermediate facial Verified 09/30/25 12:55 swelling vancomycin Allergy Severe facial and Uncoded 08/13/25 14:13 lip redness and swelling - poss angioedema Home Medications Medication Instructions Recorded Confirmed Type acetaminophen 325 mg tablet 650 mg PO Q4 PRN temp>100 06/23/23 09/30/25 History ascorbic acid (vitamin C) 500 mg 500 mg PO QAM 06/23/23 09/30/25 History tablet (Vitamin C) calcium carbonate (Calcium 600) 600 mg PO QAM 06/23/23 09/30/25 History cholecalciferol (vitamin D3) 50 50 mcg PO QAM 06/23/23 09/30/25 History mcg (2,000 unit) tablet (Vitamin D3) sennosides 8.6 mg tablet 8.6 mg PO DAILY PRN Constipation 06/23/23 09/30/25 History apixaban 5 mg tablet (Eliquis) 5 mg PO BID #180 tabs 11/13/24 09/30/25 Rx ginkgo biloba 40 mg tablet 40 mg PO QAM 11/13/24 09/30/25 History metoprolol succinate 100 mg 100 mg PO QAM #90 tabs 11/13/24 09/30/25 Rx tablet,extended release 24 hr potassium chloride 10 mEq 10 meq PO QAM take with furosemide 12/16/24 09/30/25 History tablet,extended release(part/cryst) (lasix) vitamin A-vitamin C-vit E-min 2 tab PO QAM 12/16/24 09/30/25 History tablet tamsulosin 0.4 mg capsule 0.4 mg PO QAM #90 caps 01/06/25 09/30/25 Rx furosemide 20 mg tablet 20 mg PO DAILY #180 tabs 09/07/25 09/30/25 Rx Patient History Medical History Diastolic heart failure Osteoarthritis Mild aortic stenosis Tinnitus of both ears History of TIA (transient ischemic attack) Atrial fibrillation Compression fracture of lumbar vertebra BPH (benign prostatic hyperplasia) Surgical History Status post hardware removal (10/2024) History of dental surgery History of wisdom tooth extraction History of tonsillectomy and adenoidectomy Status post open reduction with internal fixation (ORIF) of fracture of ankle Total knee replacement status H/O hernia repair History of appendectomy Family History Father Hypertension Other No family history of adverse response to anesthesia Denies family history of Ovarian cancer Prostate cancer Diabetes Myocardial infarction Breast cancer Colorectal cancer Social History Smoking Status: Never smoker Second Hand Exposure: No; Do You Dip or Chew Tobacco: No; Hx Alcohol Use: No Hx Substance Use: No Preferred Language: Slovak Communication Ability: Effective Visual Impairment: No Limitations Hearing Ability: Normal Bottom Man Required: No Beliefs That Will Affect Care: None marital status: Current Living Situation: Alone Current Living Situation Comment: 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 How many Children do You have: 4 Other Information That Helps Us Care for You: No Feels Safe at Home: Yes Safety Concerns: Feels Safe At This Time Childhood Exposure to Second-Hand Smoke: No Diet: regular caffeine: Yes (coffee) during the past year weight has: remained stable Dental Care, Regularly: Yes Physical Activity Frequency: 1-2 Times per Week Physical Activity Frequency Comment: walking helping Seatbelt Use: always Sunscreen Use: Yes Do you think of yourself as: straight/heterosexual Sexual Activity: has been sexually active, but not for at least 12 months Gender Identity: Male Assistive Devices: Cane Review of Systems Review of Systems: All systems reviewed & are unremarkable except as noted in HPI & below Physical Exam Physical Exam: General: Comfortable HEENT: Sclerae anicteric Lungs: Clear to auscultation bilaterally, no crackles or wheezes Cardiac: Regular rate and rhythm, 2-6 systolic ejection murmur heard best at the right upper sternal border Vascular: TR band in place over right radial artery Abdomen: Soft, nontender Extremities: Well perfused, 1-2+ bilateral lower extremity edema with dense hyperpigmentation bilaterally, prior healed ulcers Neuro: Nonfocal Psych: Alert orient x3, normal affect and mood Results & Data Vital Signs (Past 12 Hours) Vital Signs Temp Pulse Pulse Resp BP BP Pulse Ox 09/30/25 19:41 97.5 F L 95 H 20 128/90 95 09/30/25 16:44 97.5 F L 99 H 20 146/108 H 95 09/30/25 15:48 110 H 09/30/25 15:46 09/30/25 15:15 97.5 F L 84 18 135/88 95 09/30/25 14:45 93 H 131/90 93 09/30/25 14:30 18 148/93 H 09/30/25 12:42 100 H 18 140/98 92 09/30/25 12:38 09/30/25 12:30 89 21 139/98 93 09/30/25 12:00 87 19 132/106 H 96 09/30/25 11:48 96 H 15 136/114 H 09/30/25 11:00 93 H 18 147/115 H 95 09/30/25 10:50 93 H 148/112 H O2 Del Method O2 Del Method 09/30/25 19:41 Room Air 09/30/25 16:44 Room Air 09/30/25 15:48 09/30/25 15:46 Room Air 09/30/25 15:15 Room Air 09/30/25 14:45 Room Air 09/30/25 14:30 09/30/25 12:42 Room Air 09/30/25 12:38 Room Air 09/30/25 12:30 Room Air 09/30/25 12:00 Room Air 09/30/25 11:48 09/30/25 11:00 Room Air 09/30/25 10:50 PG Care Time/CCT Total # of Minutes Spent Total Time Spent with Patient: Total time spent is greater than 50% in coordination of care (as documented) at patient's floor/unit and/or counseling patient: Coding Level of Care Code 61789 INT INP/OBS CARE 2/55MIN Diagnoses Acute non-ST elevation myocardial infarction (NSTEMI) I21.4
[2025-10-01 06:23] LABS: Hematocrit (blood only) 49.2 % (42.0-52.0); Hemoglobin 16.5 g/dL (14.0-18.0); Mean Corpuscular Hemoglobin 32.2 pg (25.0-34.0); Mean Corpuscular Volume 96.1 fL (80.0-100.0); Platelet Count 129 K/uL (130-400); RDW Standard Deviation 56.8 fL (36.4-46.3); Red Blood Count 5.12 M/uL (4.70-6.10); White Blood Count 6.05 K/ul (4.8-10.8)
[2025-10-01 06:55] LABS: Alanine Aminotransferase 15.0 U/L (7-52); Albumin Globulin Ratio 1.3 (0.9-2); Albumin Level 3.7 gm/dl (3.4-5.0); Alkaline Phosphatase 62.0 U/L (34-104); Anion Gap 8.0 (3-11); Bilirubin,Total 1.5 mg/dl (0.2-1.0); Blood Urea Nitrogen 20.0 mg/dl (6-23); Calcium 9.0 mg/dl (8.6-10.3); Carbon Dioxide 28.0 mmol/L (21-32); Chloride 105.0 mmol/L (98-107); Cholesterol 105.0 mg/dl (0-200); Creatinine Clr Calc Pharmacy 86.5 ml/min; Globulin 2.9 gm/dl (2.5-4.0); Glucose 116.0 mg/dl (70-99(Fasting)); HDL Cholesterol 34.0 mg/dl; Potassium 4.0 mmol/L (3.5-5.1); Sodium 141.0 mmol/L (136-145); Total Protein 6.6 gm/dl (6.0-8.3); Triglycerides 75.0 mg/dl (0-150)
--- NOTE | 2025-10-01 07:32 | Hospitalist Progress Note ---
Date of Service October 01, 2025 Assessment & Plan (1) Chest pain: (2) Elevated troponin: (3) History of TIA (transient ischemic attack): (4) Atrial fibrillation: (5) BPH (benign prostatic hyperplasia): (6) Anticoagulant long-term use: (7) Mild aortic stenosis: Plan 85 year old male with PMHx Afib on Eliquis, TIA, and BPH presents with chest pain: #NSTEMI: Initial troponin 1670, repeat 1890 EKG with subtle nonspecific changes Cardiology consulted, s/p cardiac cath and PCI with placement of LELA - notable for: 95% acute mid-LAD stenosis Start dual antithrombotic therapy with Eliquis and Plavix for at least 1 year Start atorvastatin 40mg daily Start valsartan 20mg BID Continue metoprolol #AFib: Continue metoprolol and Eliquis #BPH: Continue tamsulosin Dispo: Admit PCU VTE ppx: Eliquis Diet: HH Conditional code Admission and Anticipated Discharge Date Admission Date: September 30, 2025 Review of Systems Review of Systems: as per HPI Physical Exam Physical Exam: Constitutional: no acute distress HEENT: NCAT, no conjunctival injection CV: +irregularly irregular rhythm. extremities well-perfused Resp: no increased work of breathing GI: nondistended MSK: no gross deformities Skin: warm, dry, no rash appreciated Neuro: alert, oriented, no focal neurologic deficit appreciated Results & Data Results & Data Vital Signs (Past 12 Hours) Vital Signs Temp Pulse Resp BP Pulse Ox O2 Del Method 10/01/25 02:37 36.4 C L 104 H 18 127/94 93 Room Air 09/30/25 23:00 36.3 C L 99 H 18 124/80 92 Room Air 09/30/25 19:41 36.4 C L 95 H 20 128/90 95 Room Air (4) Atrial fibrillation Atrial fibrillation type: unspecified chronic Qualified Code(s): I48.20 - Chronic atrial fibrillation, unspecified (5) BPH (benign prostatic hyperplasia) Lower urinary tract symptom presence: symptoms present Lower urinary tract symptom detail: urinary frequency Qualified Code(s): N40.1 - Benign prostatic hyperplasia with lower urinary tract symptoms; R35.0 - Frequency of micturition
[2025-10-01 07:43] LABS: Hemoglobin A1C 6.1 % (4.5-5.6)
[2025-10-01] MEDS ORDERED: POTASSIUM CHLORIDE 10 MEQ TABCR PO SCH (09:00)
[2025-10-01] MEDS: TAMSULOSIN HCL 0.4 MG CAP PO SCH (09:01)
[2025-10-01] MEDS: CLOPIDOGREL BISULFATE 75 MG TAB PO SCH (09:04)
[2025-10-01] MEDS: ATORVASTATIN 40 MG TAB PO SCH (09:05)
[2025-10-01] MEDS: SPIRONOLACTONE 12.5 MG TAB PO SCH (09:12)
[2025-10-01] MEDS: FUROSEMIDE 20 MG TAB PO SCH (10:17)
[2025-10-01] MEDS: FUROSEMIDE 40 MG/4 ML VIAL IV ONE (10:17)
--- NOTE | 2025-10-01 10:36 | Cardiology Progress Note ---
Date of Service October 01, 2025 Assessment & Plan (1) Acute non-ST elevation myocardial infarction (NSTEMI): Plan: 95% mid LAD post LELA. No significant non-culprit disease 2. Ischemic cardiomyopathyEF 35% with LAD wall motion abnormality 3. Persistent [id number] 6, on home Eliquis 4. Mild aortic stenosis, mild MR 5. Moderate pulm hypertension 6. CVI/lymphedema/chronic lower extremity edema No recurrent angina Hemodynamically and electrically stable overnight. No apparent access site complications Mild congestion on exam with NYHA class III equivalent dyspnea Overall doing well following PCI yesterday however, does have mild congestion on exam with dyspnea with minimal activity. Recommend some additional diuresis before sending home. Will give IV Lasix 40 mg x 1 this morning. If wheezing improved, feeling well later this afternoon okay with discharge home today. Continue dual therapy with clopidogrel, Eliquis Home on Toprol-XL 100 mg daily On new valsartan and spironolactone. Stop additional potassium. Repeat BMP in 1 week. Continue home Lasix 20 mg daily Continue high intensity statin We talked about salt restriction and daily weights Will arrange follow-up with me in 1 to 2 weeks. Appreciate hospital medicine care Admission and Anticipated Discharge Date Admission Date: September 30, 2025 Subjective No issues overnight. Denies any recurrent chest pain. Reports some wheezing, "congestion" asking about Mucinex. Has not walked to bathroom yet Telemetry reviewedpersistent AF with heart rates from 90s to 120s Review of Systems Review of Systems: All systems reviewed & are unremarkable except as noted in HPI & below Physical Exam Physical Exam: General: Comfortable HEENT: Sclerae anicteric Lungs: Decreased breath sounds at left base, few scattered wheezes. Appears mildly dyspneic with sitting up. Unable to assess JVD Cardiac: Irregular irregular, no murmurs Vascular: Right radial artery access site with no ecchymosis, hematoma. Distal pulse and sensation intact. Abdomen: Soft, nontender Extremities: Well perfused, 1-2+ bilateral lower extreme edema with chronic venous stasis changes Neuro: Nonfocal Psych: Alert orient x3, normal affect and mood Results & Data Vital Signs (Past 12 Hours) Vital Signs Temp Pulse Resp BP Pulse Ox O2 Del Method 10/01/25 09:00 Room Air 10/01/25 07:57 97.5 F L 104 H 20 155/99 H 94 Room Air 10/01/25 02:37 97.5 F L 104 H 18 127/94 93 Room Air 09/30/25 23:00 97.3 F L 99 H 18 124/80 92 Room Air PG Care Time/CCT Total # of Minutes Spent Total Time Spent with Patient: Total time spent is greater than 50% in coordination of care (as documented) at patient's floor/unit and/or counseling patient: Coding Level of Care Code 26281 SUB INP/OBS CARE 2/35MIN Diagnoses Acute non-ST elevation myocardial infarction (NSTEMI) I21.4
[2025-10-01] MEDS: FUROSEMIDE INJ 20 MG/2 ML VIAL IV ONE (11:32)
[2025-10-01 11:38] VITALS: BP 140/96; RESP 19; TEMP 97.9; O2SAT 91
--- NOTE | 2025-10-01 11:57 | Discharge Summary ---
Date of Service October 01, 2025 Admission HPI Per Admitting Provider 85 year old male with PMHx Afib on Eliquis, TIA, and BPH presents with chest pain. Intermittent left sided chest pain started about 2 weeks ago following acute URI. Pain has been episodic, no consistent triggering factor. Pain significantly worse this AM. Reports associated diaphoresis and shortness of breath during episodes of chest pain. Also reports dyspnea on exertion but no chest pain with exertion. Patient on Eliquis for Afib - took his Eliquis this AM. Pain partially reproducible with palpation of left anterior chest wall. Chest pain not positionally dependent. Denies current chest pain, shortness of breath, palpitations. Admission Exam Per Admitting Provider Constitutional: no acute distress HEENT: NCAT, no conjunctival injection CV: +irregularly irregular rhythm. extremities well-perfused Resp: no increased work of breathing GI: nondistended MSK: no gross deformities Skin: warm, dry, no rash appreciated Neuro: alert, oriented, no focal neurologic deficit appreciated Principal Diagnosis NSTEMI Discharge Exam Constitutional: no acute distress HEENT: NCAT, no conjunctival injection CV: extremities well-perfused Resp: no increased work of breathing GI: nondistended MSK: no gross deformities Skin: warm, dry, no rash appreciated Neuro: alert, oriented, no focal neurologic deficit appreciated Discharge Data Allergies Allergy/AdvReac Type Severity Reaction Status Date / Time Penicillins Allergy Intermediate facial Verified 09/30/25 12:55 swelling vancomycin Allergy Severe facial and Uncoded 08/13/25 14:13 lip redness and swelling - poss angioedema Consultations 09/30/25 12:03 ED Decision to Admit Stat 09/30/25 15:46 Consult Cardiology Routine Procedures Performed Operation Date: 09/30/25 11:45 Actual Procedures p Cineradiography w/Routine Exam - Carlos A Andrew MD s Cath, Left with Cors and Vent - Carlos A Andrew MD s Drug Eluting Stent SGl Vessel - Carlos A Andrew MD Ordered Studies 09/30/25 11:34 CL Cath Imgs for PACS use only Stat Hospital Course (1) Acute non-ST elevation myocardial infarction (NSTEMI): (2) Chest pain: (3) Elevated troponin: (4) History of TIA (transient ischemic attack): (5) Atrial fibrillation: (6) BPH (benign prostatic hyperplasia): (7) Anticoagulant long-term use: (8) Mild aortic stenosis: (9) Ischemic cardiomyopathy: Plan 85 year old male with PMHx Afib on Eliquis, TIA, and BPH presented with chest pain: #NSTEMI // #Ischemic cardiomyopathy: Initial troponin 1670, repeat 1890 EKG with subtle, nonspecific changes TTE demonstrated EF 35-40%, LAD distribution wall motion abnormality, moderate pulmonary HTN Cardiology consulted, s/p cardiac cath and PCI with placement of LELA - notable for: 95% acute mid-LAD stenosis Continue dual antithrombotic therapy with Eliquis and Plavix for at least 1 year Continue atorvastatin 40mg daily Continue valsartan 20mg BID Continue spironolactone 12.5mg BID Continue metoprolol succinate 100mg daily Continue Lasix 20mg daily Stopped potassium supplementation, given addition of valsartan and spironolactone #AFib: Continue metoprolol and Eliquis #BPH: Continue tamsulosin Total Time Total Time Spent Total Time Spent (In Minutes): <30 Discharge Plan Discharge Items Patient Disposition: Home - Self-Care Reason For Visit: CHEST PAIN Discharge Diagnosis: NSTEMI Condition on Discharge: Serious Activity: As commented below Activity Comment: activity progression as tolerated Non-emergency contact: Primary Care Provider and Manager Of Program Call non-emergency contact if: you have any medication questions and your symptoms worsen Follow-up/Referrals: Tiffanie Murphy PA-C [Physician Tobacco Grower] - 10/07/25 10:30 am Marybeth Woods MD [Primary Care Provider] - 10/08/25 11:30 am Diet: Heart Healthy Add Attending Provider Instructions: You were admitted with chest pain and were found to have a blockage in one your coronary arteries. You had a stent placed to help restore blood flow. You were started on several medications, please see below. Broadly speaking, it is critical that you remain on these medications senior care in order to decrease your risk for further cardiovascular events. Please follow up with your primary care doctor shortly after discharge and with cardiology as directed. New medications: Atorvastatin: This is a cholesterol lowering medication that also helps stabilize any plaque within the arteries. Please take one tab daily. Notify your doctor if you develop muscle aches as a side effect. Valsartan: This is a blood pressure medication that helps reduce the strain on your heart. Please take 1/4 tab twice daily. Notify your doctor if you feel lightheaded or dizzy, as this may be a sign of excessively low blood pressure. Spironolactone: Please take 1/2 tab twice daily. Plavix (clopidogrel): Please take once daily. This is an antiplatelet medication that essentially help prevent clots from sticking to and blocking the stent that was placed. Being on this medication in addition to Eliquis does potentially increase risk for bleeding - if you have any minor cuts, nosebleeds, etc., apply direct pressure for 10-15 minutes. If bleeding persists or if you have any other symptoms, it is important that you seek care. Please STOP the following medication: Potassium chloride - the valsartan and spironolactone that you were started on increase your potassium level, so you should no longer need additional supplementation. Apart from the changes noted above, please continue your other home meds. Lifestyle modification is also an important aspect of reducing your risk for recurrent cardiovascular events. Broadly speaking, a Mediterranean diet is best shown to offer heart protection. Components of this include: - Cutting back on how much saturated fat and cholesterol you eat - Cutting back on how much salt (sodium) you eat, especially if you have high blood pressure - Eating more fresh vegetables and fruits - Eating lean proteins such as fish, poultry, beans, and peas, and eating less red meat and processed meats - Using low-fat dairy products - Limiting how many sweets and processed foods such as chips, cookies, and baked goods you eat - Limiting how often you eat out. And when you do eat out, making better food choices. Not eating fried or greasy foods, or foods high in saturated fat Pending Studies at Discharge: No Stand-Alone Forms: [facility], Smoking Cessation Medications and DC Order Prescriptions: New atorvastatin 40 mg Tablet 40 mg PO QAM 30 Days Qty: 30 0RF valsartan [Diovan] 80 mg Tablet 20 mg PO BID 30 Days Qty: 15 0RF clopidogrel 75 mg Tablet 75 mg PO QAM 30 Days Qty: 30 0RF spironolactone 25 mg Tablet 12.5 mg PO DAILY 30 Days Qty: 15 0RF Continued furosemide 20 mg tablet 20 mg PO DAILY Qty: 180 3RF Rx Instructions: May take 40mg daily as needed for weight gain/edema/SOB ginkgo biloba 40 mg tablet 40 mg PO QAM Patient Comments: 09/30- otc unable to verify Rx Instructions: give with meal/snack Eliquis 5 mg tablet 5 mg PO BID Qty: 180 3RF metoprolol succinate 100 mg tablet extended release 24 hr 100 mg PO QAM Qty: 90 3RF tamsulosin 0.4 mg capsule 0.4 mg PO QAM Qty: 90 3RF acetaminophen 325 mg Tablet 650 mg PO Q4 PRN (Reason: temp>100) Patient Comments: 09/30- otc unable to verify calcium carbonate [Calcium 600] 600 mg calcium (1,500 mg) Tablet 600 mg PO QAM Patient Comments: 09/30- otc unable to verify sennosides 8.6 mg Tablet 8.6 mg PO DAILY PRN (Reason: Constipation) Patient Comments: 09/30- otc unable to verify ascorbic acid (vitamin C) [Vitamin C] 500 mg Tablet 500 mg PO QAM Patient Comments: 09/30- otc unable to verify cholecalciferol (vitamin D3) [Vitamin D3] 50 mcg (2,000 unit) Tablet 50 mcg PO QAM Patient Comments: 09/30- otc unable to verify vitamin A-vitamin C-vit E-min Tablet 2 tab PO QAM Patient Comments: 09/30- otc unable to verify Discontinued potassium chloride 10 mEq tablet,ER particles/crystals 10 meq PO QAM Discharge Orders: Discharge Order (Routine); Ordered 10/01/25 Ordered By: John Garcia/Other Patient Handouts: Prediabetes, 5 Steps for Eating Healthier Admission Data Admit Date/Time: 09/30/25 12:20 Attending Provider: Boni Liu Admit Provider: John Dodd Primary Care Provider: Marybeth Woods Other Providers: Boni Liu; Emanuel Johnson; Mack Blanca; Shemar Pittman; Khanh Clark; Vincent Neville Jr; Kavon Fry; Erika Arreola; Tiffanie Murphy; Carlos A Andrew; Carlos A Romero; Tona Morris; Elder Kennedy; Mariia Barnett; Elder Shin; Amilcar Hand; Jewel Weller; Ramakrishna Garcia; Primo Valdes; Key Moore; Ree Desir Other Interventions: Discharge Summary Assessment (RN) Last Done: 10/01/25 13:55 Supervising Physician Co-Signing Physician Notes I personally examined the patient and verified all kuhn points of history and exam, discussed case, and agree with decision making with Dr Dodd Feels good. No further chest pain. Getting up and to the bathroom without any chest pain or shortness of breath. Extensive discussions on medication and lifestyle changehe expresses a good understanding and asks good questions. Vitals noted, in general he is awake and alert oriented and appropriate pleasant no distress. HEENT normocephalic atraumatic mucous membranes moist. Breathing unlabored no accessory muscle use good effort. Skin without rashes pallor or icterus. Neuro without focal deficits. Coronary artery disease with NSTEMIstatus post cath and stenting. Symptoms resolved. med management, lifestyle change, secondary risk reductiondiscussed extensively. Discussed being on Eliquis and dual antiplatelets for the time being. He expressed good understanding for all. 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 Safe as an outpatient to start to build goal-directed medical therapy. Discussed sodium restrictionhe expressed understanding. anticoagulated safe/stable for home Resident Activity Tracking Resident Involvement: Resident Care Provided Care Provided: Adult Hospital Medicine
--- NOTE | 2025-10-01 12:45 | Electrocardiogram Report ---
Test Reason : Blood Pressure : */* mmHG Vent. Rate : 95 BPM Atrial Rate : * BPM P-R Int : * ms QRS Dur : 108 ms QT Int : 368 ms P-R-T Axes : * -28 5 degrees QTcB Int : 462 ms Atrial fibrillation Inferior infarct (cited on or before 30-Sep-2025) Possible Anterolateral infarct (cited on or before 30-Sep-2025) Abnormal ECG When compared with ECG of 30-Sep-2025 10:45, (unconfirmed) No significant change was found Confirmed by Mack Blanca ([id number]) on 10/01/2025 12:44:26 PM Referred By: Marybeth Woods Confirmed By: Mack Blanca
[2025-10-01 13:56] VITALS: PULSE 89
--- NOTE | 2025-10-01 18:09 | Billing Data ---
Date of Service October 01, 2025 Coding Level of Care Code 99483 IN/OBS DISCH 30 MIN/LESS
== END 2025-10-01 14:57 | disposition home or self-care (01) | DRG 322 ==
LOC: ED 09:34 → 4W 12:20 → INTOOBSV 12:20 → 4W 12:38